=== PATIENT | male | born 1965 | race Caucasian/White ===

== ENCOUNTER 2022-04-02 20:22 | Emergency (ER) | payer OTHER ==
--- OUTSIDE RECORDS SUMMARY | 2022-04-02 20:26 | XMS REPORT | Continuity of Care Document ---
:1965 Author Organization [facility] t Address [address] [place] [address] Care Team Providers Name Role Phone SHERRELL PONCE Primary Care Physician Unavailable HAN EL Attending Clinician Unavailable KATE KOVACS Attending Clinician Unavailable FRANSICO DEAL Attending Clinician Unavailable STALIN KEMP Attending Clinician Unavailable SHERRELL PONCE Attending Clinician Unavailable BERKLEY PATRICIO Attending Clinician Unavailable Rosario CONSERVATION POLICY ANALYSTSherrell Kong Attending Clinician Lela Lara Attending Clinician Unavailable LAWRENCE MCKOY Attending Clinician Unavailable Kate Urias Attending Clinician Doctor Unassigned, [place] Attending Clinician Unavailable RADU HINES Attending Clinician Unavailable Berkley Patricio MD Attending Clinician Merari Tomas LMSW Attending Clinician Unavailable Lab, Ang - Db Attending Clinician Unavailable BERKLEY PATRICIO Admitting Clinician Unavailable Payers Payer Name Policy Type Policy Number Effective Date [place] [id number] 2021 2022 C 00:00:00 00:00:00 Problems Condition Condition Condition Status Onset Resolution Last Treating Co mments Source Name Details Category Date Date Treatment Clinician Date Chronic Chronic Disease Active 2021-05 [facility] renal renal 1-10 [place] , stage 4 , stage 4 00 Medi minal (severe) (severe) Branch Chronic Chronic Disease Active [facility] hepatitis hepatitis 9-22 [place] C [place] hepatic hepatic 00 [place] coma coma Branch Elevated Elevated Disease Active Unive rs liver liver -22 ity of enzymes enzymes 00:00: [place] 00 Medical Branch Elevated Elevated Disease Active Un[facility] serum serum -22 [place] of creatinine [place] 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, loss, 00:00: [place] bilateral bilateral 00 Medi minal Branch Edentulous Edentulous Disease Active U nivers 9-15 ity of 00:00: [place] 00 Medical Branch Chronic Chronic Disease Active [facility] bilateral bilateral 9-15 ity of low back low back 00:00: [place] pain pain 00 Medical without without Branch sciatica sciatica Dry skin Dry skin Disease Active Unive rs dermatitis dermatitis 9-15 it y of 00:00: [place] 00 Medical Branch Anxiety Anxiety Disease Active Univers 9-15 ity of 00:00: [place] 00 Medical Branch Abnormal Abnormal Disease Active Unive rs EKG EKG 9-15 ity of 00:00: [place] 00 Medical Branch Hypertensi Hypertensi Disease Active U nivers on, on, 9-15 ity of unspecifie unspecifie [place] d type d type 00 Medical Branch Mouth pain Mouth pain Disease Active Overview : Univers 3-19 Formattin ity of 00:00: g of this [place] 00 note Medical might be Branch different from the original. Added automatic ally from request for surgery [id number] Other Other Disease Active Overview: Univer s chronic chronic 3-19 Formattin ity o f osteomyeli osteomyeli 00:00: g of this [place] tis, other tis, other 00 note Me dical site site might be Branch different from the original. Added automatic ally from request for surgery [id number] Allergies, Adverse Reactions, Alerts Allergy Allergy Status Severity Reaction(s) Onset Inactive Treating Comm ents Source Name Type Date Date Clinician NO KNOWN Drug Active Univers ALLERGIE Class ity of S [facility] Social History Social Habit Start Date Stop Date Quantity Comments Source History [facility] o f Alcohol Frequency [facility] edical Branch History [facility] o f Alcohol Std Drinks [facility] History [facility] o f Alcohol Binge [facility] [place] [facility] Branch Exposure to 2022-03-19 2022-03-29 Not sure University SARS-CoV-2 (event) 00:00:00 11:49:00 [facility] Alcohol intake 2022-03-29 2022-03-29 .29 /d University of 00:00:00 00:00:00 [facility] Cigarettes smoked 2022-02-01 2022-02-01 Univers ity of current (pack per 00:00:00 00:00:00 [facility] ) - Reported Branch Alcohol Comment 2022-02-01 2022-02-01 Frequency varies Uni versity of 00:00:00 00:00:00 [facility] History of tobacco 2018-03-20 2018-02-27 Cigarette Smoker University of use 00:00:00 00:00:00 [facility] Sex [birth year] Universit y of 00:00:00 00:00:00 [facility] Smoking Status Start Date Stop Date Source Smokes tobacco daily 2022-02-01 00:00:00 Univers ity of [facility] Medications Ordered Filled Start Stop Current Ordering Indication Dosage Frequency Signature Comments Components Source Medication Medication Date Date Medication? Clinician (SIG) Name Name lily 2021-05 Yes [id number] Apply to [facility] 1-10 area(s) 2 ity of acetonide 00:00: (two) [place] 0.1 % cream 00 times Medical daily. Branch lily 2021-05 Yes [id number] Apply to [facility] 1-10 area(s) 2 ity of acetonide 00:00: (two) [place] 0.1 % cream 00 times Medical daily. Branch amLODIPine 2021-05 No [id number] 5mg Take 5 mg Univers 5 mg tablet 0-31 10-31 by mouth ity of 14:30: 00:00 in the [place] 05 :00 morning. Medical Branch amLODIPine 2021-05- No [id number] 5mg Take 5 mg Univers 5 mg tablet 0-31 10-31 by mouth ity of 14:30: 00:00 in the [place] 05 :00 morning. Medical Branch amLODIPine 2021-05 Yes [id number] 10mg Take 1 U nivers 10 mg 0-31 tablet by ity of tablet 00:00: mouth in [place] 00 the Medical morning. Branch amLODIPine 2021-05 Yes [id number] 10mg Take 1 U nivers 10 mg 0-31 tablet by ity of tablet 00:00: mouth in [place] 00 the Medical morning. Branch amLODIPine 2021-05 Yes [id number] 10mg Take 1 U nivers 10 mg 0-31 tablet by ity of tablet 00:00: mouth in [place] the Medical morning. Branch amLODIPine 2021-05 Yes [id number] 10mg Take 1 U nivers 10 mg 0-31 tablet by ity of tablet 00:00: mouth in [place] 00 the Medical morning. Branch amLODIPine 2021-05 Yes [id number] 10mg Take 1 U nivers 10 mg 0-31 tablet by ity of tablet 00:00: mouth in [place] the Medical morning. Branch amLODIPine 2021-05 Yes [id number] 10mg Take 1 U nivers 10 mg 0-31 tablet by ity of tablet 00:00: mouth in [place] the Medical morning. Branch amLODIPine 2021-05 Yes [id number] 10mg Take 1 U nivers 10 mg 0-31 tablet by ity of tablet 00:00: mouth in [place] the Medical morning. Branch amLODIPine 2021-05 Yes [id number] 10mg Take 1 U nivers 10 mg 0-31 tablet by ity of tablet 00:00: mouth in [place] the Medical morning. Branch amLODIPine 2021-05 Yes [id number] 10mg Take 1 U nivers 10 mg 0-31 tablet by ity of tablet 00:00: mouth in [place] 00 the Medical morning. Branch lisinopriL 2021-05- No [id number] 40mg Take 40 mg Univers 40 mg 0-14 10-14 by mouth ity of tablet 14:02: 00:00 in the [place] 49 :00 morning. Medical Branch lisinopriL 2021-05- No [id number] 40mg Take 40 mg Univers 40 mg 0-14 10-14 by mouth ity of tablet 14:02: 00:00 in the [place] 49 :00 morning. Medical Branch carvediloL 2021-05 Yes [id number] 6.25mg Take 1 Univers 6.25 mg 0-14 tablet by ity of tablet 00:00: mouth in [place] 00 the Medical morning Branch and 1 tablet in the evening. Take with meals. carvediloL 2021-05 Yes [id number] 6.25mg Take 1 Univers 6.25 mg 0-14 tablet by ity of tablet 00:00: mouth in [address] morning [place] and 1 tablet in the evening. Take with meals. carvediloL 2021-05 Yes [id number] 6.25mg Take 1 Univers 6.25 mg 0-14 tablet by ity of tablet 00:00: mouth in [address] and 1 tablet in the evening. Take with meals. carvediloL 2021-05 Yes [id number] 6.25mg Take 1 Univers 6.25 mg 0-14 tablet by ity of tablet 00:00: mouth in [address] morning [place] and 1 tablet in the evening. Take with meals. carvediloL 2021-05 Yes [id number] 6.25mg Take 1 Univers 6.25 mg 0-14 tablet by ity of tablet 00:00: mouth in [address] and 1 tablet in the evening. Take with meals. carvediloL 2021-05 Yes [id number] 6.25mg Take 1 Univers 6.25 mg 0-14 tablet by ity of tablet 00:00: mouth in [address] and 1 tablet in the evening. Take with meals. carvediloL 2021-05 Yes [id number] 6.25mg Take 1 Univers 6.25 mg 0-14 tablet by ity of tablet 00:00: mouth in [address] and 1 tablet in the evening. Take with meals. carvediloL 2021-05 Yes [id number] 6.25mg Take 1 Univers 6.25 mg 0-14 tablet by ity of tablet 00:00: mouth in [address] and 1 tablet in the evening. Take with meals. carvediloL 2021-05 Yes [id number] 6.25mg Take 1 Univers 6.25 mg 0-14 tablet by ity of tablet 00:00: mouth in [address] and 1 tablet in the evening. Take with meals. carvediloL 2021-05 Yes [id number] 6.25mg Take 1 Univers 6.25 mg 0-14 tablet by ity of tablet 00:00: mouth in [address] and 1 tablet in the evening. Take with meals. carvediloL 2021-05 Yes [id number] 6.25mg Take 1 Univers 6.25 mg 0-14 tablet by ity of tablet 00:00: mouth in [place] 00 the Medical morning Branch and 1 tablet in the evening. Take with meals. carvediloL 2021-05 Yes [id number] 6.25mg Take 1 Univers 6.25 mg 0-14 tablet by ity of tablet 00:00: mouth in [place] 00 the Medical morning Branch and 1 tablet in the evening. Take with meals. carvediloL 2021-05 Yes [id number] 6.25mg Take 1 Univers 6.25 mg 0-14 tablet by ity of tablet 00:00: mouth in [place] 00 the Medical morning Branch and 1 tablet in the evening. Take with meals. lisinopriL Yes [id number] 40mg Take 40 mg Univers 40 mg 9-22 by mouth ity of tablet 14:52: in the [place] [address] morning. Medical Branch traZODone Yes [id number] 150mg Take 150 Univers 150 mg 9-22 mg by ity of tablet 14:52: mouth at [place] [address] bedtime. Medical Branch cyclobenzap Yes Take by Uni vers rine HCl 9-22 mouth. ity of (CYCLOBENZA 14:52: [place] [employer]) Medical Branch lisinopriL Yes [id number] 40mg Take 40 mg Univers 40 mg 9-22 by mouth ity of tablet 14:52: in the [place] [address] morning. Medical Branch traZODone Yes [id number] 150mg Take 150 Univers 150 mg 9-22 mg by ity of tablet 14:52: mouth at [place] [address] bedtime. Medical Branch cyclobenzap Yes Take by Uni vers rine HCl 9-22 mouth. ity of (CYCLOBENZA 14:52: [place] [employer]) Medical Branch lisinopriL Yes [id number] 40mg Take 40 mg Univers 40 mg 9-22 by mouth ity of tablet 14:52: in the [place] [address] morning. Medical Branch traZODone 0 Yes [id number] 150mg Take 150 Univers 150 mg 9-22 mg by ity of tablet 14:52: mouth at [place] [address] bedtime. Medical Branch cyclobenzap 2022-0 Yes Take by Uni vers rine HCl 9-22 mouth. ity of (CYCLOBENZA 14:52: [place] [employer]) Medical Branch lisinopriL 2021-0 Yes [id number] 40mg Take 40 mg Univers 40 mg 9-22 by mouth ity of tablet 14:52: in the [place] morning. Medical Branch traZODone 2021-0 Yes [id number] 150mg Take 150 Univers 150 mg 9-22 mg by ity of tablet 14:52: mouth at [place] [address] bedtime. Medical Branch cyclobenzap 0 Yes Take by Uni vers rine HCl 9-22 mouth. ity of (CYCLOBENZA 14:52: [place] [employer]) Medical Branch lisinopriL 0 Yes [id number] 40mg Take 40 mg Univers 40 mg 9-22 by mouth ity of tablet 14:52: in the [place] morning. Medical Branch traZODone 2021-0 Yes [id number] 150mg Take 150 Univers 150 mg 9-22 mg by ity of tablet 14:52: mouth at [place] [address] bedtime. Medical Branch cyclobenzap 0 Yes Take by Uni vers rine HCl 9-22 mouth. ity of (CYCLOBENZA 14:52: [place] [employer]) Medical Branch lisinopriL 0 Yes [id number] 40mg Take 40 mg Univers 40 mg 9-22 by mouth ity of tablet 14:52: in the [place] morning. Medical Branch traZODone 2021-0 Yes [id number] 150mg Take 150 Univers 150 mg 9-22 mg by ity of tablet 14:52: mouth at [place] [address] bedtime. Medical Branch cyclobenzap 0 Yes Take by Uni vers rine HCl 9-22 mouth. ity of (CYCLOBENZA 14:52: [place] [employer]) Medical Branch lisinopriL 2021-0 Yes [id number] 40mg Take 40 mg Univers 40 mg 9-22 by mouth ity of tablet 14:52: in the [place] morning. Medical Branch traZODone 2021-0 Yes [id number] 150mg Take 150 Univers 150 mg 9-22 mg by ity of tablet 14:52: mouth at [place] [address] bedtime. Medical Branch cyclobenzap 2021-0 Yes Take by Uni vers rine HCl 9-22 mouth. ity of (CYCLOBENZA 14:52: [place] [employer]) Medical Branch traZODone Yes [id number] 150mg Take 150 Univers 150 mg 9-22 mg by ity of tablet 14:52: mouth at [place] [address] bedtime. Medical Branch cyclobenzap Yes Take by Uni vers rine HCl 9-22 mouth. ity of (CYCLOBENZA 14:52: [place] [employer]) Medical Branch traZODone Yes [id number] 150mg Take 150 Univers 150 mg 9-22 mg by ity of tablet 14:52: mouth at [place] [address] bedtime. Medical Branch cyclobenzap Yes Take by Uni vers rine HCl 9-22 mouth. ity of (CYCLOBENZA 14:52: [place] [employer]) Medical Branch traZODone Yes [id number] 150mg Take 150 Univers 150 mg 9-22 mg by ity of tablet 14:52: mouth at [place] [address] bedtime. Medical Branch cyclobenzap Yes Take by Uni vers rine HCl 9-22 mouth. ity of (CYCLOBENZA 14:52: [place] [employer]) Medical Branch traZODone Yes [id number] 150mg Take 150 Univers 150 mg 9-22 mg by ity of tablet 14:52: mouth at [place] [address] bedtime. Medical Branch cyclobenzap Yes Take by Uni vers rine HCl 9-22 mouth. ity of (CYCLOBENZA 14:52: [place] [employer]) Medical Branch traZODone Yes [id number] 150mg Take 150 Univers 150 mg 9-22 mg by ity of tablet 14:52: mouth at [place] [address] bedtime. Medical Branch cyclobenzap Yes Take by Uni vers rine HCl 9-22 mouth. ity of (CYCLOBENZA 14:52: [place] [employer]) Medical Branch traZODone Yes [id number] 150mg Take 150 Univers 150 mg 9-22 mg by ity of tablet 14:52: mouth at [place] [address] bedtime. Medical Branch cyclobenzap Yes Take by Uni vers rine HCl 9-22 mouth. ity of (CYCLOBENZA 14:52: [place] [employer]) Medical Branch traZODone Yes [id number] 150mg Take 150 Univers 150 mg 9-22 mg by ity of tablet 14:52: mouth at [place] bedtime. Medical Branch cyclobenzap Yes Take by Uni vers rine HCl 9-22 mouth. ity of (CYCLOBENZA 14:52: [place] [employer]) Medical Branch traZODone Yes [id number] 150mg Take 150 Univers 150 mg 9-22 mg by ity of tablet 14:52: mouth at [place] bedtime. Medical Branch cyclobenzap Yes Take by Uni vers rine HCl 9-22 mouth. ity of (CYCLOBENZA 14:52: [place] [employer]) Medical Branch traZODone Yes [id number] 150mg Take 150 Univers 150 mg 9-22 mg by ity of tablet 14:52: mouth at [place] bedtime. Medical Branch cyclobenzap Yes Take by Uni vers rine HCl 9-22 mouth. ity of (CYCLOBENZA 14:52: [place] [employer]) Medical Branch traZODone Yes [id number] 150mg Take 150 Univers 150 mg 9-22 mg by ity of tablet 14:52: mouth at [place] [address] bedtime. Medical Branch cyclobenzap Yes Take by Uni vers rine HCl 9-22 mouth. ity of (CYCLOBENZA 14:52: [place] [employer]) Medical Branch traZODone Yes [id number] 150mg Take 150 Univers 150 mg 9-22 mg by ity of tablet 14:52: mouth at [place] [address] bedtime. Medical Branch cyclobenzap Yes Take by Uni vers rine HCl 9-22 mouth. ity of (CYCLOBENZA 14:52: [place] [employer]) Medical Branch traZODone Yes [id number] 150mg Take 150 Univers 150 mg 9-22 mg by ity of tablet 14:52: mouth at [place] [address] bedtime. Medical Branch cyclobenzap Yes Take by Uni vers rine HCl 9-22 mouth. ity of (CYCLOBENZA 14:52: [place] Y[employer]AL) Medical Branch traZODone Yes [id number] 150mg Take 150 Univers 150 mg 9-22 mg by ity of tablet 14:52: mouth at [place] [address] bedtime. Medical Branch cyclobenzap 0 Yes Take by Uni vers rine HCl 9-22 mouth. ity of (CYCLOBENZA 14:52: [place] [employer]) Medical Branch traZODone 2021- Yes [id number] 150mg Take 150 Univers 150 mg 9-22 mg by ity of tablet 14:52: mouth at [place] bedtime. Medical Branch cyclobenzap Yes Take by Uni vers rine HCl 9-22 mouth. ity of (CYCLOBENZA 14:52: [place] YOL[employer]DE [employer]AL) Medical Branch clotrimazol 0 Yes Apply to Un soniya e 1 % 9-22 area(s) at ity of topical 14:51: bedtime. [place] cream 16 Medical Branch clotrimazol 2021-0 Yes Apply to Un soniya e 1 % 9-22 area(s) at ity of topical 14:51: bedtime. [place] cream 16 Medical Branch clotrimazol 2021-0 Yes Apply to Un soniya e 1 % 9-22 area(s) at ity of topical 14:51: bedtime. [place] cream 16 Medical Branch clotrimazol 2021-0 Yes Apply to Un soniya e 1 % 9-22 area(s) at ity of topical 14:51: bedtime. [place] cream 16 Medical Branch clotrimazol 2021-0 Yes Apply to Un soniya e 1 % 9-22 area(s) at ity of topical 14:51: bedtime. [place] cream 16 Medical Branch clotrimazol 2021-0 Yes Apply to Un soniya e 1 % 9-22 area(s) at ity of topical 14:51: bedtime. [place] cream 16 Medical Branch clotrimazol 2021-0 Yes Apply to Un soniya e 1 % 9-22 area(s) at ity of topical 14:51: bedtime. [place] cream 16 Medical Branch clotrimazol 2021-0 Yes Apply to Un soniya e 1 % 9-22 area(s) at ity of topical 14:51: bedtime. [place] cream 16 Medical Branch clotrimazol 2021-0 Yes Apply to Un soniya e 1 % 9-22 area(s) at ity of topical 14:51: bedtime. [place] cream 16 Medical Branch clotrimazol 2-0 Yes Apply to Un soniya e 1 % 9-22 area(s) at ity of topical 14:51: bedtime. [place] cream 16 Medical Branch clotrimazol 2-0 Yes Apply to Un soniya e 1 % 9-22 area(s) at ity of topical 14:51: bedtime. [place] cream 16 Medical Branch clotrimazol 2-0 Yes Apply to Un soniya e 1 % 9-22 area(s) at ity of topical 14:51: bedtime. [place] cream 16 Medical Branch clotrimazol 2-0 Yes Apply to Un soniya e 1 % 9-22 area(s) at ity of topical 14:51: bedtime. [place] cream 16 Medical Branch clotrimazol 2-0 Yes Apply to Un soniya e 1 % 9-22 area(s) at ity of topical 14:51: bedtime. [place] cream 16 Medical Branch clotrimazol 2-0 Yes Apply to Un soniya e 1 % 9-22 area(s) at ity of topical 14:51: bedtime. [place] cream 16 Medical Branch clotrimazol 2-0 Yes Apply to Un soniya e 1 % 9-22 area(s) at ity of topical 14:51: bedtime. [place] cream 16 Medical Branch clotrimazol 2-0 Yes Apply to Un soniya e 1 % 9-22 area(s) at ity of topical 14:51: bedtime. [place] cream 16 Medical Branch clotrimazol 2-0 Yes Apply to Un soniya e 1 % 9-22 area(s) at ity of topical 14:51: bedtime. [place] cream 16 Medical Branch clotrimazol 2-0 Yes Apply to Un soniya e 1 % 9-22 area(s) at ity of topical 14:51: bedtime. [place] cream 16 Medical Branch clotrimazol 2-0 Yes Apply to Un soniya e 1 % 9-22 area(s) at ity of topical 14:51: bedtime. [place] cream 16 Medical Branch clotrimazol 2-0 Yes Apply to Un soniya e 1 % 9-22 area(s) at ity of topical 14:51: bedtime. [place] cream 16 Medical Branch amLODIPine 2021-0 Yes [id number] 5mg Take 5 mg Univers 5 mg tablet 9-15 by mouth ity of 16:00: in the [place] morning. Medical Branch lisinopriL 2021-0 Yes [id number] 40mg Take 40 mg Univers 40 mg 9-15 by mouth ity of tablet 16:00: in the [place] morning. Medical Branch traZODone 2021-0 Yes [id number] 150mg Take 150 Univers 150 mg 9-15 mg by ity of tablet 16:00: mouth at [place] [address] bedtime. Medical Branch cyclobenzap Yes Take by Uni vers rine HCl 9-15 mouth. ity of (CYCLOBENZA 16:00: [place] [employer]) Medical Branch clotrimazol Yes Apply to Un soniya e 1 % 9-15 area(s) at ity of topical 16:00: bedtime. [place] [facility] 04 Medical Branch amLODIPine 2021-0 Yes [id number] 5mg Take 5 mg Univers 5 mg tablet 9-15 by mouth ity of 16:00: in the [place] morning. Medical Branch lisinopriL 2021-0 Yes [id number] 40mg Take 40 mg Univers 40 mg 9-15 by mouth ity of tablet 16:00: in the [place] morning. Medical Branch traZODone 2021-0 Yes [id number] 150mg Take 150 Univers 150 mg 9-15 mg by ity of tablet 16:00: mouth at [place] [address] bedtime. Medical Branch cyclobenzap Yes Take by Uni vers rine HCl 9-15 mouth. ity of (CYCLOBENZA 16:00: [place] [employer]) Medical Branch clotrimazol Yes Apply to Un soniya e 1 % 9-15 area(s) at ity of topical 16:00: bedtime. [place] cream 04 Medical Branch amLODIPine 2021-0 Yes [id number] 5mg Take 5 mg Univers 5 mg tablet 9-15 by mouth ity of 16:00: in the [place] morning. Medical Branch lisinopriL 2021-0 Yes [id number] 40mg Take 40 mg Univers 40 mg 9-15 by mouth ity of tablet 16:00: in the [place] morning. Medical Branch traZODone 0 Yes [id number] 150mg Take 150 Univers 150 mg 9-15 mg by ity of tablet 16:00: mouth at [place] [address] bedtime. Medical Branch cyclobenzap Yes Take by Uni vers rine HCl 9-15 mouth. ity of (CYCLOBENZA 16:00: [place] [employer]) 04 Medical Branch clotrimazol Yes Apply to Un soniya e 1 % 9-15 area(s) at ity of topical 16:00: bedtime. [place] cream 04 Medical Branch amLODIPine 0 Yes [id number] 5mg Take 5 mg Univers 5 mg tablet 9-15 by mouth ity of 16:00: in the [place] [address] morning. Medical Branch amLODIPine 0 Yes [id number] 5mg Take 5 mg Univers 5 mg tablet 9-15 by mouth ity of 16:00: in the [place] [address] morning. Medical Branch amLODIPine 0 Yes [id number] 5mg Take 5 mg Univers 5 mg tablet 9-15 by mouth ity of 16:00: in the [place] [address] morning. Medical Branch amLODIPine 0 Yes [id number] 5mg Take 5 mg Univers 5 mg tablet 9-15 by mouth ity of 16:00: in the [place] [address] morning. Medical Branch amLODIPine 2021-0 Yes [id number] 5mg Take 5 mg Univers 5 mg tablet 9-15 by mouth ity of 16:00: in the [place] [address] morning. Medical Branch amLODIPine 2021-0 Yes [id number] 5mg Take 5 mg Univers 5 mg tablet 9-15 by mouth ity of 16:00: in the [place] [address] morning. Medical Branch amLODIPine 2021-0 Yes [id number] 5mg Take 5 mg Univers 5 mg tablet 9-15 by mouth ity of 16:00: in the [place] [address] morning. Medical Branch amLODIPine 2021-0 Yes [id number] 5mg Take 5 mg Univers 5 mg tablet 9-15 by mouth ity of 16:00: in the [place] [address] morning. Medical Branch amLODIPine 2021-0 Yes [id number] 5mg Take 5 mg Univers 5 mg tablet 9-15 by mouth ity of 16:00: in the [place] [address] morning. Medical Branch amLODIPine 2021-0 Yes [id number] 5mg Take 5 mg Univers 5 mg tablet 9-15 by mouth ity of 16:00: in the [place] [address] morning. Medical Branch amLODIPine 0 Yes [id number] 5mg Take 5 mg Univers 5 mg tablet 9-15 by mouth ity of 16:00: in the [place] [address] morning. Medical Branch amLODIPine 2021-0 Yes [id number] 5mg Take 5 mg Univers 5 mg tablet 9-15 by mouth ity of 16:00: in the [place] [address] morning. Medical Branch amLODIPine 2021-0 Yes [id number] 5mg Take 5 mg Univers 5 mg tablet 9-15 by mouth ity of 16:00: in the [place] [address] morning. Medical Branch lisinopriL 0 Yes [id number] 40mg Take 40 mg Univers 40 mg 9-15 by mouth ity of tablet 16:00: in the [place] [address] morning. Medical Branch traZODone 0 Yes [id number] 150mg Take 150 Univers 150 mg 9-15 mg by ity of tablet 16:00: mouth at [place] [address] bedtime. Medical Branch cyclobenzap Yes Take by Uni vers rine HCl 9-15 mouth. ity of (CYCLOBENZA 16:00: [place] [employer]) Medical Branch clotrimazol Yes Apply to Un soniya e 1 % 9-15 area(s) at ity of topical 16:00: bedtime. [place] cream Medical Branch amLODIPine Yes [id number] 5mg Take 5 mg Univers 5 mg tablet 9-15 by mouth ity of 16:00: in the [place] [address] morning. Medical Branch lisinopriL 0 Yes [id number] 40mg Take 40 mg Univers 40 mg 9-15 by mouth ity of tablet 16:00: in the [place] [address] morning. Medical Branch traZODone 0 Yes [id number] 150mg Take 150 Univers 150 mg 9-15 mg by ity of tablet 16:00: mouth at [place] [address] bedtime. Medical Branch cyclobenzap 0 Yes Take by Uni vers rine HCl 9-15 mouth. ity of (CYCLOBENZA 16:00: [place] [employer]) Medical Branch clotrimazol Yes Apply to Un soniya e 1 % 9-15 area(s) at ity of topical 16:00: bedtime. [place] cream Medical Branch doxepin 50 2022-0 Yes [id number] 50mg Take 1 U nivers mg capsule 9-15 capsule by ity of 00:00: mouth at [place] [address] bedtime. Medical Branch doxepin 50 2021-0 Yes [id number] 50mg Take 1 U nivers mg capsule 9-15 capsule by ity of 00:00: mouth at [place] [address] bedtime. Medical Branch doxepin 50 2021-0 Yes [id number] 50mg Take 1 U nivers mg capsule 9-15 capsule by ity of 00:00: mouth at [place] [address] bedtime. Medical Branch doxepin 50 2021-0 Yes [id number] 50mg Take 1 U nivers mg capsule 9-15 capsule by ity of 00:00: mouth at [place] [address] bedtime. Medical Branch doxepin 50 2021-0 Yes [id number] 50mg Take 1 U nivers mg capsule 9-15 capsule by ity of 00:00: mouth at [place] [address] bedtime. Medical Branch doxepin 50 2021-0 Yes [id number] 50mg Take 1 U nivers mg capsule 9-15 capsule by ity of 00:00: mouth at [place] [address] bedtime. Medical Branch doxepin 50 0 Yes [id number] 50mg Take 1 U nivers mg capsule 9-15 capsule by ity of 00:00: mouth at [place] [address] bedtime. Medical Branch doxepin 50 0 Yes [id number] 50mg Take 1 U nivers mg capsule 9-15 capsule by ity of 00:00: mouth at [place] [address] bedtime. Medical Branch doxepin 50 2021-0 Yes [id number] 50mg Take 1 U nivers mg capsule 9-15 capsule by ity of 00:00: mouth at [place] [address] bedtime. Medical Branch doxepin 50 0 Yes [id number] 50mg Take 1 U nivers mg capsule 9-15 capsule by ity of 00:00: mouth at [place] [address] bedtime. Medical Branch doxepin 50 2021-0 Yes [id number] 50mg Take 1 U nivers mg capsule 9-15 capsule by ity of 00:00: mouth at [place] [address] bedtime. Medical Branch doxepin 50 2021-0 Yes [id number] 50mg Take 1 U nivers mg capsule 9-15 capsule by ity of 00:00: mouth at [place] [address] bedtime. Medical Branch doxepin 50 2022-0 Yes [id number] 50mg Take 1 U nivers mg capsule 9-15 capsule by ity of 00:00: mouth at [place] [address] bedtime. Medical Branch doxepin 50 2021-0 Yes [id number] 50mg Take 1 U nivers mg capsule 9-15 capsule by ity of 00:00: mouth at [place] [address] bedtime. Medical Branch doxepin 50 2021-0 Yes [id number] 50mg Take 1 U nivers mg capsule 9-15 capsule by ity of 00:00: mouth at [place] [address] bedtime. Medical Branch doxepin 50 2021-0 Yes [id number] 50mg Take 1 U nivers mg capsule 9-15 capsule by ity of 00:00: mouth at [place] [address] bedtime. Medical Branch doxepin 50 0 Yes [id number] 50mg Take 1 U nivers mg capsule 9-15 capsule by ity of 00:00: mouth at [place] [address] bedtime. Medical Branch doxepin 50 0 Yes [id number] 50mg Take 1 U nivers mg capsule 9-15 capsule by ity of 00:00: mouth at [place] [address] bedtime. Medical Branch doxepin 50 0 Yes [id number] 50mg Take 1 U nivers mg capsule 9-15 capsule by ity of 00:00: mouth at [place] [address] bedtime. Medical Branch doxepin 50 0 Yes [id number] 50mg Take 1 U nivers mg capsule 9-15 capsule by ity of 00:00: mouth at [place] [address] bedtime. Medical Branch doxepin 50 2021-0 Yes [id number] 50mg Take 1 U nivers mg capsule 9-15 capsule by ity of 00:00: mouth at [place] [address] bedtime. Medical Branch doxepin 50 0 Yes [id number] 50mg Take 1 U nivers mg capsule 9-15 capsule by ity of 00:00: mouth at [place] [address] bedtime. Medical Branch doxepin 50 2021-0 Yes [id number] 50mg Take 1 U nivers mg capsule 9-15 capsule by ity of 00:00: mouth at [place] [address] bedtime. Medical Branch doxepin 50 2021-0 Yes [id number] 50mg Take 1 U nivers mg capsule 9-15 capsule by ity of 00:00: mouth at [place] 00 bedtime. Medical Branch doxepin 50 2021-0 Yes [id number] 50mg Take 1 U nivers mg capsule 9-15 capsule by ity of 00:00: mouth at [place] 00 bedtime. Medical Branch doxepin 50 2021-0 Yes [id number] 50mg Take 1 U nivers mg capsule 9-15 capsule by ity of 00:00: mouth at [place] 00 bedtime. Medical Branch Vital Signs Vital Name Observation Time Observation Value Comments Source Systolic blood 2022-03-29 17:52:00 150 mm[Hg] Univer sity of pressure [facility] Diastolic blood 2022-03-29 17:52:00 81 mm[Hg] Unive rsity of [facility] Heart rate 2022-03-29 17:51:00 90 /min Universi ty of [facility] Body temperature 2022-03-29 17:51:[address] [facility] Respiratory rate 2022-03-29 17:51:00 24 /min Univ ersity of [facility] Body height 2022-03-29 17:51:00 182.9 cm Universi ty of [facility] Body weight 2022-03-29 17:51:00 75.524 kg Universi ty of [facility] BMI 2022-03-29 17:51:00 22.58 kg/m2 Universi ty of [facility] Oxygen saturation in 2022-03-29 17:51:00 97 /min University of Arterial blood by [facility] Pulse oximetry Branch Systolic blood 2022-03-19 19:23:00 146 mm[Hg] Univer sity of pressure [facility] Diastolic blood 2022-03-19 19:23:00 85 mm[Hg] Unive rsity of pressure [facility] Heart rate 2022-03-19 19:21:00 64 /min Universi ty of [facility] Body temperature 2022-03-19 19:21:00 36.94 Natasha Univ ersity of [facility] Body height 2022-03-19 19:21:00 182.9 cm Universi ty of [facility] Body weight 2022-03-19 19:21:00 73.8 kg Universi ty of [facility] BMI 2022-03-19 19:21:00 22.07 kg/m2 Universi ty of [place] [facility] Oxygen saturation in 2022-03-19 19:21:00 97 /min University of Arterial blood by [place] [facility] Pulse oximetry Branch Systolic blood 2022-03-02 18:47:00 134 mm[Hg] Univer sity of pressure [place] [facility] Diastolic blood 2022-03-02 18:47:00 81 mm[Hg] Unive rsity of pressure [place] [facility] Heart rate 2022-03-02 18:47:00 89 /min Universi ty of [place] [facility] Body temperature 2022-03-02 18:47:00 37.39 Natasha Univ ersity of [place] [facility] Respiratory rate 2022-03-02 18:47:00 18 /min Univ ersity of [place] [facility] Body weight 2022-03-02 18:47:00 73.528 kg Universi ty of [place] [facility] BMI 2022-03-02 18:47:00 21.98 kg/m2 Universi ty of [place] [facility] Oxygen saturation in 2022-03-02 18:47:00 95 /min University of Arterial blood by [place] [facility] minal Pulse oximetry Branch Systolic blood 2022-02-08 19:53:00 103 mm[Hg] Univer sity of pressure [place] [facility] Diastolic blood 2022-02-08 19:53:00 67 mm[Hg] Unive rsity of pressure [place] [facility] Heart rate 2022-02-08 19:53:00 96 /min Universi ty of [place] [facility] Body temperature 2022-02-08 19:53:00 36.78 Natasha Univ ersity of [place] [facility] Respiratory rate 2022-02-08 19:53:00 20 /min Univ ersity of [place] [facility] Body height 2022-02-08 19:53:00 182.9 cm Universi ty [facility] [place] [facility] Body weight 2022-02-08 19:53:00 69.945 kg Universi ty [facility] [place] [facility] BMI 2022-02-08 19:53:00 20.91 kg/m2 Universi ty of [place] [facility] Oxygen saturation in 2022-02-08 19:53:00 95 /min University of Arterial blood by [place] [facility] Pulse oximetry Branch Systolic blood 2022-02-01 21:01:00 124 mm[Hg] Univer sity of pressure [place] [facility] Diastolic blood 2022-02-01 21:01:00 67 mm[Hg] Unive rsity of pressure [facility] Heart rate 2022-02-01 21:01:00 87 /min [facility] Body temperature 2022-02-01 21:01:00 36.72 Natasha [facility] rate 2022-02-01 21:01:00 20 /min [facility] Body height 2022-02-01 21:01:00 182.9 cm [facility] Body weight 2022-02-01 21:01:00 71.26 kg [facility] BMI 2022-02-01 21:01:00 21.31 kg/m2 [facility] Oxygen saturation in 2022-02-01 21:01:00 96 /min [facility] Arterial blood by [facility] Pulse oximetry Branch Procedures Procedure Date / Time Performing Clinician Source Performed REFERRAL- 2022-03-15 05:01:00 Doctor Unassigned, No [facility] REQUEST/RESPONSE Name Medical Branch REFERRAL- 2022-02-13 05:01:00 Doctor Unassigned, No [facility] REQUEST/RESPONSE Name Medical Branch PROSTATIC SPECIFIC 2022-02-02 18:42:00 Sherrell Ponce [facility] ANTIGEN SCREEN Medical [place] THYROID STIMULATING 2022-02-02 18:42:00 Rosario [facility] [place] HORMONE Medical Branch LIPID PANEL 2022-02-02 18:42:00 Rosario [facility] [place] ([id number])(TOTAL Medical [place] CHOLESTEROL, TRIGLYCERIDES, HDL) URINE DRUG (IMMUNOASSAY) 2022-02-02 18:42:00 Sherrell Ponce [facility] - COMPREHENSIVE DRUG Medical [facility] SCREEN HCV ANTIBODY 2022-02-02 18:42:00 Rosario [facility] o f [facility] HEPATITIS C VIRUS (HCV) 2022-02-02 18:42:00 Sherrell Ponce [facility] BY QUANTITATIVE NAAT Medical [facility] ADC OR KONRAD ONLY - 2022-02-02 18:42:00 Sherrell Ponce [facility] RPR [facility] [place] Encounters Start End Encounter Admission Attending Care Care Encounter Source Date/Time Date/Time Type Type Clinicians Facility Department ID 2022-04-06 2022-04-06 Outpatient R ROSARIO, [facility] [id number] Univers 16:00:00 16:00:[address] [facility] 2022-04-04 2022-04-04 Outpatient R SINTIA, [facility] [id number] Univers 08:00:00 08:00:00 BERKLEY itraul o f [facility] 2022-03-30 2022-03-30 Outpatient R ROSARIO, [facility] [id number] Univers 16:00:00 16:00:[address] [facility] 2022-03-29 2022-03-29 Outpatient R ROSARIO, [facility] [id number] Univers 11:30:00 12:16:[address] [facility] 2022-03-29 2022-03-29 [facility] 1.2.840.114 [id number] Univers 11:30:00 12:16:07 Visit [facility] 350.1.13.10 it y of [place] 4.2.7.2.686 Antoine as PAXTON?BLEA [phone] [address] MEDICAL OFFICE BUILDING 2022-03-29 2022-03-29 Telephone RICK Lara 1.2.840.114 [id number] Univers 00:00:00 00:00:00 Lela A [place] 350.1.13.10 [place] [id number] [address] 2022-03-23 2022-03-23 Case RICK Lara 1.2.840.114 [id number] Univers 00:00:00 00:00:00 Management Lela A [place] 350.1.13.10 [place] [id number] [address] 2022-03-22 2022-03-22 Telephone RICK Lara 1.2.840.114 [id number] Univers 00:00:00 00:00:00 Lela A [place] 350.1.13.10 [place] [id number] [facility] 086 [place] 2022-03-22 2022-03-22 [facility]phone [facility] [id number] Univers 00:00:00 00:00:00 Sherrell HEALTH 350.1.13.10 it y of [place] 4.2.7.2.686 Antoine as [place]?BLEA [id number] Hi dicmichael GONZALEZEY 044 [facility] OFFICE [facility] 2022-03-21 2022-03-21 Outpatient R SINTIA [facility] [id number] Univers 15:59:06 23:59:00 ASHLEYMOJGAN tana o f [facility] 2022-03-21 2022-03-21 Telephone RICK Lara 1.2.840.114 [id number] Univers 00:00:00 00:00:00 Lela Diaz KEO 350.1.13.10 [place] [id number] [address] 2022-03-19 2022-03-19 [facility] [id number] Univers 14:20:00 14:45:[address] [facility] 2022-03-19 2022-03-19 Office [facility] 1.2.840.114 [id number] Univers 14:20:00 14:45:06 Visit Kate Roche [place] 350.1.13.10 i ty of [place] LISA [id number] Hi dicmichael LIPSCOMB 059 [facility] 2022-03-15 2022-03-15 Orders Doctor JAVID 1.2.840.114 [id number] Univers 00:00:00 00:00:00 Only Unassigned, NOEMI 350.1.13.10 ity of [place] [facility] 4.2.7.2.686 Antoine as [id number] [facility] 009 [place] 2022-03-08 2022-03-08 Outpatient R RADU HINES [facility] [id number] Univers 08:30:00 08:30:[address] [facility] 2022-03-08 2022-03-08 [facility] [id number] Univers 00:00:00 00:00:00 Sherrell HEALTH 350.1.13.10 it y of [place] 4.2.7.2.686 Antoine as [place]XTON?BLEA [id number] [address] OFFICE [facility] 2022-03-02 2022-03-02 Outpatient R SINTIA, [facility] [id number] Univers 15:00:00 15:00:00 BERKLEY perezy o [facility] 2022-03-02 2022-03-02 Outpatient R SINTIA, [facility] [id number] Univers 13:40:00 14:15:02 BERKLEY perezy o [facility] 2022-03-02 2022-03-02 Office [facility] 1.2.840.114 [id number] Univers 13:40:00 14:00:00 Visit Berkley [facility] 350.1.13.10 ity of [place] PROF[place] [id number] [facility] 059 [facility] 2022-02-28 2022-02-[address] [facility] [id number] Univers 00:00:00 00:00:00 Sherrell HEALTH 350.1.13.10 it y of [place] 4.2.7.2.686 Antoine as PAXTON?BLEA [id number] [address] OFFICE [facility] 2022-02-26 2022-02-26 RICK Hoyos 1.2.840.114 [id number] Univers 00:00:00 00:00:00 Management Merari R [place] 350.1.13.10 [place] [id number] [address] 2022-02-23 2022-02-23 RICK Hoyos 1.2.840.114 [id number] Univers 00:00:00 00:00:00 Management Merari R [place] 350.1.13.10 [place] [id number] [address] 2022-02-23 2022-02-23 RICK Hoyos 1.2.840.114 [id number] Univers 00:00:00 00:00:00 Management Merari Chelsea KEO 350.1.13.10 [place] [id number] [address] 2022-02-14 2022-02-14 Outpatient R [facility] [id number] Univers 10:30:00 10:30:00 ity of [facility] 2022-02-13 2022-02-13 Orders Doctor JAVID 1.2.840.114 [id number] Univers 00:00:00 00:00:00 Only Unassigned, NOEMI 350.1.13.10 ity of [place] [facility] 4.2.7.2.686 Antoine as [id number] [address] 2022-02-08 2022-02-08 Outpatient R ROSARIO [facility] [id number] Univers 15:45:00 16:09:38 SHERRELL ity of [facility] 2022-02-08 2022-02-08 Curriculum And Assessment Director Lab, Ang - Db [facility] 1.2.840.1 14 [id number] Univers 15:45:00 16:00:00 Visit Sherrell Ponce 350.1.13.10 ity of [place] 4.2.7.2.686 Antoine as PAXTON?BLEA [id number] [facility] [address] [place] MEDICAL OFFICE BUILDING 2022-02-08 2022-02-08 Office Rosario [facility] 1.2.840.114 [id number] Univers 14:30:00 15:00:00 Visit Sherrell HEALTH 350.1.13.10 it y of [place] 4.2.7.2.686 Antoine as [place]XTON?BLEA [id number] [address] MEDICAL OFFICE BUILDING 2022-02-05 2022-02-05 Telephone Rosario [facility] [id number] [id number] Univers 00:00:00 00:00:00 Sherrell HEALTH 350.1.13.10 it y of [place] 4.2.7.2.686 Antoine as PAXTON?BLEA [id number] Hi baron [facility] [address] [place] MEDICAL OFFICE [facility] 2022-02-02 2022-02-02 Outpatient R ROSARIO [facility] [id number] Univers 13:30:00 14:01:[address] [facility] 2022-02-02 2022-02-02 Curriculum And Assessment Director Lab, Ang - Db [facility] 1.2.840.1 14 [id number] Univers 13:30:00 14:01:41 Visit Sherrell Ponce ANGI 350.1.13.10 ity of [place] 4.2.7.2.686 Antoine as PAXTON?BLEA [id number] [facility] CARLOS 353 [facility] OFFICE [facility] 2022-02-02 2022-02-02 Telephone Rosario [facility] [id number] [id number] Univers 00:00:00 00:00:00 Sherrell HEALTH 350.1.13.10 it y of [place] 4.2.7.2.686 Antoine as PAXTON?BLEA [id number] [address] OFFICE [facility] 2022-02-01 2022-02-01 Office Rosario [facility] 1.2.840.114 [id number] Univers 15:30:00 16:52:01 Visit Sherrell WHITLEY 350.1.13.10 it y of [place] 4.2.7.2.686 Antoine as PAXTON?BLEA [id number] [address] MEDICAL OFFICE [facility] 2022-02-01 2022-02-01 Outpatient R ROSARIO [facility] [id number] Univers 15:30:00 16:52:[address] [facility] 2022-02-01 2022-02-01 Orders Doctor JAVID 1.2.840.114 [id number] Univers 00:00:00 00:00:00 Only Unassigned, NOEMI 350.1.13.10 ity of [place] [facility] 4.2.7.2.686 Antoine as [id number] [address] 2022-01-31 2022-01-31 [facility]phone [facility] [id number] Univers 00:00:00 00:00:00 Takipi 350.1.13.10 it y of [place] 4.2.7.2.686 Antoine as [place]XTON?MARILYN [id number] [address] MEDICAL OFFICE BUILDING Results Test Description Test Time Test Comments Results Result Comments Source HEPATITIS C VIRUS (HCV) BY QUANTITATIVE NAAT 2022-02-05 20:2 9:47 Test Item Value Reference Range Interpretation Comme nts HCV Quantitative NAAT - log Not Detected log IU/mL IU/mL (test code = 90796-7) HCV Quantitative NAAT - IU/mL Not Detected IU/mL (test code = 29022-5) HCV Quantitative Detected Not Detected A Interpretation (test code = 1365165253) GETACHEW (test code = GETACHEW) The Aptima HCV Quant Dx assay is an FDA-approved real-time national account representative-mediated amplification (TMA) test used for both detection and quantitation of hepatitis C virus (HCV) RNA in human serum and plasma from HCV-infected individuals. ?It is intended for use as an aid in the diagnosis of active HCV infection and the management of HCV-infected patients undergoing HCV antiviral drug therapy. ?It is not approved for use as a screening test for the presence of HCV RNA in blood or blood products. The quantitative range of this assay is 1.00 - 8.00 log IU/mL or 10 - 100,000,000 IU/mL. An interpretation of "Not Detected" does not rule out the presence of inhibitors in the patient specimen or HCV RNA concentration below the level of detection of the test. ?Care should be taken when interpreting any single viral load determination. Detected, not Quantifiable: HCV RNA detected, but at a level below 10 IU/mL (1.0 log IU/mL). ?HCV RNA concentration is below the lower limit of quantitation of the assay. Indeterminate: Error indicated in the generation of the result. ?Please submit a new specimen for repeat testing if clinically indicated. Lab Interpretation (test code Abnormal = 63561-6) [facility] [id number] 08:58:12 Test Item Value Reference Range Interpretation Comments HCV Ab (test code = Positive 43775-3) HCV Semi-Quantitative (test code = 05530-3) APRI (test code = 5656740896) GETACHEW (test code = Positive for HCV antibody. GETACHEW) This specimen has been reflexed to qualitative PCR test and submitted to [facility]. ?A report will be issued by that laboratory. ?If any questions, contact the Clinical Chemistry Director database administration project manager at [phone]. [facility] CenterAD OR KONRAD CANDACE - [id number] 05:58:38 Test Item Value Reference Range Interpretation Comments RPR (Qualitative) (test code = Nonreactive Nonreactive 61963-1) Lab Interpretation (test code = Normal 43167-6) [facility] CenterTHYROID STIMULATING [id number] 04:19:19 Test Item Value Reference Range Interpretation Comments TSH (test code = See_Comment [Automated message] [id number]) The system [employer] 19 generated this result transmitted ref erence range: 0.45 - 4 .70 mIU/L. The refe rence range was not u sed to interpret this result as normal/abnor mal. Lab Interpretation (test Normal code = 46482-4) [facility] CenterPROSTATIC SPECIFIC ANTIGEN [id number] 04:18:59 Test Item Value Reference Range Interpretation Comments PSA (test code = 4.32 ng/mL See_Comment H [Automated [id number]) message] The system which generated this result transmitted reference range : <=4.00. The reference range was not used to interpret this result as normal/abnormal . GETACHEW (test code = GETACHEW) Biotin has been reported to cause a negative bias, interpret results relative to patient's use of biotin. Lab Interpretation Abnormal (test code = 84889-0) [facility] CenterLIPID PANEL (77161)(TOTAL CHOLESTEROL, TRIGLYCERIDES, HDL)2022-02-03 03:50:57 Test Item Value Reference Range Interpretation Comments CHOL (test code = 155 mg/dL 120-200 8257320620) HDL (test code = 74 mg/dL See_Comment [Automated message] [id number]) The system [employer] generated this result transmit ashley reference range : >=40. The refer ence range was not u sed to interpret th is result as normal/abnormal . HDLC RATIO (test code = See_Comment [Au tomated message] [id number]) The system [employer] generated this result transmit ashley reference range : <=5.0. The refe rence range was not u sed to interpret th is result as normal/abnormal . TRIG (test code = 211 mg/dL 30-170 H [id number]) LDL CHOL (test code = 39 mg/dL See_Comment [Auto mated message] 26921-1) The system [employer] generated this result transmit ashley reference range : <=160. The refe rence range was not u sed to interpret th is result as normal/abnormal . VLDL (test code = 42 mg/dL 5-60 1214419545) Lab Interpretation (test Abnormal code = 13769-4) [facility] CenterLIPID [id number] 05:00:19 Test Item Value Reference Range Interpretation Comments CHOLESTEROL (test 192 MG/DL <200 code = 2210) TRIGLYCERIDES (test 99 MG/DL <150 code = 2232) HDL CHOLESTEROL (test 88 MG/DL >39 code = 2220) CALC LDL CHOL (test 85 MG/DL <100 NOTE: C ALCULATED LDL code = 2237) IS BASED ON JEAN MARIE-SHELTON METHOD WHICHINCLUDES ADJUSTABLE TRIGLYCERIDE:VL DL CHOLESTEROL RAT IO.THIS FACTOR VARIES B Y MEASURED TRIGLY CERIDE AND NON-HDLCHOL ESTEROL CONCENTRATIONS WITH INCREASED CALCU LATED LDL SEENIN HIGH ER TRIGLYCERIDE OR LOWER NON-HDL SPECIME NS. FOR MOREINFORMATION , SEE CLIENT ANNOUNCE MENT AT [email or web address] RATIO LDL/HDL 0.97 RATIO <3.55 (test code = 2238) COMPREHENSIVE METABOLIC [id number] 05:00:19 Test Item Value Reference Range Interpretation Comments GLUCOSE (test code = 73 MG/DL 70-99 2216) BUN (test code = 11 MG/DL 6-20 2207) CREATININE (test 1.17 MG/DL 0.80-1.40 code = 2214) eGFR (2020 CKD-EPI) 74 >60 (test code = 71195) ML/MIN/1.73 CALC BUN/CREAT (test 9 RATIO 6-28 code = 2235) SODIUM (test code = 131 MEQ/L 133-146 L 2230) POTASSIUM (test code 3.8 MEQ/L 3.5-5.4 = 8) CHLORIDE (test code 95 MEQ/L 95-107 = 2214) CARBON DIOXIDE (test 22 MEQ/L 19-31 code = 2206) CALCIUM (test code = 9.0 MG/DL 8.5-10.5 2208) PROTEIN, TOTAL (test 7.5 G/DL 6.1-8.3 code = 222) ALBUMIN (test code = 4.3 G/DL 3.5-5.2 2200) CALC GLOBULIN (test 3.2 G/DL 1.9-3.7 code = 2240) CALC A/G RATIO (test 1.3 RATIO 1.0-2.6 code = 2234) BILIRUBIN, TOTAL 0.5 MG/DL See_Comment [Automated message] (test code = 2206) The [employer] which generated this result transmitted ref erence range: <=1.2. T he reference range was not used to int erpret this result as normal/abnormal . ALKALINE PHOSPHATASE 65 U/L 40-121 (test code = 2203) AST (test code = 66 U/L 9-50 H 2217) ALT (test code = 49 U/L 5-50 UNLESS OTH ERWISE 2218) INDICATED, ALL TESTING PERFORM ED ATCLINICAL PATH [facility], [facility]. [address] [place] [id number] [place] [address] DIRECTOR: ALEENA HOGAN M.D. CLIA NUMBER [id number] CAP ACCREDITATION N O. [id number]
[2022-04-02 21:59] LABS: Absolute Lymphocytes (CBC) 1.9 K/uL (0.7-4.9); Hematocrit 36.6 % (39.6-49.0); Lymphocytes % 28.5 % (15.3-44.8); MCV 90.4 fL (80-100); MPV 9.1 fL (7.6-11.3); RBC Red Blood Cell Count 4.05 M/uL (4.33-5.43)
[2022-04-02 22:10] LABS: Potassium 3.6 mmol/L (3.5-5.1)
--- NOTE | 2022-04-02 22:53 | RAD REPORT ---
EXAM DESCRIPTION: RAD - Elbow Right 3 View - 04/02/2022 9:40 pm CLINICAL HISTORY: right elbow pain Fall, elbow pain COMPARISON: No comparisons FINDINGS: Significant soft tissue swelling is seen in the region of the olecranon. This could indica te olecranon bursitis. No acute fracture seen.
[2022-04-02] MEDS ORDERED: SMZ./TMP. 800/160 MG TABLET ONE (23:23)
--- NOTE | 2022-04-03 01:09 | EDPHYS ---
Physician Documentation [facility] Name: Crispin Degroot Age: 56 yrs Sex: Male : 1965 Arrival Date: 04/02/2022 Time: 20:27 Bed 10 Private MD: ED Physician Dontrell Sims HPI: 04/02 23:16 This 56 yrs old Male presents to ER via Ambulatory with complaints of Elbow Injury. kb 23:16 the patient presents with a swollen area of the right arm. Description: draining, kb erythematous, swollen, warm. Onset: The symptoms/episode began/occurred 1 week(s) ago. Possible cause(s): unknown. Associated signs and symptoms: Pertinent positives: drainage, erythema, swelling. Modifying factors: the symptoms are alleviated by nothing, the symptoms are aggravated by pressure. Severity of symptoms: At their worst the symptoms were mild, moderate, in the emergency department the symptoms are unchanged. The patient has not experienced similar symptoms in the past. The patient has not recently seen a physician. Pt reports he fell onto right elbow a week and a half ago. Reports swelling, redness, and pain to right arm. Abrasion to right elbow with drainage. Historical: - Allergies: 20:42 No Known Allergies; kd3 - Home Meds: 20:42 blood pressure meds [Active]; kd3 - Immunization history:: Adult Immunizations up to date. - Social history:: Smoking status: Patient reports the use of cigarette tobacco products, smokes one-half pack cigarettes per day. ROS: 23:15 Constitutional: Negative for fever, chills, and weight loss. kb 23:15 MS/extremity: Positive for erythema, pain, swelling, warmth, of the right arm. 23:15 All other systems are negative. Exam: 23:15 Constitutional: This is a well developed, well nourished patient who is awake, alert, kb and in no acute distress. Head/Face: Normocephalic, atraumatic. ENT: Moist Mucous membranes Cardiovascular: Regular rate and rhythm with a normal S1 and S2. No gallops, murmurs, or rubs. No pulse deficits. Respiratory: Respirations even and unlabored. No increased work of breathing. Talking in full sentences MS/ Extremity: Pulses equal, no cyanosis. Neurovascular intact. Full, normal range of motion. Neuro: Awake and alert, GCS 15, oriented to person, place, time, and situation. Moves all extremities. Normal gait. Psych: Awake, alert, with orientation to person, place and time. Behavior, mood, and affect are within normal limits. 23:15 Skin: cellulitis, that is mild, on the right elbow and palmar aspect of right forearm, injury, abrasion(s), small abrasion noted, of the right elbow. Vital Signs: 20:38 BP 166 / 98; Pulse 94; Resp 16; Temp 98.8(O); Pulse Ox 98% on R/A; Weight 77.11 kg; kd3 Height 6 ft. (182.88 cm); Pain 8/10; 22:31 BP 162 / 84; Pulse 92; Resp 19; Pulse Ox 98% on R/A; kd3 23:27 BP 153 / 81; Pulse 84; Resp 16; Pulse Ox 99% on R/A; kd3 20:38 Body Mass Index 23.06 (77.11 kg, 182.88 cm) kd3 MDM: 20:49 Patient medically screened. kb 23:15 Data reviewed: vital signs, nurses notes. Data interpreted: Pulse oximetry: on room air kb is 98 %. Interpretation: normal. Counseling: I had a detailed discussion with the patient and/or guardian regarding: the historical points, exam findings, and any diagnostic results supporting the discharge/admit diagnosis, lab results, radiology results, the need for outpatient follow up, a family practitioner, to return to the emergency department if symptoms worsen or persist or if there are any questions or concerns that arise at home. 04/02 21:10 Order name: IV Start; Complete Time: 21:37 kb Administered Medications: 23:27 Drug: Bactrim (trimethoprim-sulfamethoxazole) (160 mg-800 mg (DS) 1 tablet Route: PO; kd3 23:28 Follow up: Response: No adverse reaction kd3 Disposition: 04/03 01:29 Co-signature as Attending Physician, Dontrell Sims MD I agree with the assessment and rt plan of care. Disposition Summary: 04/02/22 23:14 Discharge Ordered Location: Home kb Condition: Stable kb Diagnosis - Cellulitis of right upper limb kb Followup: kb - With: Emergency Department - When: As needed - Reason: Worsening of condition Followup: kb - With: Private Physician - When: 2 - 3 days - Reason: Recheck today's complaints, Continuance of care, Re-evaluation by your physician Discharge Instructions: - Discharge Summary Sheet kb - Cellulitis, Adult, [id number] kb Forms: - Medication Reconciliation Form kb - Thank You Letter kb - Antibiotic Education kb - Prescription Opioid Use kb Prescriptions: - Bactrim DS 800-160 mg Oral Tablet - take 1 tablet by ORAL route every 12 hours for 10 days; 20 tablet; Refills: 0, kb Product Selection Permitted Signatures: Maya Mendoza FNP-C Lilibeth Manriquez RN RN kd3 Dontrell Sims MD MD rt Corrections: (The following items were deleted from the chart) 04/02 20:42 20:42 Home Meds: None; kd3 kd3
--- NOTE | 2022-04-03 01:09 | ER ---
Nurse's Notes [facility] Name: Crispin Degroot Age: 56 yrs Sex: Male : 1965 Arrival Date: 04/02/2022 Time: 20:27 Bed 10 Private MD: Diagnosis: Cellulitis of right upper limb Presentation: 04/02 20:38 Chief complaint: Patient states: I fell about a week and a half ago and i landed on my kd3 right elbow. Im not sure if i landed on it wrong but it still hurts. Coronavirus screen: Vaccine status: Patient reports being unvaccinated. Ebola Screen: No symptoms or risks identified at this time. Initial Sepsis Screen: Does the patient meet any 2 criteria? No. Patient's initial sepsis screen is negative. Does the patient have a suspected source of infection? No. Patient's initial sepsis screen is negative. Risk Assessment: Do you want to hurt yourself or someone else? Patient reports no desire to harm self or others. Onset of symptoms was April 02, 2022. 20:38 Method Of Arrival: Ambulatory kd3 20:38 Acuity: DANY 4 kd3 Triage Assessment: 20:42 General: Appears in no apparent distress. Behavior is calm, cooperative. General: kd3 Behavior is restless. Pain: Complains of pain in right elbow. Neuro: Level of Consciousness is awake, alert, obeys commands, Oriented to person, place, time, situation. Respiratory: Airway is patent Trachea midline Respiratory effort is even, unlabored, Respiratory pattern is regular, symmetrical. Musculoskeletal: Circulation, motion, and sensation intact. Injury Description: Bruise sustained to right elbow. Historical: - Allergies: 20:42 No Known Allergies; kd3 - Home Meds: 20:42 blood pressure meds [Active]; kd3 - Immunization history:: Adult Immunizations up to date. - Social history:: Smoking status: Patient reports the use of cigarette tobacco products, smokes one-half pack cigarettes per day. Screenin:43 Abuse screen: Denies threats or abuse. Denies injuries from another. Nutritional kd3 screening: No deficits noted. Tuberculosis screening: No symptoms or risk factors identified. Fall Risk None identified. Assessment: 21:37 General: Appears in no apparent distress. Behavior is calm, cooperative. General: blood kd3 collected and sent to lab . Pain: Complains of pain in right elbow. Neuro: Level of Consciousness is awake, alert, obeys commands, Oriented to person, place, time, situation. 22:30 Reassessment: No changes from previously documented assessment. Patient and/or family kd3 updated on plan of care and expected duration. Pain level reassessed. Patient is alert, oriented x 3, equal unlabored respirations, skin warm/dry/pink. Vital Signs: 20:38 BP 166 / 98; Pulse 94; Resp 16; Temp 98.8(O); Pulse Ox 98% on R/A; Weight 77.11 kg; kd3 Height 6 ft. (182.88 cm); Pain 8/10; 22:31 BP 162 / 84; Pulse 92; Resp 19; Pulse Ox 98% on R/A; kd3 23:27 BP 153 / 81; Pulse 84; Resp 16; Pulse Ox 99% on R/A; kd3 20:38 Body Mass Index 23.06 (77.11 kg, 182.88 cm) kd3 ED Course: 20:27 Patient arrived in ED. mr 20:42 Triage completed. kd3 20:42 Arm band placed on right wrist. kd3 20:43 Patient has correct armband on for positive identification. kd3 20:48 Maya [facility]endoza [facility]C [facility]. kb 20:48 Dontrell Sims MD is Attending Physician. kb 20:56 Lilibeth Martines, ALIVIA is Primary Nurse. kd3 21:38 Inserted saline lock: 20 gauge in left antecubital area, using aseptic technique. Blood kd3 collected. 23:27 No provider procedures requiring assistance completed. IV discontinued, intact, kd3 bleeding controlled, No redness/swelling at site. Pressure dressing applied. Administered Medications: 23:27 Drug: Bactrim (trimethoprim-sulfamethoxazole) (160 mg-800 mg (DS) 1 tablet Route: PO; kd3 23:28 Follow up: Response: No adverse reaction kd3 Medication: 20:43 VIS not applicable for this client. kd3 Outcome: 23:14 Discharge ordered by . kb 23:27 Discharged to home ambulatory. kd3 23:27 Condition: stable 23:27 Discharge instructions given to patient, Instructed on discharge instructions, follow up and referral plans. medication usage, Demonstrated understanding of instructions, follow-up care, medications, Prescriptions given X 1. 23:28 Patient left the ED. kd3 Signatures: Maya Mendoza FNP-C FNP-Sharon Ba mr Lilibeth Martines, RN RN kd3 Corrections: (The following items were deleted from the chart) 20:42 20:42 Home Meds: None; kd3 kd3
[2022-04-03 02:46] VITALS: TEMP 98.8
[2022-04-03 02:48] VITALS: BP 153/81; O2SAT 99
== END 2022-04-02 23:28 | disposition home or self-care (01) ==
LOC: ER 20:22
DX: L03.113 Cellulitis of right upper limb (principal); F17.210 Nicotine dependence, cigarettes, uncomplicated
CPT/HCPCS: 36415; 80048; 85025; 87040; 99284

== ENCOUNTER 2022-04-17 21:08 | Emergency (ER) | payer OTHER ==
--- OUTSIDE RECORDS SUMMARY | 2022-04-17 21:14 | XMS REPORT | Continuity of Care Document ---
:[address] [facility] t Address [address] [place] [address] Care Team Providers Name Role Phone SHERRELL PONCE Primary Care Physician Unavailable HAN EL Attending Clinician Unavailable KATE KOVACS Attending Clinician Unavailable FRANSICO DEAL Attending Clinician Unavailable STALIN KEMP Attending Clinician Unavailable SHERRELL PONCE Attending Clinician Unavailable BERKLEY PATRICIO Attending Clinician Unavailable Rosario COSMETIC ASSEMBLERSherrell Kong Attending Clinician Lela Lara Attending Clinician Unavailable LAWRENCE MCKOY Attending Clinician Unavailable Kate Urias Attending Clinician Doctor Unassigned, [place] Attending Clinician Unavailable RADU HINES Attending Clinician Unavailable Berkley Patricio MD Attending Clinician Merari Tomas LMSW Attending Clinician Unavailable Lab, Ang - Db Attending Clinician Unavailable BERKLEY PATRICIO Admitting Clinician Unavailable Payers Payer Name Policy Type Policy Number Effective Date Expiration Date 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, loss, 00:00: [place] bilateral bilateral 00 Medi minal Branch Edentulous Edentulous Disease Active U nivers 9-15 ity of 00:00: [place] 00 Medical Branch Chronic Chronic Disease Active Univers bilateral bilateral 9-15 ity of low back low back 00:00: [place] pain pain 00 Medical without without Branch sciatica sciatica Dry skin Dry skin Disease Active Unive rs dermatitis dermatitis 9-15 it y of 00:00: [place] 00 Medical Branch Anxiety Anxiety Disease Active Univers 9-15 ity of 00:00: [place] 00 Medical Branch Abnormal Abnormal Disease Active Unive rs EKG EKG 9-15 ity of 00:00: [place] 00 Medical Branch Hypertensi Hypertensi Disease Active U nivers on, on, 9-15 ity of unspecifie unspecifie [place] type d type 00 Medical Branch Mouth pain Mouth pain Disease Active Overview : Univers 3-19 Formattin ity of 00:00: g of this [place] 00 note Medical might be Branch different from the original. Added automatic ally from request for surgery [id number] Other Other Disease Active Overview: Univer s chronic chronic 3-19 Formattin ity o f osteomyeli osteomyeli 00:00: g of this [place] tis, other tis, other 00 note Me dical site site might be Branch different from the original. Added automatic ally from request for surgery [id number] Allergies, Adverse Reactions, Alerts Allergy Allergy Status Severity Reaction(s) Onset Inactive Treating Comm ents Source Name Type Date Date Clinician NO KNOWN Drug Active Univers ALLERGIE Class ity of S [facility] Social History Social Habit Start Date Stop Date Quantity Comments Source History [facility] University o f Alcohol Frequency [facility] edical Branch History SDOH University o f Alcohol Std Drinks [facility] [place] [facility] History [facility] o f Alcohol Binge [facility] al Branch Exposure to 2022-03-19 2022-03-29 Not sure University SARS-CoV-2 (event) 00:00:00 11:49:00 [facility] [place] [facility] Alcohol intake 2022-03-29 2022-03-29 .29 /d University of 00:00:00 00:00:00 [facility] [place] [facility] Cigarettes smoked 2022-02-01 2022-02-01 Univers ity of current (pack per 00:00:00 00:00:00 [facility] ) - Reported Branch Alcohol Comment 2022-02-01 2022-02-01 Frequency varies Uni versity of 00:00:00 00:00:00 [facility] [place] [facility] History of tobacco 2018-03-20 2018-02-27 Cigarette Smoker University of use 00:00:00 00:00:00 [facility] [place] [facility] Sex [birth year] Universit y of 00:00:00 00:00:00 [facility] [place] [facility] Smoking Status Start Date Stop Date Source Smokes tobacco daily 2022-02-01 00:00:00 Univers ity of [facility] [place] [facility] Medications Ordered Filled Start Stop Current Ordering Indication Dosage Frequency Signature Comments Components Source Medication Medication Date Date Medication? Clinician (SIG) Name Name lily 2021-05 Yes [id number] Apply to [facility] 1-10 area(s) 2 ity of acetonide 00:00: (two) [place] 0.1 % cream 00 times Medical daily. Branch lily 2021-05 Yes [id number] Apply to [facility] 1-10 area(s) 2 ity of acetonide 00:00: (two) [place] 0.1 % cream 00 times Medical daily. Branch amLODIPine 2021-05 No [id number] 5mg Take 5 mg Univers 5 mg tablet 0-31 10-31 by mouth ity of 14:30: 00:00 in the [place] 05 :00 morning. Medical Branch amLODIPine 2021-05- No [id number] 5mg Take 5 mg Univers 5 mg tablet 0-31 10-31 by mouth ity of 14:30: 00:00 in the [place] 05 :00 morning. Medical Branch amLODIPine 2021-05 Yes [id number] 10mg Take 1 U nivers 10 mg 0-31 tablet by ity of tablet 00:00: mouth in [place] the Medical morning. Branch amLODIPine 2021-05 Yes [id number] 10mg Take 1 U nivers 10 mg 0-31 tablet by ity of tablet 00:00: mouth in [place] the Medical morning. Branch amLODIPine 2021-05 Yes [id number] 10mg Take 1 U nivers 10 mg 0-31 tablet by ity of tablet 00:00: mouth in [place] the Medical morning. Branch amLODIPine 2021-05 Yes [id number] 10mg Take 1 U nivers 10 mg 0-31 tablet by ity of tablet 00:00: mouth in [place] the Medical morning. Branch amLODIPine 2021-05 Yes [id number] 10mg Take 1 U nivers 10 mg 0-31 tablet by ity of tablet 00:00: mouth in [place] the Medical morning. Branch amLODIPine 2021-05 Yes [id number] 10mg Take 1 U nivers 10 mg 0-31 tablet by ity of tablet 00:00: mouth in [place] the Medical morning. Branch amLODIPine 2021-05 Yes [id number] 10mg Take 1 U nivers 10 mg 0-31 tablet by ity of tablet 00:00: mouth in [place] the Medical morning. Branch amLODIPine 2021-05 Yes [id number] 10mg Take 1 U nivers 10 mg 0-31 tablet by ity of tablet 00:00: mouth in [place] the Medical morning. Branch amLODIPine 2021-05 Yes [id number] 10mg Take 1 U nivers 10 mg 0-31 tablet by ity of tablet 00:00: mouth in [place] 00 the Medical morning. Branch lisinopriL 2021-05- No [id number] 40mg Take 40 mg Univers 40 mg 0-14 10-14 by mouth ity of tablet 14:02: 00:00 in the [place] 49 :00 morning. Medical Branch lisinopriL 2021-05- No [id number] 40mg Take 40 mg Univers 40 mg 0-14 10-14 by mouth ity of tablet 14:02: 00:00 in the [place] 49 :00 morning. Medical Branch carvediloL 2021-05 Yes [id number] 6.25mg Take 1 Univers 6.25 mg 0-14 tablet by ity of tablet 00:00: mouth in [place] 00 the Medical morning Branch and 1 tablet in the evening. Take with meals. carvediloL 2021-05 Yes [id number] 6.25mg Take 1 Univers 6.25 mg 0-14 tablet by ity of tablet 00:00: mouth in [place] [address] the [facility] morning Levasy and 1 tablet in the evening. Take with meals. carvediloL 2021-05 Yes [id number] 6.25mg Take 1 Univers 6.25 mg 0-14 tablet by ity of tablet 00:00: mouth in [place] [address] the [facility] morning Levasy and 1 tablet in the evening. Take with meals. carvediloL 2021-05 Yes [id number] 6.25mg Take 1 Univers 6.25 mg 0-14 tablet by ity of tablet 00:00: mouth in [place] [address] the [facility] morning Levasy and 1 tablet in the evening. Take with meals. carvediloL 2021-05 Yes [id number] 6.25mg Take 1 Univers 6.25 mg 0-14 tablet by ity of tablet 00:00: mouth in [place] [address] the [facility] morning Levasy and 1 tablet in the evening. Take with meals. carvediloL 2021-05 Yes [id number] 6.25mg Take 1 Univers 6.25 mg 0-14 tablet by ity of tablet 00:00: mouth in [place] [address] the [facility] and 1 tablet in the evening. Take with meals. carvediloL 2021-05 Yes [id number] 6.25mg Take 1 Univers 6.25 mg 0-14 tablet by ity of tablet 00:00: mouth in [place] [address] the [facility] morning Levasy and 1 tablet in the evening. Take with meals. carvediloL 2021-05 Yes [id number] 6.25mg Take 1 Univers 6.25 mg 0-14 tablet by ity of tablet 00:00: mouth in [place] [address] the [facility] and 1 tablet in the evening. Take with meals. carvediloL 2021-05 Yes [id number] 6.25mg Take 1 Univers 6.25 mg 0-14 tablet by ity of tablet 00:00: mouth in [place] [address] the [facility] and 1 tablet in the evening. Take with meals. carvediloL 2021-05 Yes [id number] 6.25mg Take 1 Univers 6.25 mg 0-14 tablet by ity of tablet 00:00: mouth in [address] morning Levasy and 1 tablet in the evening. Take with meals. carvediloL 2021-05 Yes [id number] 6.25mg Take 1 Univers 6.25 mg 0-14 tablet by ity of tablet 00:00: mouth in [place] 00 the Medical morning Branch and 1 tablet in the evening. Take with meals. carvediloL 2021-05 Yes [id number] 6.25mg Take 1 Univers 6.25 mg 0-14 tablet by ity of tablet 00:00: mouth in [place] 00 the Medical morning Branch and 1 tablet in the evening. Take with meals. carvediloL 2021-05 Yes [id number] 6.25mg Take 1 Univers 6.25 mg 0-14 tablet by ity of tablet 00:00: mouth in [place] 00 the Medical morning Branch and 1 tablet in the evening. Take with meals. lisinopriL Yes [id number] 40mg Take 40 mg Univers 40 mg 9-22 by mouth ity of tablet 14:52: in the [place] [address] morning. Medical Branch traZODone 0 Yes [id number] 150mg Take 150 Univers 150 mg 9-22 mg by ity of tablet 14:52: mouth at [place] [address] bedtime. Medical Branch cyclobenzap Yes Take by Uni vers rine HCl 9-22 mouth. ity of (CYCLOBENZA 14:52: [place] [employer]) Medical Branch lisinopriL Yes [id number] 40mg Take 40 mg Univers 40 mg 9-22 by mouth ity of tablet 14:52: in the [place] [address] morning. Medical Branch traZODone Yes [id number] 150mg Take 150 Univers 150 mg 9-22 mg by ity of tablet 14:52: mouth at [place] [address] bedtime. Medical Branch cyclobenzap Yes Take by Uni vers rine HCl 9-22 mouth. ity of (CYCLOBENZA 14:52: [place] [employer]) Medical Branch lisinopriL Yes [id number] 40mg Take 40 mg Univers 40 mg 9-22 by mouth ity of tablet 14:52: in the [place] [address] morning. Medical Branch traZODone 0 Yes [id number] 150mg Take 150 Univers 150 mg 9-22 mg by ity of tablet 14:52: mouth at [place] [address] bedtime. Medical Branch cyclobenzap 2022-0 Yes Take by Uni vers rine HCl 9-22 mouth. ity of (CYCLOBENZA 14:52: [place] [employer]) Medical Branch lisinopriL 2021-0 Yes [id number] 40mg Take 40 mg Univers 40 mg 9-22 by mouth ity of tablet 14:52: in the [place] morning. Medical Branch traZODone 2021-0 Yes [id number] 150mg Take 150 Univers 150 mg 9-22 mg by ity of tablet 14:52: mouth at [place] [address] bedtime. Medical Branch cyclobenzap 0 Yes Take by Uni vers rine HCl 9-22 mouth. ity of (CYCLOBENZA 14:52: [place] [employer]) Medical Branch lisinopriL 0 Yes [id number] 40mg Take 40 mg Univers 40 mg 9-22 by mouth ity of tablet 14:52: in the [place] morning. Medical Branch traZODone 2021-0 Yes [id number] 150mg Take 150 Univers 150 mg 9-22 mg by ity of tablet 14:52: mouth at [place] [address] bedtime. Medical Branch cyclobenzap 0 Yes Take by Uni vers rine HCl 9-22 mouth. ity of (CYCLOBENZA 14:52: [place] [employer]) Medical Branch lisinopriL 0 Yes [id number] 40mg Take 40 mg Univers 40 mg 9-22 by mouth ity of tablet 14:52: in the [place] morning. Medical Branch traZODone 2021-0 Yes [id number] 150mg Take 150 Univers 150 mg 9-22 mg by ity of tablet 14:52: mouth at [place] [address] bedtime. Medical Branch cyclobenzap 0 Yes Take by Uni vers rine HCl 9-22 mouth. ity of (CYCLOBENZA 14:52: [place] [employer]) Medical Branch lisinopriL 2021-0 Yes [id number] 40mg Take 40 mg Univers 40 mg 9-22 by mouth ity of tablet 14:52: in the [place] morning. Medical Branch traZODone 2021-0 Yes [id number] 150mg Take 150 Univers 150 mg 9-22 mg by ity of tablet 14:52: mouth at [place] [address] bedtime. Medical Branch cyclobenzap 0 Yes Take by Uni vers rine HCl 9-22 mouth. ity of (CYCLOBENZA 14:52: [place] [employer]) Medical Branch traZODone Yes [id number] 150mg Take 150 Univers 150 mg 9-22 mg by ity of tablet 14:52: mouth at [place] [address] bedtime. Medical Branch cyclobenzap Yes Take by Uni vers rine HCl 9-22 mouth. ity of (CYCLOBENZA 14:52: [place] [employer]) Medical Branch traZODone Yes [id number] 150mg Take 150 Univers 150 mg 9-22 mg by ity of tablet 14:52: mouth at [place] [address] bedtime. Medical Branch cyclobenzap Yes Take by Uni vers rine HCl 9-22 mouth. ity of (CYCLOBENZA 14:52: [place] [employer]) Medical Branch traZODone Yes [id number] 150mg Take 150 Univers 150 mg 9-22 mg by ity of tablet 14:52: mouth at [place] [address] bedtime. Medical Branch cyclobenzap Yes Take by Uni vers rine HCl 9-22 mouth. ity of (CYCLOBENZA 14:52: [place] [employer]) Medical Branch traZODone Yes [id number] 150mg Take 150 Univers 150 mg 9-22 mg by ity of tablet 14:52: mouth at [place] [address] bedtime. Medical Branch cyclobenzap Yes Take by Uni vers rine HCl 9-22 mouth. ity of (CYCLOBENZA 14:52: [place] [employer]) Medical Branch traZODone Yes [id number] 150mg Take 150 Univers 150 mg 9-22 mg by ity of tablet 14:52: mouth at [place] [address] bedtime. Medical Branch cyclobenzap Yes Take by Uni vers rine HCl 9-22 mouth. ity of (CYCLOBENZA 14:52: [place] [employer]) Medical Branch traZODone Yes [id number] 150mg Take 150 Univers 150 mg 9-22 mg by ity of tablet 14:52: mouth at [place] [address] bedtime. Medical Branch cyclobenzap Yes Take by Uni vers rine HCl 9-22 mouth. ity of (CYCLOBENZA 14:52: [place] [employer]) Medical Branch traZODone Yes [id number] 150mg Take 150 Univers 150 mg 9-22 mg by ity of tablet 14:52: mouth at [place] bedtime. Medical Branch cyclobenzap Yes Take by Uni vers rine HCl 9-22 mouth. ity of (CYCLOBENZA 14:52: [place] [employer]) Medical Branch traZODone Yes [id number] 150mg Take 150 Univers 150 mg 9-22 mg by ity of tablet 14:52: mouth at [place] bedtime. Medical Branch cyclobenzap Yes Take by Uni vers rine HCl 9-22 mouth. ity of (CYCLOBENZA 14:52: [place] [employer]) Medical Branch traZODone Yes [id number] 150mg Take 150 Univers 150 mg 9-22 mg by ity of tablet 14:52: mouth at [place] bedtime. Medical Branch cyclobenzap Yes Take by Uni vers rine HCl 9-22 mouth. ity of (CYCLOBENZA 14:52: [place] [employer]) Medical Branch traZODone Yes [id number] 150mg Take 150 Univers 150 mg 9-22 mg by ity of tablet 14:52: mouth at [place] [address] bedtime. Medical Branch cyclobenzap Yes Take by Uni vers rine HCl 9-22 mouth. ity of (CYCLOBENZA 14:52: [place] [employer]) Medical Branch traZODone Yes [id number] 150mg Take 150 Univers 150 mg 9-22 mg by ity of tablet 14:52: mouth at [place] [address] bedtime. Medical Branch cyclobenzap Yes Take by Uni vers rine HCl 9-22 mouth. ity of (CYCLOBENZA 14:52: [place] [employer]) Medical Branch traZODone Yes [id number] 150mg Take 150 Univers 150 mg 9-22 mg by ity of tablet 14:52: mouth at [place] [address] bedtime. Medical Branch cyclobenzap Yes Take by Uni vers rine HCl 9-22 mouth. ity of (CYCLOBENZA 14:52: [place] [employer]) Medical Branch traZODone Yes [id number] 150mg Take 150 Univers 150 mg 9-22 mg by ity of tablet 14:52: mouth at [place] [address] bedtime. Medical Branch cyclobenzap 0 Yes Take by Uni vers rine HCl 9-22 mouth. ity of (CYCLOBENZA 14:52: [place] [employer]) Medical Branch traZODone 2021- Yes [id number] 150mg Take 150 Univers 150 mg 9-22 mg by ity of tablet 14:52: mouth at [place] bedtime. Medical Branch cyclobenzap 0 Yes Take [...] cream 16 Medical Branch amLODIPine 2021-0 Yes [id number] 5mg Take 5 mg Univers 5 mg tablet 9-15 by mouth ity of 16:00: in the [place] morning. Medical Branch lisinopriL 2021-0 Yes [id number] 40mg Take 40 mg Univers 40 mg 9-15 by mouth ity of tablet 16:00: in the [place] morning. Medical Branch traZODone 2021-0 Yes [id number] 150mg Take 150 Univers 150 mg 9-15 mg by ity of tablet 16:00: mouth at [place] [address] bedtime. Medical Branch cyclobenzap 0 Yes Take by Uni vers rine HCl 9-15 mouth. ity of (CYCLOBENZA 16:00: [place] [employer]) Medical Branch clotrimazol Yes Apply to Un soniya e 1 % 9-15 area(s) at ity of topical 16:00: bedtime. [place] [facility] 04 Medical Branch amLODIPine 2021-0 Yes [id number] 5mg Take 5 mg Univers 5 mg tablet 9-15 by mouth ity of 16:00: in the [place] morning. Medical Branch lisinopriL 2021-0 Yes [id number] 40mg Take 40 mg Univers 40 mg 9-15 by mouth ity of tablet 16:00: in the [place] morning. Medical Branch traZODone 2021-0 Yes [id number] 150mg Take 150 Univers 150 mg 9-15 mg by ity of tablet 16:00: mouth at [place] [address] bedtime. Medical Branch cyclobenzap Yes Take by Uni vers rine HCl 9-15 mouth. ity of (CYCLOBENZA 16:00: [place] [employer]) Medical Branch clotrimazol Yes Apply to Un soniya e 1 % 9-15 area(s) at ity of topical 16:00: bedtime. [place] cream 04 Medical Branch amLODIPine 2021-0 Yes [id number] 5mg Take 5 mg Univers 5 mg tablet 9-15 by mouth ity of 16:00: in the [place] morning. Medical Branch lisinopriL 2021-0 Yes [id number] 40mg Take 40 mg Univers 40 mg 9-15 by mouth ity of tablet 16:00: in the [place] morning. Medical Branch traZODone 0 Yes [id number] 150mg Take 150 Univers 150 mg 9-15 mg by ity of tablet 16:00: mouth at [place] [address] bedtime. Medical Branch cyclobenzap Yes Take by Uni vers rine HCl 9-15 mouth. ity of (CYCLOBENZA 16:00: [place] [employer]) 04 Medical Branch clotrimazol Yes Apply to Un soniya e 1 % 9-15 area(s) at ity of topical 16:00: bedtime. [place] cream 04 Medical Branch amLODIPine Yes [id number] 5mg Take 5 mg Univers 5 mg tablet 9-15 by mouth ity of 16:00: in the [place] [address] morning. Medical Branch amLODIPine 0 Yes [id number] 5mg Take 5 mg Univers 5 mg tablet 9-15 by mouth ity of 16:00: in the [place] [address] morning. Medical Branch amLODIPine Yes [id number] 5mg Take 5 mg Univers 5 mg tablet 9-15 by mouth ity of 16:00: in the [place] [address] morning. Medical Branch amLODIPine 0 Yes [id number] 5mg Take 5 mg Univers 5 mg tablet 9-15 by mouth ity of 16:00: in the [place] [address] morning. Medical Branch amLODIPine 2021-0 Yes [id number] 5mg Take 5 mg Univers 5 mg tablet 9-15 by mouth ity of 16:00: in the [place] [address] morning. Medical Branch amLODIPine 2021-0 Yes [id number] 5mg Take 5 mg Univers 5 mg tablet 9-15 by mouth ity of 16:00: in the [place] [address] morning. Medical Branch amLODIPine 2021-0 Yes [id number] 5mg Take 5 mg Univers 5 mg tablet 9-15 by mouth ity of 16:00: in the [place] [address] morning. Medical Branch amLODIPine 2021-0 Yes [id number] 5mg Take 5 mg Univers 5 mg tablet 9-15 by mouth ity of 16:00: in the [place] [address] morning. Medical Branch amLODIPine 2021-0 Yes [id number] 5mg Take 5 mg Univers 5 mg tablet 9-15 by mouth ity of 16:00: in the [place] [address] morning. Medical Branch amLODIPine 2021-0 Yes [id number] 5mg Take 5 mg Univers 5 mg tablet 9-15 by mouth ity of 16:00: in the [place] [address] morning. Medical Branch amLODIPine 2021-0 Yes [id number] 5mg Take 5 mg Univers 5 mg tablet 9-15 by mouth ity of 16:00: in the [place] [address] morning. Medical Branch amLODIPine 2021-0 Yes [id number] 5mg Take 5 mg Univers 5 mg tablet 9-15 by mouth ity of 16:00: in the [place] [address] morning. Medical Branch amLODIPine 2021-0 Yes [id number] 5mg Take 5 mg Univers 5 mg tablet 9-15 by mouth ity of 16:00: in the [place] [address] morning. Medical Branch lisinopriL 2021-0 Yes [id number] 40mg Take 40 mg Univers 40 mg 9-15 by mouth ity of tablet 16:00: in the [place] [address] morning. Medical Branch traZODone 0 Yes [id number] 150mg Take 150 Univers 150 mg 9-15 mg by ity of tablet 16:00: mouth at [place] [address] bedtime. Medical Branch cyclobenzap Yes Take by Uni vers rine HCl 9-15 mouth. ity of (CYCLOBENZA 16:00: [place] [employer]) Medical Branch clotrimazol Yes Apply to Un soniya e 1 % 9-15 area(s) at ity of topical 16:00: bedtime. [place] cream Medical Branch amLODIPine 0 Yes [id number] 5mg Take 5 mg Univers 5 mg tablet 9-15 by mouth ity of 16:00: in the [place] [address] morning. Medical Branch lisinopriL 2021-0 Yes [id number] 40mg Take 40 mg Univers 40 mg 9-15 by mouth ity of tablet 16:00: in the [place] [address] morning. Medical Branch traZODone 2021-0 Yes [id number] 150mg Take 150 Univers 150 mg 9-15 mg by ity of tablet 16:00: mouth at [place] [address] bedtime. Medical Branch cyclobenzap 0 Yes Take by Uni vers rine HCl 9-15 mouth. ity of (CYCLOBENZA 16:00: [place] [employer]) Medical Branch clotrimazol Yes Apply to Un soniya e 1 % 9-15 area(s) at ity of topical 16:00: bedtime. [place] cream Medical Branch doxepin 50 2021-0 Yes [id number] 50mg Take 1 U nivers mg capsule 9-15 capsule by ity of 00:00: mouth at [place] [address] bedtime. Medical Branch doxepin 50 2021-0 Yes [id number] 50mg Take 1 U nivers mg capsule 9-15 capsule by ity of 00:00: mouth at [place] [address] bedtime. Medical Branch doxepin 50 2021-0 Yes [id number] 50mg Take 1 U nivers mg capsule 9-15 capsule by ity of 00:00: mouth at [place] [address] bedtime. Medical Branch doxepin 50 2021-0 Yes [id number] 50mg Take 1 U nivers mg capsule 9-15 capsule by ity of 00:00: mouth at [place] [address] bedtime. Medical Branch doxepin 50 2021-0 Yes [id number] 50mg Take 1 U nivers mg capsule 9-15 capsule by ity of 00:00: mouth at [place] [address] bedtime. Medical Branch doxepin 50 2021-0 Yes [id number] 50mg Take 1 U nivers mg capsule 9-15 capsule by ity of 00:00: mouth at [place] [address] bedtime. Medical Branch doxepin 50 0 Yes [id number] 50mg Take 1 U nivers mg capsule 9-15 capsule by ity of 00:00: mouth at [place] [address] bedtime. Medical Branch doxepin 50 0 Yes [id number] 50mg Take 1 U nivers mg capsule 9-15 capsule by ity of 00:00: mouth at [place] [address] bedtime. Medical Branch doxepin 50 2021-0 Yes [id number] 50mg Take 1 U nivers mg capsule 9-15 capsule by ity of 00:00: mouth at [place] [address] bedtime. Medical Branch doxepin 50 2021-0 Yes [id number] 50mg Take 1 U nivers mg capsule 9-15 capsule by ity of 00:00: mouth at [place] [address] bedtime. Medical Branch doxepin 50 2021-0 Yes [id number] 50mg Take 1 U nivers mg capsule 9-15 capsule by ity of 00:00: mouth at [place] [address] bedtime. Medical Branch doxepin 50 2021-0 Yes [id number] 50mg Take 1 U nivers mg capsule 9-15 capsule by ity of 00:00: mouth at [place] [address] bedtime. Medical Branch doxepin 50 2022-0 Yes [id number] 50mg Take 1 U nivers mg capsule 9-15 capsule by ity of 00:00: mouth at [place] [address] bedtime. Medical Branch doxepin 50 2021-0 Yes [id number] 50mg Take 1 U nivers mg capsule 9-15 capsule by ity of 00:00: mouth at [place] [address] bedtime. Medical Branch doxepin 50 2021-0 Yes [id number] 50mg Take 1 U nivers mg capsule 9-15 capsule by ity of 00:00: mouth at [place] [address] bedtime. Medical Branch doxepin 50 0 Yes [id number] 50mg Take 1 U nivers mg capsule 9-15 capsule by ity of 00:00: mouth at [place] [address] bedtime. Medical Branch doxepin 50 0 Yes [id number] 50mg Take 1 U nivers mg capsule 9-15 capsule by ity of 00:00: mouth at [place] [address] bedtime. Medical Branch doxepin 50 0 Yes [id number] 50mg Take 1 U nivers mg capsule 9-15 capsule by ity of 00:00: mouth at [place] [address] bedtime. Medical Branch doxepin 50 0 Yes [id number] 50mg Take 1 U nivers mg capsule 9-15 capsule by ity of 00:00: mouth at [place] [address] bedtime. Medical Branch doxepin 50 0 Yes [id number] 50mg Take 1 U nivers mg capsule 9-15 capsule by ity of 00:00: mouth at [place] [address] bedtime. Medical Branch doxepin 50 0 Yes [id number] 50mg Take 1 U nivers mg capsule 9-15 capsule by ity of 00:00: mouth at [place] [address] bedtime. Medical Branch doxepin 50 0 Yes [id number] 50mg Take 1 U nivers mg capsule 9-15 capsule by ity of 00:00: mouth at [place] [address] bedtime. Medical Branch doxepin 50 0 Yes [id number] 50mg Take 1 U nivers mg capsule 9-15 capsule by ity of 00:00: mouth at [place] [address] bedtime. Medical Branch doxepin 50 2021-0 Yes [id number] 50mg Take 1 U nivers mg capsule 9-15 capsule by ity of 00:00: mouth at [place] 00 bedtime. Medical Branch doxepin 50 2021-0 Yes [id number] 50mg Take 1 U nivers mg capsule 9-15 capsule by ity of 00:00: mouth at [place] 00 bedtime. Medical Branch doxepin 50 2021-0 Yes [id number] 50mg Take 1 U nivers mg capsule 9-15 capsule by ity of 00:00: mouth at [place] 00 bedtime. Medical Branch Vital Signs Vital Name Observation Time Observation Value Comments Source Systolic blood 2022-03-29 17:52:00 150 mm[Hg] Univer sity of pressure [facility] Diastolic blood 2022-03-29 17:52:00 81 mm[Hg] Unive rsity of [facility] Heart rate 2022-03-29 17:51:00 90 /min Universi ty of [facility] Body temperature 2022-03-29 17:51:00 37.33 Natasha Univ ersity [facility] Respiratory rate 2022-03-29 17:51:00 24 /min Univ ersity [facility] Body height 2022-03-29 17:51:00 182.9 cm Universi ty of [facility] Body weight 2022-03-29 17:51:00 75.524 kg Universi ty of [facility] BMI 2022-03-29 17:51:00 22.58 kg/m2 Universi ty of [facility] Oxygen saturation in 2022-03-29 17:51:00 97 /min University Arterial blood by [facility] [place] [facility] Pulse oximetry Branch Systolic blood 2022-03-19 19:23:00 146 mm[Hg] Univer sity of [facility] Diastolic blood 2022-03-19 19:23:00 85 mm[Hg] Unive rsity of pressure [facility] Heart rate 2022-03-19 19:21:00 64 /min Universi ty of [facility] Body temperature 2022-03-19 19:21:00 36.94 Natasha Univ ersity of [facility] Body height 2022-03-19 19:21:00 182.9 cm Universi ty of [facility] [place] [facility] Body weight 2022-03-19 19:21:00 73.8 kg Universi ty of [facility] [place] [facility] BMI 2022-03-19 19:21:00 22.07 kg/m2 Universi ty [facility] [place] [facility] Oxygen saturation in 2022-03-19 19:21:00 97 /min University of Arterial blood by [place] [facility] Pulse oximetry Branch Systolic blood 2022-03-02 18:47:00 134 mm[Hg] Univer sity of pressure [place] [facility] Diastolic blood 2022-03-02 18:47:00 81 mm[Hg] Unive rsity of pressure [place] [facility] Heart rate 2022-03-02 18:47:00 89 /min Universi ty of [place] [facility] Body temperature 2022-03-02 18:47:00 37.39 Natasha Univ ersity of [place] [facility] Respiratory rate 2022-03-02 18:47:00 18 /min Univ ersity of [place] [facility] Body weight 2022-03-02 18:47:00 73.528 kg Universi ty of [place] [facility] BMI 2022-03-02 18:47:00 21.98 kg/m2 Universi ty of [place] [facility] Oxygen saturation in 2022-03-02 18:47:00 95 /min University of Arterial blood by [facility] minal Pulse oximetry Branch Systolic blood 2022-02-08 19:53:00 103 mm[Hg] Univer sity of pressure [place] [facility] Diastolic blood 2022-02-08 19:53:00 67 mm[Hg] Unive rsity of pressure [place] [facility] Heart rate 2022-02-08 19:53:00 96 /min Universi ty of [place] [facility] Body temperature 2022-02-08 19:53:00 36.78 Natasha Univ ersity of [place] [facility] Respiratory rate 2022-02-08 19:53:00 20 /min Univ ersity of [place] [facility] Body height 2022-02-08 19:53:00 182.9 cm Universi ty [facility] [place] [facility] Body weight 2022-02-08 19:53:00 69.945 kg [facility] [place] [facility] BMI 2022-02-08 19:53:00 20.91 kg/m2 Universi ty of [place] [facility] Oxygen saturation in 2022-02-08 19:53:00 95 /min University of Arterial blood by [place] [facility] Pulse oximetry Branch Systolic blood 2022-02-01 21:01:00 124 mm[Hg] Univer sity of pressure [place] [facility] Diastolic blood 2022-02-01 21:01:00 67 mm[Hg] Unive rsity of pressure [facility] Heart rate 2022-02-01 21:01:00 87 /min [facility] Body temperature 2022-02-01 21:01:00 36.72 Natasha [facility] 2022-02-01 21:01:00 20 /min [facility] Body height 2022-02-01 21:01:00 182.9 cm [facility] Body weight 2022-02-01 21:01:00 71.26 kg [facility] BMI 2022-02-01 21:01:00 21.31 kg/m2 [facility] Oxygen saturation in 2022-02-01 21:01:00 96 /min [facility] Arterial blood by [facility] [place] [facility] Pulse oximetry Branch Procedures Procedure Date / Time Performing Clinician Source Performed REFERRAL- 2022-03-15 05:01:00 Doctor Unassigned, No [facility] REQUEST/RESPONSE Name Medical Branch REFERRAL- 2022-02-13 05:01:00 Doctor Unassigned, No [facility] REQUEST/RESPONSE Name Medical Branch PROSTATIC SPECIFIC 2022-02-02 18:42:00 Sherrell Ponce [facility] ANTIGEN SCREEN Medical Branch THYROID STIMULATING 2022-02-02 18:42:00 Rosario [facility] HORMONE Medical Branch LIPID PANEL 2022-02-02 18:42:00 Rosario [facility] ([id number])(TOTAL Medical [place] CHOLESTEROL, TRIGLYCERIDES, HDL) URINE DRUG (IMMUNOASSAY) 2022-02-02 18:42:00 Sherrell Ponce [facility] - COMPREHENSIVE DRUG Medical [facility] SCREEN HCV ANTIBODY 2022-02-02 18:42:00 Rosario [facility] o f [facility] HEPATITIS C VIRUS (HCV) 2022-02-02 18:42:00 Sherrell Ponce [facility] BY QUANTITATIVE NAAT Medical [facility] ADC OR KONRAD ONLY - 2022-02-02 18:42:00 Sherrell Ponce [facility] RPR Medical [place] Encounters Start End Encounter Admission Attending Care Care Encounter Source Date/Time Date/Time Type Type Clinicians Facility Department ID 2022-04-09 2022-04-09 Outpatient R VIRIDIANA, [facility] [id number] Univers 08:00:00 08:00:00 STALIN fajardo [facility] 2022-04-06 2022-04-06 Outpatient R ROSARIO, [facility] [id number] Univers 16:00:00 16:00:00 SHERRELL fajardo [facility] 2022-04-04 2022-04-04 Outpatient R SINTIA, [facility] [id number] Univers 07:57:05 23:59:00 BERKLEY fajardo o f [facility] [place] [facility] 2022-03-30 2022-03-30 Outpatient R ROSARIO [facility] [id number] Univers 16:00:00 16:00:00 SHERRELL fajardo [facility] 2022-03-29 2022-03-29 Outpatient R ROSARIO [facility] [id number] Univers 11:30:00 12:16:07 SHERRELL fajardo [facility] 2022-03-29 2022-03-29 [facility] 1.2.840.114 [id number] Univers 11:30:00 12:16:07 Visit Sherrell [facility] 350.1.13.10 it y of [place] 4.2.7.2.686 Antoine as PAXTON?BLEA [id number] [address] MEDICAL OFFICE BUILDING 2022-03-29 2022-03-29 Telephone RICK Lara 1.2.840.114 [id number] Univers 00:00:00 00:00:00 Lela A [place] 350.1.13.10 [place] [id number] [address] 2022-03-23 2022-03-23 Case RICK Lara 1.2.840.114 [id number] Univers 00:00:00 00:00:00 Management Lela A [place] 350.1.13.10 [place] [id number] [address] 2022-03-22 2022-03-22 Telephone RICK Lara 1.2.840.114 [id number] Univers 00:00:00 00:00:00 Lela A [place] 350.1.13.10 [place] [id number] [facility] 086 [place] 2022-03-22 2022-03-22 Telephone Rosario [facility] 1.2.091.142 [id number] Univers 00:00:00 00:00:00 Sherrell HEALTH 350.1.13.10 [facility] 4.2.7.2.686 Antoine as PAXTON?BLEA [id number] La dical KNEY [address] [place] [address] MEDICAL OFFICE [facility] 2022-03-21 2022-03-21 Outpatient R SINTIA [facility] [id number] Univers 15:59:06 23:59:00 BERKLEY fajardo o f [facility] 2022-03-21 2022-03-21 Telephone RICK Lara 1..840.114 [id number] Univers 00:00:00 00:00:00 Lela A [place] 350.1.13.10 [place] [id number] [address] 2022-03-19 2022-03-19 Outpatient R STACY [facility] [id number] Univers 14:20:00 14:45:06 KATE fajardo of [facility] 2022-03-19 2022-03-19 [facility] 1.2.840.114 [id number] Univers 14:20:00 14:45:06 Visit Kate ROBB 350.1.13.10 i ty [place] LISA [id number] La dical NAL 059 Branch [facility] 2022-03-15 2022-03-15 Orders Doctor HUA 1.2.840.114 [id number] Univers 00:00:00 00:00:00 Only Unassigned, NOEMI 350.1.13.10 ity of [place] [facility] 4.2.7.2.686 Antoine as [id number] [facility] 009 [place] 2022-03-08 2022-03-08 Outpatient R RADU HINES [facility] [id number] Univers 08:30:00 08:30:00 ity of [facility] 2022-03-08 2022-03-08 [facility] [id number] [id number] Univers 00:00:00 00:00:00 Sherrell HEALTH 350.1.13.10 it y of [place] 4.2.7.2.686 Antoine as PAXTON?BLEA [id number] [address] MEDICAL OFFICE [facility] 2022-03-02 2022-03-02 Outpatient R SINTIA, [facility] [id number] Univers 15:00:00 15:00:00 BERKLEY brian [facility] 2022-03-02 2022-03-02 Outpatient R SINTIA, [facility] [id number] Univers 13:40:00 14:15:02 BERKLEY chrisraul o [facility] 2022-03-02 2022-03-02 Office [facility] 1.2.840.114 [id number] Univers 13:40:00 14:00:00 Visit Berkley ROBB 350.1.13.10 ity of [place] E[place] [id number] La baron [facility] 059 [facility] 2022-02-28 2022-02-28 [facility] 1.2.126.663 [id number] Univers 00:00:00 00:00:00 Sherrell HEALTH 350.1.13.10 it y of [place] 4.2.7.2.686 Antoine as PAXTON?BLEA [id number] [facility] 044 [place] MEDICAL OFFICE [facility] 2022-02-26 2022-02-26 RICK Hoyos 1.2.840.114 [id number] Univers 00:00:00 00:00:00 Management Merari [place] 350.1.13.10 [place] [id number] [facility] 086 [place] 2022-02-23 2022-02-23 RICK Hoyos 1.2.840.114 [id number] Univers 00:00:00 00:00:00 Management Merari Tran [place] 350.1.13.10 [place] [id number] [address] 2022-02-23 2022-02-23 RICK Hoyos 1.2.840.114 [id number] Univers 00:00:00 00:00:00 Management Merari R [place] 350.1.13.10 [place] [id number] [address] 2022-02-14 2022-02-14 Outpatient R [facility] [id number] Univers 10:30:00 10:30:00 ity of [facility] 2022-02-13 2022-02-13 Orders Doctor JAVID 1.2.840.114 [id number] Univers 00:00:00 00:00:00 Only Unassigned, NOEMI 350.1.13.10 ity of [place] [facility] 4.2.7.2.686 Antoine as [id number] [address] 2022-02-08 2022-02-08 Outpatient R ROSARIO ORLAKEISHA [facility] [id number] Univers 15:45:00 16:09:38 SHERRELL fajardo [facility] 2022-02-08 2022-02-08 [facility], Ang - Tavo [facility] 1.2.840.1 [id number] Univers 15:45:00 16:00:00 Visit Sherrell Ponce 350.1.13.10 ity of [place] 4.2.7.2.686 Antoine as PAXTON?BLEA [id number] [facility] [address] MEDICAL OFFICE BUILDING 2022-02-08 2022-02-08 Office Rosario [facility] 1.2.840.114 [id number] Univers 14:30:00 15:00:00 Visit Sherrell [employer] 350.1.13.10 [facility] 4.2.7.2.686 Antoine as PAXTON?BLEA [id number] [address] MEDICAL OFFICE BUILDING 2022-02-05 2022-02-05 Telephone Rosario ORLAKEISHA 1.2.088.893 [id number] Univers 00:00:00 00:00:00 Sherrell HEALTH 350.1.13.10 it y of [place] 4.2.7.2.686 Antoine as PAXTON?BLEA [id number] [address] MEDICAL OFFICE [facility] 2022-02-02 2022-02-02 Outpatient R ROSARIO [facility] [id number] Univers 13:30:00 14:01:41 SHERRELL fajardo [facility] 2022-02-02 2022-02-02 Crane Service Technician Lab, Ang - Db [facility] 1.2.840.1 14 [id number] Univers 13:30:00 14:01:41 Visit Sherrell Ponce 350.1.13.10 ity of [place] 4.2.7.2.686 Antoine as PAXTON?BLEA [id number] [facility] [address] MEDICAL OFFICE [facility] 2022-02-02 2022-02-02 Telephone [facility] [id number] Univers 00:00:00 00:00:00 Sherrell HEALTH 350.1.13.10 it y of [place] 4.2.7.2.686 Antoine as PAXTON?BLEA [id number] [address] OFFICE [facility] 2022-02-01 2022-02-01 Office [facility] 1.2.840.114 [id number] Univers 15:30:00 16:52:01 Visit Sherrell WHITLEY 350.1.13.10 it y of [place] 4.2.7.2.686 Antoine as PAXTON?BLEA [id number] [address] MEDICAL OFFICE [facility] 2022-02-01 2022-02-01 Outpatient R ROSARIO [facility] [id number] Univers 15:30:00 16:52:01 SHERRELL fajardo [facility] 2022-02-01 2022-02-01 Orders Doctor HUA 1.2.840.114 [id number] Univers 00:00:00 00:00:00 Only Unassigned, NOEMI 350.1.13.10 ity of [place] [facility] 4.2.7.2.686 Antoine as [id number] [address] 2022-01-31 2022-01-31 Telephone KAROL Ponce 1.2.071.916 [id number] Univers 00:00:00 00:00:00 Sherrell [place] 350.1.13.10 it y jenifer ROBB 4.2.7.2.686 Antoine as PAXTON?MARILYN [id number] [address] MEDICAL OFFICE BUILDING Results Test Description Test Time Test Comments Results Result Comments Source HEPATITIS C VIRUS (HCV) BY QUANTITATIVE NAAT 2022-02-05 20:2 9:47 Test Item Value Reference Range Interpretation Comme nts HCV Quantitative NAAT - log Not Detected log IU/mL IU/mL (test code = 52991-2) HCV Quantitative NAAT - IU/mL Not Detected IU/mL (test code = 55563-1) HCV Quantitative Detected Not Detected A Interpretation (test code = 8910310909) GETACHEW (test code = GETACHEW) The Aptima HCV Quant Dx assay is an FDA-approved real-time riding coach-mediated amplification (TMA) test used for both detection [...] indicated. Lab Interpretation (test code Abnormal = 31000-8) [facility] [id number] 08:58:12 Test Item Value Reference Range Interpretation Comments HCV Ab (test code = Positive 09203-2) HCV Semi-Quantitative (test code = 59463-5) APRI (test code = 7985805598) GETACHEW (test code = Positive for HCV antibody. GETACHEW) This specimen has been reflexed to qualitative PCR test and submitted to [facility]. ?A report will be issued by that laboratory. ?If any questions, contact the Clinical Chemistry Director boom conveyor operator at [phone]. [facility] OR KONRAD MARIA - [id number] 05:58:38 Test Item Value Reference Range Interpretation Comments RPR (Qualitative) (test code = Nonreactive Nonreactive 13677-6) Lab Interpretation (test code = Normal 45019-5) [facility] STIMULATING [id number] 04:19:19 Test Item Value Reference Range Interpretation Comments TSH (test code = See_Comment [Automated message] [id number]) The system [employer] generated this result transmitted ref erence range: 0.45 - 4 .70 mIU/L. The refe rence range was not u sed to interpret this result as normal/abnor mal. Lab Interpretation (test Normal code = 94301-5) [facility] SPECIFIC ANTIGEN [id number] 04:18:59 Test Item Value Reference Range Interpretation Comments PSA (test code = 4.32 ng/mL See_Comment H [Automated [id number]) message] The system which generated this result transmitted reference range : <=4.00. The reference range was not used to interpret this result as normal/abnormal . GETACHEW (test code = GETACHEW) Biotin has been reported to cause a negative bias, interpret results relative to patient's use of biotin. Lab Interpretation Abnormal (test code = 65925-5) [facility] Hospital[facility] PAN[facility] (07715)(TOTAL CHOLESTEROL, TRIGLYCERIDES, HDL)2022-02-03 03:50:57 Test Item Value Reference Range Interpretation Comments CHOL (test code = 155 mg/dL 120-200 [id number]) HDL (test code = 74 mg/dL See_Comment [Automated message] [id number]) The system [employer] generated this result transmit ashley reference range : >=40. The refer ence range was not u sed to interpret th is result as normal/abnormal . HDLC RATIO (test code = See_Comment [Au tomated message] [id number]) The system [employer] generated this result transmit ashley reference range : <=5.0. The refe rence range was not u sed to interpret th is result as normal/abnormal . TRIG (test code = 211 mg/dL 30-170 H [id number]) LDL CHOL (test code = 39 mg/dL See_Comment [Auto mated message] 12407-9) The system [employer] generated this result transmit ashley reference range : <=160. The refe rence range was not u sed to interpret th is result as normal/abnormal . VLDL (test code = 42 mg/dL 5-60 [id number]) Lab Interpretation (test Abnormal code = 58263-9) [facility] [id number] 05:00:19 Test Item Value Reference Range Interpretation [...] MOREINFORMATION , SEE CLIENT ANNOUNCE MENT AT [email or web address] LDL/HDL 0.97 RATIO <3.55 (test code = 8) COMPREHENSIVE METABOLIC [id number] 05:00:19 Test Item Value Reference Range Interpretation Comments GLUCOSE (test code = 73 MG/DL 70-99 2216) BUN (test code = 11 MG/DL 6-20 2207) CREATININE (test 1.17 MG/DL 0.80-1.40 code = 2214) eGFR (2020 CKD-EPI) 74 >60 (test code = 94810) ML/MIN/1.73 CALC BUN/CREAT (test 9 RATIO 6-28 code = 2235) SODIUM (test code = 131 MEQ/L 133-146 L 2230) POTASSIUM (test code 3.8 MEQ/L 3.5-5.4 = 2227) CHLORIDE (test code 95 MEQ/L 95-107 = 2215) CARBON DIOXIDE (test 22 MEQ/L 19-31 code = 220) CALCIUM (test code = 9.0 MG/DL 8.5-10.5 2208) PROTEIN, TOTAL (test 7.5 G/DL 6.1-8.3 code = 222) ALBUMIN (test code = 4.3 G/DL 3.5-5.2 2200) CALC GLOBULIN (test 3.2 G/DL 1.9-3.7 code = 2240) CALC A/G RATIO (test 1.3 RATIO 1.0-2.6 code = 2234) BILIRUBIN, TOTAL 0.5 MG/DL See_Comment [Automated message] (test code = 220) [employer] which generated this result transmitted ref erence range: <=1.2. T he reference range was not used to int erpret this result as normal/abnormal . ALKALINE PHOSPHATASE 65 U/L 40-121 (test code = 2203) AST (test code = 66 U/L 9-50 H 2217) ALT (test code = 49 U/L 5-50 UNLESS OTH ERWISE 2218) INDICATED, ALL TESTING PERFORM ED ATCLINICAL PATH OLOGY LABORATORIES, I [place] [place], [place] [address] [place] [address] DIRECTOR: Compa BEANIA NUMBER [id number] CAP ACCREDITATION N O. [id number]
--- NOTE | 2022-04-17 21:43 | ER ---
Nurse's Notes [facility] Name: Crispin Degroot Age: 56 yrs Sex: Male : 1965 Arrival Date: 04/17/2022 Time: 21:12 Bed Waiting Private MD: Diagnosis: ED Course: 04/17 21:12 Patient arrived in ED. ja2 21:14 Doron Monae PA is PHCP. cp 21:14 Doron Almeida MD is Attending Physician. cp Administered Medications: No medications were administered Outcome: 21:42 Patient left the ED. tw5 Signatures: Doron Monae PA PA cp Alexander, Jessica ja2 iMra Rust tw5
== END 2022-04-17 21:42 | disposition left against medical advice (07) ==
LOC: ER 21:08
DX: Z02.9 Encounter for administrative examinations, unspecified (principal)

== ENCOUNTER 2022-04-21 19:14 | Emergency (ER) | payer OTHER ==
--- OUTSIDE RECORDS SUMMARY | 2022-04-21 19:19 | XMS REPORT | Continuity of Care Document ---
:1965 Author Organization [facility] t Address [address] [place] [address] Care Team Providers Name Role Phone Sherrell Weber Primary Care Physician HAN EL Attending Clinician Unavailable KATE KOVACS Attending Clinician Unavailable FRANSICO DEAL Attending Clinician Unavailable Grecia Bahena Attending Clinician Unknown, Attending Attending Clinician Unavailable UNKNOWN, ATTENDING Attending Clinician Unavailable Berkley Patricio MD Attending Clinician Sherrell Weber Attending Clinician STALIN KEMP Attending Clinician Unavailable SHERRELL PONCE Attending Clinician Unavailable BERKLEY PATRICIO Attending Clinician Unavailable Lela Lara Attending Clinician Unavailable LAWRENCE MCKOY Attending Clinician Unavailable Kate Urias Attending Clinician Doctor Unassigned, [place] Attending Clinician Unavailable RADU HINES Attending Clinician Unavailable Merari Tomas LMSW Attending Clinician Unavailable Lab, Ang - Db Attending Clinician Unavailable BERKLEY PATRICIO Admitting Clinician Unavailable Payers Payer Name Policy Type Policy Number Effective Date Expiration Date S ource Problems Condition Condition Condition Status Onset Resolution Last Treating Co mments Source Name Details Category Date Date Treatment Clinician Date Chronic Chronic Disease Active 2021-05 [facility] renal renal 1-10 [place] stage 4 , stage 4 00 Medi minal (severe) (severe) Branch Chronic Chronic Disease Active [facility] hepatitis hepatitis -22 [place] C [place] without [place] hepatic hepatic 00 [place] coma coma Branch Elevated Elevated Disease Active Unive rs liver liver 22 ity of enzymes enzymes 00:00: [place] 00 Medical Branch Elevated Elevated Disease Active Unive [facility] serum serum -22 [place] creatinine [place] 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, loss, 00:00: [place] bilateral bilateral 00 [facility] Branch Edentulous Edentulous Disease Active U nivers 9-15 ity of 00:00: Medical Branch Chronic Chronic Disease Active Univers bilateral bilateral 9-15 ity of low back low back 00:00: [place] pain pain 00 Medical without without Branch sciatica sciatica Dry skin Dry skin Disease Active Unive rs dermatitis dermatitis -15 it y of 00:00: 00 Medical Branch Anxiety Anxiety Disease Active Univers 9-15 ity of 00:00: 00 Medical Branch Abnormal Abnormal Disease Active Unive rs EKG EKG -15 ity of 00:00: 00 Medical Branch Hypertensi Hypertensi Disease Active U nivers on, on, 9-15 ity of unspecifie unspecifie [place] d type d type 00 Medical Branch Mouth pain Mouth pain Disease Active Overview : Univers 3-19 Formattin ity of 00:00: g of this [place] 00 note Medical might be Branch different from the original. Added automatic ally from request for surgery [id number] Other Other Disease Active Overview: Univer s chronic chronic 3-19 Form[place] ity o f osteomyeli osteomyeli 00:00: g of this [place] tis, other tis, other 00 note Me dical site site might be Branch different from the original. Added automatic ally from request for surgery [id number] Allergies, Adverse Reactions, Alerts Allergy Allergy Status Severity Reaction(s) Onset Inactive Treating Comm ents Source Name Type Date Date Clinician NO KNOWN Drug Active Univers ALLERGIE Class ity of S [facility] Social History Social Habit Start Date Stop Date Quantity Comments Source History SDOH University o f Alcohol Frequency [facility] edical Branch History [facility] o f Alcohol Std Drinks [place] [facility] History [facility] o f Alcohol Binge [facility] al Branch Exposure to 2022-04-11 2022-04-21 Not sure University SARS-CoV-2 (event) 00:00:00 18:42:00 [facility] Cigarettes smoked 2022-04-21 2022-04-21 Univers ity of current (pack per 00:00:00 00:00:00 [facility] ) - Reported Branch Alcohol intake 2022-04-21 2022-04-21 .29 /d University of 00:00:00 00:00:00 [facility] Tobacco use and 2022-04-21 2022-04-21 User of Universit y of exposure 00:00:00 00:00:00 smokeless [facility] tobacco [place] Alcohol Comment 2022-02-01 2022-02-01 Frequency varies Uni versity of 00:00:00 00:00:00 [facility] History of tobacco 2018-03-20 2018-02-27 Snuff User Univer sity of use 00:00:00 00:00:00 [facility] Sex [birth year] Universit y of 00:00:00 00:00:00 [facility] Smoking Status Start Date Stop Date Source Smokes tobacco daily 2022-04-21 00:00:00 Univers ity of [facility] Medications Ordered Filled Start Stop Current Ordering Indication Dosage Frequency Signature Comments Components Source Medication Medication Date Date Medication? Clinician (SIG) Name Name doxepin 50 2021-05 Yes [id number] 50mg Take 1 U nivers mg capsule 2-03 capsule by ity of 00:00: mouth at [place] 00 bedtime. Medical Branch doxepin 50 2021-05 Yes [id number] 50mg Take 1 U nivers mg capsule 2-03 capsule by ity of 00:00: mouth at [place] 00 bedtime. Medical Branch triamcinolo 2021-05 Yes [id number] Apply to [facility] ne 1-10 area(s) 2 ity of acetonide 00:00: (two) [place] 0.1 % cream 00 times Medical daily. Branch triamcinolo 2021-05 Yes [id number] Apply to [facility] ne 1-10 area(s) 2 ity of acetonide 00:00: (two) [place] 0.1 % cream 00 times Medical daily. Branch triamcinolo 2021-05 Yes [id number] Apply to Univers ne 1-10 area(s) 2 ity of acetonide 00:00: (two) [place] 0.1 % cream 00 times Medical daily. Branch triamcinolo 2021-05 Yes [id number] Apply to Univers ne 1-10 area(s) 2 ity of acetonide 00:00: (two) [place] 0.1 % cream 00 times Medical daily. Branch triamcinolo 2021-05 Yes [id number] Apply to Univers ne 1-10 area(s) 2 ity of acetonide 00:00: (two) [place] 0.1 % cream 00 times Medical daily. Branch ghulamamcinolo 2021-05 Yes [id number] Apply to Univers ne 1-10 area(s) 2 ity of acetonide 00:00: (two) [place] 0.1 % cream 00 times Medical daily. Branch ghulamamcinolo 2021-05 Yes [id number] Apply to Univers ne 1-10 area(s) 2 ity of acetonide 00:00: (two) [place] 0.1 % cream 00 times Medical daily. Branch amLODIPine 2021-05- No [id number] 5mg Take 5 mg Univers 5 mg tablet 0-31 10-31 by mouth ity of 14:30: 00:00 in the [place] 05 :00 morning. Medical Branch amLODIPine 2021-05- No [id number] 5mg Take 5 mg Univers 5 mg tablet 0-31 10-31 by mouth ity of 14:30: 00:00 in the [place] 05 :00 morning. Medical Branch amLODIPine 2021-05 Yes [id number] 10mg Take 1 U nivers 10 mg 0-31 tablet by ity of tablet 00:00: mouth in [place] 00 the Medical morning. Branch amLODIPine 2021-05 Yes [id number] 10mg Take 1 U nivers 10 mg 0-31 tablet by ity of tablet 00:00: mouth in [place] 00 the Medical morning. Branch amLODIPine 2021-05 Yes [id number] 10mg Take 1 U nivers 10 mg 0-31 tablet by ity of tablet 00:00: mouth in [place] 00 the Medical morning. Branch amLODIPine 2021-05 Yes [id number] 10mg Take 1 U nivers 10 mg 0-31 tablet by ity of tablet 00:00: mouth in [place] the Medical morning. Branch amLODIPine 2021-05 Yes [id number] 10mg Take 1 U nivers 10 mg 0-31 tablet by ity of tablet 00:00: mouth in [place] the Medical morning. Branch amLODIPine 2021-05 Yes [id number] 10mg Take 1 U nivers 10 mg 0-31 tablet by ity of tablet 00:00: mouth in [place] the Medical morning. Branch amLODIPine 2021-05 Yes [id number] 10mg Take 1 U nivers 10 mg 0-31 tablet by ity of tablet 00:00: mouth in [place] the Medical morning. Branch amLODIPine 2021-05 Yes [id number] 10mg Take 1 U nivers 10 mg 0-31 tablet by ity of tablet 00:00: mouth in [place] the Medical morning. Branch amLODIPine 2021-05 Yes [id number] 10mg Take 1 U nivers 10 mg 0-31 tablet by ity of tablet 00:00: mouth in [place] the Medical morning. Branch amLODIPine 2021-05 Yes [id number] 10mg Take 1 U nivers 10 mg 0-31 tablet by ity of tablet 00:00: mouth in [place] the Medical morning. Branch amLODIPine 2021-05 Yes [id number] 10mg Take 1 U nivers 10 mg 0-31 tablet by ity of tablet 00:00: mouth in [place] the Medical morning. Branch amLODIPine 2021-05 Yes [id number] 10mg Take 1 U nivers 10 mg 0-31 tablet by ity of tablet 00:00: mouth in [place] the Medical morning. Branch amLODIPine 2021-05 Yes [id number] 10mg Take 1 U nivers 10 mg 0-31 tablet by ity of tablet 00:00: mouth in [place] the Medical morning. Branch amLODIPine 2021-05 Yes [id number] 10mg Take 1 U nivers 10 mg 0-31 tablet by ity of tablet 00:00: mouth in [place] the Medical morning. Branch lisinopriL 2021-05- No [id number] 40mg Take 40 mg Univers 40 mg 0-14 10-14 by mouth ity of tablet 14:02: 00:00 in the [place] 49 :00 morning. Medical Branch lisinopriL 2021-05- No [id number] 40mg Take 40 mg Univers 40 mg 0-14 10-14 by mouth ity of tablet 14:02: 00:00 in the [place] 49 :00 morning. [facility] Branch carvediloL 2021-05 Yes [id number] 6.25mg Take 1 Univers 6.25 mg 0-14 tablet by ity of tablet 00:00: mouth in [address] and 1 tablet in the evening. Take with meals. carvediloL 2021-05 Yes [id number] 6.25mg Take 1 Univers 6.25 mg 0-14 tablet by ity of tablet 00:00: mouth in [address] and 1 tablet in the evening. Take with meals. carvediloL 2021-05 Yes [id number] 6.25mg Take 1 Univers 6.25 mg 0-14 tablet by ity of tablet 00:00: mouth in [address] and 1 tablet in the evening. Take with meals. carvediloL 2021-05 Yes [id number] 6.25mg Take 1 Univers 6.25 mg 0-14 tablet by ity of tablet 00:00: mouth in [address] and 1 tablet in the evening. Take with meals. carvediloL 2021-05 Yes [id number] 6.25mg Take 1 Univers 6.25 mg 0-14 tablet by ity of tablet 00:00: mouth in [address] and 1 tablet in the evening. Take with meals. carvediloL 2021-05 Yes [id number] 6.25mg Take 1 Univers 6.25 mg 0-14 tablet by ity of tablet 00:00: mouth in [address] and 1 tablet in the evening. Take with meals. carvediloL 2021-05 Yes [id number] 6.25mg Take 1 Univers 6.25 mg 0-14 tablet by ity of tablet 00:00: mouth in [address] and 1 tablet in the evening. Take with meals. carvediloL 2021-05 Yes [id number] 6.25mg Take 1 Univers 6.25 mg 0-14 tablet by ity of tablet 00:00: mouth in [address] and 1 tablet in the evening. Take with meals. carvediloL 2021-05 Yes [id number] 6.25mg Take 1 Univers 6.25 mg 0-14 tablet by ity of tablet 00:00: mouth in [address] morning [place] and 1 tablet in the evening. Take with meals. carvediloL 2021-05 Yes [id number] 6.25mg Take 1 Univers 6.25 mg 0-14 tablet by ity of tablet 00:00: mouth in [address] morning [place] and 1 tablet in the evening. Take with meals. carvediloL 2021-05 Yes [id number] 6.25mg Take 1 Univers 6.25 mg 0-14 tablet by ity of tablet 00:00: mouth in [address] morning [place] and 1 tablet in the evening. Take with meals. carvediloL 2021-05 Yes [id number] 6.25mg Take 1 Univers 6.25 mg 0-14 tablet by ity of tablet 00:00: mouth in [address] morning [place] and 1 tablet in the evening. Take with meals. carvediloL 2021-05 Yes [id number] 6.25mg Take 1 Univers 6.25 mg 0-14 tablet by ity of tablet 00:00: mouth in [address] morning [place] and 1 tablet in the evening. Take with meals. carvediloL 2021-05 Yes [id number] 6.25mg Take 1 Univers 6.25 mg 0-14 tablet by ity of tablet 00:00: mouth in [address] and 1 tablet in the evening. Take with meals. carvediloL 2021-05 Yes [id number] 6.25mg Take 1 Univers 6.25 mg 0-14 tablet by ity of tablet 00:00: mouth in [address] and 1 tablet in the evening. Take with meals. carvediloL 2021-05 Yes [id number] 6.25mg Take 1 Univers 6.25 mg 0-14 tablet by ity of tablet 00:00: mouth in [address] morning [place] and 1 tablet in the evening. Take with meals. carvediloL 2021-05 Yes [id number] 6.25mg Take 1 Univers 6.25 mg 0-14 tablet by ity of tablet 00:00: mouth in [address] morning [place] and 1 tablet in the evening. Take with meals. carvediloL 2021-05 Yes [id number] 6.25mg Take 1 Univers 6.25 mg 0-14 tablet by ity of tablet 00:00: mouth in [place] 00 the Medical morning Branch and 1 tablet in the evening. Take with meals. lisinopriL 2021-0 Yes [id number] 40mg Take 40 mg Univers 40 mg 9-22 by mouth ity of tablet 14:52: in the [place] [address] morning. Medical Branch traZODone 2021-0 Yes [id number] 150mg Take 150 Univers 150 mg 9-22 mg by ity of tablet 14:52: mouth at [place] [address] bedtime. Medical Branch cyclobenzap 2021-0 Yes Take by Uni vers rine HCl 9-22 mouth. ity of (CYCLOBENZA 14:52: [place] YOLANDE ORAL) Medical Branch lisinopriL 2021-0 Yes [id number] 40mg Take 40 mg Univers 40 mg 9-22 by mouth ity of tablet 14:52: in the [place] morning. Medical Branch traZODone 2021-0 Yes [id number] 150mg Take 150 Univers 150 mg 9-22 mg by ity of tablet 14:52: mouth at [place] [address] bedtime. Medical Branch cyclobenzap 2021-0 Yes Take by Uni vers rine HCl 9-22 mouth. ity of (CYCLOBENZA 14:52: [place] YOLANDE ORAL) Medical Branch lisinopriL 2021-0 Yes [id number] 40mg Take 40 mg Univers 40 mg 9-22 by mouth ity of tablet 14:52: in the [place] morning. Medical Branch traZODone 2021-0 Yes [id number] 150mg Take 150 Univers 150 mg 9-22 mg by ity of tablet 14:52: mouth at [place] [address] bedtime. Medical Branch cyclobenzap 2021-0 Yes Take by Uni vers rine HCl 9-22 mouth. ity of (CYCLOBENZA 14:52: [place] YOLANDE ORAL) Medical Branch lisinopriL 2021-0 Yes [id number] 40mg Take 40 mg Univers 40 mg 9-22 by mouth ity of tablet 14:52: in the [place] morning. Medical Branch traZODone 2021-0 Yes [id number] 150mg Take 150 Univers 150 mg 9-22 mg by ity of tablet 14:52: mouth at [place] [address] bedtime. Medical Branch cyclobenzap 2021-0 Yes Take by Un soniya rine HCl 9-22 mouth. ity of (CYCLOBENZA 14:52: [place] YOLANDE ORAL) Medical Branch lisinopriL Yes [id number] 40mg Take 40 mg Univers 40 mg 9-22 by mouth ity of tablet 14:52: in the morning. Medical Branch traZODone Yes [id number] 150mg Take 150 Univers 150 mg 9-22 mg by ity of tablet 14:52: mouth at [place] bedtime. Medical Branch cyclobenzap Yes Take by Uni vers rine HCl 9-22 mouth. ity of (CYCLOBENZA 14:52: [place] YOLANDE ORAL) Medical Branch lisinopriL Yes [id number] 40mg Take 40 mg Univers 40 mg 9-22 by mouth ity of tablet 14:52: in the morning. Medical Branch traZODone Yes [id number] 150mg Take 150 Univers 150 mg 9-22 mg by ity of tablet 14:52: mouth at [place] bedtime. Medical Branch cyclobenzap Yes Take by Uni vers rine HCl 9-22 mouth. ity of (CYCLOBENZA 14:52: [place] YOLANDE ORAL) Medical Branch lisinopriL Yes [id number] 40mg Take 40 mg Univers 40 mg 9-22 by mouth ity of tablet 14:52: in the morning. Medical Branch traZODone Yes [id number] 150mg Take 150 Univers 150 mg 9-22 mg by ity of tablet 14:52: mouth at [place] bedtime. Medical Branch cyclobenzap Yes Take by Uni vers rine HCl 9-22 mouth. ity of (CYCLOBENZA 14:52: [place] YOLANDE ORAL) Medical Branch traZODone Yes [id number] 150mg Take 150 Univers 150 mg 9-22 mg by ity of tablet 14:52: mouth at [place] bedtime. Medical Branch cyclobenzap Yes Take by Uni vers rine HCl 9-22 mouth. ity of (CYCLOBENZA 14:52: [place] YOLANDE ORAL) Medical Branch traZODone Yes [id number] 150mg Take 150 Univers 150 mg 9-22 mg by ity of tablet 14:52: mouth at [place] bedtime. Medical Branch cyclobenzap Yes Take by Uni vers rine HCl 9-22 mouth. ity of (CYCLOBENZA 14:52: [place] YOLANDE ORAL) Medical Branch traZODone Yes [id number] 150mg Take 150 Univers 150 mg 9-22 mg by ity of tablet 14:52: mouth at [place] [address] bedtime. Medical Branch cyclobenzap Yes Take by Uni vers rine HCl 9-22 mouth. ity of (CYCLOBENZA 14:52: [place] YOLANDE ORAL) Medical Branch traZODone Yes [id number] 150mg Take 150 Univers 150 mg 9-22 mg by ity of tablet 14:52: mouth at [place] [address] bedtime. Medical Branch cyclobenzap Yes Take by Uni vers rine HCl 9-22 mouth. ity of (CYCLOBENZA 14:52: [place] YOLANDE ORAL) Medical Branch traZODone Yes [id number] 150mg Take 150 Univers 150 mg 9-22 mg by ity of tablet 14:52: mouth at [place] [address] bedtime. Medical Branch cyclobenzap Yes Take by Uni vers rine HCl 9-22 mouth. ity of (CYCLOBENZA 14:52: [place] YOLANDE ORAL) Medical Branch traZODone Yes [id number] 150mg Take 150 Univers 150 mg 9-22 mg by ity of tablet 14:52: mouth at [place] [address] bedtime. Medical Branch cyclobenzap Yes Take by Uni vers rine HCl 9-22 mouth. ity of (CYCLOBENZA 14:52: [place] YOLANDE ORAL) Medical Branch traZODone Yes [id number] 150mg Take 150 Univers 150 mg 9-22 mg by ity of tablet 14:52: mouth at [place] [address] bedtime. Medical Branch cyclobenzap Yes Take by Uni vers rine HCl 9-22 mouth. ity of (CYCLOBENZA 14:52: [place] YOLANDE ORAL) Medical Branch traZODone Yes [id number] 150mg Take 150 Univers 150 mg 9-22 mg by ity of tablet 14:52: mouth at [place] [address] bedtime. Medical Branch cyclobenzap Yes Take by Uni vers rine HCl 9-22 mouth. ity of (CYCLOBENZA 14:52: [place] YOLANDE ORAL) Medical Branch traZODone Yes [id number] 150mg Take 150 Univers 150 mg 9-22 mg by ity of tablet 14:52: mouth at [place] [address] bedtime. Medical Branch cyclobenzap Yes Take by Uni vers rine HCl 9-22 mouth. ity of (CYCLOBENZA 14:52: [place] YOLANDE ORAL) Medical Branch traZODone Yes [id number] 150mg Take 150 Univers 150 mg 9-22 mg by ity of tablet 14:52: mouth at [place] [address] bedtime. Medical Branch cyclobenzap Yes Take by Uni vers rine HCl 9-22 mouth. ity of (CYCLOBENZA 14:52: [place] YOLANDE ORAL) Medical Branch traZODone Yes [id number] 150mg Take 150 Univers 150 mg 9-22 mg by ity of tablet 14:52: mouth at [place] [address] bedtime. Medical Branch cyclobenzap Yes Take by Uni vers rine HCl 9-22 mouth. ity of (CYCLOBENZA 14:52: [place] YOLANDE ORAL) Medical Branch traZODone Yes [id number] 150mg Take 150 Univers 150 mg 9-22 mg by ity of tablet 14:52: mouth at [place] [address] bedtime. Medical Branch cyclobenzap Yes Take by Uni vers rine HCl 9-22 mouth. ity of (CYCLOBENZA 14:52: [place] YOLANDE ORAL) Medical Branch traZODone Yes [id number] 150mg Take 150 Univers 150 mg 9-22 mg by ity of tablet 14:52: mouth at [place] [address] bedtime. Medical Branch cyclobenzap Yes Take by Uni vers rine HCl 9-22 mouth. ity of (CYCLOBENZA 14:52: [place] YOLANDE ORAL) Medical Branch traZODone Yes [id number] 150mg Take 150 Univers 150 mg 9-22 mg by ity of tablet 14:52: mouth at [place] [address] bedtime. Medical Branch cyclobenzap Yes Take by Uni vers rine HCl 9-22 mouth. ity of (CYCLOBENZA 14:52: [place] YOLANDE ORAL) Medical Branch traZODone Yes [id number] 150mg Take 150 Univers 150 mg 9-22 mg by ity of tablet 14:52: mouth at [place] bedtime. Medical Branch cyclobenzap Yes Take by Uni vers rine HCl 9-22 mouth. ity of (CYCLOBENZA 14:52: [place] YOLANDE ORAL) Medical Branch traZODone Yes [id number] 150mg Take 150 Univers 150 mg 9-22 mg by ity of tablet 14:52: mouth at [place] bedtime. Medical Branch cyclobenzap Yes Take by Un soniya rine HCl 9-22 mouth. ity of (CYCLOBENZA 14:52: [place] YOLANDE ORAL) Medical Branch traZODone Yes [id number] 150mg Take 150 Univers 150 mg 9-22 mg by ity of tablet 14:52: mouth at [place] bedtime. Medical Branch cyclobenzap Yes Take by Uni vers rine HCl 9-22 mouth. ity of (CYCLOBENZA 14:52: [place] YOLANDE ORAL) Medical Branch traZODone Yes [id number] 150mg Take 150 Univers 150 mg 9-22 mg by ity of tablet 14:52: mouth at [place] [address] bedtime. Medical Branch cyclobenzap Yes Take by Uni vers rine HCl 9-22 mouth. ity of (CYCLOBENZA 14:52: [place] YOLANDE ORAL) Medical Branch traZODone Yes [id number] 150mg Take 150 Univers 150 mg 9-22 mg by ity of tablet 14:52: mouth at [place] [address] bedtime. Medical Branch cyclobenzap Yes Take by Uni vers rine HCl 9-22 mouth. ity of (CYCLOBENZA 14:52: [place] YOLANDE ORAL) Medical Branch clotrimazol Yes Apply to Un soniya e 1 % 9-22 area(s) at ity of topical 14:51: bedtime. [place] cream 16 Medical Branch clotrimazol Yes Apply to Un soniya e 1 % 9-22 area(s) at ity of topical 14:51: bedtime. [place] cream 16 Medical Branch clotrimazol Yes Apply to Un soniya e 1 % 9-22 area(s) at ity of topical 14:51: bedtime. [place] cream 16 Medical Branch clotrimazol 2022-0 Yes Apply to Un soniya e 1 % 9-22 area(s) at ity of topical 14:51: bedtime. [place] cream 16 Medical Branch clotrimazol 2022-0 Yes Apply to Un soniya e 1 % 9-22 area(s) at ity of topical 14:51: bedtime. [place] cream 16 Medical Branch clotrimazol 2022-0 Yes Apply to Un soniya e 1 % 9-22 area(s) at ity of topical 14:51: bedtime. [place] cream 16 Medical Branch clotrimazol 2022-0 Yes Apply to Un soniya e 1 % 9-22 area(s) at ity of topical 14:51: bedtime. [place] cream 16 Medical Branch clotrimazol 2-0 Yes Apply to Un soniya e 1 % 9-22 area(s) at ity of topical 14:51: bedtime. [place] cream 16 Medical Branch clotrimazol 2022-0 Yes Apply to Un soniya e 1 % 9-22 area(s) at ity of topical 14:51: bedtime. [place] cream 16 Medical Branch clotrimazol 2-0 Yes Apply to Un snoiya e 1 % 9-22 area(s) at ity of topical 14:51: bedtime. [place] cream 16 Medical Branch clotrimazol 2-0 Yes Apply to Un soniya e 1 % 9-22 area(s) at ity of topical 14:51: bedtime. [place] cream 16 Medical Branch clotrimazol 2022-0 Yes Apply to Un soniya e 1 % 9-22 area(s) at ity of topical 14:51: bedtime. [place] cream 16 Medical Branch clotrimazol 2022-0 Yes Apply to Un soniya e 1 % 9-22 area(s) at ity of topical 14:51: bedtime. [place] cream 16 Medical Branch clotrimazol 2022-0 Yes Apply to Un soniya e 1 % 9-22 area(s) at ity of topical 14:51: bedtime. [place] cream 16 Medical Branch clotrimazol 2022-0 Yes Apply to Un soniya e 1 [...] cream 16 Medical Branch amLODIPine 2021-0 Yes [id number] 5mg Take 5 mg Univers 5 mg tablet 9-15 by mouth ity of 16:00: in the [place] morning. Medical Branch lisinopriL Yes [id number] 40mg Take 40 mg Univers 40 mg 9-15 by mouth ity of tablet 16:00: in the [place] morning. Medical Branch traZODone Yes [id number] 150mg Take 150 Univers 150 mg 9-15 mg by ity of tablet 16:00: mouth at [place] [address] bedtime. Medical Branch cyclobenzap Yes Take by Uni vers rine HCl 9-15 mouth. ity of (CYCLOBENZA 16:00: [place] YOLANDE ORAL) Medical Branch clotrimazol Yes Apply to Un soniya e 1 % 9-15 area(s) at ity of topical 16:00: bedtime. [place] cream Medical Branch amLODIPine Yes [id number] 5mg Take 5 mg Univers 5 mg tablet 9-15 by mouth ity of 16:00: in the [place] morning. Medical Branch lisinopriL Yes [id number] 40mg Take 40 mg Univers 40 mg 9-15 by mouth ity of tablet 16:00: in the [place] morning. Medical Branch traZODone Yes [id number] 150mg Take 150 Univers 150 mg 9-15 mg by ity of tablet 16:00: mouth at [place] [address] bedtime. Medical Branch cyclobenzap Yes Take by Uni vers rine HCl 9-15 mouth. ity of (CYCLOBENZA 16:00: [place] YOLANDE ORAL) Medical Branch clotrimazol Yes Apply to Un soniya e 1 % 9-15 area(s) at ity of topical 16:00: bedtime. [place] cream Medical Branch amLODIPine Yes [id number] 5mg Take 5 mg Univers 5 mg tablet 9-15 by mouth ity of 16:00: in the [place] morning. Medical Branch lisinopriL Yes [id number] 40mg Take 40 mg Univers 40 mg 9-15 by mouth ity of tablet 16:00: in the [place] morning. Medical Branch traZODone Yes [id number] 150mg Take 150 Univers 150 mg 9-15 mg by ity of tablet 16:00: mouth at [place] [address] bedtime. Medical Branch cyclobenzap Yes Take by Uni vers rine HCl 9-15 mouth. ity of (CYCLOBENZA 16:00: [place] YOLANDE ORAL) 04 Medical Branch clotrimazol Yes Apply to Un soniya e 1 % 9-15 area(s) at ity of topical 16:00: bedtime. [place] cream 04 Medical Branch amLODIPine 0 Yes [id number] 5mg Take 5 mg Univers 5 mg tablet 9-15 by mouth ity of 16:00: in the [place] [address] morning. Medical Branch amLODIPine 2021-0 Yes [id number] 5mg Take 5 mg Univers 5 mg tablet 9-15 by mouth ity of 16:00: in the [place] [address] morning. Medical Branch amLODIPine 2021-0 Yes [id number] 5mg Take 5 mg Univers 5 mg tablet 9-15 by mouth ity of 16:00: in the [place] [address] morning. Medical Branch amLODIPine 2021-0 Yes [id number] 5mg Take 5 mg Univers 5 mg tablet 9-15 by mouth ity of 16:00: in the [place] [address] morning. Medical Branch amLODIPine 0 Yes [id number] 5mg Take 5 mg Univers 5 mg tablet 9-15 by mouth ity of 16:00: in the [place] [address] morning. Medical Branch amLODIPine 2021-0 Yes [id number] 5mg Take 5 mg Univers 5 mg tablet 9-15 by mouth ity of 16:00: in the [place] [address] morning. Medical Branch amLODIPine 2021-0 Yes [id number] 5mg Take 5 mg Univers 5 mg tablet 9-15 by mouth ity of 16:00: in the [place] [address] morning. Medical Branch amLODIPine 2021-0 Yes [id number] 5mg Take 5 mg Univers 5 mg tablet 9-15 by mouth ity of 16:00: in the [place] [address] morning. Medical Branch amLODIPine 2021-0 Yes [id number] 5mg Take 5 mg Univers 5 mg tablet 9-15 by mouth ity of 16:00: in the [place] [address] morning. Medical Branch amLODIPine 2021-0 Yes [id number] 5mg Take 5 mg Univers 5 mg tablet 9-15 by mouth ity of 16:00: in the [place] [address] morning. Medical Branch amLODIPine 2021-0 Yes [id number] 5mg Take 5 mg Univers 5 mg tablet 9-15 by mouth ity of 16:00: in the [place] morning. Medical Branch amLODIPine 0 Yes [id number] 5mg Take 5 mg Univers 5 mg tablet 9-15 by mouth ity of 16:00: in the [place] morning. Medical Branch amLODIPine 0 Yes [id number] 5mg Take 5 mg Univers 5 mg tablet 9-15 by mouth ity of 16:00: in the [place] morning. Medical Branch lisinopriL Yes [id number] 40mg Take 40 mg Univers 40 mg 9-15 by mouth ity of tablet 16:00: in the [place] morning. Medical Branch traZODone Yes [id number] 150mg Take 150 Univers 150 mg 9-15 mg by ity of tablet 16:00: mouth at [place] [address] bedtime. Medical Branch cyclobenzap Yes Take by Uni vers rine HCl 9-15 mouth. ity of (CYCLOBENZA 16:00: [place] YOLANDE ORAL) Medical Branch clotrimazol Yes Apply to Un soniya e 1 % 9-15 area(s) at ity of topical 16:00: bedtime. [place] cream [facility] amLODIPine Yes [id number] 5mg Take 5 mg Univers 5 mg tablet 9-15 by mouth ity of 16:00: in the [place] morning. Medical Branch lisinopriL Yes [id number] 40mg Take 40 mg Univers 40 mg 9-15 by mouth ity of tablet 16:00: in the [place] morning. Medical Branch traZODone Yes [id number] 150mg Take 150 Univers 150 mg 9-15 mg by ity of tablet 16:00: mouth at [place] [address] bedtime. Medical Branch cyclobenzap Yes Take by Uni vers rine HCl 9-15 mouth. ity of (CYCLOBENZA 16:00: [place] YOLANDE ORAL) Medical Branch clotrimazol Yes Apply to Un soniya e 1 % 9-15 area(s) at ity of topical 16:00: bedtime. [place] cream [facility] doxepin 50 Yes [id number] 50mg Take 1 U nivers mg capsule 9-15 capsule by ity of 00:00: mouth at [place] [address] bedtime. Medical Branch doxepin 50 2021-0 Yes [id number] 50mg Take 1 U nivers mg capsule 9-15 capsule by ity of 00:00: mouth at [place] [address] bedtime. Medical Branch doxepin 50 2021-0 Yes [id number] 50mg Take 1 U nivers mg capsule 9-15 capsule by ity of 00:00: mouth at [place] [address] bedtime. Medical Branch doxepin 50 2021-0 Yes [id number] 50mg Take 1 U nivers mg capsule 9-15 capsule by ity of 00:00: mouth at [place] [address] bedtime. Medical Branch doxepin 50 2021-0 Yes [id number] 50mg Take 1 U nivers mg capsule 9-15 capsule by ity of 00:00: mouth at [place] [address] bedtime. Medical Branch doxepin 50 2021-0 Yes [id number] 50mg Take 1 U nivers mg capsule 9-15 capsule by ity of 00:00: mouth at [place] [address] bedtime. Medical Branch doxepin 50 2021-0 Yes [id number] 50mg Take 1 U nivers mg capsule 9-15 capsule by ity of 00:00: mouth at [place] [address] bedtime. Medical Branch doxepin 50 2021-0 Yes [id number] 50mg Take 1 U nivers mg capsule 9-15 capsule by ity of 00:00: mouth at [place] [address] bedtime. Medical Branch doxepin 50 2021-0 Yes [id number] 50mg Take 1 U nivers mg capsule 9-15 capsule by ity of 00:00: mouth at [place] [address] bedtime. Medical Branch doxepin 50 2021-0 Yes [id number] 50mg Take 1 U nivers mg capsule 9-15 capsule by ity of 00:00: mouth at [place] [address] bedtime. Medical Branch doxepin 50 2021-0 Yes [id number] 50mg Take 1 U nivers mg capsule 9-15 capsule by ity of 00:00: mouth at [place] [address] bedtime. Medical Branch doxepin 50 2021-0 Yes [id number] 50mg Take 1 U nivers mg capsule 9-15 capsule by ity of 00:00: mouth at [place] [address] bedtime. Medical Branch doxepin 50 2021-0 Yes [id number] 50mg Take 1 U nivers mg capsule 9-15 capsule by ity of 00:00: mouth at [place] [address] bedtime. Medical Branch doxepin 50 2021-0 Yes [id number] 50mg Take 1 U nivers mg capsule 9-15 capsule by ity of 00:00: mouth at [place] [address] bedtime. Medical Branch doxepin 50 2021-0 Yes [id number] 50mg Take 1 U nivers mg capsule 9-15 capsule by ity of 00:00: mouth at [place] [address] bedtime. Medical Branch doxepin 50 2021-0 Yes [id number] 50mg Take 1 U nivers mg capsule 9-15 capsule by ity of 00:00: mouth at [place] [address] bedtime. Medical Branch doxepin 50 2021-0 Yes [id number] 50mg Take 1 U nivers mg capsule 9-15 capsule by ity of 00:00: mouth at [place] [address] bedtime. Medical Branch doxepin 50 2021-0 Yes [id number] 50mg Take 1 U nivers mg capsule 9-15 capsule by ity of 00:00: mouth at [place] [address] bedtime. Medical Branch doxepin 50 2021-0 Yes [id number] 50mg Take 1 U nivers mg capsule 9-15 capsule by ity of 00:00: mouth at [place] [address] bedtime. Medical Branch doxepin 50 0 Yes [id number] 50mg Take 1 U nivers mg capsule 9-15 capsule by ity of 00:00: mouth at [place] [address] bedtime. Medical Branch doxepin 50 0 Yes [id number] 50mg Take 1 U nivers mg capsule 9-15 capsule by ity of 00:00: mouth at [place] [address] bedtime. Medical Branch doxepin 50 2021-0 Yes [id number] 50mg Take 1 U nivers mg capsule 9-15 capsule by ity of 00:00: mouth at [place] [address] bedtime. Medical Branch doxepin 50 2021-0 Yes [id number] 50mg Take 1 U nivers mg capsule 9-15 capsule by ity of 00:00: mouth at [place] [address] bedtime. Medical Branch doxepin 50 2021-0 Yes [id number] 50mg Take 1 U nivers mg capsule 9-15 capsule by ity of 00:00: mouth at [place] [address] bedtime. Medical Branch doxepin 50 2021-0 Yes [id number] 50mg Take 1 U nivers mg capsule 9-15 capsule by ity of 00:00: mouth at [place] [address] bedtime. Medical Branch doxepin 50 2021-0 Yes [id number] 50mg Take 1 U nivers mg capsule 9-15 capsule by ity of 00:00: mouth at [place] 00 bedtime. Medical Branch doxepin 50 2021-0 Yes [id number] 50mg Take 1 U nivers mg capsule 9-15 capsule by ity of 00:00: mouth at [place] [address] bedtime. Medical Branch doxepin 50 2021-0 Yes [id number] 50mg Take 1 U nivers mg capsule 9-15 capsule by ity of 00:00: mouth at [place] [address] bedtime. Medical Branch doxepin 50 2021-0 Yes [id number] 50mg Take 1 U nivers mg capsule 9-15 capsule by ity of 00:00: mouth at [place] [address] bedtime. Medical Branch doxepin 50 2021-0 2021- No [id number] 50mg Take 1 Univers mg capsule 9-15 12-03 capsule by it y of 00:00: 00:00 mouth at [place] 00 :00 bedtime. Medical Branch Vital Signs Vital Name Observation Time Observation Value Comments Source Systolic blood 2022-04-22 00:50:00 206 mm[Hg] Univer sity of pressure [facility] Diastolic blood 2022-04-22 00:50:00 115 mm[Hg] Unive rsity of [facility] Heart rate 2022-04-22 00:49:00 101 /min [facility] Body temperature 2022-04-22 00:49:00 36.67 Natasha [facility] Respiratory rate 2022-04-22 00:49:00 17 /min [facility] Body height 2022-04-22 00:49:00 182.9 cm [facility] Body weight 2022-04-22 00:49:00 76.204 kg [facility] BMI 2022-04-22 00:49:00 22.78 kg/m2 [facility] Oxygen saturation in 2022-04-22 00:49:00 95 /min [facility] Arterial blood by [facility] Pulse oximetry Branch Systolic blood 2022-03-29 17:52:00 150 mm[Hg] Univer sity of pressure [place] [facility] Diastolic blood 2022-03-29 17:52:00 81 mm[Hg] Unive rsity of pressure [place] [facility] Heart rate 2022-03-29 17:51:00 90 /min [facility] [place] [facility] Body temperature 2022-03-29 17:51:00 37.33 Natasha Univ ersity of [place] [facility] Respiratory rate 2022-03-29 17:51:00 24 /min Univ ersity of [place] [facility] Body height 2022-03-29 17:51:00 182.9 cm [facility]i ty [facility] [place] [facility] Body weight 2022-03-29 17:51:00 75.524 kg [facility] [place] [facility] BMI 2022-03-29 17:51:00 22.58 kg/m2 [facility]i [facility] [place] [facility] Oxygen saturation in 2022-03-29 17:51:00 97 /min University of Arterial blood by [place] [facility] Pulse oximetry Branch Systolic blood 2022-03-19 19:23:00 146 mm[Hg] Univer sity of pressure [place] [facility] Diastolic blood 2022-03-19 19:23:00 85 mm[Hg] Unive rsity of pressure [place] [facility] Heart rate 2022-03-19 19:21:00 64 /min [facility] [place] [facility] Body temperature 2022-03-19 19:21:00 36.94 Naatsha Univ ersity of [place] [facility] Body height 2022-03-19 19:21:00 182.9 cm [facility]i [facility] [place] [facility] Body weight 2022-03-19 19:21:00 73.8 kg [facility] [place] [facility] BMI 2022-03-19 19:21:00 22.07 kg/m2 Universi ty [...] 2022-03-02 18:47:00 18 /min Univ ersity of [place] [facility] Body weight 2022-03-02 18:47:00 73.528 kg [facility]i ty [facility] [place] [facility] BMI 2022-03-02 18:47:00 21.98 kg/m2 [facility]i [facility] [place] [facility] Oxygen saturation in 2022-03-02 18:47:00 95 /min University of Arterial blood by [facility] minal Pulse oximetry Branch Systolic blood 2022-02-08 19:53:00 103 mm[Hg] Univer sity of pressure [place] [facility] Diastolic blood 2022-02-08 19:53:00 67 mm[Hg] Unive rsity of pressure [place] [facility] Heart rate 2022-02-08 19:53:00 96 /min Universi ty [facility] [place] [facility] Body temperature 2022-02-08 19:53:00 36.78 Natasha Univ ersity [facility] [place] [facility] Respiratory rate 2022-02-08 19:53:00 20 /min Univ ersity of [place] [facility] Body height 2022-02-08 19:53:00 182.9 cm [facility]i [facility] [place] [facility] Body weight 2022-02-08 19:53:00 69.945 kg [facility] [place] [facility] BMI 2022-02-08 19:53:00 20.91 kg/m2 [facility]i ty [facility] [place] [facility] Oxygen saturation in 2022-02-08 19:53:00 95 /min University of Arterial blood by [facility] Pulse oximetry Branch Systolic blood 2022-02-01 21:01:00 124 mm[Hg] Univer sity of pressure [place] [facility] Diastolic blood 2022-02-01 21:01:00 67 mm[Hg] Unive rsity of pressure [place] [facility] Heart rate 2022-02-01 21:01:00 87 /min [facility]i [facility] [place] [facility] Body temperature 2022-02-01 21:01:00 36.72 Natasha Univ ersity [facility] [place] [facility] Respiratory rate 2022-02-01 21:01:00 20 /min Univ ersity [facility] [place] [facility] Body height 2022-02-01 21:01:00 182.9 cm [facility]i ty [facility] [place] [facility] Body weight 2022-02-01 21:01:00 71.26 kg [facility] [place] [facility] BMI 2022-02-01 21:01:00 21.31 kg/m2 [facility] Oxygen saturation in 2022-02-01 21:01:00 96 /min [facility] Arterial blood by [facility] Pulse oximetry Branch Procedures Procedure Date / Time Performing Clinician Source Performed REFERRAL- 2022-03-15 05:01:00 Doctor Unassigned, No [facility]RESPONSE Name Medical Branch REFERRAL- 2022-02-13 05:01:00 Doctor Unassigned, No [facility] REQUEST/RESPONSE Name Medical Branch PROSTATIC SPECIFIC 2022-02-02 18:42:00 Rosario Sherrell [facility] ANTIGEN SCREEN [facility] THYROID STIMULATING 2022-02-02 18:42:00 Rosario [facility] HORMONE [facility] LIPID PANEL 2022-02-02 18:42:00 Rosario [facility] ([id number])(TOTAL Medical [place] CHOLESTEROL, TRIGLYCERIDES, HDL) URINE DRUG (IMMUNOASSAY) 2022-02-02 18:42:00 Sherrell Ponce [facility] - COMPREHENSIVE DRUG Medical [facility] SCREEN HCV ANTIBODY 2022-02-02 18:42[facility]HCV) 2022-02-02 18:42:00 Sherrell Ponce [facility] BY QUANTITATIVE NAAT Medical [facility] ADC OR KONRAD ONLY - 2022-02-02 18:42:00 Rosario [facility] RPR [facility] [place] Plan of Care Planned Activity Planned Date Details Comments Source Encounters Start End Encounter Admission Attending Care Care Encounter Source Date/Time Date/Time Type Type Clinicians Facility Department ID 2022-04-21 2022-04-21 Urgent Grecia Beatty [facility] [id number] [id number] Univers 18:40:00 19:00:00 Care Unknown, Attending HEALTH 350.1.13.10 [place] 4.2.7.2.686 Antoine as PAXTON?BLEA [phone] Co dical [address] MEDICAL OFFICE BUILDING 2022-04-21 2022-04-21 Outpatient R UNKNOWN, [facility] [id number] Univers 18:40:00 18:40:00 ATTENDING ity [facility] 2022-04-19 2022-04-19 Telephone SintiaRUST [id number] Univers 00:00:00 00:00:00 Ghazalbettie [facility] 350.1.13.10 ity [address]en[address] [facility] [place] [phone] Co dical NAL 059 [facility] 2022-04-19 2022-04-19 Refill RosarioRUST 1.2.840.114 [id number] Univers 00:00:00 00:00:00 Sherrell HEALTH 350.1.13.10 it y of [facility] 4.2.7.2.686 Antoine as PAXTON?BLEA [id number] Co baron GONZALEZEY 044 [facility] OFFICE BUILDING 2022-04-09 2022-04-09 [facility] [id number] Univers 08:00:00 08:00:00 STALIN [facility] 2022-04-06 2022-04-06 [facility]patient [facility] [id number] Univers 16:00:00 16:00:00 [facility] 2022-04-04 2022-04-04 Outpatient [facility] [id number] Univers 07:57:05 23:59:00 BERKLEY fajardo o f [facility] 2022-03-30 2022-03-30 [facility] [id number] Univers 16:00:00 16:00:00 SHERRELL ity [facility] 2022-03-29 2022-03-29 [facility] [id number] Univers 11:30:00 12:16:07 SHERRELL [facility] 2022-03-29 2022-03-29 Office RosarioRUST 1.2.840.114 [id number] Univers 11:30:00 12:16:07 Visit Sherrell HEALTH 350.1.13.10 it y of [facility] 4.2.7.2.686 Antoine as PAXTON?BLEA [id number] [address] MEDICAL OFFICE [facility] 2022-03-29 2022-03-29 Telephone RICK Lara 1.2.840.114 [id number] Univers 00:00:00 00:00:00 Lela A [place] 350.1.13.10 i [place] [id number] [address] 2022-03-23 2022-03-23 Case RICK Lara 1.2.840.114 [id number] Univers 00:00:00 00:00:00 Management Lela A [place] 350.1.13.10 [place] [id number] [address] 2022-03-22 2022-03-22 Telephone RICK Lara 1.2.840.114 [id number] Univers 00:00:00 00:00:00 Lela A [place] 350.1.13.10 [place] [id number] [address] 2022-03-22 2022-03-22 Telephone RosarioRUST [id number] Univers 00:00:00 00:00:00 Sherrell HEALTH 350.1.13.10 it y of [place] 4.2.7.2.686 Antoine as PAXTON?BLEA [id number] [address] OFFICE [facility] 2022-03-21 2022-03-21 Outpatient R SINTIA [facility] [id number] Univers 15:59:06 23:59:00 BERKLEY fajardo o f [facility] 2022-03-21 2022-03-21 Telephone RICK Lara 1.2.840.114 [id number] Univers 00:00:00 00:00:00 Lela A [place] 350.1.13.10 [place] [id number] [address] 2022-03-19 2022-03-19 Outpatient R STACY [facility] [id number] Univers 14:20:00 14:45:06 KATE ity of [facility] 2022-03-19 2022-03-19 Office StacyRUST 1.2.840.114 [id number] Univers 14:20:00 14:45:06 Visit Kate ROBB 350.1.13.10 i ty of [facility] 4.2.7.2.[place] [id number] [facility] 059 [facility] 2022-03-15 2022-03-15 Orders Doctor JAVID 1.2.840.114 [id number] Univers 00:00:00 00:00:00 Only Unassigned, NOEMI 350.1.13.10 ity of [place] [facility] 4.2.7.2.686 Antoine as [id number] [address] 2022-03-08 2022-03-08 Outpatient R RADU HINES [facility] [id number] Univers 08:30:00 08:30:00 ity of [facility] 2022-03-08 2022-03-08 Telephone RosarioRUST [id number] Univers 00:00:00 00:00:00 [facility] 350.1.13.10 it y of [place] 4.2.7.2.686 Antoine as PAXTON?BLEA [id number] Co baron EY 044 [facility] OFFICE [facility] 2022-03-02 2022-03-02 Outpatient [facility] [id number] Univers 15:00:00 15:00:00 ASHLEYMOJGAN ity o f [facility] 2022-03-02 2022-03-02 Outpatient R [facility] [id number] Univers 13:40:00 14:15:02 BERKLEY ity o f [facility] 2022-03-02 2022-03-02 Office SintiaRUST 1.2.840.114 [id number] Univers 13:40:00 14:00:00 Visit Berkley WILKINSONANA 350.1.13.10 ity of [facility] 4.2.7.2.[place] [id number] Co dicia NAL 059 [facility] 2022-02-28 2022-02-28 Telephone Rosario [facility] [id number] Univers 00:00:00 00:00:00 Sherrell HEALTH 350.1.13.10 it y of [place] 4.2.7.2.686 Antoine as PAXTON?BLEA [id number] [address] MEDICAL OFFICE BUILDING 2022-02-26 2022-02-26 RICK Hoyos 1.2.840.114 [id number] Univers 00:00:00 00:00:00 Management Merari RDZY 350.1.13.10 [place] [id number] [address] 2022-02-23 2022-02-23 RICK Hoyos 1.2.840.114 [id number] Univers 00:00:00 00:00:00 Management Merari R [place] 350.1.13.10 [place] [id number] [address] 2022-02-23 2022-02-23 RICK Hoyos 1.2.840.114 [id number] Univers 00:00:00 00:00:00 Management Merari R [place] 350.1.13.10 [place] [id number] [address] 2022-02-14 2022-02-14 Outpatient R [facility] [id number] Univers 10:30:00 10:30:00 ity of [facility] 2022-02-13 2022-02-13 Orders Doctor JAVID 1.2.840.114 [id number] Univers 00:00:00 00:00:00 Only Unassigned, NOEMI 350.1.13.10 ity of [place] [facility] 4.2.7.2.686 Antoine as [id number] [address] 2022-02-08 2022-02-08 Outpatient R ROSARIO [facility] [id number] Univers 15:45:00 16:09:38 SHERRELL ity of [facility] 2022-02-08 2022-02-08 [facility], Ang - Db [facility] 1.2.840.1 [id number] Univers 15:45:00 16:00:00 Visit Sherrell Ponce HEALTH 350.1.13.10 ity of [place] 4.2.7.2.686 Antoine as PAXTON?BLEA [phone] Co baron GONZALEZ [address] [facility] OFFICE [facility] 2022-02-08 2022-02-08 Office Rosario [facility] 1.2.840.114 [id number] Univers 14:30:00 15:00:00 Visit Sherrell WHITLEY 350.1.13.10 it y of [place] 4.2.7.2.686 Antoine as PAXTON?BLEA [id number] [facility] [address] OFFICE [facility] 2022-02-05 2022-02-05 Telephone Rosario [facility] [id number] Univers 00:00:00 00:00:00 Sherrell WHITLEY 350.1.13.10 it y of [place] 4.2.7.2.686 Antoine as PAXTON?BLEA [id number] [facility] [address] OFFICE [facility] 2022-02-02 2022-02-02 Outpatient R ROSARIO [facility] [id number] Univers 13:30:00 14:01:41 SHERRELL ity of [facility] 2022-02-02 2022-02-02 [facility], Ang - Db [facility] 1.2.840.1 [id number] Univers 13:30:00 14:01:41 Visit Sherrell Ponce 350.1.13.10 ity of [place] 4.2.7.2.686 Antoine as PAXTON?BLEA [id number] [facility] [address] OFFICE [facility] 2022-02-02 2022-02-02 Telephone RosarioRUST [id number] Univers 00:00:00 00:00:00 Sherrell HEALTH 350.1.13.10 it y of [place] 4.2.7.2.686 Antoine as PAXTON?BLEA [id number] [address] OFFICE [facility] 2022-02-01 2022-02-01 Office RosarioRUST 1.2.840.114 [id number] Univers 15:30:00 16:52:01 Visit Sherrell WHITLEY 350.1.13.10 it y of [place] 4.2.7.2.686 Antoine as PAXTON?BLEA [id number] [address] 2022-02-01 2022-02-01 Outpatient R ROSARIO [facility] [id number] Univers 15:30:00 16:52:01 SHERRELL ity [facility] 2022-02-01 2022-02-01 Orders Doctor JAVID 1.2.840.114 [id number] Univers 00:00:00 00:00:00 Only Unassigned, NOEMI 350.1.13.10 ity of [place] [facility] 4.2.7.2.686 Antoine as [id number] [address] 2022-01-31 2022-01-31 Telephone RosarioRUST 1.2.624.085 [id number] Univers 00:00:00 00:00:00 Sherrell [employer] 350.1.13.10 it y of [facility] 4.2.7.2.686 Antoine as PAXTON?BLEA [id number] [address] Results Test Description Test Time Test Comments Results Result Comments Source HEPATITIS C VIRUS (HCV) BY QUANTITATIVE NAAT 2022-02-05 20:2 9:47 Test Item Value Reference Range Interpretation Comme nts HCV Quantitative NAAT - log Not Detected log IU/mL IU/mL (test code = 21056-9) HCV Quantitative NAAT - IU/mL Not Detected IU/mL (test code = 19937-9) HCV Quantitative Detected Not Detected A Interpretation (test code = 2602687136) GETACHEW (test code = GETACHEW) The Aptima HCV Quant Dx assay is an FDA-approved real-time track inspector-mediated amplification (TMA) test used for both detection [...] indicated. Lab Interpretation (test code Abnormal = 52057-0) [facility] [id number] 08:58:12 Test Item Value Reference Range Interpretation Comments HCV Ab (test code = Positive 94221-3) HCV Semi-Quantitative (test code = 71232-9) APRI (test code = 8023141109) GETACHEW (test code = Positive for HCV antibody. GETACHEW) This specimen has been reflexed to qualitative PCR test and submitted to [facility]. ?A report will be issued by that laboratory. ?If any questions, contact the Clinical Chemistry Director acquisition cost estimator at [phone]. [facility] KONRAD MARIA - [id number] 05:58:38 Test Item Value Reference Range Interpretation Comments RPR (Qualitative) (test code = Nonreactive Nonreactive 56925-6) Lab Interpretation (test code = Normal 65898-5) [facility] STIMULATING [id number] 04:19:19 Test Item Value Reference Range Interpretation Comments TSH (test code = See_Comment [Automated message] [id number]) The system [employer] generated this result transmitted ref erence range: 0.45 - 4 .70 mIU/L. The refe rence range was not u sed to interpret this result as normal/abnor mal. Lab Interpretation (test Normal code = 65518-1) [facility] Worth[facility]STATIC SPECIFIC ANTIGEN [id number] 04:18:59 Test Item Value Reference Range Interpretation Comments PSA (test code = 4.32 ng/mL See_Comment H [Automated [id number]) message] The system which generated this result transmitted reference range : <=4.00. The reference range was not used to interpret this result as normal/abnormal . GETACHEW (test code = GETACHEW) Biotin has been reported to cause a negative bias, interpret results relative to patient's use of biotin. Lab Interpretation Abnormal (test code = 83232-6) [facility] Worth[facility]IP[facility] PAN[facility] (62615)(TOTAL CHOLESTEROL, TRIGLYCERIDES, HDL)2022-02-03 03:50:57 Test Item Value Reference Range Interpretation Comments CHOL (test code = 155 mg/dL 120-200 [id number]) HDL (test code = 74 mg/dL See_Comment [Automated message] [id number]) The system [employer] generated this result transmit ashley reference range : >=40. The refer ence range was not u sed to interpret th is result as normal/abnormal . HDLC RATIO (test code = See_Comment [Au tomated message] [id number]) The system [employer] generated this result transmit ashley reference range : <=5.0. The refe rence range was not u sed to interpret th is result as normal/abnormal . TRIG (test code = 211 mg/dL 30-170 H [id number]) LDL CHOL (test code = 39 mg/dL See_Comment [Auto mated message] 56036-6) The system [employer] generated this result transmit ashley reference range : <=160. The refe rence range was not u sed to interpret th is result as normal/abnormal . VLDL (test code = 42 mg/dL 5-60 [id number]) Lab Interpretation (test Abnormal code = 44745-9) [facility] [id number] 05:00:19 Test Item Value Reference Range Interpretation [...] MOREINFORMATION , SEE CLIENT ANNOUNCE MENT AT [email or web address] RATIO LDL/HDL 0.97 RATIO <3.55 (test code = 223) COMPREHENSIVE METABOLIC [id number] 05:00:19 Test Item Value Reference Range Interpretation Comments GLUCOSE (test code = 73 MG/DL 70-99 2216) BUN (test code = 11 MG/DL 6-20 2207) CREATININE (test 1.17 MG/DL 0.80-1.40 code = 221) eGFR (2020 CKD-EPI) 74 >60 (test code = 80420) ML/MIN/1.73 CALC BUN/CREAT (test 9 RATIO 6-28 [...] MG/DL See_Comment [Automated message] (test code = 2207) The syste m which generated this result transmitted ref erence range: <=1.2. T he reference range was not used to int erpret this result as normal/abnormal . ALKALINE PHOSPHATASE 65 U/L 40-121 (test code = 220) AST (test code = 66 U/L 9-50 H 2217) ALT (test code = 49 U/L 5-50 UNLESS OTH ERWISE 2218) INDICATED, ALL TESTING PERFORM [facility], [place] [address] [facility] [address] [facility] DIRECTOR: ALEENA HOGAN M.D. CLIA NUMBER [id number] [facility] ACCREDITATION N O. [id number]
--- NOTE | 2022-04-21 19:39 | ER ---
Nurse's Notes [facility] Name: Crispin Degroot Age: 56 yrs Sex: Male : 1965 Arrival Date: 04/21/2022 Time: 19:18 Bed IW3 Private MD: Diagnosis: Olecranon bursitis, right elbow Presentation: 04/21 19:28 Chief complaint: Patient states: Pt reports right elbow pain and swelling x3 1/2 weeks kb3 after a fall. Pt was treated for cellulitis in this ER 04/02 with no improvement. Coronavirus screen: Vaccine status: Patient reports being unvaccinated. Client denies travel out of the [place] in the last 14 days. Ebola Screen: Patient negative for fever greater than or equal to 101.5 degrees Fahrenheit, and additional compatible Ebola Virus Disease symptoms Patient denies exposure to infectious person. Patient denies travel to an Ebola-affected area in the 21 days before illness onset. Initial Sepsis Screen: Does the patient meet any 2 criteria? No. Patient's initial sepsis screen is negative. Does the patient have a suspected source of infection? No. Patient's initial sepsis screen is negative. Risk Assessment: Do you want to hurt yourself or someone else? Patient reports no desire to harm self or others. Onset of symptoms is unknown. 19:28 Method Of Arrival: Ambulatory 3 19:28 Acuity: DANY 4 kb3 Triage Assessment: 19:32 General: Appears in no apparent distress. Behavior is calm, cooperative. Pain: kb3 Complains of pain in right elbow Pain does not radiate. Pain currently is 9 out of 10 on a pain scale. Quality of pain is described as throbbing. Historical: - Allergies: 19:32 No Known Allergies; kb3 - PMHx: 19:32 Hypertensive disorder; Chronic Renal insufficiency; kb3 - PSHx: 19:32 None; kb3 - Immunization history:: Adult Immunizations up to date, Client reports having NOT received the Covid vaccine. Last tetanus immunization: up to date. - Social history:: Smoking status: Patient reports the use of cigarette tobacco products, smokes one pack cigarettes per day. Screenin:23 Abuse screen: Denies threats or abuse. Denies injuries from another. Nutritional tw5 screening: No deficits noted. Tuberculosis screening: No symptoms or risk factors identified. Fall Risk None identified. Vital Signs: 19:28 BP 183 / 102; Pulse 88; Resp 20; Temp 98; Pulse Ox 99% ; Weight 77.11 kg; Height 6 ft. kb3 0 in. (182.88 cm); Pain 8/10; 19:28 Body Mass Index 23.06 (77.11 kg, 182.88 cm) kb3 ED Course: 19:18 Patient arrived in ED. dt4 19:24 Rashi Washington DO is Attending Physician. ms3 19:32 Triage completed. kb3 19:32 Arm band placed on right wrist. kb3 19:37 Bharat Avila MD is Referral Physician. ms3 20:23 Patient has correct armband on for positive identification. tw5 20:23 No provider procedures requiring assistance completed. Patient did not have IV access tw5 during this emergency room visit. Administered Medications: 20:22 Drug: HYDROcodone-acetaminophen 5 mg-325 mg 1 tabs Route: PO; tw5 20:22 Follow up: Response: No adverse reaction; Medication administered at discharge.; RASS: tw5 Alert and Calm (0) Outcome: 19:38 Discharge ordered by . ms3 20:23 Discharged to home ambulatory. tw5 20:23 Condition: good 20:23 Discharge instructions given to patient, Instructed on discharge instructions, follow up and referral plans. Demonstrated understanding of instructions, follow-up care, medications, Prescriptions given X 2. 20:23 Patient left the ED. tw5 Signatures: Rashi Washington DO DO ms3 Mira Rust tw5 Bette Mahlotra, RN RN kb3 Tita Kent dt4
--- NOTE | 2022-04-21 19:39 | EDPHYS ---
Physician Documentation [facility] Name: Crispin Degroot Age: 56 yrs Sex: Male : 1965 Arrival Date: 04/21/2022 Time: 19:18 Bed IW3 Private MD: ED Physician Rashi Washington HPI: 04/21 20:12 This 56 yrs old Male presents to ER via Ambulatory with complaints of Elbow Injury. ms3 20:12 The patient or guardian complains of pain, swelling, tenderness. The complaints affect ms3 the right elbow. Context: Began after a fall. Recently placed on Bactrim for 7 days and finished.. Onset: The symptoms/episode began/occurred 19 day(s) ago. Treatment prior to arrival includes: prescription medications, Bactrim. Modifying factors: The symptoms are alleviated by nothing. the symptoms are aggravated by movement. Associated signs and symptoms: Pertinent positives: pain, swelling, Pertinent negatives: fever, numbness, weakness. Severity of symptoms: At their worst the symptoms were moderate, in the emergency department the symptoms are unchanged. Historical: - Allergies: 19:32 No Known Allergies; kb3 - PMHx: 19:32 Hypertensive disorder; Chronic Renal insufficiency; kb3 - PSHx: 19:32 None; kb3 - Immunization history:: Adult Immunizations up to date, Client reports having NOT received the Covid vaccine. Last tetanus immunization: up to date. - Social history:: Smoking status: Patient reports the use of cigarette tobacco products, smokes one pack cigarettes per day. ROS: 20:12 Constitutional: Negative for fever, and chills. Neck: Negative for injury, pain, and ms3 swelling, Cardiovascular: Negative for chest pain, and palpitations. Respiratory: Negative for shortness of breath, cough, wheezing, and pleuritic chest pain, Abdomen/GI: Negative for abdominal pain, nausea, vomiting, diarrhea, and constipation. 20:12 Neuro: Negative for headache, weakness, numbness, tingling. 20:12 MS/extremity: Positive for Right elbow swelling/ pain. 20:12 All other systems are negative. Exam: 20:12 Constitutional: This is a well developed, well nourished patient who is awake, alert, ms3 and in no acute distress. Head/Face: Normocephalic, atraumatic. Neck: Trachea midline, no cervical lymphadenopathy. Supple, full range of motion without nuchal rigidity, or vertebral point tenderness. No Meningismus. Chest/axilla: Normal chest wall appearance and motion. Nontender with no deformity. Cardiovascular: Regular rate and rhythm with a normal S1 and S2. No gallops, murmurs, or rubs. Normal PMI, no JVD. No pulse deficits. Respiratory: Lungs have equal breath sounds bilaterally, clear to auscultation and percussion. No rales, rhonchi or wheezes noted. No increased work of breathing, no retractions or nasal flaring. Abdomen/GI: Soft, non-tender, with normal bowel sounds. No distension or tympany. No guarding or rebound. No evidence of tenderness throughout. 20:12 Musculoskeletal/extremity: Extremities: noted in the right elbow: pain, rash, swelling, tenderness. Vital Signs: 19:28 BP 183 / 102; Pulse 88; Resp 20; Temp 98; Pulse Ox 99% ; Weight 77.11 kg; Height 6 ft. kb3 0 in. (182.88 cm); Pain 8/10; 19:28 Body Mass Index 23.06 (77.11 kg, 182.88 cm) kb3 MDM: 19:37 Patient medically screened. ms3 20:12 Data reviewed: vital signs, nurses notes, and as a result, I will discharge patient. ms3 Counseling: I had a detailed discussion with the patient and/or guardian regarding: the historical points, exam findings, and any diagnostic results supporting the discharge/admit diagnosis, the need for outpatient follow up, to return to the emergency department if symptoms worsen or persist or if there are any questions or concerns that arise at home. ED course: Discussed physical exam findings with patient. Patient given prescription for clindamycin 300 mg p.o. every 8 hours x14 days. Patient stands agrees with plan. Patient to follow-up with Dr. Velasco in 2 to 3 days. Return precautions discussed include worsening symptoms, fevers, chills, numbness or weakness of his right upper extremity, or other concerns.. Administered Medications: 20:22 Drug: HYDROcodone-acetaminophen 5 mg-325 mg 1 tabs Route: PO; tw5 20:22 Follow up: Response: No adverse reaction; Medication administered at discharge.; RASS: tw5 Alert and Calm (0) Disposition Summary: 04/21/22 19:38 Discharge Ordered Location: Home ms3 Condition: Stable ms3 Diagnosis - Olecranon bursitis, right elbow ms3 Followup: ms3 - With: Bharat Velasco MD - When: 2 - 3 days - Reason: Recheck today's complaints Discharge Instructions: - Discharge Summary Sheet ms3 - Bursitis, [place] ms3 Forms: - Medication Reconciliation Form ms3 - Thank You Letter ms3 - Antibiotic Education ms3 - Prescription Opioid Use ms3 Prescriptions: - Clindamycin HCl 300 mg Oral Capsule - take 1 capsule by ORAL route every 8 hours for 14 days; 42 capsule; Refills: 0, ms3 Product Selection Permitted - Tylenol-Codeine #3 300 mg-30 mg Oral - take 1 tablet by ORAL route every 6 hours; 12 tablet; Refills: 0, Product ms3 Selection Permitted Signatures: Rashi Washington DO DO ms3 Mira Rust tw5 Bette Malhotra, RN RN kb3
[2022-04-21] MEDS ORDERED: HYDROCODONE/APAP 5/325 MG TAB ONE (20:16)
[2022-04-21 20:54] VITALS: BP 183/102; TEMP 98; O2SAT 99
== END 2022-04-21 20:23 | disposition home or self-care (01) ==
LOC: ER 19:14
DX: M70.21 Olecranon bursitis, right elbow (principal)
CPT/HCPCS: 99283

== ENCOUNTER 2022-07-07 18:54 | Emergency (ER) | payer OTHER ==
--- OUTSIDE RECORDS SUMMARY | 2022-07-07 19:01 | XMS REPORT | Continuity of Care Document ---
:1965 Author Organization [facility] t Address [address] [place] [address] Care Team Providers Name Role Phone Og Weber Primary Care Physician BEE KOVACS Attending Clinician Unavailable HAN EL Attending Clinician Unavailable JESSENIA SHAIKH Attending Clinician Unavailable JESSEINA SHAIKH Attending Clinician Unavailable GIUSEPPE CRANDALL Attending Clinician Unavailable Karley WHITE, Giuseppe Attending Clinician Unknown, Attending Attending Clinician Unavailable Og Weber Attending Clinician Lela Lara Attending Clinician Unavailable Bee Urias Attending Clinician Doctor Unassigned, Blum Attending Clinician Unavailable YODIT SNIDER Attending Clinician Unavailable Yodit Snider MD Attending Clinician Joan Amin Attending Clinician Unavailable FRANSICO DEAL Attending Clinician Unavailable OG PONCE Attending Clinician Unavailable GRECIA BEATTY Attending Clinician Unavailable Grecia Bahena Attending Clinician Berkley Patricio MD Attending Clinician STALIN KEMP Attending Clinician Unavailable BERKLEY PATRICIO Attending Clinician Unavailable LAWRENCE MCKOY Attending Clinician Unavailable RADU HINES Attending Clinician Unavailable Merari Tomas LMSW Attending Clinician Unavailable Lab, Ang - Db Attending Clinician Unavailable BERKLEY PATRICIO Admitting Clinician Unavailable Payers Payer Name Policy Type Policy Number Effective Date Expiration Date [place] [place] [id number] 2021 00:00:00 Problems Condition Condition Condition Status Onset Resolution Last Treating Co mments Source Name Details Category Date Date Treatment Clinician Date Chronic Chronic Disease Active 2021-05 [facility] renal renal 1-10 [place] , stage 4 , stage 4 00 [facility] (severe) (severe) Branch Chronic Chronic Disease Active Univers hepatitis hepatitis 9-22 [place] C without [place] without [place] hepatic hepatic 00 [place] coma coma Branch Elevated Elevated Disease Active Unive rs liver liver 9-22 ity of enzymes enzymes 00:00: [place] 00 Medical Branch Elevated Elevated Disease Active Unive rs serum serum 9-22 [place] of creatinine [place] 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, loss, 00:00: [place] bilateral bilateral 00 [facility] Branch Edentulous Edentulous Disease Active U nivers 9-15 ity of 00:00: 00 Medical Branch Chronic Chronic Disease Active Univers bilateral bilateral 9-15 ity of low back low back 00:00: [place] pain pain 00 Medical without without Branch sciatica sciatica Dry skin Dry skin Disease Active Unive rs dermatitis dermatitis 9-15 it y of 00:00: Medical Branch Anxiety Anxiety Disease Active Univers 9-15 ity of 00:00: Medical Branch Abnormal Abnormal Disease Active Unive rs EKG EKG 9-15 ity of 00:00: 00 Medical Branch Hypertensi Hypertensi Disease Active U nivers on, on, 9-15 ity of unspecifie unspecifie [place] d type d type 00 Medical Branch Mouth pain Mouth pain Disease Active Overview : Univers 3-19 Formattin ity of 00:00: g of this [place] 00 note Medical might be Branch different from the original. Added automatic ally from request for surgery [id number] Other Other Disease Active 2019-0 Overview: Univer s chronic chronic 3-19 Formattin ity o f osteomyeli osteomyeli 00:00: g of this [place] tis, other tis, other 00 note Me dical site site might be Branch different from the original. Added automatic ally from request for surgery [id number] Allergies, Adverse Reactions, Alerts Allergy Allergy Status Severity Reaction(s) Onset Inactive Treating Comm ents Source Name Type Date Date Clinician NO KNOWN Drug Active Univers ALLERGIE Class ity of S [facility] Social History Social Habit Start Date Stop Date Quantity Comments Source History SDOH University o f Alcohol Frequency [facility] edical Branch History SDOH University o f Alcohol Std Drinks [facility] History [facility] University o f Alcohol Binge [facility] al Branch Exposure to 2022-06-25 2022-07-05 Not sure University of SARS-CoV-2 (event) 00:00:00 10:20:00 [facility] Alcohol intake 2022-07-05 2022-07-05 .29 /d University of 00:00:00 00:00:00 [facility] Cigarettes smoked 2022-04-21 2022-04-21 Univers ity of current (pack per 00:00:00 00:00:00 [facility] ) - Reported Branch Tobacco use and 2022-04-21 2022-04-21 User of Universit y of exposure 00:00:00 00:00:00 smokeless [facility] tobacco [place] Alcohol Comment 2022-02-01 2022-02-01 Frequency varies Uni versity of 00:00:00 00:00:00 [facility] History of tobacco 2018-03-20 2018-02-27 Snuff User Univ sity of use 00:00:00 00:00:00 [facility] Sex [birth year] Universit y of 00:00:00 00:00:00 [facility] Smoking Status Start Date Stop Date Source Smokes tobacco daily 2022-04-21 00:00:00 Univers ity of [facility] Medications Ordered Filled Start Stop Current Ordering Indication Dosage Frequency Signature Comments Components Source Medication Medication Date Date Medication? Clinician (SIG) Name Name clindamycin 202- Yes [id number] 300mg Take 1 Univers 300 mg -16 24 capsule by ity of capsule 00:00: 05:59 mouth 4 [place] 00 :00 (four) Medical times [place] daily for 7 days. clindamycin 3-0 2023- Yes [id number] 300mg Take 1 Univers 300 mg 2-16 02-24 capsule by ity of capsule 00:00: 05:59 mouth 4 [place] 00 :00 (four) Medical times [place] daily for 7 days. triamcinolo 2022-0 Yes [id number] Apply to Univers ne 1-11 area(s) 2 ity of acetonide 00:00: (two) [place] 0.1 % cream 00 times Medical daily. Branch triamcinolo 2022-0 Yes [id number] Apply to Univers ne 1-11 area(s) 2 ity of acetonide 00:00: (two) [place] 0.1 % cream 00 times Medical daily. Branch triamcinolo 2022-0 Yes [id number] Apply to Univers ne 1-11 area(s) 2 ity of acetonide 00:00: (two) [place] 0.1 % cream 00 times Medical daily. Branch triamcinolo 2022-0 Yes [id number] Apply to Univers ne 1-11 area(s) 2 ity of acetonide 00:00: (two) [place] 0.1 % cream 00 times Medical daily. Branch triamcinolo 2022-0 Yes [id number] Apply to Univers ne 1-11 area(s) 2 ity of acetonide 00:00: (two) [place] 0.1 % cream 00 times Medical daily. Branch triamcinolo 2022-0 Yes [id number] Apply to Univers ne 1-11 area(s) 2 ity of acetonide 00:00: (two) [place] 0.1 % cream 00 times Medical daily. Branch triamcinolo 2022-0 Yes [id number] Apply to Univers ne 1-11 area(s) 2 ity of acetonide 00:00: (two) [place] 0.1 % cream 00 times Medical daily. Branch triamcinolo 2022-0 Yes [id number] Apply to Univers ne 1-11 area(s) 2 ity of acetonide 00:00: (two) [place] 0.1 % cream 00 times Medical daily. Branch clindamycin 2021-1 Yes [id number] 300mg Take 2 Univers 150 mg 2-15 capsules [place] of capsule 00:00[place] (four[place] Medical times [place] daily. clindamycin 2021-05 Yes [id number] 300mg Take 2 Univers 150 mg 2-15 capsules ity of capsule 00:00: [place] (four) Medical times Branch daily. clindamycin 2021-05 Yes [id number] 300mg Take 2 Univers 150 mg 2-15 capsules ity of capsule 00:00: [place] (four) Medical times Branch daily. clindamycin 2021-05 Yes [id number] 300mg Take 2 Univers 150 mg 2-15 capsules ity of capsule 00:00: [place] (four) Medical times Branch daily. clindamycin 2021-05 Yes [id number] 300mg Take 2 [facility] 150 mg 2-15 capsules ity of capsule 00:00: [place] (four) Medical times Branch daily. clindamycin 2021-05 Yes [id number] 300mg Take 2 [facility] 150 mg 2-15 capsules [place] of capsule 00:00: [place] (four) Medical times Branch daily. clindamycin 2021-05 Yes [id number] 300mg Take 2 [facility] 150 mg 2-15 capsules ity of capsule 00:00: [place] (four) Medical times Branch daily. clindamycin 2021-05 Yes [id number] 300mg Take 2 [facility] 150 mg 2-15 capsules ity of capsule 00:00: [place] (four) Medical times Branch daily. clindamycin 2021-05 Yes [id number] 300mg Take 2 [facility] 150 mg 2-15 capsules ity of capsule 00:00: [place] (four) Medical times Branch daily. clindamycin 2021-05 Yes [id number] 300mg Take 2 [facility] 150 mg 2-15 capsules ity of capsule 00:00: [place] (four) Medical times Branch daily. clindamycin 2021-05 Yes [id number] 300mg Take 2 [facility] 150 mg 2-15 capsules ity of capsule 00:00: [place] (four) Medical times Branch daily. acetaminoph 2021-05 Yes TAKE ONE Un soniya en-codeine 2-04 (1) ity of 300-30 mg 00:00: TABLET(S) [place] as tablet 00 BY MOUTH Medical EVERY SIX Branch HOURS NEEDED FOR PAIN CONTROL. clindamycin 2021-05 Yes TAKE ONE Un son[place] 300 mg 2-04 (1) ity of capsule 00:00: [place] 00 BY MOUTH Medical EVERY Branch EIGHT HOURS. acetaminoph 2021-05 Yes TAKE ONE Un son[place] en-codeine 2-04 (1) ity of 300-30 mg 00:00: TABLET(S) [place] tablet 00 BY MOUTH Medical EVERY SIX Branch HOURS NEEDED FOR PAIN CONTROL. clindamycin 2021-05 Yes TAKE ONE Un son[place] 300 mg 2-04 (1) ity of capsule 00:00: [place] 00 BY MOUTH Medical EVERY Branch EIGHT HOURS. doxepin 50 2021-05 Yes [id number] 50mg Take 1 U nivers mg capsule 2-03 capsule by ity of 00:00: mouth at [place] [address] bedtime. Medical Branch doxepin 50 2021-05 Yes [id number] 50mg Take 1 U nivers mg capsule 2-03 capsule by ity of 00:00: mouth at [place] [address] bedtime. Medical Branch doxepin 50 2021-05 Yes [id number] 50mg Take 1 U nivers mg capsule 2-03 capsule by ity of 00:00: mouth at [place] [address] bedtime. Medical Branch doxepin 50 2021-05 Yes [id number] 50mg Take 1 U nivers mg capsule 2-03 capsule by ity of 00:00: mouth at [place] [address] bedtime. Medical Branch doxepin 50 2021-05 Yes [id number] 50mg Take 1 U nivers mg capsule 2-03 capsule by ity of 00:00: mouth at [place] [address] bedtime. Medical Branch doxepin 50 2021-05 Yes [id number] 50mg Take 1 U nivers mg capsule 2-03 capsule by ity of 00:00: mouth at [place] [address] bedtime. Medical Branch doxepin 50 2021-05 Yes [id number] 50mg Take 1 U nivers mg capsule 2-03 capsule by ity of 00:00: mouth at [place] [address] bedtime. Medical Branch doxepin 50 2021-05 Yes [id number] 50mg Take 1 U nivers mg capsule 2-03 capsule by ity of 00:00: mouth at [place] [address] bedtime. Medical Branch doxepin 50 2021-05 Yes [id number] 50mg Take 1 U nivers mg capsule 2-03 capsule by ity of 00:00: mouth at [place] 00 bedtime. Medical Branch doxepin 50 2021-05 Yes [id number] 50mg Take 1 U nivers mg capsule 2-03 capsule by ity of 00:00: mouth at [place] 00 bedtime. Medical Branch doxepin 50 2021-05 Yes [id number] 50mg Take 1 U nivers mg capsule 2-03 capsule by ity of 00:00: mouth at [place] 00 bedtime. Medical Branch doxepin 50 2021-05 Yes [id number] 50mg Take 1 U nivers mg capsule 2-03 capsule by ity of 00:00: mouth at [place] 00 bedtime. Medical Branch doxepin 50 2021-05 Yes [id number] 50mg Take 1 U nivers mg capsule 2-03 capsule by ity of 00:00: mouth at [place] [address] bedtime. Medical Branch doxepin 50 2021-05 Yes [id number] 50mg Take 1 U nivers mg capsule 2-03 capsule by ity of 00:00: mouth at [place] [address] bedtime. Medical Branch doxepin 50 2021-05 Yes [id number] 50mg Take 1 U nivers mg capsule 2-03 capsule by ity of 00:00: mouth at [place] [address] bedtime. Medical Branch doxepin 50 2021-05 Yes [id number] 50mg Take 1 U nivers mg capsule 2-03 capsule by ity of 00:00: mouth at [place] [address] bedtime. Medical Branch doxepin 50 2021-05 Yes [id number] 50mg Take 1 U nivers mg capsule 2-03 capsule by ity of 00:00: mouth at [place] [address] bedtime. Medical Branch triamcinolo 2021-05 Yes [id number] Apply to Univers ne 1-10 area(s) 2 ity of acetonide 00:00: (two) [place] 0.1 % cream 00 times Medical daily. Branch triamcinolo 2021-05 Yes [id number] Apply to Univers ne 1-10 area(s) 2 ity of acetonide 00:00: (two) [place] 0.1 % cream 00 times Medical daily. Branch triamcinolo 2021-05 Yes [id number] Apply to Univers ne 1-10 area(s) 2 ity of acetonide 00:00: (two) [place] 0.1 % cream 00 times Medical daily. Emy triamcinjaswant 2021-05 Yes [id number] Apply to Univers ne 1-10 area(s) 2 ity of acetonide 00:00: (two) [place] 0.1 % cream 00 times Medical daily. Emy triamcinjaswant 2021-05 Yes [id number] Apply to Univers ne 1-10 area(s) 2 ity of acetonide 00:00: (two) [place] 0.1 % cream 00 times Medical daily. Emy parmaramcinjaswant 2021-05 Yes [id number] Apply to Univers ne 1-10 area(s) 2 ity of acetonide 00:00: (two) [place] 0.1 % cream 00 times Medical daily. Emy parmaramcinjaswant 2021-05 Yes [id number] Apply to Univers ne 1-10 area(s) 2 ity of acetonide 00:00: (two) [place] 0.1 % cream 00 times Medical daily. Emy parmaramcinjaswant 2021-05 Yes [id number] Apply to Univers ne 1-10 area(s) 2 ity of acetonide 00:00: (two) [place] 0.1 % cream 00 times Medical daily. Emy bautista 2021-05 Yes [id number] Apply to Univers ne 1-10 area(s) 2 ity of acetonide 00:00: (two) [place] 0.1 % cream 00 times Medical daily. Emy parmaramcinjaswant 2021-05 Yes [id number] Apply to Univers ne 1-10 area(s) 2 ity of acetonide 00:00: (two) [place] 0.1 % cream 00 times Medical daily. Emy parmaramcinjaswant 2021-05 Yes [id number] Apply to Univers ne 1-10 area(s) 2 ity of acetonide 00:00: (two) [place] 0.1 % cream 00 times Medical daily. Emy triamcinjaswant 2021-05 Yes [id number] Apply to Univers ne 1-10 area(s) 2 ity of acetonide 00:00: (two) [place] 0.1 % cream 00 times Medical daily. Emy triamcinjaswant 2021-05 Yes [id number] Apply to Univers ne 1-10 area(s) 2 ity of acetonide 00:00: (two) [place] 0.1 % cream 00 times Medical daily. Emy parmaramdarling 2021-05 Yes [id number] Apply to Univers ne 1-10 area(s) 2 ity of acetonide 00:00: (two) [place] 0.1 % cream 00 times Medical daily. Branch triamcinolo 2021-05- No [id number] Apply to [facility] 1-11 area(s) 2 ity of acetonide 00:00: 00:00 (two) [place] 0.1 % cream 00 :00 times Medical daily. Branch amLODIPine 2021-05- No [id number] 5mg Take 5 mg Univers 5 mg tablet 0-31 10-31 by mouth ity of 14:30: 00:00 in the [place] 05 :00 morning. Medical Branch amLODIPine 2021-05- No [id number] 5mg Take 5 mg Univers 5 mg tablet 0-31 10-31 by mouth ity of 14:30: 00:00 in the [place] 05 :00 morning. Medical Branch amLODIPine 2021-05 Yes [id number] 10mg Take 1 U nivers 10 mg 0-31 tablet by ity of tablet 00:00: mouth in [place] the Medical morning. Branch amLODIPine 2021-05 Yes [id number] 10mg Take 1 U nivers 10 mg 0-31 tablet by ity of tablet 00:00: mouth in [place] the Medical morning. Branch amLODIPine 2021-05 Yes [id number] 10mg Take 1 U nivers 10 mg 0-31 tablet by ity of tablet 00:00: mouth in [place] the Medical morning. Branch amLODIPine 2021-05 Yes [id number] 10mg Take 1 U nivers 10 mg 0-31 tablet by ity of tablet 00:00: mouth in [place] the Medical morning. Branch amLODIPine 2021-05 Yes [id number] 10mg Take 1 U nivers 10 mg 0-31 tablet by ity of tablet 00:00: mouth in [place] the Medical morning. Branch amLODIPine 2021-05 Yes [id number] 10mg Take 1 U nivers 10 mg 0-31 tablet by ity of tablet 00:00: mouth in [place] 00 the Medical morning. Branch amLODIPine 2021-05 Yes [id number] 10mg Take 1 U nivers 10 mg 0-31 tablet by ity of tablet 00:00: mouth in [place] 00 the Medical morning. Branch amLODIPine 2021-05 Yes [id number] 10mg Take 1 U nivers 10 mg 0-31 tablet by ity of tablet 00:00: mouth in [place] the Medical morning. Branch amLODIPine 2021-05 Yes [id number] 10mg Take 1 U nivers 10 mg 0-31 tablet by ity of tablet 00:00: mouth in [place] the Medical morning. Branch amLODIPine 2021- Yes [id number] 10mg Take 1 U nivers 10 mg 0-31 tablet by ity of tablet 00:00: mouth in [place] the Medical morning. Branch amLODIPine 2021-05 Yes [id number] 10mg Take 1 U nivers 10 mg 0-31 tablet by ity of tablet 00:00: mouth in [place] the Medical morning. Branch amLODIPine 2021- Yes [id number] 10mg Take 1 U nivers 10 mg 0-31 tablet by ity of tablet 00:00: mouth in [place] the Medical morning. Branch amLODIPine 2021- Yes [id number] 10mg Take 1 U nivers 10 mg 0-31 tablet by ity of tablet 00:00: mouth in [place] the Medical morning. Branch amLODIPine 2021- Yes [id number] 10mg Take 1 U nivers 10 mg 0-31 tablet by ity of tablet 00:00: mouth in [place] the Medical morning. Branch amLODIPine 2021- Yes [id number] 10mg Take 1 U nivers 10 mg 0-31 tablet by ity of tablet 00:00: mouth in [place] the Medical morning. Branch amLODIPine 2021- Yes [id number] 10mg Take 1 U nivers 10 mg 0-31 tablet by ity of tablet 00:00: mouth in [place] the Medical morning. Branch amLODIPine 2021- Yes [id number] 10mg Take 1 U nivers 10 mg 0-31 tablet by ity of tablet 00:00: mouth in [place] the Medical morning. Branch amLODIPine 2021- Yes [id number] 10mg Take 1 U nivers 10 mg 0-31 tablet by ity of tablet 00:00: mouth in [place] the Medical morning. Branch amLODIPine 2021- Yes [id number] 10mg Take 1 U nivers 10 mg 0-31 tablet by ity of tablet 00:00: mouth in [place] the Medical morning. Branch amLODIPine 2021- Yes [id number] 10mg Take 1 U nivers 10 mg 0-31 tablet by ity of tablet 00:00: mouth in [place] 00 the Medical morning. Branch amLODIPine 2021-05 Yes [id number] 10mg Take 1 U nivers 10 mg 0-31 tablet by ity of tablet 00:00: mouth in [place] the Medical morning. Branch amLODIPine 2021-05 Yes [id number] 10mg Take 1 U nivers 10 mg 0-31 tablet by ity of tablet 00:00: mouth in [place] the Medical morning. Branch amLODIPine 2021-05 Yes [id number] 10mg Take 1 U nivers 10 mg 0-31 tablet by ity of tablet 00:00: mouth in [place] the Medical morning. Branch amLODIPine 2021-05 Yes [id number] 10mg Take 1 U nivers 10 mg 0-31 tablet by ity of tablet 00:00: mouth in [place] the Medical morning. Branch amLODIPine 2021-05 Yes [id number] 10mg Take 1 U nivers 10 mg 0-31 tablet by ity of tablet 00:00: mouth in [place] the Medical morning. Branch amLODIPine 2021-05 Yes [id number] 10mg Take 1 U nivers 10 mg 0-31 tablet by ity of tablet 00:00: mouth in [place] the Medical morning. Branch amLODIPine 2021-05 Yes [id number] 10mg Take 1 U nivers 10 mg 0-31 tablet by ity of tablet 00:00: mouth in [place] the Medical morning. Branch amLODIPine 2021-05 Yes [id number] 10mg Take 1 U nivers 10 mg 0-31 tablet by ity of tablet 00:00: mouth in [place] the Medical morning. Branch amLODIPine 2021-05 Yes [id number] 10mg Take 1 U nivers 10 mg 0-31 tablet by ity of tablet 00:00: mouth in [place] the Medical morning. Branch amLODIPine 2021-05 Yes [id number] 10mg Take 1 U nivers 10 mg 0-31 tablet by ity of tablet 00:00: mouth in [place] 00 the Medical morning. Branch lisinopriL 2021-05- No [id number] 40mg Take 40 mg Univers 40 mg 0-14 10-14 by mouth ity of tablet 14:02: 00:00 in the [place] 49 :00 morning. Medical Branch lisinopriL 2021-05- No [id number] 40mg Take 40 mg Univers 40 mg 0-14 10-14 by mouth ity of tablet 14:02: 00:00 in the [place] 49 :00 morning. Medical Branch carvediloL 2021-05 Yes [id number] 6.25mg Take 1 Univers 6.25 mg 0-14 tablet by ity of tablet 00:00: mouth in [address] and 1 tablet in the evening. Take with meals. carvediloL 2021-05 Yes [id number] 6.25mg Take 1 Univers 6.25 mg 0-14 tablet by ity of tablet 00:00: mouth in [address] and 1 tablet in the evening. Take with meals. carvediloL 2021-05 Yes [id number] 6.25mg Take 1 Univers 6.25 mg 0-14 tablet by ity of tablet 00:00: mouth in [address] and 1 tablet in the evening. Take with meals. carvediloL 2021-05 Yes [id number] 6.25mg Take 1 Univers 6.25 mg 0-14 tablet by ity of tablet 00:00: mouth in [address] and 1 tablet in the evening. Take with meals. carvediloL 2021-05 Yes [id number] 6.25mg Take 1 Univers 6.25 mg 0-14 tablet by ity of tablet 00:00: mouth in [address] and 1 tablet in the evening. Take with meals. carvediloL 2021-05 Yes [id number] 6.25mg Take 1 Univers 6.25 mg 0-14 tablet by ity of tablet 00:00: mouth in [address] and 1 tablet in the evening. Take with meals. carvediloL 2021-05 Yes [id number] 6.25mg Take 1 Univers 6.25 mg 0-14 tablet by ity of tablet 00:00: mouth in [address] and 1 tablet in the evening. Take with meals. carvediloL 2021-05 Yes [id number] 6.25mg Take 1 Univers 6.25 mg 0-14 tablet by ity of tablet 00:00: mouth in [address] and 1 tablet in the evening. Take with meals. carvediloL 2021-05 Yes [id number] 6.25mg Take 1 Univers 6.25 mg 0-14 tablet by ity of tablet 00:00: mouth in [address] morning [place] and 1 tablet in the evening. Take with meals. carvediloL 2021-05 Yes [id number] 6.25mg Take 1 Univers 6.25 mg 0-14 tablet by ity of tablet 00:00: mouth in [address] and 1 tablet in the evening. Take with meals. carvediloL 2021-05 Yes [id number] 6.25mg Take 1 Univers 6.25 mg 0-14 tablet by ity of tablet 00:00: mouth in [address] and 1 tablet in the evening. Take with meals. carvediloL 2021-05 Yes [id number] 6.25mg Take 1 Univers 6.25 mg 0-14 tablet by ity of tablet 00:00: mouth in [address] and 1 tablet in the evening. Take with meals. carvediloL 2021-05 Yes [id number] 6.25mg Take 1 Univers 6.25 mg 0-14 tablet by ity of tablet 00:00: mouth in [address] and 1 tablet in the evening. Take with meals. carvediloL 2021-05 Yes [id number] 6.25mg Take 1 Univers 6.25 mg 0-14 tablet by ity of tablet 00:00: mouth in [address] and 1 tablet in the evening. Take with meals. carvediloL 2021-05 Yes [id number] 6.25mg Take 1 Univers 6.25 mg 0-14 tablet by ity of tablet 00:00: mouth in [address] and 1 tablet in the evening. Take with meals. carvediloL 2021-05 Yes [id number] 6.25mg Take 1 Univers 6.25 mg 0-14 tablet by ity of tablet 00:00: mouth in [address] and 1 tablet in the evening. Take with meals. carvediloL 2021-05 Yes [id number] 6.25mg Take 1 Univers 6.25 mg 0-14 tablet by ity of tablet 00:00: mouth in [address] and 1 tablet in the evening. Take with meals. carvediloL 2021-05 Yes [id number] 6.25mg Take 1 Univers 6.25 mg 0-14 tablet by ity of tablet 00:00: mouth in [address] morning [place] and 1 tablet in the evening. Take with meals. carvediloL 2021-05 Yes [id number] 6.25mg Take 1 Univers 6.25 mg 0-14 tablet by ity of tablet 00:00: mouth in [address] morning [place] and 1 tablet in the evening. Take with meals. carvediloL 2021-05 Yes [id number] 6.25mg Take 1 Univers 6.25 mg 0-14 tablet by ity of tablet 00:00: mouth in [address] and 1 tablet in the evening. Take with meals. carvediloL 2021-05 Yes [id number] 6.25mg Take 1 Univers 6.25 mg 0-14 tablet by ity of tablet 00:00: mouth in [address] and 1 tablet in the evening. Take with meals. carvediloL 2021-05 Yes [id number] 6.25mg Take 1 Univers 6.25 mg 0-14 tablet by ity of tablet 00:00: mouth in [address] and 1 tablet in the evening. Take with meals. carvediloL 2021-05 Yes [id number] 6.25mg Take 1 Univers 6.25 mg 0-14 tablet by ity of tablet 00:00: mouth in [address] and 1 tablet in the evening. Take with meals. carvediloL 2021-05 Yes [id number] 6.25mg Take 1 Univers 6.25 mg 0-14 tablet by ity of tablet 00:00: mouth in [address] and 1 tablet in the evening. Take with meals. carvediloL 2021-05 Yes [id number] 6.25mg Take 1 Univers 6.25 mg 0-14 tablet by ity of tablet 00:00: mouth in [address] morning [place] and 1 tablet in the evening. Take with meals. carvediloL 2021-05 Yes [id number] 6.25mg Take 1 Univers 6.25 mg 0-14 tablet by ity of tablet 00:00: mouth in [address] and 1 tablet in the evening. Take with meals. carvediloL 2021-05 Yes [id number] 6.25mg Take 1 Univers 6.25 mg 0-14 tablet by ity of tablet 00:00: mouth in [address] and 1 tablet in the evening. Take with meals. carvediloL 2021-05 Yes [id number] 6.25mg Take 1 Univers 6.25 mg 0-14 tablet by ity of tablet 00:00: mouth in [place] [address] [facility] and 1 tablet in the evening. Take with meals. carvediloL 2021-05 Yes [id number] 6.25mg Take 1 Univers 6.25 mg 0-14 tablet by ity of tablet 00:00: mouth in [address] and 1 tablet in the evening. Take with meals. carvediloL 2021-05 Yes [id number] 6.25mg Take 1 Univers 6.25 mg 0-14 tablet by ity of tablet 00:00: mouth in [address] and 1 tablet in the evening. Take with meals. carvediloL 2021-05 Yes [id number] 6.25mg Take 1 Univers 6.25 mg 0-14 tablet by ity of tablet 00:00: mouth in [address] and 1 tablet in the evening. Take with meals. carvediloL 2021-05 Yes [id number] 6.25mg Take 1 [facility] 6.25 mg 0-14 tablet by ity of tablet 00:00: mouth in [address] and 1 tablet in the evening. Take with meals. carvediloL 2021-05 Yes [id number] 6.25mg Take 1 [facility] 6.25 mg 0-14 tablet by ity of tablet 00:00: mouth in [address] and 1 tablet in the evening. Take with meals. carvediloL 2021-05 Yes [id number] 6.25mg Take 1 [facility] 6.25 mg 0-14 tablet by ity of tablet 00:00: mouth in [address] and 1 tablet in the evening. Take with meals. lisinopriL Yes [id number] 40mg Take 40 mg [facility] 40 mg 9-22 by mouth ity of tablet 14:52: in the morning. [facility] traZODone Yes [id number] 150mg Take 150 [facility] 150 mg 9-22 mg by ity of tablet 14:52: mouth at [place] [address] bedtime. [facility] cyclobenzap Yes Take by Uni vers rine HCl 9-22 mouth. ity of (CYCLOBENZA 14:52: [place] [facility] [employer]) [facility] Branch lisinopriL 0 Yes [id number] 40mg Take 40 mg [facility] 40 mg 9-22 by mouth ity of tablet 14:52: in the [place] morning. [facility] Branch traZODone 0 Yes [id number] 150mg Take 150 [facility] 150 mg 9-22 mg by ity of tablet 14:52: mouth at [place] bedtime. [facility] Branch cyclobenzap Yes Take by Uni vers rine HCl 9-22 mouth. ity of (CYCLOBENZA 14:52: [place] [facility] [employer]) [facility] lisinopriL 0 Yes [id number] 40mg Take 40 mg [facility] 40 mg 9-22 by mouth ity of tablet 14:52: in the [place] morning. [facility] traZODone 0 Yes [id number] 150mg Take 150 [facility] 150 mg 9-22 mg by ity of tablet 14:52: mouth at [place] [address] bedtime. [facility] cyclobenzap Yes Take by Uni vers rine HCl 9-22 mouth. ity of (CYCLOBENZA 14:52: [place] [facility] [employer]) [facility] lisinopriL Yes [id number] 40mg Take 40 mg [facility] 40 mg 9-22 by mouth ity of tablet 14:52: in the [place] morning. [facility] traZODone 0 Yes [id number] 150mg Take 150 [facility] 150 mg 9-22 mg by ity of tablet 14:52: mouth at [place] [address] bedtime. [facility] cyclobenzap Yes Take by Uni vers rine HCl 9-22 mouth. ity of (CYCLOBENZA 14:52: [place] [employer] [employer]) [facility] lisinopriL 0 Yes [id number] 40mg Take 40 mg [facility] 40 mg 9-22 by mouth ity of tablet 14:52: in the [place] morning. [facility] traZODone 2021-0 Yes [id number] 150mg Take 150 [facility] 150 mg 9-22 mg by ity of tablet 14:52: mouth at [place] [address] bedtime. [facility] Branch cyclobenzap Yes Take by Uni vers rine HCl 9-22 mouth. ity of (CYCLOBENZA 14:52: [place] [employer] [employer]) [facility] lisinopriL Yes [id number] 40mg Take 40 mg [facility] 40 mg 9-22 by mouth ity of tablet 14:52: in the morning. [facility] Branch traZODone Yes [id number] 150mg Take 150 [facility] 150 mg 9-22 mg by ity of tablet 14:52: mouth at [place] [address] bedtime. [facility] cyclobenzap Yes Take by Uni vers rine HCl 9-22 mouth. ity of (CYCLOBENZA 14:52: [place] [employer]) [facility] lisinopriL Yes [id number] 40mg Take 40 mg [facility] 40 mg 9-22 by mouth ity of tablet 14:52: in the [place] morning. [facility] traZODone Yes [id number] 150mg Take 150 [facility] 150 mg 9-22 mg by ity of tablet 14:52: mouth at [place] [address] bedtime. [facility] cyclobenzap Yes Take by Uni vers rine HCl 9-22 mouth. ity of (CYCLOBENZA 14:52: [place] [employer]) [facility] traZODone Yes [id number] 150mg Take 150 [facility] 150 mg 9-22 mg by ity of tablet 14:52: mouth at [place] [address] bedtime. [facility] cyclobenzap Yes Take by [facility] vers rine HCl 9-22 mouth. ity of (CYCLOBENZA 14:52: [place] [employer]) [facility] traZODone Yes [id number] 150mg Take 150 [facility] 150 mg 9-22 mg by ity of tablet 14:52: mouth at [place] [address] bedtime. [facility] cyclobenzap Yes Take by [facility] vers rine HCl 9-22 mouth. ity of (CYCLOBENZA 14:52: [place] [employer]) [facility] traZODone Yes [id number] 150mg Take 150 [facility] 150 mg 9-22 mg by ity of tablet 14:52: mouth at [place] [address] bedtime. [facility] cyclobenzap Yes Take by [facility] vers rine HCl 9-22 mouth. ity of (CYCLOBENZA 14:52: [place] [employer]) [facility] traZODone Yes [id number] 150mg Take 150 [facility] 150 mg 9-22 mg by ity of tablet 14:52: mouth at [place] bedtime. [facility] cyclobenzap Yes Take by [facility] vers rine HCl 9-22 mouth. ity of (CYCLOBENZA 14:52: [place] [employer]) [facility] traZODone Yes [id number] 150mg Take 150 [facility] 150 mg 9-22 mg by ity of tablet 14:52: mouth at [place] bedtime. [facility] cyclobenzap Yes Take by [facility] vers rine HCl 9-22 mouth. ity of (CYCLOBENZA 14:52: [place] [employer]) [facility] traZODone Yes [id number] 150mg Take 150 [facility] 150 mg 9-22 mg by ity of tablet 14:52: mouth at [place] bedtime. [facility] cyclobenzap Yes Take by Uni vers rine HCl 9-22 mouth. ity of (CYCLOBENZA 14:52: [place] [employer]) [facility] traZODone Yes [id number] 150mg Take 150 [facility] 150 mg 9-22 mg by ity of tablet 14:52: mouth at [place] bedtime. [facility] Branch cyclobenzap Yes Take by [facility] vers rine HCl 9-22 mouth. ity of (CYCLOBENZA 14:52: [place] [employer]) [facility] traZODone Yes [id number] 150mg Take 150 [facility] 150 mg 9-22 mg by ity of tablet 14:52: mouth at [place] bedtime. [facility] cyclobenzap Yes Take by [facility] vers rine HCl 9-22 mouth. ity of (CYCLOBENZA 14:52: [place] [employer]) [facility] traZODone Yes [id number] 150mg Take 150 [facility] 150 mg 9-22 mg by ity of tablet 14:52: mouth at [place] [address] bedtime. [facility] cyclobenzap Yes Take by [facility] vers rine HCl 9-22 mouth. ity of (CYCLOBENZA 14:52: [place] [employer]) [facility] traZODone Yes [id number] 150mg Take 150 [facility] 150 mg 9-22 mg by ity of tablet 14:52: mouth at [place] [address] bedtime. [facility] cyclobenzap Yes Take by [facility] vers rine HCl 9-22 mouth. ity of (CYCLOBENZA 14:52: [place] [employer]) [facility] traZODone Yes [id number] 150mg Take 150 [facility] 150 mg 9-22 mg by ity of tablet 14:52: mouth at [place] [address] bedtime. [facility] Branch cyclobenzap Yes Take by [facility] vers rine HCl 9-22 mouth. ity of (CYCLOBENZA 14:52: [place] [employer]) [facility] traZODone Yes [id number] 150mg Take 150 [facility] 150 mg 9-22 mg by ity of tablet 14:52: mouth at [place] [address] bedtime. [facility] cyclobenzap Yes Take by [facility] vers rine HCl 9-22 mouth. ity of (CYCLOBENZA 14:52: [place] [employer]) [facility] traZODone Yes [id number] 150mg Take 150 [facility] 150 mg 9-22 mg by ity of tablet 14:52: mouth at [place] [address] bedtime. [facility] Branch cyclobenzap Yes Take by [facility] vers rine HCl 9-22 mouth. ity of (CYCLOBENZA 14:52: [place] [employer]) [facility] traZODone Yes [id number] 150mg Take 150 [facility] 150 mg 9-22 mg by ity of tablet 14:52: mouth at [place] [address] bedtime. [facility] cyclobenzap Yes Take by [facility] vers rine HCl 9-22 mouth. ity of (CYCLOBENZA 14:52: [place] [employer]) [facility] traZODone Yes [id number] 150mg Take 150 [facility] 150 mg 9-22 mg by ity of tablet 14:52: mouth at [place] [address] bedtime. [facility] cyclobenzap Yes Take by [facility] vers rine HCl 9-22 mouth. ity of (CYCLOBENZA 14:52: [place] [employer]) [facility] traZODone Yes [id number] 150mg Take 150 [facility] 150 mg 9-22 mg by ity of tablet 14:52: mouth at [place] [address] bedtime. [facility] cyclobenzap Yes Take by [facility] vers rine HCl 9-22 mouth. ity of (CYCLOBENZA 14:52: [place] [employer]) [facility] traZODone Yes [id number] 150mg Take 150 [facility] 150 mg 9-22 mg by ity of tablet 14:52: mouth at [place] [address] bedtime. [facility] cyclobenzap Yes Take by [facility] vers rine HCl 9-22 mouth. ity of (CYCLOBENZA 14:52: [place] [employer]) [facility] traZODone Yes [id number] 150mg Take 150 [facility] 150 mg 9-22 mg by ity of tablet 14:52: mouth at [place] [address] bedtime. [facility] cyclobenzap Yes Take by [facility] vers rine HCl 9-22 mouth. ity of (CYCLOBENZA 14:52: [place] [employer]) [facility] traZODone Yes [id number] 150mg Take 150 [facility] 150 mg 9-22 mg by ity of tablet 14:52: mouth at [place] [address] bedtime. [facility] Branch cyclobenzap Yes Take by [facility] vers rine HCl 9-22 mouth. ity of (CYCLOBENZA 14:52: [place] [employer]) [facility] traZODone Yes [id number] 150mg Take 150 [facility] 150 mg 9-22 mg by ity of tablet 14:52: mouth at [place] [address] bedtime. [facility] Branch cyclobenzap Yes Take by [facility] vers rine HCl 9-22 mouth. ity of (CYCLOBENZA 14:52: [place] [employer]) [facility] traZODone Yes [id number] 150mg Take 150 [facility] 150 mg 9-22 mg by ity of tablet 14:52: mouth at [place] [address] bedtime. [facility] Branch cyclobenzap Yes Take by [facility] vers rine HCl 9-22 mouth. ity of (CYCLOBENZA 14:52: [place] [employer]) [facility] traZODone Yes [id number] 150mg Take 150 [facility] 150 mg 9-22 mg by ity of tablet 14:52: mouth at [place] [address] bedtime. [facility] Branch cyclobenzap Yes Take by [facility] vers rine HCl 9-22 mouth. ity of (CYCLOBENZA 14:52: [place] [employer]) [facility] traZODone Yes [id number] 150mg Take 150 [facility] 150 mg 9-22 mg by ity of tablet 14:52: mouth at [place] bedtime. [facility] cyclobenzap Yes Take by [facility] vers rine HCl 9-22 mouth. ity of (CYCLOBENZA 14:52: [place] [employer]) [facility] traZODone Yes [id number] 150mg Take 150 [facility] 150 mg 9-22 mg by ity of tablet 14:52: mouth at [place] [address] bedtime. [facility] cyclobenzap Yes Take by Uni vers rine HCl 9-22 mouth. ity of (CYCLOBENZA 14:52: [place] [employer]) [facility] traZODone Yes [id number] 150mg Take 150 [facility] 150 mg 9-22 mg by ity of tablet 14:52: mouth at [place] [address] bedtime. [facility] cyclobenzap Yes Take by [facility] vers rine HCl 9-22 mouth. ity of (CYCLOBENZA 14:52: [place] [employer]) [facility] traZODone Yes [id number] 150mg Take 150 [facility] 150 mg 9-22 mg by ity of tablet 14:52: mouth at [place] [address] bedtime. [facility] cyclobenzap Yes Take by [facility] vers rine HCl 9-22 mouth. ity of (CYCLOBENZA 14:52: [place] [employer]) [facility] traZODone Yes [id number] 150mg Take 150 [facility] 150 mg 9-22 mg by ity of tablet 14:52: mouth at [place] [address] bedtime. [facility] cyclobenzap Yes Take by [facility] vers rine HCl 9-22 mouth. ity of (CYCLOBENZA 14:52: [place] [employer]) [facility] traZODone Yes [id number] 150mg Take 150 [facility] 150 mg 9-22 mg by ity of tablet 14:52: mouth at [place] [address] bedtime. [facility] cyclobenzap Yes Take by [facility] vers rine HCl 9-22 mouth. ity of (CYCLOBENZA 14:52: [place] [employer]) [facility] traZODone Yes [id number] 150mg Take 150 [facility] 150 mg 9-22 mg by ity of tablet 14:52: mouth at [place] bedtime. [facility] cyclobenzap Yes Take by Uni vers rine HCl 9-22 mouth. ity of (CYCLOBENZA 14:52: [place] [employer]) [facility] traZODone Yes [id number] 150mg Take 150 [facility] 150 mg 9-22 mg by ity of tablet 14:52: mouth at [place] bedtime. [facility] cyclobenzap Yes Take by [facility] vers rine HCl 9-22 mouth. ity of (CYCLOBENZA 14:52: [place] [employer]) [facility] traZODone Yes [id number] 150mg Take 150 [facility] 150 mg 9-22 mg by ity of tablet 14:52: mouth at [place] bedtime. [facility] cyclobenzap Yes Take by [facility] vers rine HCl 9-22 mouth. ity of (CYCLOBENZA 14:52: [place] [employer]) [facility] traZODone Yes [id number] 150mg Take 150 [facility] 150 mg 9-22 mg by ity of tablet 14:52: mouth at [place] bedtime. [facility] Branch cyclobenzap Yes Take by [facility] vers rine HCl 9-22 mouth. ity of (CYCLOBENZA 14:52: [place] [employer]) [facility] traZODone Yes [id number] 150mg Take 150 [facility] 150 mg 9-22 mg by ity of tablet 14:52: mouth at [place] bedtime. [facility] cyclobenzap Yes Take by [facility] vers rine HCl 9-22 mouth. ity of (CYCLOBENZA 14:52: [place] [employer]) [facility] traZODone Yes [id number] 150mg Take 150 [facility] 150 mg 9-22 mg by ity of tablet 14:52: mouth at [place] [address] bedtime. [facility] Branch cyclobenzap Yes Take by Uni vers rine HCl 9-22 mouth. ity of (CYCLOBENZA 14:52: [place] [employer]) [facility] traZODone Yes [id number] 150mg Take 150 [facility] 150 mg 9-22 mg by ity of tablet 14:52: mouth at [place] [address] bedtime. Medical Branch cyclobenzap 2021-0 Yes Take by Uni vers rine HCl 9-22 mouth. ity of (CYCLOBENZA 14:52: [place] [employer] [employer]) 01 [facility] Branch clotrimazol 2021-0 Yes Apply to [...] bedtime. [place] cream 16 [facility] amLODIPine 0 Yes [id number] 5mg Take 5 mg [facility] 5 mg tablet 9-15 by mouth ity of 16:00: in the [place] [address] morning. [facility] Branch lisinopriL 2021-0 Yes [id number] 40mg Take 40 mg [facility] 40 mg 9-15 by mouth ity of tablet 16:00: in the [place] 04 morning. [facility] traZODone 2021-0 Yes [id number] 150mg Take 150 [facility] 150 mg 9-15 mg by ity of tablet 16:00: mouth at [place] 04 bedtime. [facility] cyclobenzap 2021-0 Yes Take by [facility] vers rine HCl 9-15 mouth. ity of (CYCLOBENZA 16:00: [place] [employer]) 04 [facility] Branch clotrimazol 2021-0 Yes Apply to Un soniya e 1 % 9-15 area(s) at ity of topical 16:00: bedtime. [place] [facility] 04 [facility] Branch amLODIPine Yes [id number] 5mg Take 5 mg [facility] 5 mg tablet 9-15 by mouth ity of 16:00: in the [place] morning. [facility] lisinopriL 0 Yes [id number] 40mg Take 40 mg [facility] 40 mg 9-15 by mouth ity of tablet 16:00: in the [place] morning. [facility] traZODone 0 Yes [id number] 150mg Take 150 [facility] 150 mg 9-15 mg by ity of tablet 16:00: mouth at [place] [address] bedtime. [facility] cyclobenzap Yes Take by [facility] vers rine HCl 9-15 mouth. ity of (CYCLOBENZA 16:00: [place] [employer]) [facility] clotrimazol Yes Apply to Un soniya e 1 % 9-15 area(s) at ity of topical 16:00: bedtime. [place] [facility] amLODIPine Yes [id number] 5mg Take 5 mg [facility] 5 mg tablet 9-15 by mouth ity of 16:00: in the [place] morning. [facility] lisinopriL Yes [id number] 40mg Take 40 mg [facility] 40 mg 9-15 by mouth ity of tablet 16:00: in the [place] morning. [facility] traZODone 0 Yes [id number] 150mg Take 150 [facility] 150 mg 9-15 mg by ity of tablet 16:00: mouth at [place] [address] bedtime. [facility] cyclobenzap Yes Take by [facility] vers rine HCl 9-15 mouth. ity of (CYCLOBENZA 16:00: [place] [employer]) [facility] clotrimazol Yes Apply to Un soniya e 1 % 9-15 area(s) at ity of topical 16:00: bedtime. [place] cream [facility] amLODIPine 0 Yes [id number] 5mg Take 5 mg [facility] 5 mg tablet 9-15 by mouth ity of 16:00: in the [place] [address] morning. [facility] amLODIPine 2021-0 Yes [id number] 5mg Take 5 mg [facility] 5 mg tablet 9-15 by mouth ity of 16:00: in the [place] [address] morning. [facility] amLODIPine 2021-0 Yes [id number] 5mg Take 5 mg [facility] 5 mg tablet 9-15 by mouth ity of 16:00: in the [place] [address] morning. [facility] amLODIPine 2021-0 Yes [id number] 5mg Take 5 mg [facility] 5 mg tablet 9-15 by mouth ity of 16:00: in the [place] [address] morning. [facility] amLODIPine 2021-0 Yes [id number] 5mg Take 5 mg [facility] 5 mg tablet 9-15 by mouth ity of 16:00: in the [place] morning. [facility] amLODIPine 2021-0 Yes [id number] 5mg Take 5 mg [facility] 5 mg tablet 9-15 by mouth ity of 16:00: in the [place] morning. [facility] amLODIPine 2021-0 Yes [id number] 5mg Take 5 mg [facility] 5 mg tablet 9-15 by mouth ity of 16:00: in the [place] morning. [facility] amLODIPine 2021-0 Yes [id number] 5mg Take 5 mg [facility] 5 mg tablet 9-15 by mouth ity of 16:00: in the [place] morning. [facility] amLODIPine 2021-0 Yes [id number] 5mg Take 5 mg [facility] 5 mg tablet 9-15 by mouth ity of 16:00: in the [place] [address] morning. [facility] amLODIPine 2021-0 Yes [id number] 5mg Take 5 mg [facility] 5 mg tablet 9-15 by mouth ity of 16:00: in the [place] [address] morning. [facility] amLODIPine 2021-0 Yes [id number] 5mg Take 5 mg [facility] 5 mg tablet 9-15 by mouth ity of 16:00: in the [place] morning. [facility] amLODIPine 2021-0 Yes [id number] 5mg Take 5 mg [facility] 5 mg tablet 9-15 by mouth ity of 16:00: in the [place] [address] morning. [facility] amLODIPine 2021-0 Yes [id number] 5mg Take 5 mg [facility] 5 mg tablet 9-15 by mouth ity of 16:00: in the [place] [address] morning. [facility] lisinopriL 2021-0 Yes [id number] 40mg Take 40 mg [facility] 40 mg 9-15 by mouth ity of tablet 16:00: in the [place] [address] morning. [facility] traZODone 2021-0 Yes [id number] 150mg Take 150 [facility] 150 mg 9-15 mg by ity of tablet 16:00: mouth at [place] [address] bedtime. [facility] cyclobenzap Yes Take by Uni vers rine HCl 9-15 mouth. ity of (CYCLOBENZA 16:00: [place] [employer]) [facility] clotrimazol Yes Apply to Un soniya e 1 % 9-15 area(s) at ity of topical 16:00: bedtime. [place] cream [facility] amLODIPine Yes [id number] 5mg Take 5 mg [facility] 5 mg tablet 9-15 by mouth ity of 16:00: in the [place] morning. [facility] lisinopriL Yes [id number] 40mg Take 40 mg [facility] 40 mg 9-15 by mouth ity of tablet 16:00: in the [place] morning. [facility] traZODone Yes [id number] 150mg Take 150 [facility] 150 mg 9-15 mg by ity of tablet 16:00: mouth at [place] [address] bedtime. [facility] cyclobenzap Yes Take by Uni vers rine HCl 9-15 mouth. ity of (CYCLOBENZA 16:00: [place] [employer]) [facility] clotrimazol Yes Apply to Un soniya e 1 % 9-15 area(s) at ity of topical 16:00: bedtime. [place] cream [facility] doxepin 50 Yes [id number] 50mg Take 1 U nivers mg capsule 9-15 capsule by ity of 00:00: mouth at [place] [address] bedtime. [facility] doxepin 50 Yes [id number] 50mg Take 1 U nivers mg capsule 9-15 capsule by ity of 00:00: mouth at [place] [address] bedtime. [facility] Branch doxepin 50 Yes [id number] 50mg Take 1 U nivers mg capsule 9-15 capsule by ity of 00:00: mouth at [place] [address] bedtime. [facility] doxepin 50 Yes [id number] 50mg Take 1 U nivers mg capsule 9-15 capsule by ity of 00:00: mouth at [place] [address] bedtime. [facility] doxepin 50 Yes [id number] 50mg Take 1 U nivers mg capsule 9-15 capsule by ity of 00:00: mouth at [place] [address] bedtime. [facility] Branch doxepin 50 2022-0 Yes [id number] 50mg Take 1 U nivers mg capsule 9-15 capsule by ity of 00:00: mouth at [place] [address] bedtime. [facility] doxepin 50 2021-0 Yes [id number] 50mg Take 1 U nivers mg capsule 9-15 capsule by ity of 00:00: mouth at [place] [address] bedtime. [facility] doxepin 50 2021-0 Yes [id number] 50mg Take 1 U nivers mg capsule 9-15 capsule by ity of 00:00: mouth at [place] [address] bedtime. [facility] Branch doxepin 50 2021-0 Yes [id number] 50mg Take 1 U nivers mg capsule 9-15 capsule by ity of 00:00: mouth at [place] [address] bedtime. [facility] doxepin 50 0 Yes [id number] 50mg Take 1 U nivers mg capsule 9-15 capsule by ity of 00:00: mouth at [place] [address] bedtime. [facility] doxepin 50 0 Yes [id number] 50mg Take 1 U nivers mg capsule 9-15 capsule by ity of 00:00: mouth at [place] [address] bedtime. [facility] doxepin 50 0 Yes [id number] 50mg Take 1 U nivers mg capsule 9-15 capsule by ity of 00:00: mouth at [place] [address] bedtime. [facility] Branch doxepin 50 0 Yes [id number] 50mg Take 1 U nivers mg capsule 9-15 capsule by ity of 00:00: mouth at [place] [address] bedtime. [facility] doxepin 50 2021-0 Yes [id number] 50mg Take 1 U nivers mg capsule 9-15 capsule by ity of 00:00: mouth at [place] [address] bedtime. [facility] doxepin 50 0 Yes [id number] 50mg Take 1 U nivers mg capsule 9-15 capsule by ity of 00:00: mouth at [place] [address] bedtime. [facility] doxepin 50 2021-0 Yes [id number] 50mg Take 1 U nivers mg capsule 9-15 capsule by ity of 00:00: mouth at [place] [address] bedtime. [facility] doxepin 50 2021-0 Yes [id number] 50mg Take 1 U nivers mg capsule 9-15 capsule by ity of 00:00: mouth at [place] 00 bedtime. [facility] doxepin 50 2021-0 Yes [id number] 50mg Take 1 U nivers mg capsule 9-15 capsule by ity of 00:00: mouth at [place] [address] bedtime. [facility] Branch doxepin 50 2021-0 Yes [id number] 50mg Take 1 U nivers mg capsule 9-15 capsule by ity of 00:00: mouth at [place] [address] bedtime. [facility] Branch doxepin 50 2021-0 Yes [id number] 50mg Take 1 U nivers mg capsule 9-15 capsule by ity of 00:00: mouth at [place] [address] bedtime. [facility] doxepin 50 2021-0 Yes [id number] 50mg Take 1 U nivers mg capsule 9-15 capsule by ity of 00:00: mouth at [place] [address] bedtime. [facility] Branch doxepin 50 2021-0 Yes [id number] 50mg Take 1 U nivers mg capsule 9-15 capsule by ity of 00:00: mouth at [place] [address] bedtime. [facility] Branch doxepin 50 2021-0 Yes [id number] 50mg Take 1 U nivers mg capsule 9-15 capsule by ity of 00:00: mouth at [place] [address] bedtime. [facility] Branch doxepin 50 2021-0 Yes [id number] 50mg Take 1 U nivers mg capsule 9-15 capsule by ity of 00:00: mouth at [place] [address] bedtime. [facility] Branch doxepin 50 2021-0 Yes [id number] 50mg Take 1 U nivers mg capsule 9-15 capsule by ity of 00:00: mouth at [place] [address] bedtime. [facility] Branch doxepin 50 2021-0 Yes [id number] 50mg Take 1 U nivers mg capsule 9-15 capsule by ity of 00:00: mouth at [place] [address] bedtime. [facility] Branch doxepin 50 2021-0 Yes [id number] 50mg Take 1 U nivers mg capsule 9-15 capsule by ity of 00:00: mouth at [place] [address] bedtime. [facility] Branch doxepin 50 2021-0 Yes [id number] 50mg Take 1 U nivers mg capsule 9-15 capsule by ity of 00:00: mouth at [place] [address] bedtime. [facility] Branch doxepin 50 2021-0 Yes [id number] 50mg Take 1 U nivers mg capsule 9-15 capsule by ity of 00:00: mouth at [place] [address] bedtime. [facility] Branch doxepin 50 2021- No [id number] 50mg Take 1 [facility] mg capsule 02-01 capsule by it y of 00:00: 00:00 mouth at [place] 00 :00 bedtime. [facility] doxepin 50 2021- No [id number] 50mg Take 1 [facility] mg capsule 02-01 capsule by it y of 00:00: 00:00 mouth at [place] 00 :00 bedtime. [facility] Vital Signs Vital Name Observation Time Observation Value Comments Source Systolic blood 2022-07-05 16:37:00 144 mm[Hg] Univer sity of pressure [facility] Diastolic blood 2022-07-05 16:37:00 85 mm[Hg] Unive rsity of [facility] Heart rate 2022-07-05 16:30:00 80 /min [facility]i ty of [facility] Body temperature 2022-07-05 16:30:00 36.67 [facility] 2022-07-05 16:30:00 16 /min Univ ersity of [facility] Body height 2022-07-05 16:30:00 182.9 cm Universi ty of [facility] Body weight 2022-07-05 16:30:00 81.239 kg Universi ty of [facility] BMI 2022-07-05 16:30:00 24.29 kg/m2 Universi ty [facility] Oxygen saturation in 2022-07-05 16:30:00 98 /min [facility] Arterial blood by [facility] Pulse oximetry Branch Systolic blood 2022-06-19 21:55:00 157 mm[Hg] Univer sity of [facility] Diastolic blood 2022-06-19 21:55:00 80 mm[Hg] Unive rsity of pressure [facility] Heart rate 2022-06-19 21:55:00 82 /min Universi ty of [facility] Respiratory rate 2022-06-19 21:50:00 18 /min Univ ersity [facility] Body height 2022-06-19 21:50:00 182.9 cm Universi ty of [facility] Body weight 2022-06-19 21:50:00 81.194 kg Universi ty of [facility] BMI 2022-06-19 21:50:00 24.28 kg/m2 Universi ty of [place] [facility] Oxygen saturation in 2022-06-19 21:50:00 95 /min [facility] of [facility]ial blood by [place] [facility] Pulse oximetry Branch Systolic blood 2022-05-03 15:29:00 161 mm[Hg] Univer sity of pressure [place] [facility] Diastolic blood 2022-05-03 15:29:00 85 mm[Hg] Unive rsity of pressure [place] [facility] Heart rate 2022-05-03 15:29:00 88 /min [facility]i [facility] [place] [facility] Body height 2022-05-03 15:29:00 182.9 cm [facility]i [facility] [place] [facility] Body weight 2022-05-03 15:29:00 77.111 kg [facility] [place] [facility] BMI 2022-05-03 15:29:00 23.06 kg/m2 Universi ty of [place] [facility] Oxygen saturation in 2022-05-03 15:29:00 98 /min University of Arterial blood by [facility] Pulse oximetry Branch Systolic blood 2022-04-26 14:44:00 152 mm[Hg] Univer sity of pressure [place] [facility] Diastolic blood 2022-04-26 14:44:00 78 mm[Hg] Unive rsity of pressure [place] [facility] Heart rate 2022-04-26 14:43:00 97 /min Universi ty of [place] Medical Branch Body temperature 2022-04-26 14:43:00 36.89 Natasha [facility] [place] [facility] Respiratory rate 2022-04-26 14:43:00 20 /min [facility] [place] [facility] Body height 2022-04-26 14:43:00 182.9 cm [facility] [place] [facility] Body weight 2022-04-26 14:43:00 77.157 kg [facility] [place] [facility] BMI 2022-04-26 14:43:00 23.07 kg/m2 [facility] [place] [facility] Oxygen saturation in 2022-04-26 14:43:00 98 /min [facility] by [place] [facility] Pulse oximetry Branch Systolic blood 2022-04-22 00:50:00 206 mm[Hg] [facility] [place] [facility] Diastolic blood 2022-04-22 00:50:00 115 mm[Hg] [facility] [place] [facility] Heart rate 2022-04-22 00:49:00 101 /min [facility] [place] [facility] Body temperature 2022-04-22 00:49:00 36.67 Natasha [facility] [place] [facility] Respiratory rate 2022-04-22 00:49:00 17 /min [facility] [place] [facility] Body height 2022-04-22 00:49:00 182.9 cm [facility] [place] [facility] Body weight 2022-04-22 00:49:00 76.204 kg [facility] [place] [facility] BMI 2022-04-22 00:49:00 22.78 kg/m2 [facility] [place] [facility] Oxygen saturation in 2022-04-22 00:49:00 95 /min [facility] Arterial blood by [facility] Pulse oximetry Branch Systolic blood 2022-03-29 17:52:00 150 mm[Hg] [facility] [place] [facility] Diastolic blood 2022-03-29 17:52:00 81 mm[Hg] [facility] [place] [facility] Heart rate 2022-03-29 17:51:00 90 /min [facility] [place] [facility] Body temperature 2022-03-29 17:51:00 37.33 Natasha [facility] [place] [facility] Respiratory rate 2022-03-29 17:51:00 24 /min [facility] [place] [facility] Body height 2022-03-29 17:51:00 182.9 cm [facility] [place] [facility] Body weight 2022-03-29 17:51:00 75.524 kg [facility] [place] [facility] BMI 2022-03-29 17:51:00 22.58 kg/m2 [facility] [place] [facility] Oxygen saturation in 2022-03-29 17:51:00 97 /min [facility] by [place] [facility] Pulse oximetry Branch Systolic blood 2022-03-19 19:23:00 146 mm[Hg] [facility] [place] [facility] Diastolic blood 2022-03-19 19:23:00 85 mm[Hg] [facility] [place] [facility] Heart rate 2022-03-19 19:21:00 64 /min [facility] [place] [facility] Body temperature 2022-03-19 19:21:00 36.94 Natasha [facility] [place] [facility] Body height 2022-03-19 19:21:00 182.9 cm [facility] [place] [facility] Body weight 2022-03-19 19:21:00 73.8 kg [facility] [place] [facility] BMI 2022-03-19 19:21:00 22.07 kg/m2 [facility] [place] [facility] Oxygen saturation in 2022-03-19 19:21:00 97 /min [facility] Arterial blood by [facility] Pulse oximetry Branch Systolic blood 2022-03-02 18:47:00 134 mm[Hg] [facility] [place] [facility] Diastolic blood 2022-03-02 18:47:00 81 mm[Hg] [facility] [place] [facility] Heart rate 2022-03-02 18:47:00 89 /min [facility] [place] [facility] Body temperature 2022-03-02 18:47:00 37.39 Natasha [facility] [place] [facility] Respiratory rate 2022-03-02 18:47:00 18 /min [facility] [place] [facility] Body weight 2022-03-02 18:47:00 73.528 kg [facility] [place] [facility] BMI 2022-03-02 18:47:00 21.98 kg/m2 [facility] [place] [facility] Oxygen saturation in 2022-03-02 18:47:00 95 /min [facility] Arterial blood by [facility] Pulse oximetry Branch Systolic blood 2022-02-08 19:53:00 103 mm[Hg] [facility] [place] [facility] Diastolic blood 2022-02-08 19:53:00 67 mm[Hg] [facility] [place] [facility] Heart rate 2022-02-08 19:53:00 96 /min [facility] [place] [facility] Body temperature 2022-02-08 19:53:00 36.78 Natasha [facility] [place] [facility] Respiratory rate 2022-02-08 19:53:00 20 /min [facility] [place] [facility] Body height 2022-02-08 19:53:00 182.9 cm [facility] [place] [facility] Body weight 2022-02-08 19:53:00 69.945 kg [facility] [place] [facility] BMI 2022-02-08 19:53:00 20.91 kg/m2 [facility] [place] [facility] [place] Oxygen saturation in 2022-02-08 19:53:00 95 /min [facility] Arterial blood by [facility] Pulse oximetry Branch Systolic blood 2022-02-01 21:01:00 124 mm[Hg] Univer [facility]ity [facility] pressure [facility] Diastolic blood 2022-02-01 21:01:00 67 mm[Hg] Unive rsity of pressure [facility] Heart rate 2022-02-01 21:01:00 87 /min Universi [facility] [place] Body temperature 2022-02-01 21:01:00 36.72 Natasha [facility] 2022-02-01 21:01:00 20 /min [facility] Body height 2022-02-01 21:01:00 182.9 cm [facility] Medical [place] Body weight 2022-02-01 21:01:00 71.26 kg [facility] BMI 2022-02-01 21:01:00 21.31 kg/m2 [facility] Oxygen saturation in 2022-02-01 21:01:00 96 /min [facility] Arterial blood by [facility] Pulse oximetry Branch Procedures Procedure Date / Time Performing Clinician Source Performed EXTERNAL PROVIDER 2022-05-31 06:01:00 Doctor Unassigned, No [facility] RECORDS Name Medical Branch REFERRAL- 2022-03-15 05:01:00 Doctor Unassigned, No [facility] [place] REQUEST/RESPONSE Name Medical Branch REFERRAL- 2022-02-13 05:01:00 Doctor Unassigned, No [facility]iver [facility] REQUEST/RESPONSE Name Medical Branch PROSTATIC SPECIFIC 2022-02-02 18:42:00 Og Ponce [facility] ANTIGEN SCREEN Medical Branch THYROID STIMULATING 2022-02-02 18:42:00 Og Ponce [facility] HORMONE Medical Branch LIPID PANEL 2022-02-02 18:42:00 Og Ponce [facility] ([id number])(TOTAL Medical Branch CHOLESTEROL, TRIGLYCERIDES, HDL) URINE DRUG (IMMUNOASSAY) 2022-02-02 18:42:00 Og Ponce [facility] - COMPREHENSIVE DRUG Medical [facility] nch SCREEN HCV ANTIBODY 2022-02-02 18:42:00 [facility] HEPATITIS C VIRUS (HCV) 2022-02-02 18:42:00 Og Ponce [facility] BY QUANTITATIVE NAAT Medical [facility] ADC OR KONRAD ONLY - 2022-02-02 18:42:[address] [facility] Encounters Start End Encounter Admission Attending Care Care Encounter Source Date/Time Date/Time Type Type Clinicians Facility Department ID 2022-12-17 2022-12-17 Outpatient R BETHANIE [facility] [id number] Univers 15:40:00 15:40:00 BEE ity of [facility] 2022-07-18 2022-07-18 Outpatient R JESSENIA SHAIKH [facility] [id number] Univers 16:00:00 16:00:00 JESSENIA SHAIKH i ty [facility] 2022-07-06 2022-07-06 [facility] 1..[id number] [id number] Univers 00:00:00 00:00:00 Jessenia MULTISPEC 350.1.13.10 ity of [place] 4.2.7.2.686 [place] [facility] [id number] [facility] [place] [address] Branch [facility] 2022-07-05 2022-07-05 Outpatient R KARLEY [facility] [id number] Univers 10:20:00 11:06:05 OMAYEMI ity of [facility] 2022-07-05 2022-07-05 Urgent Giuseppe Crandall [facility] 1.2.840. 114 [id number] Univers 10:20:00 11:06:05 Care Unknown, Attending HEALTH 350.1.13.10 ity of [place] 4.2.7.2.686 Antoine as PAXTON?BLEA [id number] [address] MEDICAL OFFICE BUILDING 2022-07-02 2022-07-02 Telephone Rosario [facility] 1.2.082.604 [id number] Univers 00:00:00 00:00:00 Og HEALTH 350.1.13.10 it y of [place] 4.2.7.2.686 Antoine as PAXTON?BLEA [id number] Pr dicmichael BROWN 044 [place] MEDICAL OFFICE [facility] 2022-06-29 2022-06-29 Telephone RICK Lara 1.2.840.114 [id number] Univers 00:00:00 00:00:00 Lela A CR[place] 350.1.13.10 i ty [place] [id number] [place] 343296 [place] 2022-06-19 2022-06-19 [facility] [id number] Univers 15:40:00 16:18:15 BEE ity of [facility] 2022-06-19 2022-06-19 Office [facility] 1.2.840.114 [id number] Univers 15:40:00 16:18:15 Visit Bee ROBB 350.1.13.10 i ty of [place].2.[place] [id number] [facility] 059 [facility] 2022-05-31 2022-05-31 Orders Doctor JAVID 1.2.840.114 [id number] Univers 00:00:00 00:00:00 Only Unassigned, NOEMI 350.1.13.10 ity of [place] [facility] 4.2.7.2.686 Antoine as [id number] [facility] 009 [place] 2022-05-28 2022-05-28 Vijay [facility] 1.2.840.114 [id number] Univers 00:00:00 00:00:00 [facility] 350.1.13.10 it y of [place] 4.2.7.2.686 Antoine as PAXTON?BLEA [id number] [address] MEDICAL OFFICE [facility] 2022-05-17 2022-05-17 Telephone RICK Lara 1.2.840.114 [id number] Univers 00:00:00 00:00:00 Lela A CROW[place] 350.1.13.10 [place] [id number] [address] 2022-05-03 2022-05-03 [facility] [id number] Univers 09:00:00 09:51:06 YODIT fajardo [facility] 2022-05-03 2022-05-03 Office [facility] [id number] Univers 09:00:00 09:51:06 Visit Yodit WHITLEY 350.1.13.10 it y of [place] 4.2.7.2.686 Antoine as PAXTON?BLEA [id number] Pr ceemichael BROWN 198 [facility] OFFICE [facility] 2022-05-02 2022-05-02 Out[facility] [id number] Univers 14:45:00 14:45:00 YODIT fajardo [facility] 2022-05-02 2022-05-02 Telephone Cisnerosyamileth CABRERA 1.2.031.840 [id number] [facility] 00:00:00 00:00:00 KEO Martinez 350.1.13.10 ity of [place]2.[place] [id number] [facility] [address] [place] [address] 2022-04-30 2022-04-30 Out[facility] [id number] Univers 10:30:00 10:30:00 FRANSICO tana [facility] 2022-04-26 2022-04-26 Outpatient [facility] [id number] Univers 08:30:00 09:12:20 OG fajardo [facility] 2022-04-26 2022-04-26 Office [facility] 1.2.840.114 [id number] Univers 08:30:00 09:12:20 Visit Og [facility] 350.1.13.10 it y of [place] 4.2.7.2.686 Antoine as PAXTON?BLEA [id number] Pr ceemichael BROWN 044 [facility] OFFICE [facility] 2022-04-21 2022-04-21 Outpatient R MARIAN [facility] [id number] Univers 18:40:00 19:11:50 JANNETLUIS raul [facility] 2022-04-21 2022-04-21 Urgent Grecia Beatty [facility] 1.2.840.114 [id number] Univers 18:40:00 19:00:00 Care Unknown, Attending HEALTH 350.1.13.10 [facility] 4.2.7.2.686 Antoine as PAXTON?BLEA [id number] Pr baron BROWN 370 [facility] OFFICE [facility] 2022-04-19 2022-04-19 Telephone Dylan[facility] 1.2.411.485 [id number] Univers 00:00:00 00:00:00 Qiangjun [facility] 350.1.13.10 [facility] 4.2.7.2.686 [place] [id number] Pr baron LIPSCOMB 059 [facility] 2022-04-19 2022-04-19 Vijay [facility] 1.2.840.114 [id number] Univers 00:00:00 00:00:00 Og HEALTH 350.1.13.10 it y [facility] 4.2.7.2.686 Antoine as PAXTON?BLEA [id number] Pr baron BROWN 044 [facility] 2022-04-09 2022-04-09 Outpatient R VIRIDIANA [facility] [id number] Univers 08:00:00 08:00:00 STALIN fajardo [facility] 2022-04-06 2022-04-06 Outpatient [facility] [id number] Univers 16:00:00 16:00:00 OG fajardo [facility] 2022-04-05 2022-04-05 Telephone RICK Lara 1.2.840.114 [id number] Univers 00:00:00 00:00:00 Lela RDZY 350.1.13.10 i ty [place] [id number] [facility] 086 [place] 2022-04-04 2022-04-04 Out[facility] [id number] Univers 07:57:05 23:59:00 BERKLEY fajardo o f [facility] 2022-03-30 2022-03-30 Outpatient R [facility] [id number] Univers 16:00:00 16:00:00 OG fajardo [facility] 2022-03-29 2022-03-29 Outpatient R ROSARIO [facility] [id number] Univers 11:30:00 12:16:07 OG ity of [facility] 2022-03-29 2022-03-29 Office [facility] 1.2.840.114 [id number] Univers 11:30:00 12:16:07 Visit Og HEALTH 350.1.13.10 it y of [place] 4.2.7.2.686 Antoine as PAXTON?BLEA [id number] [address] OFFICE [facility] 2022-03-29 2022-03-29 Telephone RICK Lara 1.2.840.114 [id number] Univers 00:00:00 00:00:00 Lela A CROW[place] 350.1.13.10 [place] [id number] [address] 2022-03-23 2022-03-23 Case RICK Lara 1.2.840.114 [id number] Univers 00:00:00 00:00:00 Management Lela A [place] 350.1.13.10 [place] [id number] [address] 2022-03-22 2022-03-22 Telephone RICK Lara 1.2.840.114 [id number] Univers 00:00:00 00:00:00 Lela A [place] 350.1.13.10 [place] [id number] [address] 2022-03-22 2022-03-22 Telephone [facility] 1.2.599.295 [id number] Univers 00:00:00 00:00:00 Og HEALTH 350.1.13.10 it y of [place] 4.2.7.2.686 Antoine as PAXTON?BLEA [id number] [address] OFFICE [facility] 2022-03-21 2022-03-21 Outpatient R DYLAN [facility] [id number] Univers 15:59:06 23:59:00 QIAYENYMOJGAN tana o f [facility] 2022-03-21 2022-03-21 Telephone LaraRICK taveras 1.2.840.114 [id number] Univers 00:00:00 00:00:00 Lela [place] 350.1.13.10 i ty of [place]2.7.2.686 [place] [id number] [facility] 086 [place] 2022-03-19 2022-03-19 Outpatient R BETHANIE [facility] [id number] Univers 14:20:00 14:45:06 BEE itraul [facility] 2022-03-19 2022-03-19 Office [facility] 1.2.840.114 [id number] Univers 14:20:00 14:45:06 Visit Bee ROBB 350.1.13.10 i ty of [place].2.7.2.[place] [id number] Pr dicmichael LIPSCOMB 059 [facility] 2022-03-15 2022-03-15 Orders Doctor JAVID 1.2.840.114 [id number] Univers 00:00:00 00:00:00 Only Unassigned, NOEMI 350.1.13.10 ity of [place] [facility] 4.2.7.2.686 Antoine as [id number] [facility] 009 [place] 2022-03-08 2022-03-08 Outpatient R RADU HINES [facility] [id number] Univers 08:30:00 08:30:00 ity [facility] 2022-03-08 2022-03-08 Telephone [facility] 1.2.671.951 [id number] Univers 00:00:00 00:00:00 Og [facility] 350.1.13.10 it [facility] 4.2.7.2.686 Antoine as PAXTON?BLEA [id number] Pr dical CARLOSEY 044 [place] MEDICAL OFFICE BUILDING 2022-03-02 2022-03-02 Outpatient R DYLAN [facility] [id number] Univers 15:00:00 15:00:00 BERKLEY fajardo o f [facility] 2022-03-02 2022-03-02 Outpatient R DYLAN [facility] [id number] Univers 13:40:00 14:15:02 BERKLEY ity o f [facility] 2022-03-02 2022-03-02 Office [facility] 1.2.840.114 [id number] Univers 13:40:00 14:00:00 Visit Berkley ROBB 350.1.13.10 ity [place].2.[place] [id number] Pr dical NAL 059 [facility] 2022-02-28 2022-02-28 Telephone [facility] 1.2.816.999 [id number] Univers 00:00:00 00:00:00 Og HEALTH 350.1.13.10 it y of [place] 4.2.7.2.686 Antoine as PAXTON?BLEA [id number] Pr dical KNEY 044 [facility] OFFICE [facility] 2022-02-26 2022-02-26 Case RICK Tomas 1.2.840.114 [id number] Univers 00:00:00 00:00:00 Management Merari R [place] 350.1.13.10 [place] [id number] [address] 2022-02-23 2022-02-23 RICK Hoyos 1.2.840.114 [id number] Univers 00:00:00 00:00:00 Management Merari R [place] 350.1.13.10 [place].2.[place] [id number] [address] 2022-02-23 2022-02-23 Delmar Stoneryomaira RICK 1.2.840.114 [id number] Univers 00:00:00 00:00:00 Management Merari R [place] 350.1.13.10 [place].2.[place] [id number] [address] 2022-02-14 2022-02-14 Outpatient R [facility] [id number] Univers 10:30:00 10:30:00 ity of [facility] 2022-02-13 2022-02-13 Orders Doctor JAVID 1.2.840.114 [id number] Univers 00:00:00 00:00:00 Only Unassigned, NOEMI 350.1.13.10 ity of [place] [facility] 4.2.7.2.686 Antoine as [id number] [address] 2022-02-08 2022-02-08 Outpatient R ROSARIO [facility] [id number] Univers 15:45:00 16:09:38 OG chrisraul [facility] 2022-02-08 2022-02-08 [employer] Supervisor Lab, Ang - Db [facility] 1.2.840.1 [id number] Univers 15:45:00 16:00:00 Visit Maria Luisa Poncepauline WHITLEY 350.1.13.10 ity [facility] 4.2.7.2.686 Antoine as PAXTON?BLEA [id number] [facility] 353 [facility] OFFICE [facility] 2022-02-08 2022-02-08 Office [facility] 1.2.840.114 [id number] Univers 14:30:00 15:00:00 Visit Og [facility] 350.1.13.10 it y of [place] 4.2.7.2.686 Antoine as PAXTON?BLEA [id number] [address] OFFICE [facility] 2022-02-05 2022-02-05 Telephone [facility] 1.2.802.885 [id number] Univers 00:00:00 00:00:00 Og HEALTH 350.1.13.10 it y of [place] 4.2.7.2.686 Antoine as PAXTON?BLEA [id number] [address] OFFICE [facility] 2022-02-02 2022-02-02 Outpatient R ROSARIO [facility] [id number] Univers 13:30:00 14:01:41 OG ity [facility] 2022-02-02 2022-02-02 [employer] Supervisor Lab, Ang - Db [facility] 1.2.840.1 [id number] Univers 13:30:00 14:01:41 Visit Rosario Og [place] 350.1.13.10 ity of [place] 4.2.7.2.686 Antoine as PAXTON?BLEA [id number] [facility] 353 [place] MEDICAL OFFICE [facility] 2022-02-02 2022-02-02 Telephone [facility] 1.2.072.908 [id number] Univers 00:00:00 00:00:00 Og HEALTH 350.1.13.10 it y [facility] 4.2.7.2.686 Antoine as PAXTON?BLEA [id number] [address] OFFICE [facility] 2022-02-01 2022-02-01 Office [facility] 1.2.840.114 [id number] Univers 15:30:00 16:52:01 Visit Og HEALTH 350.1.13.10 it y of [facility] 4.2.7.2.686 Antoine as PAXTON?BLEA [id number] [address] OFFICE [facility] 2022-02-01 2022-02-01 Outpatient R ROSARIO [facility] [id number] Univers 15:30:00 16:52:01 OG ity of [facility] 2022-02-01 2022-02-01 Orders Doctor JAVID 1.2.840.114 [id number] Univers 00:00:00 00:00:00 Only Unassigned, NOEMI 350.1.13.10 ity of [place] [facility] 4.2.7.2.686 Antoine as [id number] [address] 2022-01-31 2022-01-31 Telephone [facility] 1.2.218.215 [id number] Univers 00:00:00 00:00:00 Og HEALTH 350.1.13.10 it y [facility] 4.2.7.2.686 Antoine as PAXTON?BLEA [id number] [address] OFFICE [facility] Results Test Description Test Time Test Comments Results Result Comments Source HEPATITIS C VIRUS (HCV) BY QUANTITATIVE NAAT 2022-02-05 20:2 9:47 Test Item Value Reference Range Interpretation Comme nts HCV Quantitative NAAT - log Not Detected log IU/mL IU/mL (test code = 89885-7) HCV Quantitative NAAT - IU/mL Not Detected IU/mL (test code = 71103-1) HCV Quantitative Detected Not Detected A Interpretation (test code = 6544005221) GETACHEW (test code = GETACHEW) The Aptima HCV Quant Dx assay is an FDA-approved real-time rn triage-mediated amplification (TMA) test used for both detection [...] indicated. Lab Interpretation (test code Abnormal = 98594-6) [facility] [id number] 08:58:12 Test Item Value Reference Range Interpretation Comments HCV Ab (test code = Positive 62467-5) HCV Semi-Quantitative (test code = 79677-1) APRI (test code = 6718683486) GETACHEW (test code = Positive for HCV antibody. GETACHEW) This specimen has been reflexed to qualitative PCR test and submitted to Molecular Diagnostic Laboratory. ?A report will be issued by that laboratory. ?If any questions, contact the Clinical Chemistry Director sleeping car conductor at [phone]. [facility] Temple[facility]HELLY OR KONRAD Moura [id number] 05:58:38 Test Item Value Reference Range Interpretation Comments RPR (Qualitative) (test code = Nonreactive Nonreactive 69860-9) Lab Interpretation (test code = Normal 07880-8) [facility] TempleTHYROID STIMULATING [id number] 04:19:19 Test Item Value Reference Range Interpretation Comments TSH (test code = See_Comment [Automated message] [id number]) The system Poppin generated this result transmitted ref erence range: 0.45 - 4 .70 mIU/L. The refe rence range was not u sed to interpret this result as normal/abnor mal. Lab Interpretation (test Normal code = 63977-0) [facility] TemplePROSTATIC SPECIFIC ANTIGEN [id number] 04:18:59 Test Item Value Reference Range Interpretation Comments PSA (test code = 4.32 ng/mL See_Comment H [Automated [id number]) message] The system which generated this result transmitted reference range : <=4.00. The reference range was not used to interpret this result as normal/abnormal . GETACHEW (test code = GETACHEW) Biotin has been reported to cause a negative bias, interpret results relative to patient's use of biotin. Lab Interpretation Abnormal (test code = 63096-7) [facility] Temple[facility]IPID PANEL (93174)(TOTAL CHOLESTEROL, TRIGLYCERIDES, HDL)2022-02-03 03:50:57 Test Item Value Reference Range Interpretation Comments CHOL (test code = 155 mg/dL 120-200 [id number]) HDL (test code = 74 mg/dL See_Comment [Automated message] [id number]) The system Poppin generated this result transmit ashley reference range : >=40. The refer ence range was not u sed to interpret th is result as normal/abnormal . HDLC RATIO (test code = See_Comment [Au tomated message] [id number]) The system [employer] generated this result transmit ashley reference range : <=5.0. The refe rence range was not u sed to interpret th is result as normal/abnormal . TRIG (test code = 211 mg/dL 30-170 H [id number]) LDL CHOL (test code = 39 mg/dL See_Comment [Auto mated message] 46968-8) The system [employer] generated this result transmit ashley reference range : <=160. The refe rence range was not u sed to interpret th is result as normal/abnormal . VLDL (test code = 42 mg/dL 5-60 [id number]) Lab Interpretation (test Abnormal code = 63064-1) [facility] [id number] 05:00:19 Test Item Value Reference Range Interpretation [...] MOREINFORMATION , SEE CLIENT ANNOUNCE MENT AT [email or web address] RATIO LDL/HDL 0.97 RATIO <3.55 (test code = 2238) COMPREHENSIVE METABOLIC [id number] 05:00:19 Test Item Value Reference Range Interpretation Comments GLUCOSE (test code = 73 MG/DL 70-99 2216) BUN (test code = 11 MG/DL 6-20 2207) CREATININE (test 1.17 MG/DL 0.80-1.40 code = 2214) eGFR (2020 CKD-EPI) 74 >60 (test code = 81776) ML/MIN/1.73 CALC BUN/CREAT (test 9 RATIO 6-28 code = 2235) SODIUM (test code = 131 MEQ/L 133-146 L 2230) POTASSIUM (test code 3.8 MEQ/L 3.5-5.4 = 2228) CHLORIDE (test code 95 MEQ/L 95-107 = 221) CARBON DIOXIDE (test 22 MEQ/L 19-31 code = 2206) CALCIUM (test code = 9.0 MG/DL 8.5-10.5 2208) PROTEIN, TOTAL (test 7.5 G/DL 6.1-8.3 code = 2229) ALBUMIN (test code = 4.3 G/DL 3.5-5.2 2200) CALC GLOBULIN (test 3.2 G/DL 1.9-3.7 code = 2240) CALC A/G RATIO (test 1.3 RATIO 1.0-2.6 code = 2234) BILIRUBIN, TOTAL 0.5 MG/DL See_Comment [Automated message] (test code = 2207) The [employer] which generated this result transmitted ref erence range: <=1.2. T he reference range was not used to int erpret this result as normal/abnormal . ALKALINE PHOSPHATASE 65 U/L 40-121 (test code = 2203) AST (test code = 66 U/L 9-50 H 2217) ALT (test code = 49 U/L 5-50 UNLESS OTH ERWISE 2218) INDICATED, ALL TESTING PERFORM [facility], [facility]. [address] [place] [id number] [place] [address] DIRECTOR: ALEENA HOGAN M.D. CLIA NUMBER [id number] CAP ACCREDITATION N O. [id number]
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
[2022-07-07 20:32] LABS: Absolute Lymphocytes (CBC) 2.4 K/uL (0.7-4.9); Hematocrit 38.4 % (39.6-49.0); Lymphocytes % 30.1 % (15.3-44.8); MCV 83.4 fL (80-100); MPV 8.9 fL (7.6-11.3); RBC Red Blood Cell Count 4.61 M/uL (4.33-5.43)
[2022-07-07 20:48] LABS: C-Reactive Protein 17.1 mg/L (<3.00); Potassium 3.6 mmol/L (3.5-5.1)
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
--- NOTE | 2022-07-07 20:56 | RAD REPORT ---
EXAM DESCRIPTION: RAD - Elbow Right 2 View - 07/07/2022 8:35 pm CLINICAL HISTORY: SWELLING COMPARISON: Elbow Right 3 View dated 04/02/2022 FINDINGS/IMPRESSION: Linear fragment in the dorsal soft tissues of the elbow can be seen in the sett ing of a triceps avulsion fracture. Soft tissue swelling is present at the olecranon.
== END 2022-07-07 21:17 | disposition home or self-care (01) ==
LOC: ER 18:54
DX: M54.2 Cervicalgia (principal); M70.21 Olecranon bursitis, right elbow; V89.2XXA Person injured in unspecified motor-vehicle accident, traffic, initial encounter
CPT/HCPCS: 85025; 80048; 36415; 84145; 86140; 70450; 72125; 73070; 99283; G0480

== ENCOUNTER 2023-09-27 16:52 | Emergency (ER) | payer OTHER ==
--- OUTSIDE RECORDS SUMMARY | 2023-09-27 17:01 | XMS REPORT | Continuity of Care Document ---
Author Name Unknown Address [address] [facility]. [address] [place] [address] [facility] Address [address] [facility] [address] [place] [address] Care Team Providers Care Premix Concrete Batcher Name Role Phone JHONNY CROWMICHELLE Diaz Primary Care Physician Unavailab JAD Lee Attending Clinician UnavailBANG Shipley Attending Clinician Unavailable Jad Orr MD Attending Clinician OG LIVE Attending Clinician UnavailSharon Philip RN Attending Clinician [phone] Sophia Mora Attending Clinician [phone] SOPHIA VASQUEZ Attending Clinician Unavailab HALLE Segura Attending Clinician Unavailab Bang Kruger MD Attending Clinician [phone] Maykel Navarro MD Attending Clinician [phone] Clinic, Neurosurgery Resident Attending Poppyia Donna Magallon LVN Attending Clinician [phone] DANIEL DE SOUZA Attending Clinician Unavailable Cash Huber MD Attending Clinician [phone] Leroy HOLLY, Delano Attending Clinician [phone] Reggie HOLLY, Mary Lou Attending Clinician [phone] DARLINE ANN Attending Clinician Unavailable Doctor Unassigned, [place] Attending Clinician U navailable ADRYAN APARICIO Attending Clinician Unavailab JESSENIA Guerrero Attending Clinician Unavailable JESSENIA ROCHA Attending Clinician Unavailable STALIN KEMP Attending Clinician Unavailable ABRAM DEAL Attending Clinician Unavailable Kirk HOLLY, Abram Attending Clinician [phone] BERKLEY RICHARDSON Attending Clinician Unavailable BEE KOVACS Attending Clinician Unavailable Lela Lara Attending Clinician Unavaila ULI Gant Attending Clinician Unav katarina Barrera MD, Uli Carrasco Attending Clinician + Debbie Giles PA-C Attending Clinician [phone] Marilynn Flowers MD Attending Clinician [phone] Unknown, Attending Attending Clinician Unavailab MARILYNN Escobedo Attending Clinician Unavailable MALDONADO FLORIAN Attending Clinician Unavailable Maldonado Florian MD Attending Clinician [phone] DEBBIE GILES Attending Clinician Unavailable SANDOVAL SANDY Attending Clinician Unavailable HAN EL Attending Clinician Unavailable Nurse, Obed Suero Attending Clinician Unavaila Joan Gordon Attending Clinician U navailable Og Weber Attending Clinician [phone] Berkley Richardson MD Attending Clinician [phone] Lab, Ang - Db Attending Clinician Unavailable OG PONCE Attending Clinician Unavailable GIUSEPPE CRANDALL Attending Clinician UnavailGiuseppe Avendano Attending Clinician [phone] Bee Urias Attending Clinician [phone] YODIT SNIDER Attending Clinician UnavailYodit Go MD Attending Clinician [phone] GRECIA BEATTY Attending Clinician Unavailable Grecia Bahena Attending Clinician [phone] LAWRENCE MCKOY Attending Clinician Unavailab RADU Florentino Attending Clinician Unavailable Genoveva HIDALGOSW, Merari Tran Attending Clinician HALLE Martins Admitting Clinician Unavailab DANIEL Doherty Admitting Clinician Unavailable ADRYAN APARICIO Admitting Clinician Unavailab ULI Couch Admitting Clinician Unagrey aildamir RICHARDSON, BERKLEY Admitting Clinician Unavailable Payers Payer Name Policy Type Policy Number Effective Date Expirati on Date Source [employer]ET[employer] MP [facility] [place] 5 O [place] CLAM 94 [place] 9 [id number] 2023 00:00:00 DEXMA COMM [id number] 2023 00:00:00 [place] [id number] 00:00:00 2022 00:00:00 Problems Condition Name Condition Details Condition Category Status Onset Date Resolution Date Last Treatment Date Treating Clinician Comments Source Primary hypertensi on Primary hypertensi on Disease Active 08-13 00:00: 00 [facility] Cisneros - Externmilly l History of hepatitis C History of hepatitis C Disease Active - 00:00: 00 [facility] Essential hypertensi on Essential hypertensi on Disease Active 05-20 00:00: 00 [facility] Trauma Trauma Disease Active 05-20 00:00: 00 [facility] Chronic pain Chronic pain Disease Active 2022-05 00:00: 00 [facility] Other bursitis of elbow, right elbow Other bursitis of elbow, right elbow Disease Active 2022-05 00:00: 00 [facility] Chronic renal impairment , stage 4 (severe) Chronic renal impairment , stage 4 (severe) Disease Active 2021-05 00:00: 00 [facility] Chronic hepatitis C without hepatic coma Chronic hepatitis C without hepatic coma Disease Active 02-08 00:00: 00 [facility] Elevated liver enzymes Elevated liver enzymes Disease Active 02-08 00:00: 00 [facility] Elevated serum creatinine Elevated serum creatinine Disease Active 02-08 00:00: 00 [facility] Conductive hearing loss, bilateral Conductive hearing loss, bilateral Disease Active 02-01 00:00: 00 [facility] Edentulous Edentulous Disease Active 02-01 00:00: 00 [facility] Chronic bilateral low back pain without sciatica Chronic bilateral low back pain without sciatica Disease Active 02-01 00:00: 00 [facility] Dry skin dermatitis Dry skin dermatitis Disease Active 02-01 00:00: 00 [facility] Anxiety Anxiety Disease Active 02-01 00:00: 00 [facility] Abnormal EKG Abnormal EKG Disease Active 02-01 00:00: 00 [facility] Hypertensi on, unspecifie d type Hypertensi on, unspecifie d type Disease Active 02-01 00:00: 00 [facility] Mouth pain Mouth pain Disease Active 08-05 00:00: 00 Overview: Formattin g of this note might be different from the original. Added automatic ally from request for surgery [id number] [facility] Other chronic osteomyeli tis, other site Other chronic osteomyeli tis, other site Disease Active 08-05 00:00: 00 Overview: Formattin g of this note might be different from the original. Added automatic ally from request for surgery [id number] [facility] Allergies, Adverse Reactions, Alerts Allergy Name Allergy Type Status Severity Reaction(s) Onset Date Inactive Date Treating Clinician Comments Source NO KNOWN ALLERGIE S Drug Class Active [facility] Family History Family Member Diagnosis Comments Start Date Stop Date Sourc e Natural mother Coronary Heart Disease [facility] Natural mother Diabetes Unive [facility] Natural mother Heart [facility] Social History Social Habit Start Date Stop Date Quantity Comments Source Gender identity [facility] History SDOH Alcohol Frequency [facility] History SDOH Alcohol [facility]d Drinks [facility] SDOH Alcohol Binge [facility] Sexual orientation K lyn Cisneros - External History of tobacco use Cigarette Smoker Betty salazar - External Alcohol intake 2023-08-14 00:00:00 2023-08-14 00:00:00 Current drinker of alcohol (finding) Betty Cisneros - External Cigarettes smoked current (pack per day) - Reported 2023-08-13 00:00:00 2023-08-13 00:00:00 Betty Cisneros - External History of Social function 2023-08-13 00:00:00 2023-08-13 00:00:00 Betty Cisneros - External Tobacco use and exposure 2023-05-20 00:00:00 2023-05-20 00:00:00 User of smokeless tobacco [facility] Exposure to SARS-CoV-2 (event) 2022-08-03 00:00:00 2022-08-13 10:06:00 Not sure [facility] Alcohol Comment 2022-02-01 00:00:00 2022-02-01 00:00:00 Frequency varies [facility] Sex Assigned At 1965 00:00:00 1965 00:00:00 Betty Cisneros - External Smoking Status Start Date Stop Date Source Smokes tobacco daily 2023-05-20 00:00:00 [facility] Medications Ordered Medication Name Filled Medication Name Start Date Stop Date Current Medication? Ordering Clinician Indication Dosage Frequency Signature (SIG) Comments Components Source Methocarbam ol 500 MG oral Tablet 08-13 00:00: 00 Yes [id number] 500mg Take 1 tablet (500 mg total) by mouth 4 times daily. Betty roberts Meloxicam 7.5 MG oral Tablet 07-30 00:00: 00 Yes 7.5mg Take 1 tablet (7.5 mg total) by mouth daily. Betty roberts Acetaminoph en-Codeine 300-30 MG oral Tablet 07-17 00:00: 00 Yes 1{tbl} Q4H Take 1 tablet by mouth every 4 hours as needed. Betty roberts ketorolac 10 mg tablet 07-17 00:00: 00 Yes [id number] 10mg Take 1 tablet by mouth every 6 (six) hours as needed for Pain (scale 7-10). [facility] NaCl 0.9% (NS) bolus infusion 1,000 mL 07-13 20:15: 00 07-13 20:20 :00 No 1000mL at 999 mL/hr, 1,000 mL, IV Infusion, ONCE, 1 dose, On 07/13/23 at 1415, LUIS [facility] iopamidol (ISOVUE 370-500 mL) injection 100 mL 07-13 19:45: 00 07-13 19:45 :00 No [id number] 100mL 100 mL, Intravenou s, ONCE, 1 dose, On 07/13/23 at 1345, Routine [facility] piperacilli n-tazobacta m (ZOSYN) 3.375 g in NaCl 0.9% (NS) 100 mL MINI-BAG 07-13 17:30: 00 07-13 18:50 :00 No 3.375g 3.375 g, IV Piggyback, ONCE, 1 dose, On 07/13/23 at 1130, Administer over 30 Minutes, 100 mL
Reas on for Anti-Infec tive: Empiric Therapy for Suspected Infection< br>Empiric Therapy Site: Skin / Soft tissue
Duration of therapy: Once (ED) [facility] Trazodone HCl 150 MG oral Tablet 07-09 00:00: 00 Yes 150mg Take 1 tablet (150 mg total) by mouth nightly. Betty roberts cephALEXin 500 mg capsule 07-03 00:00: 00 Yes [id number] 500mg Take 1 capsule by mouth in the morning and 1 capsule at noon and 1 capsule in the evening. [facility] ketorolac 10 mg tablet 07-03 00:00: 00 07-17 00:00 :00 No [id number] 10mg Take 1 tablet by mouth every 6 (six) hours as needed for Pain (scale 7-10). [facility] acetaminoph en-codeine 300-30 mg tablet 2024-0 2-14 00:00: 00 07-17 00:00 :00 No [id number] 1{tbl} Take 1 tablet by mouth every 4 (four) hours as needed for Pain (scale 7-10) for up to 28 doses. Indication s: acute pain [facility] Methocarbam ol 500 MG oral Tablet 06-21 00:00: 00 08-13 00:00 :00 No 500mg Take 1 tablet (500 mg total) by mouth 4 times daily. Betty roberts Docusate Sodium (DSS) 100 MG oral Capsule 06-14 00:00: 00 Yes 100mg Take 100 mg by mouth daily. Betty roberts methocarbam oL 500 mg tablet 06-14 00:00: 00 Yes [id number] 500mg Take 1 tablet by mouth 4 (four) times daily. [facility] HYDROcodone -acetaminop hen (NORCO) 10-325 mg tablet 06-14 00:00: 00 06-22 05:59 :00 No [id number] 1{tbl} Take 1 tablet by mouth every 6 (six) hours as needed for Pain (scale 7-10) for up to 7 days. Indication s: acute pain [facility] Ibuprofen (MOTRIN) 600 MG oral Tablet 06-12 00:00: 00 Yes 600mg Q.25D Take 1 tablet (600 mg total) by mouth every 6 hours as needed. Betty roberts clotrimazol e 1 % topical cream 06-03 18:34: 16 Yes Apply to area(s) at bedtime. [facility] cyclobenzap rine HCl (CYCLOBENZA YOLANDE ORAL) 06-03 16:15: 16 06-03 00:00 :00 No Take by mouth. [facility] cyclobenzap rine 5 mg tablet 06-03 00:00: 00 Yes [id number] 5mg Take 1 tablet by mouth in the morning and 1 tablet at noon and 1 tablet in the evening. [facility] acetaminoph en 325 mg tablet 06-03 00:00: 00 06-11 05:59 :00 No [id number] 650mg Take 2 tablets by mouth every 6 (six) hours as needed for Pain for up to 7 days. [facility] HYDROcodone -acetaminop hen 5-325 mg tablet 06-03 00:00: 00 06-11 05:59 :00 No [id number] 1{tbl} Take 1 tablet by mouth every 6 (six) hours as needed for Pain (scale 4-6) for up to 7 days. Indication s: acute pain [facility] tamsulosin (FLOMAX) capsule 0.4 mg 05-28 15:00: 00 Yes .4mg 0.4 mg, Oral, DAILY, First dose on Sat05/28/23 at 0900, Until Discontinu ed, Routine [facility] carvediloL (COREG) tablet 6.25 mg 05-27 23:00: 00 Yes 6.25mg 6.25 mg, Oral, BID MEALS, First dose on Sat05/27/23 at 1700, Until Discontinu ed, Routine [facility] cyclobenzap rine HCl (CYCLOBENZA YOLANDE ORAL) 05-27 10:17: 35 Yes Take by mouth. [facility] clotrimazol e 1 % topical cream 05-27 10:17: 35 Yes Apply to area(s) at bedtime. [facility] mineral oil (MINERAL OIL EXTRA HEAVY) oral liquid 30 mL 05-26 14:15: 00 Yes 30mL 30 mL, Oral, BID, First dose on Sat05/26/23 at 0815, Until Discontinu ed, Routine [facility] acetaminoph en (TYLENOL) tablet 1,000 mg 05-26 04:33: 49 Yes 1000mg 1,000 mg, Oral, Q6HPRN, Starting on 05/25/23 at 2233, Until Discontinu ed, Routine, Pain (scale 1-3), Temp > 38 C [facility] enoxaparin (LOVENOX) injection 30 mg 05-26 02:00: 00 Yes 30mg 30 mg, Subcutaneo us, Q12H, First dose (after last modificati on) on 05/25/23 at 2000, Until Discontinu ed, Routine [facility] vancomycin 1,250 mg in NaCl 0.9% (NS) 250 mL VIAL-MATE IV piggyback 05-25 23:11: 00 05-27 14:35 :14 No 15mg/kg 1,250 mg (rounded from 1,224 mg = 15 mg/kg ?81.6 kg), IV Piggyback, Q12H ABX, 9 doses, First dose (after last modificati on) on 05/25/23 at 1715, Last dose on Sat05/29/23 at 1715, Administer over 90 Minutes, 250 mL
Reas on for Anti-Infec tive: Surgical Prophylaxi s
Surgi minal Prophylaxi s: Neurosurge ry
Dura tion of therapy: within 24 hours of surgery [facility] lactulose (CEPHULAC) solution 15 mL 05-25 16:30: 00 Yes 15mL 15 mL, Oral, DAILY, First dose on 05/25/23 at 1030, Until Discontinu ed, Routine [facility] polyethylen e glycol 3350 powder 17 g 05-25 16:30: 00 Yes 17g 17 g, Oral, DAILY, First dose on 05/25/23 at 1030, Until Discontinu ed, Routine [facility] diphenhydrA MINE (BENADRYL) tablet 25 mg 05-25 01:30: 00 05-25 01:52 :00 No 25mg 25 mg, Oral, QHS, 1 dose, First dose on Sat05/24/23 at 1930, Routine [facility] vancomycin 1250 mg in NS 250 mL RTU IV Piggyback 1,250 mg 05-24 23:00: 00 05-29 22:59 :00 No 15mg/kg 1,250 mg (rounded from 1,224 mg = 15 mg/kg ?81.6 kg), IV Piggyback, Q12H ABX, 10 doses, First dose on Sat05/24/23 at 1700, Last dose on Sat05/29/23 at 0500, Administer over 90 Minutes, 250 mL
Reas on for Anti-Infec tive: Surgical Prophylaxi s
Surgi minal Prophylaxi s: Neurosurge ry
Dura tion of therapy: within 24 hours of surgery [facility] ketorolac (TORADOL) injection 15 mg 05-24 21:30: 37 05-27 21:29 :37 No 15mg 15 mg, Slow IV Push, Q6HPRN, Starting on Sat05/24/23 at 1530, Until Sat05/27/23 at 1529, Routine, Pain (scale 4-6) [facility] BUPivacaine liposome (PF) (EXPAREL (PF)) 1.3 % (13.3 mg/mL) injection 05-24 20:33: 00 Yes PRN, Starting on Sat05/24/23 at 1433, Until Discontinu ed, Routine, Intra-op [facility] bupivacaine (preserv free) (SENSORCAIN E MPF) 0.25 % (2.5 mg/mL) injection 05-24 20:33: 00 Yes PRN, Starting on Sat05/24/23 at 1433, Until Discontinu ed, Routine, Intra-op [facility] vancomycin (VANCOCIN) injection 05-24 18:31: 00 Yes PRN, Starting on Sat05/24/23 at 1231, Until Discontinu ed, LUIS, Intra-op [facility] thrombin topical solution 05-24 18:31: 00 Yes PRN, Starting on Sat05/24/23 at 1231, Until Discontinu ed, Routine, Intra-op [facility] lidocaine-e pinephrine (XYLOCAINE WITH EPINEPHRINE ) 0.5 %-1:200,000 injection 05-24 18:31: 00 Yes PRN, Starting on Sat05/24/23 at 1231, Until Discontinu ed, Routine, Intra-op [facility] ceFAZolin (ANCEF) 2,000 mg in NaCl 0.9% (NS) 100 mL MINI-BAG 05-23 20:00: 00 05-24 04:52 :00 No 2000mg 2,000 mg, Intravenou s, Q8H ABX, 2 doses, First dose on Collette 05/23/23 at 1400, Last dose on Sat05/23/23 at 2200, Administer over 30 Minutes, 100 mL
Reas on for Anti-Infec tive: Surgical Prophylaxi s
Neves rgical Prophylaxi s: Orthopaedi c
Durat ion of therapy: within 24 hours of surgery [facility] propofoL IV infusion 05-23 16:46: 11 05-24 21:29 :47 No 5ug/kg/ min 5-50 mcg/kg/min ?81.6 kg (2.448-24. 48 mL/hr, rounded to 2.45-24.48 mL/hr), IV Infusion, TITRATE, Sedation-R ASS score (-1 to -2), To obtain MRI while intubated, Starting on Collette 05/23/23 at 1046
In itiate infusion at 5 mcg/kg/min and titrate by 5 mcg/kg/min every 30 seconds to 10 minutes to goal sedation score. Maximum dose = 50 mcg/kg/min . If goal not maintained at maximum allowed dose, contact prescriber . &nbs p;Tubing and unused portions of vials should be discarded after 12 hours.
[facility] NaCl 0.9% (NS) IV infusion 1,000 mL 05-23 12:30: 00 Yes 1000mL at 100 mL/hr, IV Infusion, CONTINUOUS , Starting on Collette 05/23/23 at 0630, Until Discontinu ed, Routine [facility] magnesium sulfate in water 2 gram/50 mL (4 %) infusion 2 g 05-22 12:15: 00 05-22 12:34 :00 No 2g 2 g, IV Piggyback, Administer over 60 Minutes, ONCE, 1 dose, On Sat05/22/23 at 0615, Routine [facility] dexMEDEtomi dine 200 mcg in 0.9 % NaCl 50 mL (PRECEDEX) RTU IV infusion 05-22 04:53: 34 05-22 16:47 :04 No .2ug/kg /h 0.2-1.5 mcg/kg/hr ?81.6 kg (4.08-30.6 mL/hr), IV Infusion, TITRATE, Agitation for MRI, Starting on Sat05/21/23 at 2253
In itiate infusion at 0.2 mcg/kg/hr and titrate by 0.1 mcg/kg/hr every 30 minutes to goal sedation score. Maximum dose = 1.5 mcg/kg/hr. If goal not maintained at maximum allowed dose, contact prescriber .
[facility] LORazepam (ATIVAN) injection 2 mg 05-22 03:33: 00 05-22 03:45 :00 No 2mg 2 mg, Slow IV Push, ONCE, 1 dose, On Sat05/21/23 at 2145, STAT [facility] midazolam (VERSED) injection 1 mg 05-21 15:35: 34 05-22 02:50 :00 No 1mg 1 mg, IV Push, ONCE PRN, 1 dose, Starting on Sat05/21/23 at 0935, Until Sat05/21/23 at 2050, Routine, PRN for MRI [facility] Lidocaine (LIDOCARE) 4 % patch 1 Patch 05-21 15:00: 00 Yes 1{patch } 1 Patch, Topical, Administer over 12 Hours, DAILY, First dose on Sat05/21/23 at 0900, Until Discontinu ed, Routine [facility] ketorolac (TORADOL) injection 15 mg 05-21 14:02: 57 05-24 14:01 :57 No 15mg 15 mg, Slow IV Push, Q6HPRN, Starting on Sat05/21/23 at 0802, Until Sat05/24/23 at 0801, Routine, Pain (scale 4-6) [facility] acetaminoph en (TYLENOL) tablet 1,000 mg 05-21 14:02: 27 Yes 1000mg 1,000 mg, Oral, Q6HPRN, Starting on Sat05/21/23 at 0802, Until Discontinu ed, Routine, Pain (scale 1-3) [facility] cyclobenzap rine (FLEXERIL) tablet 5 mg 05-21 14:00: 00 Yes 5mg 5 mg, Oral, TID, First dose on Sat05/21/23 at 0800, Until Discontinu ed, Routine [facility] enoxaparin (LOVENOX) injection 30 mg 05-21 14:00: 00 05-24 21:29 :47 No 30mg 30 mg, Subcutaneo us, Q12H, First dose on Sat05/21/23 at 0800, Until Discontinu ed, Routine [facility] FENTanyl PF (SUBLIMAZE (PF)) injection 100 mcg 05-21 06:45: 00 05-21 08:22 :00 No 100ug 100 mcg, Slow IV Push, ONCE, 1 dose, On Sat05/21/23 at 0045, Routine [facility] lidocaine 1% (PF) (XYLOCAINE) injection 20 mL 05-21 06:45: 00 05-21 06:45 :00 No 20mL 20 mL, Infiltrati on, ONCE, 1 dose, On Sat05/21/23 at 0045, Routine [facility] morpHINE (2 mg/mL) injection 2 mg 05-21 06:09: 05 Yes 2mg 2 mg, Slow IV Push, Q3HPRN, Starting on Sat05/21/23 at 0009, Until Discontinu ed, Routine, Pain (scale 7-10) [facility] pantoprazol e (PROTONIX) injection 40 mg 05-21 04:45: 00 05-26 04:44 :00 No 40mg 40 mg, Slow IV Push, Q24H, 5 doses, First dose on Sat05/20/23 at 2245, Last dose on Sat05/24/23 at 2245 [facility] FENTanyl PF (SUBLIMAZE (PF)) injection 50 mcg 05-21 04:15: 00 05-21 03:18 :00 No 50ug 50 mcg, Slow IV Push, ONCE, 1 dose, On Sat05/20/23 at 2215, Routine [facility] HYDROcodone -acetaminop hen (NORCO 5) 5-325 mg tablet 1 tablet 05-21 03:34: 49 Yes 1{tbl} 1 tablet, Oral, Q6HPRN, Starting on Sat05/20/23 at 2134, Until Discontinu ed, Routine, Pain (scale 4-6) [facility] oxyCODONE immediate release tablet 10 mg 05-21 03:33: 50 Yes 10mg 10 mg, Oral, Q6HPRN, Starting on Sat05/20/23 at 2133, Until Discontinu ed, Routine, Pain (scale 7-10)
F aculty member approving Restricted medication : STRTRAUMA [facility] lactated ringers IV infusion 1,000 mL 05-21 03:30: 00 05-23 11:26 :28 No 1000mL at 100 mL/hr, 1,000 mL, IV Infusion, CONTINUOUS , Starting on Sat05/20/23 at 2145, Until Collette 05/23/23 at 0526, Routine [facility] NaCl 0.9% (NS) bolus infusion 1,000 mL 05-20 23:45: 00 05-21 00:24 :00 No 1000mL at 999 mL/hr, 1,000 mL, IV Piggyback, ONCE, 1 dose, On Sat05/20/23 at 1745, STAT [facility] ondansetron (ZOFRAN (PF)) injection 4 mg 05-20 22:45: 00 05-20 22:48 :00 No 4mg 4 mg, Slow IV Push, ONCE, 1 dose, On Sat05/20/23 at 1645, LUIS [facility] FENTanyl PF (SUBLIMAZE (PF)) injection 50 mcg 05-20 22:39: 00 05-20 22:48 :00 No 50ug 50 mcg, Slow IV Push, ONCE, 1 dose, On Sat05/20/23 at 1645, STAT [facility] cyclobenzap rine HCl (CYCLOBENZA YOLANDE ORAL) 05-20 22:12: 59 Yes Take by mouth. [facility] clotrimazol e 1 % topical cream 05-20 22:12: 59 Yes Apply to area(s) at bedtime. [facility] iopamidol (ISOVUE 370-500 mL) injection 80 mL 05-20 22:00: 00 05-20 22:00 :00 No [id number] 80mL 80 mL, Intravenou s, ONCE, 1 dose, On Sat05/20/23 at 1600, Routine [facility] ondansetron (ZOFRAN (PF)) injection 4 mg 05-20 21:30: 00 05-20 21:32 :00 No 4mg 4 mg, Slow IV Push, ONCE, 1 dose, On Sat05/20/23 at 1530, LUIS [facility] FENTanyl PF (SUBLIMAZE (PF)) injection 50 mcg 05-20 21:30: 00 05-20 21:32 :00 No 50ug 50 mcg, Slow IV Push, ONCE, 1 dose, On Sat05/20/23 at 1530, STAT [facility] ketorolac (TORADOL) injection 15 mg 2022-05 19:15: 00 05-03 18:27 :00 No 15mg 15 mg, Slow IV Push, ONCE, 1 dose, On Sat05/03/23 at 1315, Routine [facility] cefTRIAXone (ROCEPHIN) 1,000 mg in NaCl 0.9% (NS) 100 mL MINI-BAG 2022-05 16:45: 00 05-03 17:37 :00 No 1000mg 1,000 mg, IV Piggyback, ONCE, 1 dose, On Sat05/03/23 at 1045, Administer over 30 Minutes, 100 mL
Reas on for Anti-Infec tive: Documented Infection< br>Documen ashley Infection Site: Skin / Soft Tissue
Duration of Therapy: Other (see Comments) [facility] ibuprofen 600 mg tablet 2022-05 00:00: 00 06-12 00:00 :00 No [id number] 600mg Take 1 tablet by mouth every 6 (six) hours as needed for Pain (scale 4-6). [facility] cephALEXin 500 mg capsule 2022-05 00:00: 00 05-11 05:59 :00 No [id number] 500mg Take 1 capsule by mouth 4 (four) times daily for 7 days. [facility] HYDROcodone -Acetaminop hen 10-325 MG oral Tablet 2022-05 00:00: 00 Yes 1{tbl} Q.25D Take 1 tablet by mouth every 6 hours as needed. [facility] rober[facility] Amlodipine Besylate 10 MG oral Tablet 2022-05 00:00: 00 Yes 10mg Take 1 tablet (10 mg total) by mouth every morning. [facility] Tamsulosin HCl 0.4 MG oral Capsule 2022-05 00:00: 00 Yes .4mg Take 1 capsule (0.4 mg total) by mouth daily. [facility] roberts hydroCHLORO thiazide 12.5 mg capsule 2022-05 00:00: 00 Yes 12.5mg Take 1 capsule by mouth in the morning. [facility] Cyclobenzap rine HCl 10 MG oral Tablet 2022-05 00:00: 00 08-13 00:00 :00 No 10mg [id number] 3D Take 1 tablet (10 mg total) by mouth 3 times daily as needed. [facility] roberts Tadalafil 20 MG oral Tablet 11-16 00:00: 00 Yes TAKE ONE (1) TABLET(S) BY MOUTH NEEDED FOR ERECTILE DYSFUNCTIO N (2 HOURS PRIOR TO SEXUAL ACTIVITY TWO TO THREE TIMES DAILY). [facility] roberts traZODone 50 mg tablet 11-15 00:00: 00 Yes [id number] 50mg Take 1 tablet by mouth at bedtime. [facility] tadalafiL (CIALIS) 20 mg tablet 11-06 00:00: 00 Yes [id number] 20mg Take 1 tablet by mouth as needed for Erectile dysfunctio n (2 hrs prior to sexual activity, 2-3 times/day) for up to 10 doses. [facility] tamsulosin 0.4 mg 24 hr capsule 11-06 00:00: 00 02-05 04:59 :00 No [id number] .4mg Take 1 capsule by mouth in the morning for 90 days. [facility] ketorolac (TORADOL) injection 30 mg 10-31 15:45: 00 10-31 14:53 :00 No [id number] 9108 30mg [facility] methylPREDN ISolone (MEDROL, LANA,) 4 mg tablets 10-31 00:00: 00 06-03 00:00 :00 No [id number] Take by mouth SEE-INSTRU CTIONS. follow package directions [facility] ibuprofen 600 mg tablet 10-31 00:00: 00 05-03 00:00 :00 No [id number] 600mg Take 1 tablet by mouth every 6 (six) hours as needed for Pain (scale 1-3) or Pain (scale 4-6). [facility] hydroCHLORO thiazide 12.5 mg tablet 10-22 00:00: 00 11-22 04:59 :00 No [id number] 12.5mg Take 1 tablet by mouth in the morning for 30 days. [facility] traZODone 50 mg tablet 30 00:00: 00 11-15 00:00 :00 No [id number] 50mg Take 1 tablet by mouth at bedtime for 30 days. [facility] TRAZODONE 50 mg tablet 4-24 00:00: 00 10-16 00:00 :00 No [id number] TAKE ONE (1) TABLET(S) BY MOUTH ONCE A DAY AT BEDTIME. [facility] traZODone 150 mg tablet 320 09:45: 41 08-06 00:00 :00 No [id number] 150mg Take 150 mg by mouth at bedtime. [facility] traZODone 50 mg tablet 320 00:00: 00 09-06 04:59 :00 No [id number] 50mg Take 1 tablet by mouth at bedtime for 30 days. [facility] doxepin 50 mg capsule 3- 00:00: 00 08-06 00:00 :00 No [id number] 50mg Take 1 capsule by mouth at bedtime. [facility] carvediloL 6.25 mg tablet 3- 00:00: 00 Yes [id number] 6.25mg Take 1 tablet by mouth in the morning and 1 tablet in the evening. Take with meals. [facility] clindamycin 300 mg capsule 2-16 00:00: 00 07-13 05:59 :00 No [id number] 300mg Take 1 capsule by mouth 4 (four) times daily for 7 days. [facility] triamcinolo ne acetonide 0.1 % cream 1-11 00:00: 00 Yes [id number] Apply to area(s) 2 (two) times daily. [facility] clindamycin 150 mg capsule 2021-05 2-15 00:00: 00 08-06 00:00 :00 No [id number] 300mg Take 2 capsules by mouth 4 (four) times daily. [facility] acetaminoph en-codeine 300-30 mg tablet 2021-05 2-04 00:00: 00 08-06 00:00 :00 No TAKE ONE (1) TABLET(S) BY MOUTH EVERY SIX HOURS NEEDED FOR PAIN CONTROL. [facility] clindamycin 300 mg capsule 2021-05 2-04 00:00: 00 08-06 00:00 :00 No TAKE ONE (1) CAPSULE(S) BY MOUTH EVERY EIGHT HOURS. [facility] doxepin 50 mg capsule 2021-05 2- 00:00: 00 07-19 00:00 :00 No [id number] 50mg Take 1 capsule by mouth at bedtime. [facility] triamcinolo ne acetonide 0.1 % cream 2021-05- 00:00: 00 05-30 00:00 :00 No [id number] Apply to area(s) 2 (two) times daily. [facility] amLODIPine 5 mg tablet 2021-05 14:30: 05 03-19 00:00 :00 No [id number] 5mg Take 5 mg by mouth in the morning. [facility] amLODIPine 10 mg tablet 2021-05 00:00: 00 Yes [id number] 10mg Take 1 tablet by mouth in the morning. [facility] lisinopriL 40 mg tablet 2021-05 14:02: 49 03-02 00:00 :00 No [id number] 40mg Take 40 mg by mouth in the morning. [facility] carvediloL 6.25 mg tablet 2021-05 00:00: 00 07-18 00:00 :00 No [id number] 6.25mg Take 1 tablet by mouth in the morning and 1 tablet in the evening. Take with meals. [facility] cyclobenzap rine HCl (CYCLOBENZA YOLANDE ORAL) 02-08 14:52: 01 Yes Take by mouth. [facility] lisinopriL 40 mg tablet 02-08 14:52: 01 Yes [id number] 40mg Take 40 mg by mouth in the morning. [facility] traZODone 150 mg tablet 02-08 14:52: 01 Yes [id number] 150mg Take 150 mg by mouth at bedtime. [facility] clotrimazol e 1 % topical cream 02-08 14:51: 16 Yes Apply to area(s) at bedtime. [facility] amLODIPine 5 mg tablet 02-01 16:00: 04 Yes [id number] 5mg Take 5 mg by mouth in the morning. [facility] lisinopriL 40 mg tablet 02-01 16:00: 04 Yes [id number] 40mg Take 40 mg by mouth in the morning. [facility] traZODone 150 mg tablet 02-01 16:00: 04 Yes [id number] 150mg Take 150 mg by mouth at bedtime. [facility] cyclobenzap rine HCl (CYCLOBENZA YOLANDE ORAL) 02-01 16:00: 04 Yes Take by mouth. [facility] clotrimazol e 1 % topical cream 02-01 16:00: 04 Yes Apply to area(s) at bedtime. [facility] doxepin 50 mg capsule 02-01 00:00: 00 04-21 00:00 :00 No [id number] 50mg Take 1 capsule by mouth at bedtime. [facility] Immunizations Ordered Immunization Name Filled Immunization Name Date Status Comments Source TD Pres-Free Unknown Completed [facility] TD Pres-Free Unknown Completed [facility] TD Pres-Free Unknown Completed [facility] TD Pres-Free Unknown Completed [facility] TD Pres-Free Unknown Completed [facility] TD Pres-Free Unknown Completed [facility] TD Pres-Free Unknown Completed [facility] TD Pres-Free Unknown Completed [facility] TD Pres-Free Unknown Completed [facility] TD Pres-Free Unknown Completed [facility] TD Pres-Free Unknown Completed [facility] TD Pres-Free Unknown Completed [facility] TD Pres-Free Unknown Completed [facility] TD Pres-Free Unknown Completed [facility] TD Pres-Free Unknown Completed [facility] TD Pres-Free Unknown Completed [facility] TD Pres-Free Unknown Completed [facility] TD Pres-Free Unknown Completed [facility] TD Pres-Free Unknown Completed [facility] TD Pres[facility]Free Unknown Completed [facility] TD Pres-Free Unknown Completed [facility] TD Pres-Free Unknown Completed [facility] TD Pres-Free Unknown Completed [facility] TD Pres-Free Unknown Completed [facility] TD Pres-Free Unknown Completed [facility] TD Pres-Free Unknown Completed [facility] TD Pres-Free Unknown Completed [facility] TD Pres-Free Unknown Completed [facility] TD Pres-Free Unknown Completed [facility] TD Pres-Free Unknown Completed [facility] TD Pres[facility]Free Unknown Completed [facility] TD Pres-Free Unknown Completed [facility] TD Pres-Free Unknown Completed [facility] TD Pres[facility]Free Unknown Completed [facility] TD Pres-Free Unknown Completed [facility] TD Pres-Free Unknown Completed [facility] TD Pres-Free Unknown Completed [facility] TD Pres-Free Unknown Completed [facility] Td- Tetanus & Diphtheria Vaccine (age 7+ years) Unknown Completed Betty raygoza - External Vital Signs Vital Name Observation Time Observation Value Comments S ource Body temperature 2023-09-18 13:48:00 36.56 Natasha [facility] Body height 2023-09-18 13:48:00 182.9 cm [facility] Body weight 2023-09-18 13:48:00 73.256 kg [facility] BMI 2023-09-18 13:48:00 21.90 kg/m2 [facility] Systolic blood pressure 2023-08-14 19:17:00 140 mm[Hg] Betty yu - External Diastolic blood pressure 2023-08-14 19:17:00 98 mm[Hg] Betty yu - External Heart rate 2023-08-14 19:12:00 90 /min Lina Cisneros - External Body temperature 2023-08-14 19:12:00 36.67 Natasha Betty Cisneros - External Respiratory rate 2023-08-14 19:12:00 18 /min Betty Seybold - External Body height 2023-08-14 19:12:00 182.9 cm Tammy ey Seybold - External Body weight 2023-08-14 19:12:00 74.844 kg Tammy ey Seybold - External BMI 2023-08-14 19:12:00 22.38 kg/m2 Tammy ey Seybold - External Oxygen saturation in Arterial blood by Pulse oximetry 2023-08-14 19:12:00 99 /min Betty santos ld - External Body temperature 2023-08-07 16:01:00 36.61 Natasha [facility] Body height 2023-08-07 16:01:00 182.9 cm [facility] Body weight 2023-08-07 16:01:00 72.893 kg [facility] BMI 2023-08-07 16:01:00 21.79 kg/m2 [facility] Systolic blood pressure 2023-07-17 14:59:00 165 mm[Hg] [facility] Diastolic blood pressure 2023-07-17 14:59:00 78 mm[Hg] [facility] acute hospital Heart rate 2023-07-17 14:59:00 67 /min [facility] Body temperature 2023-07-17 14:59:00 37.11 Natasha [facility] Respiratory rate 2023-07-17 14:59:00 12 /min [facility] Body height 2023-07-17 14:59:00 182.9 cm [facility] Body weight 2023-07-17 14:59:00 77.429 kg [facility] BMI 2023-07-17 14:59:00 23.15 kg/m2 [facility] Oxygen saturation in Arterial blood by Pulse oximetry 2023-07-17 14:59:00 97 /min [facility] Systolic blood pressure 2023-07-13 20:00:00 123 mm[Hg] [facility] hospital Diastolic blood pressure 2023-07-13 20:00:00 80 mm[Hg] [facility] acute hospital Heart rate 2023-07-13 20:00:00 96 /min [facility] Body temperature 2023-07-13 20:00:00 36.61 Natasha [facility] Respiratory rate 2023-07-13 20:00:00 18 /min [facility] Oxygen saturation in Arterial blood by Pulse oximetry 2023-07-13 20:00:00 96 /min [facility] Body height 2023-07-13 16:28:00 182.9 cm [facility] weight 2023-07-13 16:28:00 74.844 kg Univ [facility] BMI 2023-07-13 16:28:00 22.38 kg/m2 [facility] Body height 2023-07-03 18:21:00 182.9 cm [facility] Body weight 2023-07-03 18:21:00 74.844 kg Univ [facility] BMI 2023-07-03 18:21:00 22.38 kg/m2 [facility] Systolic blood pressure 2023-07-03 18:21:00 121 mm[Hg] [facility] hospital Diastolic blood pressure 2023-07-03 18:21:00 83 mm[Hg] [facility] acute hospital Heart rate 2023-07-03 18:21:00 93 /min [facility] Body temperature 2023-06-26 19:35:00 36.39 Natasha [facility] Body height 2023-06-26 19:35:00 182.9 cm Univ [facility] Body weight 2023-06-26 19:35:00 74.844 kg Univ [facility] BMI 2023-06-26 19:35:00 22.38 kg/m2 [facility] Systolic blood pressure 2023-06-14 23:05:00 112 mm[Hg] [facility] acute hospital Diastolic blood pressure 2023-06-14 23:05:00 70 mm[Hg] [facility] acute hospital Heart rate 2023-06-14 23:05:00 76 /min [facility] Body temperature 2023-06-14 23:05:00 36.39 Natasha [facility] Respiratory rate 2023-06-14 23:05:00 18 /min [facility] Body height 2023-06-14 23:05:00 182.9 cm [facility] Body weight 2023-06-14 23:05:00 74.844 kg [facility] BMI 2023-06-14 23:05:00 22.38 kg/m2 [facility] Oxygen saturation in Arterial blood by Pulse oximetry 2023-06-14 23:05:00 99 /min [facility] Systolic blood pressure 2023-06-03 18:12:00 124 mm[Hg] [facility] acute hospital Diastolic blood pressure 2023-06-03 18:12:00 70 mm[Hg] General acute hospital Heart rate 2023-06-03 18:12:00 85 /min [facility] Body temperature 2023-06-03 18:12:00 36.28 Natasha [facility] Respiratory rate 2023-06-03 18:12:00 16 /min [facility] Oxygen saturation in Arterial blood by Pulse oximetry 2023-06-03 18:12:00 96 /min [facility] Body height 2023-05-21 01:28:00 182.9 cm [facility] Body weight 2023-05-21 01:28:00 81.6 kg [facility] BMI 2023-05-21 01:28:00 24.40 kg/m2 [facility] Body temperature 2023-05-24 22:00:00 36.72 Natasha [facility] Systolic blood pressure 2023-05-24 13:00:00 131 mm[Hg] [facility] acute hospital Diastolic blood pressure 2023-05-24 13:00:00 72 mm[Hg] General acute hospital Heart rate 2023-05-24 13:00:00 89 /min [facility] Respiratory rate 2023-05-24 13:00:00 13 /min [facility] Oxygen saturation in Arterial blood by Pulse oximetry 2023-05-24 13:00:00 100 /min [facility] Body height 2023-05-21 01:28:00 182.9 cm [facility] Body weight 2023-05-21 01:28:00 81.6 kg [facility] BMI 2023-05-21 01:28:00 24.40 kg/m2 [facility] Systolic blood pressure 2023-05-23 14:00:00 150 mm[Hg] [facility] acute hospital Diastolic blood pressure 2023-05-23 14:00:00 78 mm[Hg] General acute hospital Heart rate 2023-05-23 14:00:00 85 /min [facility] Body temperature 2023-05-23 14:00:00 37.11 Natasha [facility] Respiratory rate 2023-05-23 14:00:00 13 /min [facility] Oxygen saturation in Arterial blood by Pulse oximetry 2023-05-23 14:00:00 100 /min [facility] Body height 2023-05-21 01:28:00 182.9 cm [facility] Body weight 2023-05-21 01:28:00 81.6 kg [facility] BMI 2023-05-21 01:28:00 24.40 kg/m2 [facility] Systolic blood pressure 2023-05-20 23:53:25 150 mm[Hg] [facility] acute hospital Diastolic blood pressure 2023-05-20 23:53:25 97 mm[Hg] General acute hospital Heart rate 2023-05-20 23:53:25 81 /min [facility] Body temperature 2023-05-20 23:53:25 36.17 Natasha [facility] Respiratory rate 2023-05-20 23:53:25 16 /min [facility] Oxygen saturation in Arterial blood by Pulse oximetry 2023-05-20 23:53:25 97 /min [facility] Body height 2023-05-20 20:07:00 182.9 cm [facility] Body weight 2023-05-20 20:07:00 81.647 kg [facility] BMI 2023-05-20 20:07:00 24.41 kg/m2 [facility] Systolic blood pressure 2023-05-03 18:00:00 141 mm[Hg] [facility] acute hospital Diastolic blood pressure 2023-05-03 18:00:00 82 mm[Hg] General acute hospital Heart rate 2023-05-03 18:00:00 83 /min [facility] Respiratory rate 2023-05-03 18:00:00 16 /min [facility] Oxygen saturation in Arterial blood by Pulse oximetry 2023-05-03 18:00:00 98 /min [facility] Body temperature 2023-05-03 15:34:00 36.78 Natasha [facility] Body height 2023-05-03 15:34:00 182.9 cm [facility] Body weight 2023-05-03 15:34:00 72.576 kg [facility] BMI 2023-05-03 15:34:00 21.70 kg/m2 [facility] Systolic blood pressure 2022-11-19 18:59:00 136 mm[Hg] [facility] acute hospital Diastolic blood pressure 2022-11-19 18:59:00 75 mm[Hg] General acute hospital Heart rate 2022-11-19 18:59:00 89 /min [facility] Body temperature 2022-11-19 18:59:00 36.17 Natasha [facility] Body height 2022-11-19 18:59:00 182.9 cm [facility] Body weight 2022-11-19 18:59:00 82.237 kg [facility] BMI 2022-11-19 18:59:00 24.59 kg/m2 [facility] Systolic blood pressure 2022-10-31 14:35:00 135 mm[Hg] [facility] acute hospital Diastolic blood pressure 2022-10-31 14:35:00 76 mm[Hg] General acute hospital Heart rate 2022-10-31 14:35:00 76 /min [facility] Body temperature 2022-10-31 14:35:00 36.94 Natasha [facility] Respiratory rate 2022-10-31 14:35:00 18 /min [facility] Body height 2022-10-31 14:35:00 182.9 cm [facility] Body weight 2022-10-31 14:35:00 82.101 kg [facility] BMI 2022-10-31 14:35:00 24.55 kg/m2 [facility] Oxygen saturation in Arterial blood by Pulse oximetry 2022-10-31 14:35:00 97 /min [facility] Systolic blood pressure 2022-10-29 18:51:00 175 mm[Hg] [facility] acute hospital Diastolic blood pressure 2022-10-29 18:51:00 100 mm[Hg] General acute hospital Heart rate 2022-10-29 18:51:00 84 /min [facility] Body temperature 2022-10-29 18:51:00 36.78 Natasha [facility] Body height 2022-10-29 18:51:00 182.9 cm [facility] Body weight 2022-10-29 18:51:00 82.419 kg [facility] BMI 2022-10-29 18:51:00 24.64 kg/m2 [facility] Systolic blood pressure 2022-10-22 15:29:00 165 mm[Hg] [facility] acute hospital Diastolic blood pressure 2022-10-22 15:29:00 101 mm[Hg] General acute hospital Heart rate 2022-10-22 15:29:00 87 /min [facility] Body temperature 2022-10-22 15:20:00 36.78 Natasha [facility] Respiratory rate 2022-10-22 15:20:00 18 /min [facility] Body height 2022-10-22 15:20:00 182.9 cm [facility] Body weight 2022-10-22 15:20:00 82.056 kg [facility] BMI 2022-10-22 15:20:00 24.53 kg/m2 [facility] Oxygen saturation in Arterial blood by Pulse oximetry 2022-10-22 15:20:00 97 /min [facility] Systolic blood pressure 2022-08-13 15:18:00 136 mm[Hg] [facility] acute hospital Diastolic blood pressure 2022-08-13 15:18:00 69 mm[Hg] General acute hospital Heart rate 2022-08-13 15:18:00 99 /min [facility] Body temperature 2022-08-13 15:18:00 36.11 Natasha [facility] Body height 2022-08-13 15:18:00 182.9 cm [facility] Body weight 2022-08-13 15:18:00 82.555 kg [facility] BMI 2022-08-13 15:18:00 24.68 kg/m2 [facility] Systolic blood pressure 2022-08-06 14:27:00 145 mm[Hg] [facility] acute hospital Diastolic blood pressure 2022-08-06 14:27:00 86 mm[Hg] General acute hospital Heart rate 2022-08-06 14:27:00 76 /min [facility] Body temperature 2022-08-06 14:21:00 36.44 Natasha [facility] Respiratory rate 2022-08-06 14:21:00 18 /min [facility] Body height 2022-08-06 14:21:00 182.9 cm [facility] Body weight 2022-08-06 14:21:00 82.214 kg [facility] BMI 2022-08-06 14:21:00 24.58 kg/m2 [facility] Systolic blood pressure 2022-07-18 22:06:00 138 mm[Hg] [facility] acute hospital Diastolic blood pressure 2022-07-18 22:06:00 80 mm[Hg] General acute hospital Heart rate 2022-07-18 22:06:00 86 /min [facility] Body temperature 2022-07-18 22:04:00 37.33 Natasha [facility] Respiratory rate 2022-07-18 22:04:00 16 /min [facility] Body height 2022-07-18 22:04:00 182.9 cm [facility] Body weight 2022-07-18 22:04:00 79.107 kg [facility] BMI 2022-07-18 22:04:00 23.65 kg/m2 [facility] Oxygen saturation in Arterial blood by Pulse oximetry 2022-07-18 22:04:00 96 /min [facility] Systolic blood pressure 2022-07-05 16:37:00 144 mm[Hg] General acute hospital Diastolic blood pressure 2022-07-05 16:37:00 85 mm[Hg] General acute hospital Heart rate 2022-07-05 16:30:00 80 /min [facility] Body temperature 2022-07-05 16:30:00 36.67 Natasha [facility] Respiratory rate 2022-07-05 16:30:00 16 /min [facility] Body height 2022-07-05 16:30:00 182.9 cm [facility] Body weight 2022-07-05 16:30:00 81.239 kg [facility] BMI 2022-07-05 16:30:00 24.29 kg/m2 [facility] Oxygen saturation in Arterial blood by Pulse oximetry 2022-07-05 16:30:00 98 /min [facility] Systolic blood pressure 2022-06-19 21:55:00 157 mm[Hg] General acute hospital Diastolic blood pressure 2022-06-19 21:55:00 80 mm[Hg] General acute hospital Heart rate 2022-06-19 21:55:00 82 /min [facility] Respiratory rate 2022-06-19 21:50:00 18 /min [facility] Body height 2022-06-19 21:50:00 182.9 cm [facility] Body weight 2022-06-19 21:50:00 81.194 kg [facility] BMI 2022-06-19 21:50:00 24.28 kg/m2 [facility] Oxygen saturation in Arterial blood by Pulse oximetry 2022-06-19 21:50:00 95 /min [facility] acute [facility] Systolic blood pressure 2022-05-03 15:29:00 161 mm[Hg] General acute hospital Diastolic blood pressure 2022-05-03 15:29:00 85 mm[Hg] General acute hospital Heart rate 2022-05-03 15:29:00 88 /min [facility] Body height 2022-05-03 15:29:00 182.9 cm [facility] Body weight 2022-05-03 15:29:00 77.111 kg [facility] BMI 2022-05-03 15:29:00 23.06 kg/m2 [facility] Oxygen saturation in Arterial blood by Pulse oximetry 2022-05-03 15:29:00 98 /min [facility] acute hospital Systolic blood pressure 2022-04-26 14:44:00 152 mm[Hg] General acute hospital Diastolic blood pressure 2022-04-26 14:44:00 78 mm[Hg] General acute hospital Heart rate 2022-04-26 14:43:00 97 /min [facility] Body temperature 2022-04-26 14:43:00 36.89 Natasha [facility] Respiratory rate 2022-04-26 14:43:00 20 /min [facility] Body height 2022-04-26 14:43:00 182.9 cm [facility] Body weight 2022-04-26 14:43:00 77.157 kg [facility] BMI 2022-04-26 14:43:00 23.07 kg/m2 [facility] Oxygen saturation in Arterial blood by Pulse oximetry 2022-04-26 14:43:00 98 /min [facility] acute hospital Systolic blood pressure 2022-04-22 00:50:00 206 mm[Hg] General acute hospital Diastolic blood pressure 2022-04-22 00:50:00 115 mm[Hg] General acute hospital Heart rate 2022-04-22 00:49:00 101 /min [facility] Body temperature 2022-04-22 00:49:00 36.67 Natasha [facility] Respiratory rate 2022-04-22 00:49:00 17 /min [facility] Body height 2022-04-22 00:49:00 182.9 cm [facility] Body weight 2022-04-22 00:49:00 76.204 kg [facility] BMI 2022-04-22 00:49:00 22.78 kg/m2 [facility] Oxygen saturation in Arterial blood by Pulse oximetry 2022-04-22 00:49:00 95 /min [facility] Systolic blood pressure 2022-03-29 17:52:00 150 mm[Hg] General acute hospital Diastolic blood pressure 2022-03-29 17:52:00 81 mm[Hg] General acute hospital Heart rate 2022-03-29 17:51:00 90 /min [facility] Body temperature 2022-03-29 17:51:00 37.33 Natasha [facility] Respiratory rate 2022-03-29 17:51:00 24 /min [facility] Body height 2022-03-29 17:51:00 182.9 cm [facility] Body weight 2022-03-29 17:51:00 75.524 kg [facility] BMI 2022-03-29 17:51:00 22.58 kg/m2 [facility] Oxygen saturation in Arterial blood by Pulse oximetry 2022-03-29 17:51:00 97 /min [facility] acute hospital Systolic blood pressure 2022-03-19 19:23:00 146 mm[Hg] General acute hospital Diastolic blood pressure 2022-03-19 19:23:00 85 mm[Hg] General acute hospital Heart rate 2022-03-19 19:21:00 64 /min [facility] Body temperature 2022-03-19 19:21:00 36.94 Natasha [facility] Body height 2022-03-19 19:21:00 182.9 cm [facility] Body weight 2022-03-19 19:21:00 73.8 kg [facility] BMI 2022-03-19 19:21:00 22.07 kg[facility]m2 [facility] Oxygen saturation in Arterial blood by Pulse oximetry 2022-03-19 19:21:00 97 /min [facility] acute hospital Systolic blood pressure 2022-03-02 18:47:00 134 mm[Hg] General acute hospital Diastolic blood pressure 2022-03-02 18:47:00 81 mm[Hg] General acute hospital Heart rate 2022-03-02 18:47:00 89 /min [facility] Body temperature 2022-03-02 18:47:00 37.39 Natasha [facility] Respiratory rate 2022-03-02 18:47:00 18 /min [facility] Body weight 2022-03-02 18:47:00 73.528 kg Univ [facility] BMI 2022-03-02 18:47:00 21.98 kg/m2 Univ [facility] Oxygen saturation in Arterial blood by Pulse oximetry 2022-03-02 18:47:00 95 /min General acute hospital Systolic blood pressure 2022-02-08 19:53:00 103 mm[Hg] General acute hospital Diastolic blood pressure 2022-02-08 19:53:00 67 mm[Hg] General acute hospital Heart rate 2022-02-08 19:53:00 96 /min Unive [facility] Body temperature 2022-02-08 19:53:00 36.78 Natasha [facility] Respiratory rate 2022-02-08 19:53:00 20 /min [facility] Body height 2022-02-08 19:53:00 182.9 cm [facility] 2022-02-08 19:53:00 69.945 kg Univ [facility] BMI 2022-02-08 19:53:00 20.91 kg/m2 Univ [facility] Oxygen saturation in Arterial blood by Pulse oximetry 2022-02-08 19:53:00 95 /min General acute hospital Systolic blood pressure 2022-02-01 21:01:00 124 mm[Hg] General acute hospital Diastolic blood pressure 2022-02-01 21:01:00 67 mm[Hg] General acute hospital Heart rate 2022-02-01 21:01:00 87 /min Unive [facility] Body temperature 2022-02-01 21:01:00 36.72 Natasha [facility] Respiratory rate 2022-02-01 21:01:00 20 /min [facility] Body height 2022-02-01 21:01:00 182.9 cm [facility] Body weight 2022-02-01 21:01:00 71.26 kg [facility] BMI 2022-02-01 21:01:00 21.31 kg/m2 [facility] Oxygen saturation in Arterial blood by Pulse oximetry 2022-02-01 21:01:00 96 /min General acute hospital Respiratory rate 2023-05-23 18:25:00 17 /min [facility] Systolic blood pressure 2023-05-23 14:00:00 150 mm[Hg] General acute hospital Diastolic blood pressure 2023-05-23 14:00:00 78 mm[Hg] General acute hospital Heart rate 2023-05-23 14:00:00 85 /min [facility] Body temperature 2023-05-23 14:00:00 37.11 Natasha [facility] Oxygen saturation in Arterial blood by Pulse oximetry 2023-05-23 14:00:00 100 /min General acute hospital Body height 2023-05-21 01:28:00 182.9 cm [facility] Body weight 2023-05-21 01:28:00 81.6 kg [facility] BMI 2023-05-21 01:28:00 24.40 kg/m2 [facility] Procedures Procedure Date / Time Performed Performing Clinician Source XR HEEL 2+ VW RIGHT 2023-09-18 14:06:13 Koby Orr [facility] XR FEMUR 2 VW LEFT 2023-09-18 14:06:01 Steven Orr [facility] XR FEMUR 2 VW LEFT 2023-08-07 16:13:28 Steven Orr [facility] XR SPINE THORACIC 2 VW 2023-07-17 14:46:32 Sara Vasquez [facility] CT LUMBAR SPINE W CONTRAST 2023-07-13 18:47:19 Halle Ambriz [facility] SEDIMENTATION RATE 2023-07-13 17:27:00 Manas Ambriz [facility] C-REACTIVE PROTEIN 2023-07-13 17:18:00 Manas Ambriz [facility] COMP. METABOLIC PANEL (74418) 2023-07-13 17:18:00 Halle Ambriz [facility] CBC WITH DIFF 2023-07-13 17:18:00 Halle Ambriz [facility] LACTIC ACID WHOLE BLOOD 2023-07-13 17:18:00 Chino Ambriz [facility] CONSENT/REFUSAL FOR DIAGNOSIS AND TREATMENT 2023-07-13 16:20:00 Doctor Unassigned, [place] [facility] XR LUMBAR SPINE 2 VW 2023-07-03 18:01:26 Chin Vasquez [facility] XR FEMUR 2 VW LEFT 2023-06-26 19:52:27 Steven Orr [facility] MAGNESIUM 2023-05-30 19:55:00 Jeff Kerr [facility] BASIC METABOLIC PANEL (NA, K, CL, CO2, GLUCOSE, BUN, CREATININE, CA) 2023-05-30 19:55:00 Jeff Kerr [facility] CBC WITH DIFF 2023-05-30 19:54:00 Jeff Kerr [facility] CT FOOT RIGHT WO CONTRAST 2023-05-29 15:20:10 Chandu Bhatt [facility] XR HEEL 2+ VW RIGHT 2023-05-29 12:33:00 Jostin Miner [facility] MAGNESIUM 2023-05-29 10:42:00 Jeff Kerr [facility] BASIC METABOLIC PANEL (NA, K, CL, CO2, GLUCOSE, BUN, CREATININE, CA) 2023-05-29 10:42:00 Jeff Kerr [facility] CBC WITH DIFF 2023-05-29 10:42:00 Jeff Kerr [facility] XR ANKLE 3+ VW RIGHT 2023-05-29 01:30:00 Jostin Miner [facility] XR FOOT 3+ VW RIGHT 2023-05-29 01:30:00 Jostin Miner [facility] MAGNESIUM 2023-05-28 10:56:00 Jeff Kerr [facility] BASIC METABOLIC PANEL (NA, K, CL, CO2, GLUCOSE, BUN, CREATININE, CA) 2023-05-28 10:56:00 Jeff Kerr [facility] CBC WITH DIFF 2023-05-28 10:56:00 Jeff Kerr [facility] MAGNESIUM 2023-05-27 11:06:00 Jeff Kerr [facility] BASIC METABOLIC PANEL (NA, K, CL, CO2, GLUCOSE, BUN, CREATININE, CA) 2023-05-27 11:06:00 Jeff Kerr [facility] VANCOMYCIN TROUGH 2023-05-27 11:06:00 Sharon Hernandez [facility] CBC WITH DIFF 2023-05-27 11:06:00 Jeff Kerr [facility] MAGNESIUM 2023-05-27 11:06:00 Jeff Kerr [facility] BASIC METABOLIC PANEL (NA, K, CL, CO2, GLUCOSE, BUN, CREATININE, CA) 2023-05-27 11:06:00 Jeff Kerr [facility] VANCOMYCIN TROUGH 2023-05-27 11:06:00 Sharon Hernandez [facility] CBC WITH DIFF 2023-05-27 11:06:00 Jeff Kerr [facility] PHOSPHORUS 2023-05-26 10:23:00 Reymundo Santiago [facility] MAGNESIUM 2023-05-26 10:23:00 Jack Reymundo [facility] IONIZED CALCIUM 2023-05-26 10:23:00 Reymundo Santiago [facility] BASIC METABOLIC PANEL (NA, K, CL, CO2, GLUCOSE, BUN, CREATININE, CA) 2023-05-26 10:23:00 Jack Reymundo [facility] CBC WITH DIFF 2023-05-26 10:23:00 Karolina Smith [facility] PHOSPHORUS 2023-05-26 10:23:00 Jack [facility] MAGNESIUM 2023-05-26 10:23:00 Jack [facility] IONIZED CALCIUM 2023-05-26 10:23:[address] [facility] BASIC METABOLIC PANEL (NA, K, CL, CO2, GLUCOSE, BUN, CREATININE, CA) 2023-05-26 10:23:00 Jack [facility] CBC WITH DIFF 2023-05-26 10:23:00 Karolina Smith [facility] BLOOD CULTURE SCREEN 2023-05-26 04:57:00 Vahibjonel [facility] BLOOD CULTURE SCREEN 2023-05-26 04:57:00 Jack [facility] XR CHEST 1 VW 2023-05-26 04:40:00 Jack [facility] URINALYSIS 2023-05-26 04:35:00 Vahibjonel [facility] URINALYSIS 2023-05-26 04:35:00 Jack [facility] CBC WITHOUT DIFF 2023-05-25 23:32:00 Ronni Hoang [facility] CBC WITHOUT DIFF 2023-05-25 23:32:00 Alyssa Smith [facility] TRANSFUSE PACKED RBC 2023-05-25 18:45:00 Alyssa Dave [facility] TRANSFUSE PACKED RBC 2023-05-25 18:45:00 Alyssa Dave [facility] PREPARE PACKED RBC 2023-05-25 18:38:06 Alyssa Smith [facility] PREPARE PACKED RBC 2023-05-25 18:38:06 Alyssa Smith [facility] TRANSFUSE PACKED RBC 2023-05-25 15:45[facility] 2023-05-25 15:45:00 Braulio Daveika Nikoraul [facility] MAGNESIUM 2023-05-25 11:49:00 Jeff Kerr [facility] BASIC METABOLIC PANEL (NA, K, CL, CO2, GLUCOSE, BUN, CREATININE, CA) 2023-05-25 11:49:00 Usha [facility] CBC WITH DIFF 2023-05-25 11:49:00 Usha [facility] 2023-05-25 11:49:00 Usha [facility] BASIC METABOLIC PANEL (NA, K, CL, CO2, GLUCOSE, BUN, CREATININE, CA) 2023-05-25 11:49:00 Usha [facility] CBC WITH DIFF 2023-05-25 11:49:00 Usha [facility] FL TIME OR (NON-REPORTABLE) 2023-05-24 20:19:48 Bang Barrera [facility] FL TIME OR (NON-REPORTABLE) 2023-05-24 20:19:48 Bang Barrera [facility] FL TIME OR (NON-REPORTABLE) 2023-05-24 20:19:48 Bang Barrera [facility] XR LUMBAR SPINE 1 2023-05-24 18:05:00 Kirsten Barrera [facility] XR LUMBAR SPINE 1 2023-05-24 18:05:00 Kirsten Barrera [facility] XR LUMBAR SPINE 1 2023-05-24 18:05:00 Kirsten Barrera [facility] PREPARE PACKED RBC 2023-05-24 17:54:46 Johanna Leos [facility] FUSION SPINE POSTERIOR THORACIC WITH NAVIGATION 2023-05-24 16:49:00 [facility] POSTERIOR THORACIC WITH NAVIGATION 2023-05-24 16:49:00 Bruce [facility] FUSION SPINE POSTERIOR THORACIC WITH NAVIGATION 2023-05-24 16:49:00 [facility] POSTERIOR THORACIC WITH NAVIGATION 2023-05-24 16:49:00 Bruce [facility] CBC WITHOUT DIFF 2023-05-24 09:45:00 Teodorahibjonel [facility] CBC WITHOUT DIFF 2023-05-24 09:45:00 Vahibe, [facility] CBC WITHOUT DIFF 2023-05-24 09:45:00 Teodorahibjonel [facility] PHOSPHORUS 2023-05-24 09:13:00 Vahibjonel [facility] MAGNESIUM 2023-05-24 09:13:00 Vahibe, [facility] IONIZED CALCIUM 2023-05-24 09:13:00 Vahibe, [facility] BASIC METABOLIC PANEL (NA, K, CL, CO2, GLUCOSE, BUN, CREATININE, CA) 2023-05-24 09:13:00 Vahibjonel [facility] PHOSPHORUS 2023-05-24 09:13:00 Vahibjonel [facility] MAGNESIUM 2023-05-24 09:13:00 Vahibe [facility] IONIZED CALCIUM 2023-05-24 09:13:00 Vahibe, [facility] BASIC METABOLIC PANEL (NA, K, CL, CO2, GLUCOSE, BUN, CREATININE, CA) 2023-05-24 09:13:00 Vahibjonel [facility] PHOSPHORUS 2023-05-24 09:13:00 Vahibjonel [facility] MAGNESIUM 2023-05-24 09:13:00 Vahibjonel [facility] IONIZED CALCIUM 2023-05-24 09:13:00 Vahibe, [facility] BASIC METABOLIC PANEL (NA, K, CL, CO2, GLUCOSE, BUN, CREATININE, CA) 2023-05-24 09:13:00 Vakerry [facility] CBC WITH DIFF 2023-05-24 00:29:00 Jeff Kerr [facility] CBC WITH DIFF 2023-05-24 00:29:00 Usha, [place] Un [facility] CBC WITH DIFF 2023-05-24 00:29:00 UshaDecember Un [facility] XR FEMUR 2 VW LEFT 2023-05-23 20:00:00 Mitchell, [facility] XR FEMUR 2 VW LEFT 2023-05-23 20:00:00 Mitchell, [facility] XR FEMUR 2 VW LEFT 2023-05-23 20:00:00 Stephen [facility] MR THORACIC SPINE WO CONTRAST 2023-05-23 19:35:00 Melanie [facility] MR THORACIC SPINE WO CONTRAST 2023-05-23 19:35:00 Melanie [facility] MR THORACIC SPINE WO CONTRAST 2023-05-23 19:35:00 Melanie [facility] PREPARE PACKED RBC 2023-05-23 19:28:09 Cat Gabriel [facility] PREPARE PACKED RBC 2023-05-23 19:28:09 Cat Gabriel [facility] PREPARE PACKED RBC 2023-05-23 19:28:09 Cat Gabriel [facility] FL TIME OR (NON-REPORTABLE) 2023-05-23 18:15:57 Jostin Miner [facility] FL TIME OR (NON-REPORTABLE) 2023-05-23 18:15:57 Jostin Miner [facility] FL TIME OR (NON-REPORTABLE) 2023-05-23 18:15:57 Jostin Miner [facility] FL TIME OR (NON-REPORTABLE) 2023-05-23 18:15:57 Jostin Miner [facility] TRANSFUSE PACKED RBC 2023-05-23 17:00:00 Burke Gabriel [facility] TRANSFUSE PACKED RBC 2023-05-23 17:00:00 Burke Gabriel [facility] TRANSFUSE PACKED RBC 2023-05-23 17:00:00 Burke Gabriel [facility] PREPARE PACKED RBC 2023-05-23 16:41:14 Cat Gabriel [facility] HB ABO GROUPING 2023-05-23 15:49:00 Leroy [facility] HB ABO GROUPING 2023-05-23 15:49:00 Leroy [facility] HB ABO GROUPING 2023-05-23 15:49:00 Leroy [facility] HB ABO GROUPING 2023-05-23 15:49:00 Claymichelet [facility] INTUBATION 2023-05-23 15:25:00 Lela Gabriel [facility] FEMUR INTRAMEDULLARY NAILING 2023-05-23 14:59:00 Jad Orr [facility] FEMUR ORIF 2023-05-23 14:59:00 Jad Orr [facility] FEMUR INTRAMEDULLARY NAILING 2023-05-23 14:59:00 Jad Orr [facility] FEMUR ORIF 2023-05-23 14:59:00 Jad Orr [facility] CBC WITHOUT DIFF 2023-05-23 09:59:00 Jack [facility] IONIZED CALCIUM 2023-05-23 09:59:[address] [facility] PHOSPHORUS 2023-05-23 09:59:00 Jack [facility] MAGNESIUM 2023-05-23 09:59:00 Jack Reymundo [facility] BASIC METABOLIC PANEL (NA, K, CL, CO2, GLUCOSE, BUN, CREATININE, CA) 2023-05-23 09:59:00 Vahibjonel [facility] PHOSPHORUS 2023-05-23 09:59:00 Jack Reymundo [facility] MAGNESIUM 2023-05-23 09:59:00 Jack [facility] IONIZED CALCIUM 2023-05-23 09:59:[address] [facility] BASIC METABOLIC PANEL (NA, K, CL, CO2, GLUCOSE, BUN, CREATININE, CA) 2023-05-23 09:59:00 Vahibe, [facility] CBC WITHOUT DIFF 2023-05-23 09:59:00 Vahibe, [facility] PHOSPHORUS 2023-05-23 09:59:00 Vahibe, [facility] MAGNESIUM 2023-05-23 09:59:00 Vahibe, [facility] IONIZED CALCIUM 2023-05-23 09:59:00 Vahibe, [facility] BASIC METABOLIC PANEL (NA, K, CL, CO2, GLUCOSE, BUN, CREATININE, CA) 2023-05-23 09:59:00 Vahibe, [facility] CBC WITHOUT DIFF 2023-05-23 09:59:00 Vahibe, [facility] PHOSPHORUS 2023-05-23 09:59:00 Vahibe, [facility] MAGNESIUM 2023-05-23 09:59:00 Vahibe, [facility] IONIZED CALCIUM 2023-05-23 09:59:00 Vahibe, [facility] BASIC METABOLIC PANEL (NA, K, CL, CO2, GLUCOSE, BUN, CREATININE, CA) 2023-05-23 09:59:00 Vahibe, [facility] CBC WITHOUT DIFF 2023-05-23 09:59:00 Vahibe, [facility] IONIZED CALCIUM 2023-05-22 09:11:00 Vahibe, [facility] PHOSPHORUS 2023-05-22 09:11:00 Vahibe, [facility] MAGNESIUM 2023-05-22 09:11:00 Vahibe, [facility] BASIC METABOLIC PANEL (NA, K, CL, CO2, GLUCOSE, BUN, CREATININE, CA) 2023-05-22 09:11:00 Vahibe, [facility] CBC WITHOUT DIFF 2023-05-22 09:11:00 Vahibe, [facility] PHOSPHORUS 2023-05-22 09:11:00 Vahibe, [facility] MAGNESIUM 2023-05-22 09:11:00 Vahibe, [facility] IONIZED CALCIUM 2023-05-22 09:11:00 Vahibe, [facility] BASIC METABOLIC PANEL (NA, K, CL, CO2, GLUCOSE, BUN, CREATININE, CA) 2023-05-22 09:11:00 Vahibe, [facility] CBC WITHOUT DIFF 2023-05-22 09:11:00 Vahibe, [facility] PHOSPHORUS 2023-05-22 09:11:00 Vahibe, [facility] MAGNESIUM 2023-05-22 09:11:00 Vahibe, [facility] IONIZED CALCIUM 2023-05-22 09:11:00 Vahibe, [facility] BASIC METABOLIC PANEL (NA, K, CL, CO2, GLUCOSE, BUN, CREATININE, CA) 2023-05-22 09:11:00 Vahibe, [facility] CBC WITHOUT DIFF 2023-05-22 09:11:00 Vahibe, [facility] PHOSPHORUS 2023-05-22 09:11:00 Vahibe, [facility] MAGNESIUM 2023-05-22 09:11:00 Vahibe, [facility] IONIZED CALCIUM 2023-05-22 09:11:00 Vahibe, [facility] BASIC METABOLIC PANEL (NA, K, CL, CO2, GLUCOSE, BUN, CREATININE, CA) 2023-05-22 09:11:00 Vahibe, [facility] CBC WITHOUT DIFF 2023-05-22 09:11:00 Vahibe, [facility] CBC WITH DIFF 2023-05-21 09:22:00 Dibbs, [facility] BASIC METABOLIC PANEL (NA, K, CL, CO2, GLUCOSE, BUN, CREATININE, CA) 2023-05-21 09:22:00 Dibbs, [facility] MAGNESIUM 2023-05-21 09:22:00 Dibbs, Rami Cuba [facility] PHOSPHORUS 2023-05-21 09:22:00 Dibbs, Akosua Brink [facility] PHOSPHORUS 2023-05-21 09:22:00 Dibbs, Akosua Brink [facility] MAGNESIUM 2023-05-21 09:22:00 Dibbs, Akosua Brink [facility] BASIC METABOLIC PANEL (NA, K, CL, CO2, GLUCOSE, BUN, CREATININE, CA) 2023-05-21 09:22:00 Dibbs, Akosua Brink [facility] CBC WITH DIFF 2023-05-21 09:22:00 Dibbs, Akosua Brink [facility] PHOSPHORUS 2023-05-21 09:22:00 Dibbs, Akosua Brink [facility] MAGNESIUM 2023-05-21 09:22:00 Dibbs, Akosua Brink [facility] BASIC METABOLIC PANEL (NA, K, CL, CO2, GLUCOSE, BUN, CREATININE, CA) 2023-05-21 09:22:00 Dibbs, Akosua rBink [facility] CBC WITH DIFF 2023-05-21 09:22:00 Dibbs, Akosua Brink [facility] PHOSPHORUS 2023-05-21 09:22:00 Dibbs, Akosua Brink [facility] MAGNESIUM 2023-05-21 09:22:00 [facility] BASIC METABOLIC PANEL (NA, K, CL, CO2, GLUCOSE, BUN, CREATININE, CA) 2023-05-21 09:22:00 Dibbs, [facility] CBC WITH DIFF 2023-05-21 09:22:00 Dibbs, Akosua Brink [facility] XR KNEE <3 VW LEFT 2023-05-21 09:00:00 Jostin Miner [facility] XR KNEE <3 VW LEFT 2023-05-21 09:00:00 Jostin Miner [facility] XR KNEE <3 VW LEFT 2023-05-21 09:00:00 Jostin Miner [facility] XR KNEE <3 VW LEFT 2023-05-21 09:00:00 Jostin Miner [facility] XR HIPS 2 VW LEFT 2023-05-21 03:29:00 Jostin Miner [facility] XR HIPS 2 VW LEFT 2023-05-21 03:29:00 Jostin Miner [facility] XR HIPS 2 VW LEFT 2023-05-21 03:29:00 Jostin Miner [facility] XR HIPS 2 VW LEFT 2023-05-21 03:29:00 Jostin Miner [facility] XR CHEST 1 VW 2023-05-21 01:32:00 Able, Doron Demarcus [facility] XR CHEST 1 VW 2023-05-21 01:32:00 Able, [facility]ST 1 VW 2023-05-21 01:32:00 Able, Doron Demarcus [facility] XR CHEST 1 2023-05-21 01:32:00 Able, Doron Demarcus [facility] ABORH CONFIRMATION (LAB ONLY) 2023-05-20 23:48:00 Darline Ann [facility] LIPASE 2023-05-20 21:59:00 Darline Ann [facility] TROPONIN I 2023-05-20 21:59:00 Darline Ann [facility] COMP. METABOLIC PANEL ([id number]) 2023-05-20 21:59:00 Darline Ann [facility] CBC WITHOUT DIFF 2023-05-20 21:59:00 Darline Ann [facility] CBC WITH DIFF 2023-05-20 21:59:00 Darline Ann [facility] PROTHROMBIN TIME / INR 2023-05-20 21:59:00 Xochitl Ann [facility] ACTIVATED PARTIAL THRMPLAS ESTEFANIA 2023-05-20 21:59:00 Darline Ann [facility] HB ABO GROUPING 2023-05-20 21:59:00 Darline Ann [facility] CBC WITH DIFF 2023-05-20 21:59:00 Darline Ann [facility] CBC WITHOUT DIFF 2023-05-20 21:59:00 [facility] COMP. METABOLIC PANEL ([id number]) 2023-05-20 21:59:00 Darline Ann [facility] LIPASE 2023-05-20 21:59:00 Darline Ann [facility] PROTHROMBIN TIME / INR 2023-05-20 21:59:00 Xochitl Ann [facility] ACTIVATED PARTIAL THRMPLAS ESTEFANIA 2023-05-20 21:59:00 Aliya Annherine [facility] HB ABO GROUPING 2023-05-20 21:59:00 [facility]line [facility] TROPONIN I 2023-05-20 21:59:00 Darline Ann [facility] CT TRAUMA HEAD WO CONTRAST 2023-05-20 21:13:23 Kirill [facility] CT TRAUMA HEAD WO CONTRAST 2023-05-20 21:13:23 Kir[address] [facility] CT TRAUMA ABDOMEN PELVIS W CONTRAST 2023-05-20 21:02:10 Kirill, [facility] CT TRAUMA ABDOMEN PELVIS W CONTRAST 2023-05-20 21:02:10 Kirill, [facility] CT TRAUMA CERVICAL SPINE WO CONTRAST 2023-05-20 21:01:43 Kirill, [facility] CT TRAUMA THORACIC SPINE WO CONTRAST 2023-05-20 21:01:43 Kirill, [facility] CT TRAUMA LUMBAR SPINE WO CONTRAST 2023-05-20 21:01:43 Kirill, [facility] CT TRAUMA CERVICAL SPINE WO CONTRAST 2023-05-20 21:01:43 Kirill, [facility] CT TRAUMA LUMBAR SPINE WO CONTRAST 2023-05-20 21:01:43 Kirill, [facility] CT TRAUMA THORACIC SPINE WO CONTRAST 2023-05-20 21:01:43 Kirill [facility] XR FEMUR 2 VW LEFT 2023-05-20 20:58:04 Kirill, [facility] XR HIPS 3 VW LEFT 2023-05-20 20:58:04 Darline Ann [facility] EMERGENCY DEPARTMENT DOCUMENTS 2023-05-20 06:01:00 Doctor Unassigned, [place] [facility] EMERGENCY DEPARTMENT DOCUMENTS 2023-05-20 06:01:00 Doctor Unassigned, [place] [facility] EMERGENCY DEPARTMENT DOCUMENTS 2023-05-20 06:01:00 Doctor Unassigned, [place] [facility] EMERGENCY DEPARTMENT DOCUMENTS 2023-05-20 06:01:00 Doctor Unassigned, [place] [facility] AGREEMENTS AUTHORIZATIONS AND IRREVOCABLE ASSIGNMENTS (FORM 2001) 2023-05-20 06:01:00 Doctor Unassigned, [place] [facility] XR ELBOW >3 VW RIGHT 2023-05-03 17:09:00 Cole Aparicio [facility] DUPLEX VENOUS ARM RIGHT - BY VASCULAR LAB 2023-05-03 16:24:21 Adryan Aparicio [facility] DUPLEX VENOUS ARM RIGHT - BY VASCULAR LAB 2023-05-03 16:24:21 Adryan Aparicio [facility] COMP. METABOLIC PANEL ([id number]) 2023-05-03 15:51:00 Adryan Aparicio [facility] CBC WITH DIFF 2023-05-03 15:51:00 Adryan Aparicio [facility] CBC WITH DIFF 2023-05-03 15:51:00 Adryan Aparicio [facility] COMP. METABOLIC PANEL ([id number]) 2023-05-03 15:51:00 Adryan Aparicio [facility] CONSENT/REFUSAL FOR DIAGNOSIS AND TREATMENT 2023-05-03 15:25:03 Doctor Unassigned, [place] [facility] CONSENT/REFUSAL FOR DIAGNOSIS AND TREATMENT 2023-05-03 15:25:03 Doctor Unassigned, [place] [facility] EMERGENCY SERVICES AGREEMENTS AND AUTHORIZATIONS 2023-05-03 06:01:00 Doctor Unassigned, [place] [facility] REFERRAL- REQUEST/RESPONSE 2022-11-28 05:01:00 Doctor Unassigned, [place] [facility] REFERRAL- REQUEST/RESPONSE 2022-11-12 05:01:00 Doctor Unassigned, [place] [facility] MR ELBOW RIGHT WO CONTRAST 2022-11-04 13:35:00 Preston Webster [facility] REFERRAL- REQUEST/RESPONSE 2022-09-04 05:01:00 Doctor Unassigned, [place] [facility] REFERRAL- REQUEST/RESPONSE 2022-08-24 05:01:00 Doctor Unassigned, [place] [facility] REFERRAL- REQUEST/RESPONSE 2022-08-06 05:01:00 Doctor Unassigned, [place] [facility] EXTERNAL PROVIDER RECORDS 2022-05-31 06:01:00 Do ctor Unassigned, [place] [facility] REFERRAL- REQUEST/RESPONSE 2022-03-15 05:01:00 Doctor Unassigned, [facility] REFERRAL- REQUEST/RESPONSE 2022-02-13 05:01:00 Doctor Unassigned, [facility] PROSTATIC SPECIFIC ANTIGEN SCREEN 2022-02-02 18:42:00 Og Ponce [facility] THYROID STIMULATING HORMONE 2022-02-02 18:42:00 Og Ponce [facility] LIPID PANEL (74948)(TOTAL CHOLESTEROL, TRIGLYCERIDES, HDL) 2022-02-02 18:42:00 Rosario Og [facility] URINE DRUG (IMMUNOASSAY) - COMPREHENSIVE DRUG SCREEN 2022-02-02 18:42:00 Og Ponce [facility] HCV ANTIBODY 2022-02-02 18:42:00 Og Ponce [facility] HEPATITIS C VIRUS (HCV) BY QUANTITATIVE NAAT 2022-02-02 18:42:00 Og Ponce [facility] ADC OR KONRAD ONLY - RPR 2022-02-02 18:42:00 Casey Ponce [facility] Encounters Start Date/Time End Date/Time Encounter Type Admission Type Attending [facility] Care Facility Care Department Encounter ID Source 2023-09-25 11:45:00 2023-09-25 11:45:00 Outpatient BANG METZ [facility] [id number] [facility] 2023-09-18 08:55:15 2023-09-18 23:59:00 Hospital Encounter Jad Orr [facility] [facility] 1.2.840.114 350.1.13.10 4.2.7.2.686 [id number] [facility] 2023-09-18 08:40:00 2023-09-18 09:37:33 Office Visit Jad Orr [facility] 1.2.840.114 350.1.13.10 4.2.7.2.686 [id number] [facility] 2023-09-18 08:55:21 2023-09-18 08:55:00 Outpatient JAD VALDERRAMA [facility] [id number] [facility] 2023-09-18 08:55:00 2023-09-18 08:55:00 Hospital Encounter Jad Orr [facility] 1.2.840.114 350.1.13.10 4.2.7.2.686 [id number] [facility] 2023-09-04 14:00:00 2023-09-04 14:00:00 Outpatient OG LIVE [id number] Betty shan 2023-08-19 00:00:00 2023-08-19 00:00:00 Patient Outreach Sharon Doe 1..840.114 350.1.13.10 4.2.7.2.686 [id number] [facility] 2023-08-14 14:00:00 2023-08-14 14:00:00 Outpatient OG LIVE [id number] Betty Cisneros 2023-08-07 11:06:25 2023-08-07 23:59:00 Outpatient JAD VALDERRAMA [facility] [id number] [facility] 2023-08-07 11:05:00 2023-08-07 23:59:00 Hospital Encounter Jad Orr [facility] 1.2.840.114 350.1.13.10 4.2.7.2.686 [id number] [facility] 2023-08-07 11:10:00 2023-08-07 11:27:33 Office Visit Jad Orr [facility] 1.2.840.114 350.1.13.10 4.2.7.2.686 [id number] [facility] 2023-07-17 08:29:42 2023-07-17 23:59:00 Hospital Encounter Sophia Vasquez [facility] 1.2840.114 350.1.13.10 4.2.7.2.686 [id number] [facility] 2023-07-17 09:00:00 2023-07-17 15:12:16 Outpatient R FILI SOPHIA [facility] [id number] [facility] 2023-07-17 09:00:00 2023-07-17 15:12:16 Office Visit Sophia Vasquez [facility] 1.840.114 350.1.13.10 4.2.7.2.686 [id number] [facility] 2023-07-13 10:29:00 2023-07-13 14:29:00 Emergency X KATINA HALLE [facility] ERT [id number] [facility] 2023-07-13 10:29:00 2023-07-13 14:29:00 Emergency Katina Halle [facility] 1.2840.114 350.1.13.10 4.2.7.2.686 [id number] [id number] [facility] 2023-07-03 11:20:00 2023-07-03 23:59:00 Outpatient R SOPHIA VASQUEZ [facility] [id number] [facility] 2023-07-03 11:20:00 2023-07-03 23:59:00 Hospital Encounter Sophia Vasquez [facility] 1.2.840.114 350.1.13.10 4.2.7.2.686 [id number] [id number] [facility] 2023-07-03 11:30:00 2023-07-03 11:45:00 Office Visit Sophia Vasquez Aaron [facility] 1.2.840.114 350.1.13.10 4.2.7.2.686 [id number] [facility] 2023-07-03 00:00:00 2023-07-03 00:00:00 Case Management Sophia Vasquez [facility] 1.2.840.114 350.1.13.10 4.2.7.2.686 [id number] [facility] 2023-06-26 13:53:38 2023-06-26 23:59:00 Hospital Encounter Jad Orr [facility] 1.2.840.114 350.1.13.10 4.2.7.2.686 [id number] [facility] 2023-06-26 13:40:00 2023-06-26 14:35:01 Outpatient R JAD ORR [facility] [id number] [facility] 2023-06-26 13:40:00 2023-06-26 14:35:01 Office Visit Jad Orr [facility] 1.2.840.114 350.1.13.10 4.2.7.2.686 [id number] [facility] 2023-06-26 13:39:43 2023-06-26 13:52:00 Hospital Encounter Jad Orr [facility] 1.2.840.114 350.1.13.10 4.2.7.2.686 [id number] [facility] 2023-06-22 00:00:00 2023-06-22 00:00:00 Refmary [facility] 1.2.840.114 350.1.13.10 4.2.7.2.686 [id number] 196 [id number] [facility] 2023-06-21 00:00:00 2023-06-21 00:00:00 Telephone Jad Orr [facility] 1.2840.114 350.1.13.10 4.2.7.2.686 [id number] [facility] 2023-06-21 00:00:00 2023-06-21 00:00[facility] 1.2840.114 350.1.13.10 4.2.7.2.686 [id number] 196 [id number] [facility] 2023-06-14 16:40:00 2023-06-14 17:48:24 Office Visit Clinic, Neurosurger y Resident Bang Barrera [facility] 1.2840.114 350.1.13.10 4.2.7.2.686 [id number] [facility] 2023-06-14 16:40:00 2023-06-14 17:48:24 Outpatient R BANG BARRERA [facility] [id number] [facility] 2023-06-11 00:00:00 2023-06-11 00:00:00 Transition of Care Donna Yo 1.2840.114 350.1.13.10 4.2.7.2.686 [id number] [facility] 2023-06-11 00:00:00 2023-06-11 00:00:00 Transition of Care Donna Yo 1.2.840.114 350.1.13.10 4.2.7.2.686 [id number] [facility] 2023-06-10 00:00:00 2023-06-10 00:00:00 Telephone Bang Barrera [facility] 1.2.840.114 350.1.13.10 4.2.7.2.686 [id number] [facility] 2023-06-10 00:00:00 2023-06-10 00:00:00 Jad Montiel [facility] 1.2.840.114 350.1.13.10 4.2.7.2.686 [id number] 198 [id number] [facility] 2023-06-05 00:00:00 2023-06-05 00:00:00 Transition of Care Donna Yo 1.2.840.114 350.1.13.10 4.2.7.2.686 [id number] 403 [id number] [facility] 2023-05-20 19:24:00 2023-06-03 18:33:00 Inpatient X DANIEL DE SOUZA [facility] STR [id number] [facility] 2023-05-20 19:24:00 2023-06-03 18:33:00 Hospital Encounter Cash Huber [facility] 1.2.840.114 350.1.13.10 4.2.7.2.686 [id number] 092 [id number] [facility] 2023-05-24 10:06:00 2023-05-24 16:37:00 [facility] 1.2.840.114 350.1.13.10 4.2.7.2.686 [id number] [facility] 2023-05-23 09:10:00 2023-05-23 11:51:00 Surgery Jad Orr [facility] 1.2.840.114 350.1.13.10 4.2.7.2.686 [id number] [facility] 2023-05-23 09:18:00 2023-05-23 09:18:00 Anesthesia Event Delano Harper Urmil 1.2.840.1 87135.1.1 3.104.2.7 .3.180625 .8 [id number] [facility] 2023-05-20 14:02:00 2023-05-20 18:25:00 Emergency X [facility] [id number] [facility] 2023-05-20 14:02:00 2023-05-20 18:25:00 Emergency Darline Ann 1.2.840.1 11217.1.1 3.104.2.7 .3.474961 .8 [id number] [facility] 2023-05-20 00:00:00 2023-05-20 00:00:00 Travel 1.2.840.1 66161.1.1 3.104.2.7 .3.556186 .8 1.2.840.114 350.1.13.10 4.2.7.3.698 084.8 [id number] [facility] 2023-05-08 00:00:00 2023-05-08 00:00:00 Patient Secure Msg Doctor Unassigned, [place] [facility] 1.2.840.114 350.1.13.10 4.2.7.2.686 [id number] [id number] [facility] 2023-05-03 09:37:00 2023-05-03 12:33:00 Emergency X ADRYAN APARICIO [facility] E[facility] [id number] [facility] 2023-05-03 09:37:00 2023-05-03 12:33:00 Emergency Adryan Aparicio 1.2.840.1 20598.1.1 3.104.2.7 .3.125280 .8 [id number] [facility] 2023-05-03 00:00:00 2023-05-03 00:00:00 Travel 1.2.840.1 15840.1.1 3.104.2.7 .3.998963 .8 1.2.840.114 350.1.13.10 4.2.7.3.698 084.8 [id number] [facility] 2023-02-13 14:00:00 2023-02-13 14:00:00 Outpatient R JESSENIA ROCHA DIVYA [facility] [id number] [facility] 2023-01-29 09:30:00 2023-01-29 09:30:00 Outpatient R STALIN KEMP [facility] [id number] [facility] 2023-01-23 09:00:00 2023-01-23 09:00:00 Outpatient R JESSENIA ROCHA DIVYA [facility] [id number] [facility] 2023-01-08 10:30:00 2023-01-08 10:30:00 Outpatient R ABRAM DEAL [facility] [id number] [facility] 2023-01-07 00:00:00 2023-01-07 00:00:[address] [facility] 1.2.840.114 350.1.13.10 4.2.7.2.686 [id number] [facility] 2023-01-04 00:00:00 2023-01-04 00:00:00 Telephone Abram Deal [facility] 1.840.114 350.1.13.10 4.2.7.2.686 [id number] [facility] 2022-12-24 14:40:00 2022-12-24 14:40:00 Outpatient R BERKLEY RICHARDSON [facility] [id number] [facility] 2022-12-17 15:40:00 2022-12-17 15:40:00 Outpatient R BEE KOVACS [facility] [id number] [facility] 2022-11-28 00:00:00 2022-11-28 00:00:00 Orders Only Doctor Unassigned, [place] [facility] 1.840.114 350.1.13.10 4.2.7.2.686 [id number] [facility] 2022-11-22 00:00:00 2022-11-22 00:00:00 Telephone Lela Lara 1.840.114 350.1.13.10 4.2.7.2.686 [id number] [id number] [facility] 2022-11-19 13:45:00 2022-11-19 14:54:35 Outpatient R ULI BARRERA [facility] [id number] [facility] 2022-11-19 13:45:00 2022-11-19 14:54:35 Office Visit Uli Barrera [facility] 1.840.114 350.1.13.10 4.2.7.2.686 [id number] [facility] 2022-11-15 00:00:00 2022-11-15 00:00:00 Debbie Aguilar [facility] 1.840.114 350.1.13.10 4.2.7.2.686 [id number] [facility] 2022-11-12 00:00:00 2022-11-12 00:00:00 Orders Only Doctor Unassigned, [place] [facility] 1..840.114 350.1.13.10 4.2.7.2.686 [id number] [facility] 2022-11-06 11:00:00 2022-11-06 11:50:17 Outpatient R ABRAM DEAL [facility] [id number] [facility] 2022-11-04 07:35:12 2022-11-04 23:59:00 Outpatient R ULI BARRERA [facility] [id number] [facility] 2022-11-04 07:35:12 2022-11-04 23:59:00 Hospital Encounter Uli Barrera [facility] 1..840.114 350.1.13.10 4.2.7.2.686 [id number] [facility] 2022-10-31 09:20:00 2022-10-31 09:40:00 Urgent Care Marilynn Flowers Unknown, Attending [facility] 1..840.114 350.1.13.10 4.2.7.2.686 [id number] [facility] 2022-10-31 09:20:00 2022-10-31 09:20:00 Outpatient R MARILYNN FLOWERS [facility] [id number] [facility] 2022-10-30 10:00:00 2022-10-30 10:00:00 Outpatient STALIN MARR [facility] [id number] [facility] 2022-10-29 13:40:00 2022-10-29 15:14:51 Outpatient MALDONADO SERRANO [facility] [id number] [facility] 2022-10-29 13:40:00 2022-10-29 15:14:51 Office Visit Maldonado Florian [facility] 1.114 350.1.13.10 4.2.7.2.686 [id number] [facility] 2022-10-22 10:00:00 2022-10-22 10:56:27 Outpatient R DEBBIE GILES [facility] [id number] [facility] 2022-10-22 10:00:00 2022-10-22 10:56:27 Office Visit Debbie Giles [facility] 1..114 350.1.13.10 4.2.7.2.686 [id number] [facility] 2022-10-16 00:00:00 2022-10-16 00:00:00 Refill Debbie Giles [facility] 1.114 350.1.13.10 4.2.7.2.686 [id number] 314 [id number] [facility] 2022-09-25 00:00:00 2022-09-25 00:00:00 Telephone Lela Lara 1..114 350.1.13.10 4.2.7.2.686 [id number] 086 [id number] [facility] 2022-09-24 15:50:00 2022-09-24 15:50:00 Outpatient MALDONADO SERRANO [facility] [id number] [facility] 2022-09-12 00:00:00 2022-09-12 00:00:00 Telephone Lela Lara 1..114 350.1.13.10 4.2.7.2.686 [id number] 086 [id number] [facility] 2022-09-09 00:00:00 2022-09-09 00:00:00 Refill Debbie Giles [facility] 1.2.840.114 350.1.13.10 4.2.7.2.686 [id number] [facility] 2022-09-04 00:00:00 2022-09-04 00:00:00 Orders Only Doctor Unassigned, [place] [facility] 1.2.840.114 350.1.13.10 4.2.7.2.686 [id number] [facility] 2022-09-03 10:40:00 2022-09-03 10:40:00 Outpatient R MALDONADO FLORIAN [facility] [id number] [facility] 2022-08-24 00:00:00 2022-08-24 00:00:00 Orders Only Doctor Unassigned, [place] [facility] 1.2840.114 350.1.13.10 4.2.7.2.686 [id number] [facility] 2022-08-23 00:00:00 2022-08-23 00:00:00 Debbie Aguilar [facility] 1.2840.114 350.1.13.10 4.2.7.2.686 [id number] [facility] 2022-08-21 00:00:00 2022-08-21 00:00:00 Patient Secure Msg Doctor Unassigned, [place] [facility] 1.2840.114 350.1.13.10 4.2.7.2.686 [id number] [facility] 2022-08-13 10:25:36 2022-08-13 23:59:00 Outpatient R ULI BARRERA [facility] [id number] [facility] 2022-08-13 10:25:00 2022-08-13 23:59:00 Hospital Encounter Uli Barrera [facility] 1.2840.114 350.1.13.10 4.2.7.2.686 [id number] [facility] 2022-08-13 10:15:00 2022-08-13 11:15:40 Office Visit Uli Barrera [facility] 1.2840.114 350.1.13.10 4.2.7.2.686 [id number] [facility] 2022-08-06 10:20:00 2022-08-06 11:21:40 Outpatient R DEBBIE GILES [facility] [id number] [facility] 2022-08-06 10:20:00 2022-08-06 10:40:00 Nurse Visit NurseObed Amber Ali ALVIN [facility] 1.840.114 350.1.13.10 4.2.7.2.686 [id number] [facility] 2022-08-06 09:00:00 2022-08-06 10:00:00 Office Visit Debbie Giles [facility] 1.2840.114 350.1.13.10 4.2.7.2.686 [id number] [facility] 2022-08-06 00:00:00 2022-08-06 00:00:00 Orders Only Doctor Unassigned, [place] [facility] 1.2840.114 350.1.13.10 4.2.7.2.686 [id number] [id number] [facility] 2022-07-31 00:00:00 2022-07-31 00:00:00 Telephone Joan Amin 1.2840.114 350.1.13.10 4.2.7.2.686 [id number] 086 [id number] [facility] 2022-07-19 00:00:00 2022-07-19 00:00:00 [facility] 1.2840.114 350.1.13.10 4.2.7.2.686 [id number] 044 [id number] [facility] 2022-07-18 16:00:00 2022-07-18 17:00:00 Office Visit Jessenia Rocha [facility] 1.20.114 350.1.13.10 4.2.7.2.686 [id number] [facility] 2022-07-18 16:00:00 2022-07-18 16:00:00 Out[facility] [id number] [facility] 2022-07-18 00:00:00 2022-07-18 00:00:00 Telephone [facility] 1.84114 350.1.13.10 4.2.7.2.686 [id number] [id number] [facility] 2022-07-13 13:15:00 2022-07-13 13:30:00 Network Systems Operator Visit Lab, Stevenson Vo Rosario [facility]?MARILYN [facility] 1.2840.114 350.1.13.10 4.2.7.2.686 [id number] [facility] 2022-07-13 13:15:00 2022-07-13 13:15:00 Outpatient [facility] [id number] [facility] 2022-07-06 00:00:00 2022-07-06 00:00:00 [facility]phone [facility] 1.114 350.1.13.10 4.2.7.2.686 [id number] [facility] 2022-07-05 10:20:00 2022-07-05 11:06:05 Outpatient R GIUSEPPE CRANDALL [facility] [id number] [facility] 2022-07-05 10:20:00 2022-07-05 11:06:05 Urgent Care Giuseppe Crandall Unknown, Attending [facility] 1.0.114 350.1.13.10 4.2.7.2.686 [id number] [facility] 2022-07-02 00:00:00 2022-07-02 00:00:00 Telephone Og Ponce [facility] 1..114 350.1.13.10 4.2.7.2.686 [id number] 044 [id number] [facility] 2022-06-29 00:00:00 2022-06-29 00:00:00 Telephone Lela Lara KEO REINOSO 1..114 350.1.13.10 4.2.7.2.686 [id number] 086 [id number] [facility] 2022-06-19 15:40:00 2022-06-19 16:18:15 Outpatient R BEE KOVACS [facility] [id number] [facility] 2022-06-19 15:40:00 2022-06-19 16:18:15 Office [facility] 1.0.114 350.1.13.10 4.2.7.2.686 [id number] [id number] [facility] 2022-05-31 00:00:00 2022-05-31 00:00:00 Orders Only Doctor Unassigned, [place] [facility] 1.0.114 350.1.13.10 4.2.7.2.686 [id number] [id number] [facility] 2022-05-28 00:00:00 2022-05-28 00:00:00 Og Collins [facility] 1.2.840.114 350.1.13.10 4.2.7.2.686 [id number] 044 [id number] [facility] 2022-05-17 00:00:00 2022-05-17 00:00:00 Telephone Marco Lelalaura [facility] [place] 1.2.840.114 350.1.13.10 4.2.7.2.686 [id number] [id number] [facility] 2022-05-03 09:00:00 2022-05-03 09:51:06 Outpatient R YODIT SNIDER [facility] [id number] [facility] 2022-05-03 09:00:00 2022-05-03 09:51:06 Office Visit Yodit Snider [facility] 1.2.840.114 350.1.13.10 4.2.7.2.686 [id number] [facility] 2022-05-02 14:45:00 2022-05-02 14:45:00 Outpatient YODIT WELLER [facility] [id number] [facility] 2022-05-02 00:00:00 2022-05-02 00:00:00 Telephone Joan Amin [place] 1.2.840.114 350.1.13.10 4.2.7.2.686 [id number] [id number] [facility] 2022-04-30 10:30:00 2022-04-30 10:30:00 Outpatient ABRAM GARCIA [facility] [id number] [facility] 2022-04-26 08:30:00 2022-04-26 09:12:20 Outpatient R MARIA LUISA PONCETHIA [facility] [id number] [facility] 2022-04-26 08:30:00 2022-04-26 09:12:20 [facility] 1.2.840.114 350.1.13.10 4.2.7.2.686 [id number] [facility] 2022-04-21 18:40:00 2022-04-21 19:11:50 Outpatient R LIVGRECIA Turk [facility] [id number] [facility] 2022-04-21 18:40:00 2022-04-21 19:00:00 Urgent Care Grecia Beatty Unknown, Attending [facility] 1.2.840.114 350.1.13.10 4.2.7.2.686 [id number] [facility] 2022-04-19 00:00:00 2022-04-19 00:00:00 Telephone [facility] 1.2.840.114 350.1.13.10 4.2.7.2.686 [id number] [id number] [facility] 2022-04-19 00:00:00 2022-04-19 00:00:00 [facility] MED[facility] OFF[facility] BUILDING 1.2.840.114 350.1.13.10 4.2.7.2.686 [id number] [facility] 2022-04-09 08:00:00 2022-04-09 08:00:00 Outpatient R STALIN KEMP [facility] [id number] [facility] 2022-04-06 16:00:00 2022-04-06 16:00:00 Outpatient R OG PONCE [facility] [id number] [facility] 2022-04-05 00:00:00 2022-04-05 00:00:00 Patient Secure Ghazal Williamsonbettie [facility] 1..840.114 350.1.13.10 4.2.7.2.686 [id number] [facility] 2022-04-05 00:00:00 2022-04-05 00:00:00 Telephone Lela Lara 1.840.114 350.1.13.10 4.2.7.2.686 [id number] [facility] 2022-04-04 07:57:05 2022-04-04 23:59:00 Outpatient Chelsea DYLAN BERKLEY [facility] [id number] [facility] 2022-03-30 16:00:00 2022-03-30 16:00:00 Outpatient OG MARTINEZ [facility] [id number] [facility] 2022-03-29 11:30:00 2022-03-29 12:16:07 [facility] [id number] [facility] 2022-03-29 11:30:00 2022-03-29 12:16:07 [facility] 1..840.114 350.1.13.10 4.2.7.2.686 [id number] [facility] 2022-03-29 00:00:00 2022-03-29 00:00:00 Telephone Lela Lraa 1.2840.114 350.1.13.10 4.2.7.2.686 [id number] [id number] [facility] 2022-03-23 00:00:00 2022-03-23 00:00:00 Case Management Leal Lara 1.2.840.114 350.1.13.10 4.2.7.2.686 [id number] [id number] [facility] 2022-03-22 00:00:00 2022-03-22 00:00:00 [facility] 1.840.114 350.1.13.10 4.2.7.2.686 [id number] 059 [id number] [facility] 2022-03-22 00:00:00 2022-03-22 00:00:00 Telephone LaraLela hercules RICK REINOSO 1.840.114 350.1.13.10 4.2.7.2.686 [id number] [facility] 2022-03-22 00:00:00 2022-03-22 00:00:00 Telephone Og Ponce [facility] 1.840.114 350.1.13.10 4.2.7.2.686 [id number] [facility] 2022-03-21 15:59:06 2022-03-21 23:59:00 Outpatient Chelsea GHAZAL RICHARDSONMOJGAN [facility] [id number] [facility] 2022-03-21 00:00:00 2022-03-21 00:00:00 Telephone LaraLela herculesWilliam CROWLEY PLAKAY 1.840.114 350.1.13.10 4.2.7.2.686 [id number] [facility] 2022-03-19 14:20:00 2022-03-19 14:45:06 Outpatient R BEE KOVACS [facility] [id number] [facility] 2022-03-19 14:20:00 2022-03-19 14:45:06 Office Visit Bee Kovacs [facility] BUILDING 1.2.840.114 350.1.13.10 4.2.7.2.686 [id number] [id number] [facility] 2022-03-15 00:00:00 2022-03-15 00:00:00 Orders Only Doctor Unassigned, [place] [facility] 1.840.114 350.1.13.10 4.2.7.2.686 [id number] [facility] 2022-03-08 08:30:00 2022-03-08 08:30:00 Outpatient R FLORA RADU [facility] [id number] [facility] 2022-03-08 00:00:00 2022-03-08 00:00:00 Telephone Gayebeatriz [facility] MEDICAL OFFICE BUILDING 1.84.114 350.1.13.10 4.2.7.2.686 [id number] [facility] 2022-03-02 15:00:00 2022-03-02 15:00:00 [facility] [id number] [facility] 2022-03-02 13:40:00 2022-03-02 14:15:02 [facility] [id number] [facility] 2022-03-02 13:40:00 2022-03-02 14:00:00 [facility] 1.84.114 350.1.13.10 4.2.7.2.686 [id number] [facility] 2022-02-28 00:00:00 2022-02-28 00:00:00 Telephone Rosario [facility] 1.840.114 350.1.13.10 4.2.7.2.686 [id number] [facility] 2022-02-26 00:00:00 2022-02-26 00:00:00 Case Management Merari Tomas 1.840.114 350.1.13.10 4.2.7.2.686 [id number] [facility] 2022-02-23 00:00:00 2022-02-23 00:00:00 Case Management Merari Tomas 1.0.114 350.1.13.10 4.2.7.2.686 [id number] [facility] 2022-02-23 00:00:00 2022-02-23 00:00:00 Case Management eMrari Tomas 1.0.114 350.1.13.10 4.2.7.2.686 [id number] [facility] 2022-02-14 10:30:00 2022-02-14 10:30:00 Outpatient R [facility] [id number] [facility] 2022-02-13 00:00:00 2022-02-13 00:00:00 Orders Only Doctor Unassigned, [place] [facility] 1.0.114 350.1.13.10 4.2.7.2.686 [id number] [facility] 2022-02-08 15:45:00 2022-02-08 16:09:38 Outpatient R OG PONCE [facility] [id number] [facility] 2022-02-08 15:45:00 2022-02-08 16:00:00 Network Systems Operator Visit Lab, [facility] 1.0.114 350.1.13.10 4.2.7.2.686 [id number] [facility] 2022-02-08 14:30:00 2022-02-08 15:00:00 [facility] 1.2.840.114 350.1.13.10 4.2.7.2.686 [id number] [facility] 2022-02-05 00:00:00 2022-02-05 00:00:00 [facility] 1.2840.114 350.1.13.10 4.2.7.2.686 [id number] [facility] 2022-02-02 13:30:00 2022-02-02 14:01:41 Outpatient R OG PONCE [facility] [id number] [facility] 2022-02-02 13:30:00 2022-02-02 14:01:41 Network Systems Operator Visit Lab, [place] [facility] [place] 1..840.114 350.1.13.10 4.2.7.2.686 [id number] [facility] 2022-02-02 00:00:00 2022-02-02 00:00:00 Telephone Og Ponce [facility] [place]?[facility] 1..840.114 350.1.13.10 4.2.7.2.686 [id number] [facility] 2022-02-01 15:30:00 2022-02-01 16:52:01 [facility] 1.2.840.114 350.1.13.10 4.2.7.2.686 [id number] [facility] 2022-02-01 15:30:00 2022-02-01 16:52:01 Outpatient R OG PONCE [facility] [id number] [facility] 2022-02-01 00:00:00 2022-02-01 00:00:00 Orders Only Doctor Unassigned, [place] [facility] 1.2.840.114 350.1.13.10 4.2.7.2.686 [id number] [facility] 2022-01-31 00:00:00 2022-01-31 00:00:00 Telephone Og Ponce [facility] 1.2.840.114 350.1.13.10 4.2.7.2.686 [id number] [facility] Results Test Description Test Time Test Comments Results Result Comments Source XR FEMUR 2 VW LEFT 14:36:07 XR FEMUR 2 VW LEFT INDICATION: post op COMPARISON: 08/07/2023 FINDINGS: Hardware fixation of a left proximal femoral fracture in unchangedalignment. No abnormal hardware motion. [facility] XR HEEL 2+ VW RIGHT 14:24:34 XR HEEL 2+ VW RIGHT INDICATION: fx COMPARISON: 05/29/2023 FINDINGS: Chronic fracture deformity of the calcaneus. No acute fracture ordislocation. Joint spacing and alignment are well-maintained. Normal softtissues. [facility] XR FEMUR 2 VW LEFT 18:18:42 EXAM: XR FEMUR 2 VW LEFT HISTORY: pain COMPARISON: 06/26/2023 FINDINGS: Intramedullary nailing and cerclage wiring of the proximal femur fractureis again seen without hardware complication. Alignment is unchanged withdisplacement of the lesser trochanteric fragment. Progressive callusformation is present about the fracture. Disuse osteopenia is noted. Skinstaples have been removed. There is mild soft tissue swelling. [facility] XR THORACIC SPINE 2 VW 16:25:13 HISTORY:s/p fusion TECHNIQUE: Frontal and lateral views of the thoracic spine were obtained. COMPARISON: None. [facility] CT LUMBAR SPINE W CONTRAST 19:08:48 EXAM: CT LUMBAR SPINE W CONTRAST HISTORY: Spine surgery/procedure, postop, infection suspected. TECHNIQUE: Axial CT of the lumbar spine was performed. Coronal and sagittalreformatted images were generated. COMPARISON: Lumbar radiographs 07/03/2023; CT lumbar spine 05/20/2023. FINDINGS: Redemonstration of posterior fusion of T11-L2 vertebral bodies. No evidenceof hardware complication. Unchanged T12 vertebral body fracture with mild height loss.Redemonstration of mildly displaced fractures of left L1 and L2 transverseprocesses. No acute fracture or subluxation. The vertebral bodies are otherwise normalin height and alignment. Multilevel degenerative changes in the form of disc space loss, endplatesclerosis, osteophyte formation and facet arthrosis, most notable at L4-L5and L5-S1. Healing fractures of the left posterior 10th and 11th ribs. [facility] (60018)2023-07-13 18:09:41* Test Item Value Reference Range Interpretation Comme nts NA (test code = 8237069447) 140 mmol/L 135-145 K (test code = 6411157140) 3.4 mmol/L 3.5-5.0 L CL (test code = 3689708619) 104 mmol/L 98-108 CO2 TOTAL (test code = 6405859114) 27 mmol/L 23-31 AGAP (test code = 3957842825) 9 2-16 BUN (test code = 0649921212) 6 mg/dL 7-23 L GLUCOSE (test code = 7314040677) 123 mg/dL 70-110 H CREATININE (test code = 2160-0) 0.73 mg/dL 0.60-1.25 TOTAL BILI (test code = 9538669619) 0.4 mg/dL 0.1-1.1 CALCIUM (test code = 2466985949) 9.2 mg/dL 8.6-10.6 T PROTEIN (test code = 0936233400) 7.5 g/dL 6.3-8.2 ALBUMIN (test code = 3465247109) 3.8 g/dL 3.5-5.0 ALK PHOS (test code = 8554376131) 110 U/L 34-122 ALTv (test code = 1742-6) 31 U/L 5-50 AST(SGOT) (test code = 9660331958) 45 U/L 13-40 H eGFR (test code = 18230-5) 106.8 mL/min/1.73m2 CKD-EPI eGFR (2020). Assuming creatinine has been stable day-to-day for at least three months, the eGFR indicates Category G1 (>= 90 mL/min/1.73 m2) Lab Interpretation (test code = 42064-0) Abnormal [facility] [id number] 18:09:41* Test Item Value Reference Range Interpretation Comme nts CRP (test code = 4363067312) 1.3 mg/dL <=1.0 H Lab Interpretation (test cod e = 87158-9) [facility] [id number] 17:43:38* Test Item Value Reference Range Interpretation Comme nts WBC (test code = 6690-2) 5.00 4.20-10.70 RBC (test code = 789-8) 4.40 4.26-5.52 HGB (test code = 718-7) 11.5 g/dL 12.2-16.4 L HCT (test code = 4544-3) 36.9 % 38.4-49.3 L MCV (test code = 787-2) 83.9 fL 81.7-95.6 MCH (test code = 785-6) 26.1 pg 26.1-32.7 MCHC (test code = 786-4) 31.2 g/dL 31.2-35.0 RDW-SD (test code = 86686-6) 47.2 fL 38.5-51.6 RDW-CV (test code = 788-0) 15.5 % 12.1-15.4 H PLT (test code = 777-3) 261 150-328 MPV (test code = 63814-8) 10.6 fL 9.8-13.0 NRBC/100 WBC (test code = 4862401667) 0.0 0.0-10.0 NRBC x10^3 (test code = 9111002450) See_Comment [Automated messa ge] The system which generated this result transmitted reference range: 10*3/?L. The reference range was not used to interpret this result as normal/abnormal. GRAN MAT (NEUT) % (test code = 770-8) 44.2 % IMM GRAN % (test code = 4834495552) 0.20 % LYMPH % (test code = 736-9) 38.6 % MONO % (test code = 5905-5) 12.2 % EOS % (test code = 713-8) 4.4 % BASO % (test code = 706-2) 0.4 % GRAN MAT x10^3(ANC) (test code = 1930259337) 2.21 10*3/uL 1.99-6.95 IMM GRAN x10^3 (test code = 6046400277) 0.00-0.06 LYMPH x10^3 (test code = 731-0) 1.93 10*3/uL 1.09-3.23 MONO x10^3 (test code = 742-7) 0.61 10*3/uL 0.36-1.02 EOS x10^3 (test code = 711-2) 0.22 10*3/uL 0.06-0.53 BASO x10^3 (test code = 704-7) 0.01-0.09 Lab Interpretation (test code = 32856-7) [facility]normal [facility] [id number] 17:39:46* Test Item Value Reference Range Interpretation Comme nts LACTIC ACID (test code = 8568124996) 2.64 mmol/L 0.50-2.20 H Lab Interpretation (test cod e = 95532-1) [facility] [id number] 21:44:37EXAM: XR LUMBAR SPINE 2 VW HISTORY: s/p fusion T10-L2 COMPARISON: MRI thoracic spine 05/23/2023; CT thoracic spine 05/20/2023. TECHNIQUE: Frontal and lateral views of the lumbar spine were obtained.[facility] 2 VW [id number] 05:54:07Ordering physician: JAD ORR INDICATION: Left femoral pain COMPARISON: Left femur dated 05/23/2023 FINDINGS: AP and lateral views of the left femur. There are stablepostoperative changes of ORIF of a proximal femoral fracture, with stabledisplacement of the lesser trochanter fragment. Thereis evidence forprogressive healing. No hardware complication is appreciated. No acuteperiprostheticfracture is appreciated.[facility] CHEST 1 [id number] 22:54:45EXAM: XR CHEST 1 VW COMPARISON: 05/20/2023 HISTORY: 57 years year-old Male. ?fever TECHNIQUE: One view AP chest radiograph.[facility] WO [id number] 18:48:00EXAM: CT FOOT RIGHT WO CONTRAST TECHNIQUE: Contiguous axial slices for evaluation of the right footwereobtained. Available reformats were also reviewed. HISTORY: 57 years-old Male; pain with weight bearing; assess for calc COMPARISON: Same day foot and ankle radiographs FINDINGS: Bones/Joints:The ankle mortise is congruent. Remote avulsion of the medial malleolus. There is an acute comminuted calcaneal fracture which involves thecalcaneal body with multiple fracture lines extending posteriorlytowardsthe calcaneal tuberosity; there is also anterosuperior extension to themedial subtalar articulation. Minimal displacement of the fracturefragments. An old fracture fragment is noted adjacent to the anteriorprocess of the calcaneus. Chronic deltoid ligamentous sprain. ?No acutefractures of the remaining tarsals. Alignment is maintained. ? The visualized tendon sheaths are intact. There is asmall fluid collectionaround the flexor hallucis longus which is nonspecific and could representcommunicating synovial fluid. Mild thickening of the Achilles tendon. Xwzk-rc-qrvsksnk osteoarthrosis as evidenced by joint space narrowing withosteophytes formation at the PIP and DIP joints. Soft Tissue: Significant surrounding soft tissue swelling of the plantarfascia. Additional fat stranding of the pre-achilles fat pad.[facility]+ VW [id number] 18:47:25 EXAM: XR FOOT 3+ VW RIGHT, XR HEEL 2+ VW RIGHT, XR ANKLE 3+ VW RIGHT HISTORY: 57 years-old Male; pain . COMPARISON: Same day CT right lower extremity FINDINGS: Radiographs of the right ankle were obtained. Ankle mortise is congruent.Chronic remodeling of the medial malleolus is present. Radiographsof the right heel and foot were obtained. There is acutecomminuted mildly displaced calcaneus fracture that involves the calcanealtuberosity and calcaneal body with superior extension to the calcanealsulcus. There is associated surrounding soft tissue swelling. Otherwise,alignment is maintained. Noother fractures.[facility]LE [facility]+ VW [id number] 18:47:25EXAM: XR FOOT 3+ VW RIGHT, XR HEEL 2+ VW RIGHT, XR ANKLE 3+ VW RIGHT HISTORY: 57 years-old Male; pain . COMPARISON: Same day CT right lower extremity FINDINGS: Radiographs of the right ankle were obtained. Ankle mortise is congruent.Chronic remodeling of the medial malleolus is present. Radiographsof the right heel and foot were obtained. There is acutecomminuted mildly displaced calcaneus fracture that involves the calcanealtuberosity and calcaneal body with superior extension to the calcaneal sulcus. There is associated surrounding soft tissue swelling. Otherwise,alignment is maintained. Noother fractures.[facility]+ VW [id number] 18:47:25EXAM: XR FOOT 3+ VW RIGHT, XR HEEL 2+ VW RIGHT, XR ANKLE 3+ VW RIGHT HISTORY: 57 years-old Male; pain . COMPARISON: Same day CT right lower extremity FINDINGS: Radiographs of the right ankle were obtained. Ankle mortise is congruent.Chronic remodeling of the medial malleolus is present. Radiographsof the right heel and foot were obtained. There is acutecomminuted mildly displaced calcaneus fracture that involves the calcanealtuberosity and calcaneal body with superior extension to the calcaneal sulcus. There is associated surrounding soft tissue swelling. Otherwise,alignment is maintained. Noother fractures.[facility] (NA, K, CL, CO2, GLUCOSE, BUN, CREATININE, CA) 2023-05-26 11:40:29* Test Item Value Reference Range Interpretation Comme nts NA (test code = 6011620985) 130 mmol/L 135-145 L K (test code = 4348726742) 3.8 mmol/L 3.5-5.0 CL (test code = 0128962550) 99 mmol/L 98-108 CO2 TOTAL (test code = 9283938557) 28 mmol/L 23-31 AGAP (test code = 0598900401) 3 2-16 BUN (test code = 1733712303) 13 mg/dL 7-23 GLUCOSE (test code = 8569179517) 111 mg/dL 70-110 H CREATININE (test code = 2795224665) 0.68 mg/dL 0.60-1.25 CALCIUM (test code = 7158171312) 7.5 mg/dL 8.6-10.6 L eGFR (test code = 36166-2) 109.1 mL/min/1.73m2 CKD-EPI eGFR (2020). Assuming creatinine has been stable day-to-day for at least three months, the eGFR indicates Category G1 (>= 90 mL/min/1.73 m2) Lab Interpretation (test code = 38917-9) Abnormal [facility] Center[facility]osphorus2024-01-07 11:40:29* Test Item Value Reference Range Interpretation Comme nts PHOSPHORUS (test code = 7219324625) 3.7 mg/dL 2.5-5.0 Lab Interpretation (test cod e = 73373-7) Normal [facility] Center[facility]esium2024-01-07 11:40:29* Test Item Value Reference Range Interpretation Comme nts MAGNESIUM (test code = 4211289942) 1.9 mg/dL 1.7-2.4 Lab Interpretation (test cod e = 01689-7) Normal [facility] (NA, K, CL, CO2, GLUCOSE, BUN, CREATININE, CA)2023-05-26 11:40:29* Test Item Value Reference Range Interpretation Comme nts NA (test code = 7776228189) 130 mmol/L 135-145 L K (test code = 4261255672) 3.8 mmol/L 3.5-5.0 CL (test code = 2359577123) 99 mmol/L 98-108 CO2 TOTAL (test code = 2009579452) 28 mmol/L 23-31 AGAP (test code = 4355571459) 3 2-16 BUN (test code = 4238154785) 13 mg/dL 7-23 GLUCOSE (test code = 9326977704) 111 mg/dL 70-110 H CREATININE (test code = 2833358436) 0.68 mg/dL 0.60-1.25 CALCIUM (test code = 7555708299) 7.5 mg/dL 8.6-10.6 L eGFR (test code = 78115-1) 109.1 mL/min/1.73m2 CKD-EPI eGFR (2020). Assuming creatinine has been stable day-to-day for at least three months, the eGFR indicates Category G1 (>= 90 mL/min/1.73 m2) Lab Interpretation (test code = 88720-8) Abnormal [facility] Center[facility]2024-01-07 11:40:29* Test Item Value Reference Range Interpretation Comme nts PHOSPHORUS (test code = 0068439432) 3.7 mg/dL 2.5-5.0 Lab Interpretation (test cod e = 38772-4) Normal [facility] Center[facility]2024-01-07 11:40:29* Test Item Value Reference Range Interpretation Comme nts MAGNESIUM (test code = 4505405057) 1.9 mg/dL 1.7-2.4 Lab Interpretation (test cod e = 17555-0) [facility] [id number] 11:31:30* Test Item Value Reference Range Interpretation Comme nts IONIZED CA (test code = 4847247417) 4.30 mg/dL 4.50-5.30 L PH SERUM (test code = 7746944384) 7.50 7.35-7.45 H Lab Interpretation (test cod e = 67804-1) Abnormal [facility] Egydgyd3301-09-47 11:31:30* Test Item Value Reference Range Interpretation Comme nts IONIZED CA (test code = 4836761103) 4.30 mg/dL 4.50-5.30 L PH SERUM (test code = 5181958753) 7.50 7.35-7.45 H Lab Interpretation (test cod e = 47158-1) Abnormal [facility] with Wyyl0336-20-15 11:21:27* Test Item Value Reference Range Interpretation Comme nts WBC (test code = 6690-2) 9.00 See_Comment [Automated messa ge] The system which generated this result transmitted reference range: 4.20 - 10.70 10*3/?L. The reference range was not used to interpret this result as normal/abnormal. RBC (test code = 789-8) 2.71 See_Comment L [Automated messa ge] The system which generated this result transmitted reference range: 4.26 - 5.52 10*6/?L. The reference range was not used to interpret this result as normal/abnormal. HGB (test code = 718-7) 7.6 g/dL 12.2-16.4 L HCT (test code = 4544-3) 22.3 % 38.4-49.3 L MCV (test code = 787-2) 82.3 fL 81.7-95.6 MCH (test code = 785-6) 28.0 pg 26.1-32.7 MCHC (test code = 786-4) 34.1 g/dL 31.2-35.0 RDW-SD (test code = 35282-3) 48.1 fL 38.5-51.6 RDW-CV (test code = 788-0) 16.4 % 12.1-15.4 H PLT (test code = 777-3) 210 See_Comment [Automated [employer]sa ge] The system which generated this result transmitted reference range: 150 - 328 10*3/?L. The reference range was not used to interpret this result as normal/abnormal. MPV (test code = 78010-5) 10.5 fL 9.8-13.0 NRBC/100 WBC (test code = 4375688643) 0.0 See_Comment [Automated [employer] ssage] The system which generated this result transmitted reference range: 0.0 - 10.0 /100 WBCs. The reference range was not used to interpret this result as normal/abnormal. NRBC x10^3 (test code = 0584826457) See_Comment [Automated [employer]sa ge] The system which generated this result transmitted reference range: 10*3/?L. The reference range was not used to interpret this result as normal/abnormal. GRAN MAT (NEUT) % (test code = 770-8) 61.4 % IMM GRAN % (test code = 5600629340) 1.00 % LYMPH % (test code = 736-9) 20.4 % MONO % (test code = 5905-5) 12.7 % EOS % (test code = 713-8) 4.3 % BASO % (test code = 706-2) 0.2 % GRAN MAT x10^3(ANC) (test code = 1421901673) 5.52 10*3/uL 1.99-6.95 IMM GRAN x10^3 (test code = 7384507748) 0.09 10*3/uL 0.00-0.06 H LYMPH x10^3 (test code = 731-0) 1.84 10*3/uL 1.09-3.23 MONO x10^3 (test code = 742-7) 1.14 10*3/uL 0.36-1.02 H EOS x10^3 (test code = 711-2) 0.39 10*3/uL 0.06-0.53 BASO x10^3 (test code = 704-7) 0.01-0.09 Lab Interpretation (test code = 61944-4) Abnormal [facility] with [id number] 11:21:27* Test Item Value Reference Range Interpretation Comme nts WBC (test code = 6690-2) 9.00 See_Comment [Automated messa ge] The system which generated this result transmitted reference range: 4.20 - 10.70 10*3/?L. The reference range was not used to interpret this result as normal/abnormal. RBC (test code = 789-8) 2.71 See_Comment L [Automated messa ge] The system which generated this result transmitted reference range: 4.26 - 5.52 10*6/?L. The reference range was not used to interpret this result as normal/abnormal. HGB (test code = 718-7) 7.6 g/dL 12.2-16.4 L HCT (test code = 4544-3) 22.3 % 38.4-49.3 L MCV (test code = 787-2) 82.3 fL 81.7-95.6 MCH (test code = 785-6) 28.0 pg 26.1-32.7 MCHC (test code = 786-4) 34.1 g/dL 31.2-35.0 RDW-SD (test code = 17155-8) 48.1 fL 38.5-51.6 RDW-CV (test code = 788-0) 16.4 % 12.1-15.4 H PLT (test code = 777-3) 210 See_Comment [Automated messa ge] The system which generated this result transmitted reference range: 150 - 328 10*3/?L. The reference range was not used to interpret this result as normal/abnormal. MPV (test code = 77693-7) 10.5 fL 9.8-13.0 NRBC/100 WBC (test code = 3009556256) 0.0 See_Comment [Automated me ssage] The system which generated this result transmitted reference range: 0.0 - 10.0 /100 WBCs. The reference range was not used to interpret this result as normal/abnormal. NRBC x10^3 (test code = 5783325081) See_Comment [Automated messa ge] The system which generated this result transmitted reference range: 10*3/?L. The reference range was not used to interpret this result as normal/abnormal. GRAN MAT (NEUT) % (test code = 770-8) 61.4 % IMM GRAN % (test code = 0383489904) 1.00 % LYMPH % (test code = 736-9) 20.4 % MONO % (test code = 5905-5) 12.7 % EOS % (test code = 713-8) 4.3 % BASO % (test code = 706-2) 0.2 % GRAN MAT x10^3(ANC) (test code = 2753756445) 5.52 10*3/uL 1.99-6.95 IMM GRAN x10^3 (test code = 1465473362) 0.09 10*3/uL 0.00-0.06 H LYMPH x10^3 (test code = 731-0) 1.84 10*3/uL 1.09-3.23 MONO x10^3 (test code = 742-7) 1.14 10*3/uL 0.36-1.02 H EOS x10^3 (test code = 711-2) 0.39 10*3/uL 0.06-0.53 BASO x10^3 (test code = 704-7) 0.01-0.09 Lab Interpretation (test code = 03850-6) Abnormal [facility] without [id number] 00:02:57* Test Item Value Reference Range Interpretation Comme nts WBC (test code = 6690-2) 8.90 See_Comment [Automated message] The system which generated this result transmitted reference range: 4.20 - 10.70 10*3/?L. The reference range was not used to interpret this result as normal/abnormal. RBC (test code = 789-8) 2.72 See_Comment L [Automated message] The system which generated this result transmitted reference range: 4.26 - 5.52 10*6/?L. The reference range was not used to interpret this result as normal/abnormal. HGB (test code = 718-7) 7.4 g/dL 12.2-16.4 L HCT (test code = 4544-3) 22.4 % 38.4-49.3 L MCH (test code = 785-6) 27.2 pg 26.1-32.7 MCV (test code = 787-2) 82.4 fL 81.7-95.6 MCHC (test code = 786-4) 33.0 g/dL 31.2-35.0 PLT (test code = 777-3) 169 See_Comment [Automated message] The system which generated this result transmitted reference range: 150 - 328 10*3/?L. The reference range was not used to interpret this result as normal/abnormal. MPV (test code = 52433-2) 10.7 fL 9.8-13.0 RDW-CV (test code = 788-0) 16.2 % 12.1-15.4 H RDW-SD (test code = 51813-3) 47.5 fL 38.5-51.6 NRBC x10^3 (test code = 0526202499) See_Comment [Automated messa ge] The system which generated this result transmitted reference range: 10*3/?L. The reference range was not used to interpret this result as normal/abnormal. NRBC/100 WBC (test code = 9443138046) 0.0 See_Comment [Automated messa ge] The system which generated this result transmitted reference range: 0.0 - 10.0 /100 WBCs. The reference range was not used to interpret this result as normal/abnormal. IPF % (test code = 2504569564) Lab Interpretation (test code = 68031-2) Abnormal [facility] without [id number] 00:02:57* Test Item Value Reference Range Interpretation Comme nts WBC (test code = 6690-2) 8.90 See_Comment [Automated message] The system which generated this result transmitted reference range: 4.20 - 10.70 10*3/?L. The reference range was not used to interpret this result as normal/abnormal. RBC (test code = 789-8) 2.72 See_Comment L [Automated message] The system which generated this result transmitted reference range: 4.26 - 5.52 10*6/?L. The reference range was not used to interpret this result as normal/abnormal. HGB (test code = 718-7) 7.4 g/dL 12.2-16.4 L HCT (test code = 4544-3) 22.4 % 38.4-49.3 L MCH (test code = 785-6) 27.2 pg 26.1-32.7 MCV (test code = 787-2) 82.4 fL 81.7-95.6 MCHC (test code = 786-4) 33.0 g/dL 31.2-35.0 PLT (test code = 777-3) 169 See_Comment [Automated message] The system which generated this result transmitted reference range: 150 - 328 10*3/?L. The reference range was not used to interpret this result as normal/abnormal. MPV (test code = 08499-8) 10.7 fL 9.8-13.0 RDW-CV (test code = 788-0) 16.2 % 12.1-15.4 H RDW-SD (test code = 99938-6) 47.5 fL 38.5-51.6 NRBC x10^3 (test code = [id number]) See_Comment [Automated messa ge] The system which generated this result transmitted reference range: 10*3/?L. The reference range was not used to interpret this result as normal/abnormal. NRBC/100 WBC (test code = [id number]) 0.0 See_Comment [Automated messa ge] The system which generated this result transmitted reference range: 0.0 - 10.0 /100 WBCs. The reference range was not used to interpret this result as normal/abnormal. IPF % (test code = [id number]) Lab Interpretation (test code = 28551-0) [facility] (in units), 2 Units 2023-05-25 18:38:06* Test Item Value Reference Range Interpretation Comme nts Cross Match Result (test code = 4409) Compatible ISBT Blood Type Code (test code = 944469) 6200 Unit Blood Type (test code = 4410) A Pos Unit Number (test code = 4411) [id number] Blood Expiration Date & Time (test code = 849918) [id number] Status Information (test code = 4412) Issued Product Identification (test code = 4413) Red Blood Cells Product Code (test code = 4414) [id number] Performed at [address] Free: [phone] No. [id number] [facility] (in units), 2 Units 2023-05-25 18:38:06* Test Item Value Reference Range Interpretation Comme nts Cross Match Result (test code = 4409) Compatible ISBT Blood Type Code (test code = 161608) 6200 Unit Blood Type (test code = 4410) A Pos Unit Number (test code = 4411) [id number] Blood Expiration Date & Time (test code = 163635) [id number] Status Information (test code = 4412) Issued Product Identification (test code = 4413) Red Blood Cells Product Code (test code = 4414) [id number] Performed at [facility] Blood [address] Free: [phone] No. [id number] [facility]2024-01-06 12:36:26* Test Item Value Reference Range Interpretation Comme nts MAGNESIUM (test code = 0222068920) 1.9 mg/dL 1.7-2.4 Lab Interpretation (test cod e = 91529-5) Normal [facility]2024-01-06 12:36:26* Test Item Value Reference Range Interpretation Comme nts MAGNESIUM (test code = 0298647883) 1.9 mg/dL 1.7-2.4 Lab Interpretation (test cod e = 89726-8) Normal [facility] Metabolic Panel (NA, K, CL, CO2, GLUCOSE, BUN, CREATININE, CA)2023-05-25 12:36:25* Test Item Value Reference Range Interpretation Comme nts NA (test code = 8068616433) 132 mmol/L 135-145 L K (test code = 3599925286) 3.9 mmol/L 3.5-5.0 CL (test code = 3133733304) 102 mmol/L 98-108 CO2 TOTAL (test code = 9192624714) 29 mmol/L 23-31 AGAP (test code = 1600652750) 1 2-16 L BUN (test code = 9849429986) 16 mg/dL 7-23 GLUCOSE (test code = 0737402399) 113 mg/dL 70-110 H CREATININE (test code = 2002578283) 0.78 mg/dL 0.60-1.25 CALCIUM (test code = 4217969060) 7.2 mg/dL 8.6-10.6 L eGFR (test code = 56882-6) 104.7 mL/min/1.73m2 CKD-EPI eGFR (2020). Assuming creatinine has been stable day-to-day for at least three months, the eGFR indicates Category G1 (>= 90 mL/min/1.73 m2) Lab Interpretation (test code = 13443-8) Abnormal [facility] Metabolic Panel (NA, K, CL, CO2, GLUCOSE, BUN, CREATININE, CA)2023-05-25 12:36:25* Test Item Value Reference Range Interpretation Comme nts NA (test code = 0044097935) 132 mmol/L 135-145 L K (test code = 5125767620) 3.9 mmol/L 3.5-5.0 CL (test code = 5524487255) 102 mmol/L 98-108 CO2 TOTAL (test code = 9834490866) 29 mmol/L 23-31 AGAP (test code = 6740861202) 1 2-16 L BUN (test code = 1592200590) 16 mg/dL 7-23 GLUCOSE (test code = 7754390900) 113 mg/dL 70-110 H CREATININE (test code = 4014928043) 0.78 mg/dL 0.60-1.25 CALCIUM (test code = 4671460383) 7.2 mg/dL 8.6-10.6 L eGFR (test code = 53815-2) 104.7 mL/min/1.73m2 CKD-EPI eGFR (2020). Assuming creatinine has been stable day-to-day for at least three months, the eGFR indicates Category G1 (>= 90 mL/min/1.73 m2) Lab Interpretation (test code = 90394-6) Abnormal [facility] with Pnin0205-33-56 12:10:06* Test Item Value Reference Range Interpretation Comme nts WBC (test code = 6690-2) 5.88 See_Comment [Automated [employer]] The system which generated this result transmitted reference range: 4.20 - 10.70 10*3/?L. The reference range was not used to interpret this result as normal/abnormal. RBC (test code = 789-8) 2.10 See_Comment L [Automated [employer]] The system which generated this result transmitted reference range: 4.26 - 5.52 10*6/?L. The reference range was not used to interpret this result as normal/abnormal. HGB (test code = 718-7) 5.7 g/dL 12.2-16.4 L HCT (test code = 4544-3) 17.7 % 38.4-49.3 L MCV (test code = 787-2) 84.3 fL 81.7-95.6 MCH (test code = 785-6) 27.1 pg 26.1-32.7 MCHC (test code = 786-4) 32.2 g/dL 31.2-35.0 RDW-SD (test code = 20594-3) 45.8 fL 38.5-51.6 RDW-CV (test code = 788-0) 15.7 % 12.1-15.4 H PLT (test code = 777-3) 154 See_Comment [Automated [employer]] The system which generated this result transmitted reference range: 150 - 328 10*3/?L. The reference range was not used to interpret this result as normal/abnormal. MPV (test code = 87996-8) 11.2 fL 9.8-13.0 NRBC/100 WBC (test code = 7845602139) 0.0 See_Comment [Automated me ssage] The system which generated this result transmitted reference range: 0.0 - 10.0 /100 WBCs. The reference range was not used to interpret this result as normal/abnormal. NRBC x10^3 (test code = 3406470351) See_Comment [Automated messa ge] The system which generated this result transmitted reference range: 10*3/?L. The reference range was not used to interpret this result as normal/abnormal. GRAN MAT (NEUT) % (test code = 770-8) 57.6 % IMM GRAN % (test code = 6607408588) 0.30 % LYMPH % (test code = 736-9) 25.5 % MONO % (test code = 5905-5) 15.0 % EOS % (test code = 713-8) 1.4 % BASO % (test code = 706-2) 0.2 % GRAN MAT x10^3(ANC) (test code = 9378357408) 3.39 10*3/uL 1.99-6.95 IMM GRAN x10^3 (test code = 2849428202) 0.00-0.06 LYMPH x10^3 (test code = 731-0) 1.50 10*3/uL 1.09-3.23 MONO x10^3 (test code = 742-7) 0.88 10*3/uL 0.36-1.02 EOS x10^3 (test code = 711-2) 0.08 10*3/uL 0.06-0.53 BASO x10^3 (test code = 704-7) 0.01-0.09 Lab Interpretation (test code = 37953-5) Abnormal [facility] with [id number] 12:10:06* Test Item Value Reference Range Interpretation Comme nts WBC (test code = 6690-2) 5.88 See_Comment [Automated messa ge] The system which generated this result transmitted reference range: 4.20 - 10.70 10*3/?L. The reference range was not used to interpret this result as normal/abnormal. RBC (test code = 789-8) 2.10 See_Comment L [Automated messa ge] The system which generated this result transmitted reference range: 4.26 - 5.52 10*6/?L. The reference range was not used to interpret this result as normal/abnormal. HGB (test code = 718-7) 5.7 g/dL 12.2-16.4 L HCT (test code = 4544-3) 17.7 % 38.4-49.3 L MCV (test code = 787-2) 84.3 fL 81.7-95.6 MCH (test code = 785-6) 27.1 pg 26.1-32.7 MCHC (test code = 786-4) 32.2 g/dL 31.2-35.0 RDW-SD (test code = 18380-2) 45.8 fL 38.5-51.6 RDW-CV (test code = 788-0) 15.7 % 12.1-15.4 H PLT (test code = 777-3) 154 See_Comment [Automated messa ge] The system which generated this result transmitted reference range: 150 - 328 10*3/?L. The reference range was not used to interpret this result as normal/abnormal. MPV (test code = 43849-6) 11.2 fL 9.8-13.0 NRBC/100 WBC (test code = 2639481084) 0.0 See_Comment [Automated [employer] ss[employer]] The system which generated this result transmitted reference range: 0.0 - 10.0 /100 WBCs. The reference range was not used to interpret this result as normal/abnormal. NRBC x10^3 (test code = 6862389616) See_Comment [Automated messa ge] The system which generated this result transmitted reference range: 10*3/?L. The reference range was not used to interpret this result as normal/abnormal. GRAN MAT (NEUT) % (test code = 770-8) 57.6 % IMM GRAN % (test code = 1670261080) 0.30 % LYMPH % (test code = 736-9) 25.5 % MONO % (test code = 5905-5) 15.0 % EOS % (test code = 713-8) 1.4 % BASO % (test code = 706-2) 0.2 % GRAN MAT x10^3(ANC) (test code = 7779189981) 3.39 10*3/uL 1.99-6.95 IMM GRAN x10^3 (test code = 9882773076) 0.00-0.06 LYMPH x10^3 (test code = 731-0) 1.50 10*3/uL 1.09-3.23 MONO x10^3 (test code = 742-7) 0.88 10*3/uL 0.36-1.02 EOS x10^3 (test code = 711-2) 0.08 10*3/uL 0.06-0.53 BASO x10^3 (test code = 704-7) 0.01-0.09 Lab Interpretation (test code = 40376-0) [facility] [id number] 20:42:18XR LUMBAR SPINE 1 VW HISTORY: Male 57 years intra-op COMPARISON: None FINDINGS: A single sagittal intraoperative radiograph of the lumbar spinedemonstrates radiodense needle markers at the levels of the T12 and S6ecoefrrd.[facility] LUMBAR SPINE 1 [id number] 20:42:18XR LUMBAR SPINE 1 VW HISTORY: Male 57 years intra-op COMPARISON: None FINDINGS: A single sagittal in traoperative radiograph of the lumbar spinedemonstrates radiodense needle markers at the levels of the T12 and D2wmkfngbg.[facility] [id number] 20:42:18XR LUMBAR SPINE 1 VW HISTORY: Male 57 years intra-op COMPARISON: None FINDINGS: A single sagittal intraoperative radiograph of the lumbar spinedemonstrates radiodense needle markers at the levels of the T12 and N8roaimmgt.[facility] O-ARM (NON-REPORTABLE)2023-05-24 20:21:59These images do not require a Radiology diagnostic report.[facility] O-ARM (NON-REPORTABLE) 2023-05-24 20:21:59These images do not require a Radiology diagnostic report. [facility] O-ARM (NON-REPORTABLE)2023-05-24 20:21:59 These images do not require a Radiology diagnostic report.[facility] [id number] 15:51:29EXAM: XR FEMUR 2 VW LEFT HISTORY: 57 years-old Male status post reduction internal fixation of theleft femur fracture. COMPARISON: Hip and femur radiograph dated 05/20/2023. FINDINGS: Radiographs of the left femur demonstrate intramedullary nailing andcerclage wire fixation of the proximal femur fracture. There is persistentmedial displacement of the lesser trochanter fragment. No hardwarecomplication is seen. Joint spaces are preserved. Postsurgical soft tissuegas, swelling and janeen are noted. Moderate size knee effusion is seen.[facility] [id number] 15:51:29EXAM: XR FEMUR 2 VW LEFT HISTORY: 57 years-old Male status post reduction internal fixation of theleft femur fracture. COMPARISON: Hip and femur radiograph dated 05/20/2023. FINDINGS: Radiographs of the left femur demonstrate intramedullary nailing andcerclage wire fixation of the proximal femur fracture. There is persistentmedial displacement of the lesser trochanter fragment. No hardwarecomplication is seen. Joint spaces are preserved. Postsurgical soft tissuegas, swelling and janeen are noted. Moderate size knee effusion is seen.[facility] [id number] 15:51:29EXAM: XR FEMUR 2 VW LEFT HISTORY: 57 years-old Male status post reduction internal fixation of theleft femur fracture. COMPARISON: Hip and femur radiograph dated 05/20/2023. FINDINGS: Radiographs of the left femur demonstrate intramedullary nailing andcerclage wire fixation of the proximal femur fracture. There is persistentmedial displacement of the lesser trochanter fragment. No hardwarecomplication is seen. Joint spaces are preserved. Postsurgical soft tissuegas, swelling and janeen are noted. Moderate size knee effusion is seen.[facility] [id number] 10:29:47* Test Item Value Reference Range Interpretation Comme nts WBC (test code = 6690-2) 6.36 See_Comment [Automated messa ge] The system which generated this result transmitted reference range: 4.20 - 10.70 10*3/?L. The reference range was not used to interpret this result as normal/abnormal. RBC (test code = 789-8) 2.72 See_Comment L [Automated message] The system which generated this result transmitted reference range: 4.26 - 5.52 10*6/?L. The reference range was not used to interpret this result as normal/abnormal. HGB (test code = 718-7) 7.3 g/dL 12.2-16.4 L HCT (test code = 4544-3) 22.3 % 38.4-49.3 L MCH (test code = 785-6) 26.8 pg 26.1-32.7 MCV (test code = 787-2) 82.0 fL 81.7-95.6 MCHC (test code = 786-4) 32.7 g/dL 31.2-35.0 PLT (test code = 777-3) 144 See_Comment L [Automated message] The system which generated this result transmitted reference range: 150 - 328 10*3/?L. The reference range was not used to interpret this result as normal/abnormal. MPV (test code = 11107-7) 11.0 fL 9.8-13.0 RDW-CV (test code = 788-0) 15.0 % 12.1-15.4 RDW-SD (test code = 96398-8) 43.6 fL 38.5-51.6 NRBC x10^3 (test code = 3516563636) See_Comment [Automated [employer]] The system which generated this result transmitted reference range: 10*3/?L. The reference range was not used to interpret this result as normal/abnormal. NRBC/100 WBC (test code = 6718982733) 0.0 See_Comment [Automated [employer]] The system which generated this result transmitted reference range: 0.0 - 10.0 /100 WBCs. The reference range was not used to interpret this result as normal/abnormal. IPF % (test code = 6306265847) 7.5 % 1.2-10.7 Platelet count measured by fluorescence method. Lab Interpretation (test code = 87182-9) Abnormal [facility] without [id number] 10:29:47* Test Item Value Reference Range Interpretation Comme nts WBC (test code = 6690-2) 6.36 See_Comment [Automated [employer]] The system which generated this result transmitted reference range: 4.20 - 10.70 10*3/?L. The reference range was not used to interpret this result as normal/abnormal. RBC (test code = 789-8) 2.72 See_Comment L [Automated message] The system which generated this result transmitted reference range: 4.26 - 5.52 10*6/?L. The reference range was not used to interpret this result as normal/abnormal. HGB (test code = 718-7) 7.3 g/dL 12.2-16.4 L HCT (test code = 4544-3) 22.3 % 38.4-49.3 L MCH (test code = 785-6) 26.8 pg 26.1-32.7 MCV (test code = 787-2) 82.0 fL 81.7-95.6 MCHC (test code = 786-4) 32.7 g/dL 31.2-35.0 PLT (test code = 777-3) 144 See_Comment L [Automated message] The system which generated this result transmitted reference range: 150 - 328 10*3/?L. The reference range was not used to interpret this result as normal/abnormal. MPV (test code = 52810-0) 11.0 fL 9.8-13.0 RDW-CV (test code = 788-0) 15.0 % 12.1-15.4 RDW-SD (test code = 91535-4) 43.6 fL 38.5-51.6 NRBC x10^3 (test code = 2822632610) See_Comment [Automated [employer]] The system which generated this result transmitted reference range: 10*3/?L. The reference range was not used to interpret this result as normal/abnormal. NRBC/100 WBC (test code = 6170258372) 0.0 See_Comment [Automated [employer] ge] The system which generated this result transmitted reference range: 0.0 - 10.0 /100 WBCs. The reference range was not used to interpret this result as normal/abnormal. IPF % (test code = 0481554035) 7.5 % 1.2-10.7 Platelet count measured by fluorescence method. Lab Interpretation (test code = 96356-3) Abnormal [facility] without Irmh9881-97-33 10:29:47* Test Item Value Reference Range Interpretation Comme nts WBC (test code = 6690-2) 6.36 See_Comment [Automated messa ge] The system which generated this result transmitted reference range: 4.20 - 10.70 10*3/?L. The reference range was not used to interpret this result as normal/abnormal. RBC (test code = 789-8) 2.72 See_Comment L [Automated message] The system which generated this result transmitted reference range: 4.26 - 5.52 10*6/?L. The reference range was not used to interpret this result as normal/abnormal. HGB (test code = 718-7) 7.3 g/dL 12.2-16.4 L HCT (test code = 4544-3) 22.3 % 38.4-49.3 L MCH (test code = 785-6) 26.8 pg 26.1-32.7 MCV (test code = 787-2) 82.0 fL 81.7-95.6 MCHC (test code = 786-4) 32.7 g/dL 31.2-35.0 PLT (test code = 777-3) 144 See_Comment L [Automated message] The system which generated this result transmitted reference range: 150 - 328 10*3/?L. The reference range was not used to interpret this result as normal/abnormal. MPV (test code = 60059-9) 11.0 fL 9.8-13.0 RDW-CV (test code = 788-0) 15.0 % 12.1-15.4 RDW-SD (test code = 12426-9) 43.6 fL 38.5-51.6 NRBC x10^3 (test code = 3854686661) See_Comment [Automated messa ge] The system which generated this result transmitted reference range: 10*3/?L. The reference range was not used to interpret this result as normal/abnormal. NRBC/100 WBC (test code = 7621276121) 0.0 See_Comment [Automated messa ge] The system which generated this result transmitted reference range: 0.0 - 10.0 /100 WBCs. The reference range was not used to interpret this result as normal/abnormal. IPF % (test code = 0584510779) 7.5 % 1.2-10.7 Platelet count measured by fluorescence method. Lab Interpretation (test code = 40149-8) Abnormal [facility] Dzzvyhj5825-44-02 10:02:18* Test Item Value Reference Range Interpretation Comme nts IONIZED CA (test code = 6753505066) 4.20 mg/dL 4.50-5.30 L PH SERUM (test code = 8184098970) 7.49 7.35-7.45 H QUES Lab Interpretation (test cod e = 19917-6) Abnormal [facility] Yfuwwwy0702-01-54 10:02:18* Test Item Value Reference Range Interpretation Comme nts IONIZED CA (test code = 3368469238) 4.20 mg/dL 4.50-5.30 L PH SERUM (test code = 8306688816) 7.49 7.35-7.45 H QUES Lab Interpretation (test cod e = 03050-8) Abnormal [facility] Uudxbss5793-97-12 10:02:18* Test Item Value Reference Range Interpretation Comme nts IONIZED CA (test code = 8280794592) 4.20 mg/dL 4.50-5.30 L PH SERUM (test code = 3442179277) 7.49 7.35-7.45 H QUES Lab Interpretation (test cod e = 57181-7) Abnormal [facility] Metabolic Panel (NA, K, CL, CO2, GLUCOSE, BUN, CREATININE, CA)2023-05-24 10:02:08* Test Item Value Reference Range Interpretation Comme nts NA (test code = 5046516408) 133 mmol/L 135-145 L K (test code = 8643747790) 4.8 mmol/L 3.5-5.0 Slight hemolysis CL (test code = 1718146808) 105 mmol/L 98-108 CO2 TOTAL (test code = 6781797742) 25 mmol/L 23-31 AGAP (test code = 2577015554) 3 2-16 BUN (test code = 8038206067) 16 mg/dL 7-23 Slight hemolysis GLUCOSE (test code = 7950736159) 117 mg/dL 70-110 H CREATININE (test code = 1951712932) 0.64 mg/dL 0.60-1.25 CALCIUM (test code = 6465509248) 7.6 mg/dL 8.6-10.6 L eGFR (test code = 88274-9) 111.1 mL/min/1.73m2 CKD-EPI eGFR (2020). Assuming creatinine has been stable day-to-day for at least three months, the eGFR indicates Category G1 (>= 90 mL/min/1.73 m2) Lab Interpretation (test code = 26272-1) Abnormal [facility] Metabolic Panel (NA, K, CL, CO2, GLUCOSE, BUN, CREATININE, CA)2023-05-24 10:02:08* Test Item Value Reference Range Interpretation Comme nts NA (test code = 2045023686) 133 mmol/L 135-145 L K (test code = 8376710395) 4.8 mmol/L 3.5-5.0 Slight hemolysis CL (test code = 0246725561) 105 mmol/L 98-108 CO2 TOTAL (test code = 2826540045) 25 mmol/L 23-31 AGAP (test code = 3667436025) 3 2-16 BUN (test code = 9354017226) 16 mg/dL 7-23 Slight hemolysis GLUCOSE (test code = 8598382918) 117 mg/dL 70-110 H CREATININE (test code = 2160260099) 0.64 mg/dL 0.60-1.25 CALCIUM (test code = 9439011778) 7.6 mg/dL 8.6-10.6 L eGFR (test code = 10210-5) 111.1 mL/min/1.73m2 CKD-EPI eGFR (2020). Assuming creatinine has been stable day-to-day for at least three months, the eGFR indicates Category G1 (>= 90 mL/min/1.73 m2) Lab Interpretation (test code = 70896-6) Abnormal [facility] Metabolic Panel (NA, K, CL, CO2, GLUCOSE, BUN, CREATININE, CA)2023-05-24 10:02:08* Test Item Value Reference Range Interpretation Comme nts NA (test code = 7107865116) 133 mmol/L 135-145 L K (test code = 1931099038) 4.8 mmol/L 3.5-5.0 Slight hemolysis CL (test code = 2731763219) 105 mmol/L 98-108 CO2 TOTAL (test code = 8204958188) 25 mmol/L 23-31 AGAP (test code = 0395671550) 3 2-16 BUN (test code = 4750363796) 16 mg/dL 7-23 Slight hemolysis GLUCOSE (test code = 9670800034) 117 mg/dL 70-110 H CREATININE (test code = 9824593925) 0.64 mg/dL 0.60-1.25 CALCIUM (test code = 7821692247) 7.6 mg/dL 8.6-10.6 L eGFR (test code = 70347-1) 111.1 mL/min/1.73m2 CKD-EPI eGFR (2020). Assuming creatinine has been stable day-to-day for at least three months, the eGFR indicates Category G1 (>= 90 mL/min/1.73 m2) Lab Interpretation (test code = 96112-8) [facility]:26* Test Item Value Reference Range Interpretation Comme nts PHOSPHORUS (test code = 1647274555) 3.8 mg/dL 2.5-5.0 Lab Interpretation (test cod e = 05914-4) [facility]* Test Item Value Reference Range Interpretation Comme nts MAGNESIUM (test code = 0093775012) 2.0 mg/dL 1.7-2.4 Lab Interpretation (test cod e = 12438-5) [facility] 09:49:26* Test Item Value Reference Range Interpretation Comme nts PHOSPHORUS (test code = 1263625609) 3.8 mg/dL 2.5-5.0 Lab Interpretation (test cod e = 54944-2) [facility] 09:49:26* Test Item Value Reference Range Interpretation Comme nts MAGNESIUM (test code = 2611820096) 2.0 mg/dL 1.7-2.4 Lab Interpretation (test cod e = 66683-6) [facility] 09:49:26* Test Item Value Reference Range Interpretation Comme nts PHOSPHORUS (test code = 5491420886) 3.8 mg/dL 2.5-5.0 Lab Interpretation (test cod e = 96528-0) [facility] 09:49:26* Test Item Value Reference Range Interpretation Comme nts MAGNESIUM (test code = 8232399200) 2.0 mg/dL 1.7-2.4 Lab Interpretation (test cod e = 78283-3) [facility] Rqsg5590-95-39 00:45:13* Test Item Value Reference Range Interpretation Comme nts WBC (test code = 6690-2) 6.66 See_Comment [Automated messa ge] The system which generated this result transmitted reference range: 4.20 - 10.70 10*3/?L. The reference range was not used to interpret this result as normal/abnormal. RBC (test code = 789-8) 3.01 See_Comment L [Automated messa ge] The system which generated this result transmitted reference range: 4.26 - 5.52 10*6/?L. The reference range was not used to interpret this result as normal/abnormal. HGB (test code = 718-7) 8.3 g/dL 12.2-16.4 L HCT (test code = 4544-3) 25.1 % 38.4-49.3 L MCV (test code = 787-2) 83.4 fL 81.7-95.6 MCH (test code = 785-6) 27.6 pg 26.1-32.7 MCHC (test code = 786-4) 33.1 g/dL 31.2-35.0 RDW-SD (test code = 69466-7) 44.9 fL 38.5-51.6 RDW-CV (test code = 788-0) 14.7 % 12.1-15.4 PLT (test code = 777-3) 140 See_Comment L [Automated messa ge] The system which generated this result transmitted reference range: 150 - 328 10*3/?L. The reference range was not used to interpret this result as normal/abnormal. MPV (test code = 52048-6) 11.0 fL 9.8-13.0 NRBC/100 WBC (test code = 0210325229) 0.0 See_Comment [Automated me ssage] The system which generated this result transmitted reference range: 0.0 - 10.0 /100 WBCs. The reference range was not used to interpret this result as normal/abnormal. NRBC x10^3 (test code = 3562911522) See_Comment [Automated messa ge] The system which generated this result transmitted reference range: 10*3/?L. The reference range was not used to interpret this result as normal/abnormal. GRAN MAT (NEUT) % (test code = 770-8) 87.8 % IMM GRAN % (test code = 1145351342) 0.30 % LYMPH % (test code = 736-9) 6.3 % MONO % (test code = 5905-5) 5.6 % EOS % (test code = 713-8) 0.0 % BASO % (test code = 706-2) 0.0 % GRAN MAT x10^3(ANC) (test code = 0124574620) 5.85 10*3/uL 1.99-6.95 IMM GRAN x10^3 (test code = 6858087274) 0.00-0.06 LYMPH x10^3 (test code = 731-0) 0.42 10*3/uL 1.09-3.23 L MONO x10^3 (test code = 742-7) 0.37 10*3/uL 0.36-1.02 EOS x10^3 (test code = 711-2) 0.06-0.53 L BASO x10^3 (test code = 704-7) 0.01-0.09 Lab Interpretation (test code = 38697-0) Abnormal [facility] with Hzqz8638-66-98 00:45:13* Test Item Value Reference Range Interpretation Comme nts WBC (test code = 6690-2) 6.66 See_Comment [Automated messa ge] The system which generated this result transmitted reference range: 4.20 - 10.70 10*3/?L. The reference range was not used to interpret this result as normal/abnormal. RBC (test code = 789-8) 3.01 See_Comment L [Automated messa ge] The system which generated this result transmitted reference range: 4.26 - 5.52 10*6/?L. The reference range was not used to interpret this result as normal/abnormal. HGB (test code = 718-7) 8.3 g/dL 12.2-16.4 L HCT (test code = 4544-3) 25.1 % 38.4-49.3 L MCV (test code = 787-2) 83.4 fL 81.7-95.6 MCH (test code = 785-6) 27.6 pg 26.1-32.7 MCHC (test code = 786-4) 33.1 g/dL 31.2-35.0 RDW-SD (test code = 12112-3) 44.9 fL 38.5-51.6 RDW-CV (test code = 788-0) 14.7 % 12.1-15.4 PLT (test code = 777-3) 140 See_Comment L [Automated messa ge] The system which generated this result transmitted reference range: 150 - 328 10*3/?L. The reference range was not used to interpret this result as normal/abnormal. MPV (test code = 88044-5) 11.0 fL 9.8-13.0 NRBC/100 WBC (test code = 8989628506) 0.0 See_Comment [Automated me ssage] The system which generated this result transmitted reference range: 0.0 - 10.0 /100 WBCs. The reference range was not used to interpret this result as normal/abnormal. NRBC x10^3 (test code = 2344834864) See_Comment [Automated messa ge] The system which generated this result transmitted reference range: 10*3/?L. The reference range was not used to interpret this result as normal/abnormal. GRAN MAT (NEUT) % (test code = 770-8) 87.8 % IMM GRAN % (test code = 2693755061) 0.30 % LYMPH % (test code = 736-9) 6.3 % MONO % (test code = 5905-5) 5.6 % EOS % (test code = 713-8) 0.0 % BASO % (test code = 706-2) 0.0 % GRAN MAT x10^3(ANC) (test code = 0166453837) 5.85 10*3/uL 1.99-6.95 IMM GRAN x10^3 (test code = 8876369840) 0.00-0.06 LYMPH x10^3 (test code = 731-0) 0.42 10*3/uL 1.09-3.23 L MONO x10^3 (test code = 742-7) 0.37 10*3/uL 0.36-1.02 EOS x10^3 (test code = 711-2) 0.06-0.53 L BASO x10^3 (test code = 704-7) 0.01-0.09 Lab Interpretation (test code = 91156-4) Abnormal [facility] with Fdhl3571-24-38 00:45:13* Test Item Value Reference Range Interpretation Comme nts WBC (test code = 6690-2) 6.66 See_Comment [Automated messa ge] The system which generated this result transmitted reference range: 4.20 - 10.70 10*3/?L. The reference range was not used to interpret this result as normal/abnormal. RBC (test code = 789-8) 3.01 See_Comment L [Automated messa ge] The system which generated this result transmitted reference range: 4.26 - 5.52 10*6/?L. The reference range was not used to interpret this result as normal/abnormal. HGB (test code = 718-7) 8.3 g/dL 12.2-16.4 L HCT (test code = 4544-3) 25.1 % 38.4-49.3 L MCV (test code = 787-2) 83.4 fL 81.7-95.6 MCH (test code = 785-6) 27.6 pg 26.1-32.7 MCHC (test code = 786-4) 33.1 g/dL 31.2-35.0 RDW-SD (test code = 65999-2) 44.9 fL 38.5-51.6 RDW-CV (test code = 788-0) 14.7 % 12.1-15.4 PLT (test code = 777-3) 140 See_Comment L [Automated messa ge] The system which generated this result transmitted reference range: 150 - 328 10*3/?L. The reference range was not used to interpret this result as normal/abnormal. MPV (test code = 47142-9) 11.0 fL 9.8-13.0 NRBC/100 WBC (test code = 5925436795) 0.0 See_Comment [Automated Glycominds ssage] The system which generated this result transmitted reference range: 0.0 - 10.0 /100 WBCs. The reference range was not used to interpret this result as normal/abnormal. NRBC x10^3 (test code = 3805883571) See_Comment [Automated messa ge] The system which generated this result transmitted reference range: 10*3/?L. The reference range was not used to interpret this result as normal/abnormal. GRAN MAT (NEUT) % (test code = 770-8) 87.8 % IMM GRAN % (test code = 0268048542) 0.30 % LYMPH % (test code = 736-9) 6.3 % MONO % (test code = 5905-5) 5.6 % EOS % (test code = 713-8) 0.0 % BASO % (test code = 706-2) 0.0 % GRAN MAT x10^3(ANC) (test code = 8775014091) 5.85 10*3/uL 1.99-6.95 IMM GRAN x10^3 (test code = 1000967554) 0.00-0.06 LYMPH x10^3 (test code = 731-0) 0.42 10*3/uL 1.09-3.23 L MONO x10^3 (test code = 742-7) 0.37 10*3/uL 0.36-1.02 EOS x10^3 (test code = 711-2) 0.06-0.53 L BASO x10^3 (test code = 704-7) 0.01-0.09 Lab Interpretation (test code = 13530-0) Abnormal [facility] THORACIC SPINE WO [id number] 21:56:24 THORACIC SPINE WO CONTRAST HISTORY: Compression fracture, thoracic Please get L1 as well. Pathologybetween T11 and L1 COMPARISON: Thoracic spine CT scan dated on 05/20/2023 TECHNIQUE: Multiplanar multisequence MRI of thoracic spine was obtainedwithout contrast. FINDINGS: The thoracic curvature is normal. Acute compression fracture of G56oyqicukzg body with unchanged mild height loss. T11 spinousprocess andbilateral inferior articular processes minimally displaced fractures. T00pybblvcj articular processes nondisplaced fracture, better visualized onprior recent CT. No significant retropulsion. No significant spinal canalstenosis. ALL, PLL and ligamentum flavum appear intact. Minimally displaced fracture of L1 left transverse process. The background marrow signal is unremarkable. Conus medullaris terminatesat the level of T12 as L1. No signal abnormality of the thoracic cord. Noepiduralhematoma. No significant degenerative changes of the thoracic spine. No significantspinal canal stenosis or neural foraminal narrowing at any level. Partial visualization of minimally displaced left transverse processprocess fracture at L1. Mild bilateral pleural effusion.[facility] THORACIC SPINE WO CONTRAST 2023-05-23 21:56:24 THORACIC SPINE WO CONTRAST HISTORY: Compression fracture, thoracic Please get L1 as well. Pathologybetween T11 and L1 COMPARISON: Thoracic spine CT scan dated on 05/20/2023 TECHNIQUE: Multiplanar multisequence MRI of thoracic spine was obtainedwithout contrast. FINDINGS: The thoracic curvature is normal. Acute compression fracture of D68xbeldjppp body with unchanged mild height loss. T11 spinousprocess andbilateral inferior articular processes minimally displaced fractures. T18nwybolzt articular processes nondisplaced fracture, better visualized onprior recent CT. No significant retropulsion. No significant spinal canalstenosis. ALL, PLL and ligamentum flavum appear intact. Minimally displaced fracture of L1 left transverse process. The background marrow signal is unremarkable. Conus medullaris terminatesat the level of T12 as L1. No signal abnormality of the thoracic cord. Noepiduralhematoma. No significant degenerative changes of the thoracic spine. No significantspinal canal stenosis or neural foraminal narrowing at any level. Partial visualization of minimally displaced left transverse processprocess fracture at L1. Mild bilateral pleural effusion.[facility] THORACIC SPINE WO CWQQJHYU1181-16-85 21:56:24 THORACIC SPINE WO CONTRAST HISTORY: Compression fracture, thoracic Please get L1 as well. Pathologybetween T11 and L1 COMPARISON: Thoracic spine CT scan dated on 05/20/2023 TECHNIQUE: Multiplanar mul tisequence MRI of thoracic spine was obtainedwithout contrast. FINDINGS: The thoracic curvature is normal. Acute compression fracture of I72dudntkuzs body with unchanged mild height loss. T11 spinousprocess andbilateral inferior articular processes minimally displaced fractures. X17jwcbxpfs articular processes nondisplaced fracture, better visualized onprior recent CT. No significant retropulsion. No significant spinal canalstenosis. ALL, PLL and ligamentum flavum appear intact. Minimally displaced fracture of L1 left transverse process. The background marrow signal is unremarkable. Conus med ullaris terminatesat the level of T12 as L1. No signal abnormality of the thoracic cord. Noepiduralhematoma. No significant degenerative changes of the thoracic spine. No significantspinal canal stenosis or neural foraminal narrowing at any level. Partial visualization of minimally displaced left t ransverse processprocess fracture at L1. Mild bilateral pleural effusion. [facility] Packed RBC (in units), 2 Units 2023-05-23 19:28:09* Test Item Value Reference Range Interpretation Comme nts Cross Match Result (test code = 4409) Compatible ISBT Blood Type Code (test code = 628548) 6200 Unit Blood Type (test code = 4410) A Pos Unit Number (test code = 4411) [id number] Blood Expiration Date & Time (test code = 928514) 015935933098 Status Information (test code = 4412) Returned from Issue Product Identification (test code = 4413) Red Blood Cells Product Code (test code = 4414) [id number] Performed at [facility] Blood [address] [address] Free: [phone] No. [id number] [facility] Packed RBC (in units), 2 Units 2023-05-23 19:28:09* Test Item Value Reference Range Interpretation Comme nts Cross Match Result (test code = 4409) Compatible ISBT Blood Type Code (test code = 462612) 6200 Unit Blood Type (test code = 4410) A Pos Unit Number (test code = 4411) [id number] Blood Expiration Date & Time (test code = 950062) 322960981241 Status Information (test code = 4412) Returned from Issue Product Identification (test code = 4413) Red Blood Cells Product Code (test code = 4414) [id number] Performed at [facility] Laboratory [facility] Blood [place] [id number] Free: [phone] No. [id number] [facility] ([facility] units), 2 Units 2023-05-23 19:28:09* Test Item Value Reference Range Interpretation Comme nts Cross Match Result (test code = 4409) Compatible ISBT Blood Type Code (test code = 228459) 6200 Unit Blood Type (test code = 4410) A Pos Unit Number (test code = 4411) [id number] Blood Expiration Date & Time (test code = 412502) 954776370453 Status Information (test code = 4412) Returned from Issue Product Identification (test code = 4413) Red Blood Cells Product Code (test code = 4414) [id number] Performed at [facility] Laboratory Services [address] Free: [phone] No. [id number] [facility] TIME OR (NON-REPORTABLE)2023-05-23 18:16:38 These images do not require a Radiology diagnostic report.[facility] TIME OR (NON-REPORTABLE)2023-05-23 18:16:38These images do not require a Radiology diagnostic report.[facility] TIME OR (NON-REPORTABLE)2023-05-23 18:16:38These images do not require a Radiology diagnostic report.[facility] Packed RBC (in units), 2 Tmhmh9738-92-72 16:41:14* Test Item Value Reference Range Interpretation Comme nts Cross Match Result (test code = 4409) Compatible ISBT Blood Type Code (test code = 155349) 6200 Unit Blood Type (test code = 4410) A Pos Unit Number (test code = 4411) [id number] Blood Expiration Date & Time (test code = 551612) 575769284257 Status Information (test code = 4412) Issued Product Identification (test code = 4413) Red Blood Cells Product Code (test code = 4414) [id number] Performed at [facility] Laboratory Services [facility] Blood [address] Free: [phone] No. [id number] [facility] BranchType and Screen - ONCE Wawvmvy1956-47-08 15:54:00* Test Item Value Reference Range Interpretation Comme nts ABO & RH (test code = 20) A POSITIVE IAT (test code = 1185) Negative [facility] and Screen - ONCE Gzbrkmu4841-03-70 15:54:00* Test Item Value Reference Range Interpretation Comme nts ABO & RH (test code = 20) A POSITIVE IAT (test code = 1185) Negative [facility] and Screen - ONCE Kolpthh8627-15-45 15:54:00* Test Item Value Reference Range Interpretation Comme nts ABO & RH (test code = 20) A POSITIVE IAT (test code = 1185) Negative [facility] and Screen - ONCE Dnzhlpg8459-63-08 15:54:00* Test Item Value Reference Range Interpretation Comme nts ABO & RH (test code = 20) A POSITIVE IAT (test code = 1185) Negative [facility] 15:25:00BaLela king MD ? ? 05/23/2023 10:20 AMIntubationDate/Time: 05/23/2023 9:25 AMUrgency: elective Airway not difficult General Information and Staff Patient location during procedure: ORPerformed: resident/MISSION SYSTEMS ENGINEER Performed by: Lela Gabriel MDAuthorized by: Delano Harper MD ? Indicationsand Patient ConditionIndications for airway management: anesthesiaSpontaneous ventilation: presentSedation level: deepPreoxygenated: yesPatient position: sniffingMILS maintained throughoutMask difficulty assessment: 2 - vent by mask + OA or adjuvant +/- NMBA Final Airway DetailsFinal airway type: endotracheal airway Successful airway: ETTCuffed: yes Successful intubation technique: direct laryngoscopyFacilitating devices/methods: intubating styletEndotracheal tube insertion site: oralBlade: MacintoshBlade size: #3ETT size (mm): 7.5Cormack- Lehane Classification: grade I - full view of glottisPlacement verified by: chest auscultation and capnometry Measured from: lipsETT to lips (cm): 22Number of attempts at approach: 1Ventilation between attempts: noneNumber of other approaches attempted: 0 Additional CommentsSmooth, atraumatic, dentition and lips unchanged from pre-op.[facility] Calcium 2023-05-23 11:12:02* Test Item Value Reference Range Interpretation Comme nts IONIZED CA (test code = 7242736280) 4.40 mg/dL 4.50-5.30 L PH SERUM (test code = 8805631712) 7.47 7.35-7.45 H QUES Lab Interpretation (test cod e = 86324-0) Abnormal [facility] Utgemrb2651-82-07 11:12:02* Test Item Value Reference Range Interpretation Comme nts IONIZED CA (test code = 9502989546) 4.40 mg/dL 4.50-5.30 L PH SERUM (test code = 3808942260) 7.47 7.35-7.45 H QUES Lab Interpretation (test cod e = 86414-7) Abnormal [facility] Nlvqmvi6323-96-64 11:12:02* Test Item Value Reference Range Interpretation Comme nts IONIZED CA (test code = 8133458151) 4.40 mg/dL 4.50-5.30 L PH SERUM (test code = 4351972859) 7.47 7.35-7.45 H QUES Lab Interpretation (test cod e = 71545-2) Abnormal [facility] Cnncazg5180-30-82 11:12:02* Test Item Value Reference Range Interpretation Comme nts IONIZED CA (test code = 8652909515) 4.40 mg/dL 4.50-5.30 L PH SERUM (test code = 2618751291) 7.47 7.35-7.45 H QUES Lab Interpretation (test cod e = 74025-4) [facility]normal [facility] 10:32:00* Test Item Value Reference Range Interpretation Comme nts PHOSPHORUS (test code = 4022785383) 3.5 mg/dL 2.5-5.0 Lab Interpretation (test cod e = 52045-5) Normal [facility]20[facility] 10:32:00* Test Item Value Reference Range Interpretation Comme nts MAGNESIUM (test code = 5651716754) 2.0 mg/dL 1.7-2.4 Lab Interpretation (test cod e = 03482-2) Normal [facility] Metabolic Panel (NA, K, CL, CO2, GLUCOSE, BUN, CREATININE, CA)2023-05-23 10:32:00* Test Item Value Reference Range Interpretation Comme nts NA (test code = 7369285806) 130 mmol/L 135-145 L K (test code = 3881020821) 3.9 mmol/L 3.5-5.0 CL (test code = 0419125751) 100 mmol/L 98-108 CO2 TOTAL (test code = 4972959072) 27 mmol/L 23-31 AGAP (test code = 9582356543) 3 2-16 BUN (test code = 5472684936) 17 mg/dL 7-23 GLUCOSE (test code = 4860137299) 104 mg/dL 70-110 CREATININE (test code = 8405648215) 0.80 mg/dL 0.60-1.25 CALCIUM (test code = 2873275079) 7.8 mg/dL 8.6-10.6 L eGFR (test code = 68489-6) 103.9 mL/min/1.73m2 CKD-EPI eGFR (2020). Assuming creatinine has been stable day-to-day for at least three months, the eGFR indicates Category G1 (>= 90 mL/min/1.73 m2) Lab Interpretation (test code = 05737-4) [facility]normal [facility] 10:32:00* Test Item Value Reference Range Interpretation Comme nts PHOSPHORUS (test code = 7388482648) 3.5 mg/dL 2.5-5.0 Lab Interpretation (test cod e = 57571-4) [facility] 10:32:00* Test Item Value Reference Range Interpretation Comme nts MAGNESIUM (test code = 0902547407) 2.0 mg/dL 1.7-2.4 Lab Interpretation (test cod e = 60943-5) Normal [facility] Metabolic Panel (NA, K, CL, CO2, GLUCOSE, BUN, CREATININE, CA)2023-05-23 10:32:00* Test Item Value Reference Range Interpretation Comme nts NA (test code = 9864863932) 130 mmol/L 135-145 L K (test code = 6056586012) 3.9 mmol/L 3.5-5.0 CL (test code = 4004429477) 100 mmol/L 98-108 CO2 TOTAL (test code = 6610545771) 27 mmol/L 23-31 AGAP (test code = 3029606136) 3 2-16 BUN (test code = 7074227323) 17 mg/dL 7-23 GLUCOSE (test code = 2328860577) 104 mg/dL 70-110 CREATININE (test code = 7987057388) 0.80 mg/dL 0.60-1.25 CALCIUM (test code = 6394875530) 7.8 mg/dL 8.6-10.6 L eGFR (test code = 25251-3) 103.9 mL/min/1.73m2 CKD-EPI eGFR (2020). Assuming creatinine has been stable day-to-day for at least three months, the eGFR indicates Category G1 (>= 90 mL/min/1.73 m2) Lab Interpretation (test code = 85525-5) [facility]normal [facility] 10:32:00* Test Item Value Reference Range Interpretation Comme nts PHOSPHORUS (test code = 9542639168) 3.5 mg/dL 2.5-5.0 Lab Interpretation (test cod e = 44164-1) Normal [facility] 10:32:00* Test Item Value Reference Range Interpretation Comme nts MAGNESIUM (test code = 7389687610) 2.0 mg/dL 1.7-2.4 Lab Interpretation (test cod e = 20345-9) [facility] (NA, K, CL, CO2, GLUCOSE, BUN, CREATININE, CA)2023-05-23 10:32:00* Test Item Value Reference Range Interpretation Comme nts NA (test code = 9679245902) 130 mmol/L 135-145 L K (test code = 0683480205) 3.9 mmol/L 3.5-5.0 CL (test code = 5400613464) 100 mmol/L 98-108 CO2 TOTAL (test code = 7017159817) 27 mmol/L 23-31 AGAP (test code = 6314526702) 3 2-16 BUN (test code = 7589064938) 17 mg/dL 7-23 GLUCOSE (test code = 3174257328) 104 mg/dL 70-110 CREATININE (test code = 9753291722) 0.80 mg/dL 0.60-1.25 CALCIUM (test code = 6207076663) 7.8 mg/dL 8.6-10.6 L eGFR (test code = 75349-4) 103.9 mL/min/1.73m2 CKD-EPI eGFR (2020). Assuming creatinine has been stable day-to-day for at least three months, the eGFR indicates Category G1 (>= 90 mL/min/1.73 m2) Lab Interpretation (test code = 43549-6) [facility]normal [facility] 10:32:00* Test Item Value Reference Range Interpretation Comme nts PHOSPHORUS (test code = 7087155741) 3.5 mg/dL 2.5-5.0 Lab Interpretation (test cod e = 25524-7) Normal [facility] 10:32:00* Test Item Value Reference Range Interpretation Comme nts MAGNESIUM (test code = 0935264120) 2.0 mg/dL 1.7-2.4 Lab Interpretation (test cod e = 82756-7) [facility] (NA, K, CL, CO2, GLUCOSE, BUN, CREATININE, CA)2023-05-23 10:32:00* Test Item Value Reference Range Interpretation Comme nts NA (test code = 7288482408) 130 mmol/L 135-145 L K (test code = 6708517256) 3.9 mmol/L 3.5-5.0 CL (test code = 6569736100) 100 mmol/L 98-108 CO2 TOTAL (test code = 1301384419) 27 mmol/L 23-31 AGAP (test code = 7810450956) 3 2-16 BUN (test code = 9267023417) 17 mg/dL 7-23 GLUCOSE (test code = 7595371170) 104 mg/dL 70-110 CREATININE (test code = 3802368948) 0.80 mg/dL 0.60-1.25 CALCIUM (test code = 7465802500) 7.8 mg/dL 8.6-10.6 L eGFR (test code = 02574-4) 103.9 mL/min/1.73m2 CKD-EPI eGFR (2020). Assuming creatinine has been stable day-to-day for at least three months, the eGFR indicates Category G1 (>= 90 mL/min/1.73 m2) Lab Interpretation (test code = 80541-0) Abnormal [facility] without Aefl0945-98-46 10:19:15* Test Item Value Reference Range Interpretation Comme nts WBC (test code = 6690-2) 6.76 See_Comment [Automated message] The system which generated this result transmitted reference range: 4.20 - 10.70 10*3/?L. The reference range was not used to interpret this result as normal/abnormal. RBC (test code = 789-8) 3.08 See_Comment L [Automated message] The system which generated this result transmitted reference range: 4.26 - 5.52 10*6/?L. The reference range was not used to interpret this result as normal/abnormal. HGB (test code = 718-7) 8.3 g/dL 12.2-16.4 L HCT (test code = 4544-3) 25.5 % 38.4-49.3 L MCH (test code = 785-6) 26.9 pg 26.1-32.7 MCV (test code = 787-2) 82.8 fL 81.7-95.6 MCHC (test code = 786-4) 32.5 g/dL 31.2-35.0 PLT (test code = 777-3) 159 See_Comment [Automated message] The system which generated this result transmitted reference range: 150 - 328 10*3/?L. The reference range was not used to interpret this result as normal/abnormal. MPV (test code = 86060-4) 10.9 fL 9.8-13.0 RDW-CV (test code = 788-0) 14.9 % 12.1-15.4 RDW-SD (test code = 91393-5) 44.8 fL 38.5-51.6 NRBC x10^3 (test code = 3523807249) See_Comment [Automated messa ge] The system which generated this result transmitted reference range: 10*3/?L. The reference range was not used to interpret this result as normal/abnormal. NRBC/100 WBC (test code = 4111504844) 0.0 See_Comment [Automated messa ge] The system which generated this result transmitted reference range: 0.0 - 10.0 /100 WBCs. The reference range was not used to interpret this result as normal/abnormal. IPF % (test code = 5280211436) Lab Interpretation (test code = 23692-4) Abnormal [facility] without Wqed9600-16-40 10:19:15* Test Item Value Reference Range Interpretation Comme nts WBC (test code = 6690-2) 6.76 See_Comment [Automated message] The system which generated this result transmitted reference range: 4.20 - 10.70 10*3/?L. The reference range was not used to interpret this result as normal/abnormal. RBC (test code = 789-8) 3.08 See_Comment L [Automated message] The system which generated this result transmitted reference range: 4.26 - 5.52 10*6/?L. The reference range was not used to interpret this result as normal/abnormal. HGB (test code = 718-7) 8.3 g/dL 12.2-16.4 L HCT (test code = 4544-3) 25.5 % 38.4-49.3 L MCH (test code = 785-6) 26.9 pg 26.1-32.7 MCV (test code = 787-2) 82.8 fL 81.7-95.6 MCHC (test code = 786-4) 32.5 g/dL 31.2-35.0 PLT (test code = 777-3) 159 See_Comment [Automated message] The system which generated this result transmitted reference range: 150 - 328 10*3/?L. The reference range was not used to interpret this result as normal/abnormal. MPV (test code = 79845-4) 10.9 fL 9.8-13.0 RDW-CV (test code = 788-0) 14.9 % 12.1-15.4 RDW-SD (test code = 49505-8) 44.8 fL 38.5-51.6 NRBC x10^3 (test code = 0179107001) See_Comment [Automated messa ge] The system which generated this result transmitted reference range: 10*3/?L. The reference range was not used to interpret this result as normal/abnormal. NRBC/100 WBC (test code = 3824464779) 0.0 See_Comment [Automated messa ge] The system which generated this result transmitted reference range: 0.0 - 10.0 /100 WBCs. The reference range was not used to interpret this result as normal/abnormal. IPF % (test code = 3021552783) Lab Interpretation (test code = 65755-9) Abnormal [facility] without Esoe8958-80-76 10:19:15* Test Item Value Reference Range Interpretation Comme nts WBC (test code = 6690-2) 6.76 See_Comment [Automated message] The system which generated this result transmitted reference range: 4.20 - 10.70 10*3/?L. The reference range was not used to interpret this result as normal/abnormal. RBC (test code = 789-8) 3.08 See_Comment L [Automated message] The system which generated this result transmitted reference range: 4.26 - 5.52 10*6/?L. The reference range was not used to interpret this result as normal/abnormal. HGB (test code = 718-7) 8.3 g/dL 12.2-16.4 L HCT (test code = 4544-3) 25.5 % 38.4-49.3 L MCH (test code = 785-6) 26.9 pg 26.1-32.7 MCV (test code = 787-2) 82.8 fL 81.7-95.6 MCHC (test code = 786-4) 32.5 g/dL 31.2-35.0 PLT (test code = 777-3) 159 See_Comment [Automated message] The system which generated this result transmitted reference range: 150 - 328 10*3/?L. The reference range was not used to interpret this result as normal/abnormal. MPV (test code = 22376-7) 10.9 fL 9.8-13.0 RDW-CV (test code = 788-0) 14.9 % 12.1-15.4 RDW-SD (test code = 26479-6) 44.8 fL 38.5-51.6 NRBC x10^3 (test code = 1404837425) See_Comment [Automated messa ge] The system which generated this result transmitted reference range: 10*3/?L. The reference range was not used to interpret this result as normal/abnormal. NRBC/100 WBC (test code = 5216525250) 0.0 See_Comment [Automated messa ge] The system which generated this result transmitted reference range: 0.0 - 10.0 /100 WBCs. The reference range was not used to interpret this result as normal/abnormal. IPF % (test code = [id number]) Lab Interpretation (test code = 28276-5) Abnormal [facility] without Evtz4608-34-60 10:19:15* Test Item Value Reference Range Interpretation Comme nts WBC (test code = 6690-2) 6.76 See_Comment [Automated message] The system which generated this result transmitted reference range: 4.20 - 10.70 10*3/?L. The reference range was not used to interpret this result as normal/abnormal. RBC (test code = 789-8) 3.08 See_Comment L [Automated message] The system which generated this result transmitted reference range: 4.26 - 5.52 10*6/?L. The reference range was not used to interpret this result as normal/abnormal. HGB (test code = 718-7) 8.3 g/dL 12.2-16.4 L HCT (test code = 4544-3) 25.5 % 38.4-49.3 L MCH (test code = 785-6) 26.9 pg 26.1-32.7 MCV (test code = 787-2) 82.8 fL 81.7-95.6 MCHC (test code = 786-4) 32.5 g/dL 31.2-35.0 PLT (test code = 777-3) 159 See_Comment [Automated message] The system which generated this result transmitted reference range: 150 - 328 10*3/?L. The reference range was not used to interpret this result as normal/abnormal. MPV (test code = 93656-4) 10.9 fL 9.8-13.0 RDW-CV (test code = 788-0) 14.9 % 12.1-15.4 RDW-SD (test code = 34042-3) 44.8 fL 38.5-51.6 NRBC x10^3 (test code = 2817332327) See_Comment [Automated messa ge] The system which generated this result transmitted reference range: 10*3/?L. The reference range was not used to interpret this result as normal/abnormal. NRBC/100 WBC (test code = 1244333185) 0.0 See_Comment [Automated messa ge] The system which generated this result transmitted reference range: 0.0 - 10.0 /100 WBCs. The reference range was not used to interpret this result as normal/abnormal. IPF % (test code = 6383982121) Lab Interpretation (test code = 53302-3) [facility]* Test Item Value Reference Range Interpretation Comme nts PHOSPHORUS (test code = 2966058057) 3.2 mg/dL 2.5-5.0 Lab Interpretation (test cod e = 62719-6) [facility] 09:54:25* Test Item Value Reference Range Interpretation Comme nts MAGNESIUM (test code = 9001811215) 1.8 mg/dL 1.7-2.4 Lab Interpretation (test cod e = 03253-7) [facility] (NA, K, CL, CO2, GLUCOSE, BUN, CREATININE, CA)2023-05-22 09:54:25* Test Item Value Reference Range Interpretation Comme nts NA (test code = 5788392701) 130 mmol/L 135-145 L K (test code = 8040587256) 4.1 mmol/L 3.5-5.0 CL (test code = 5847111612) 100 mmol/L 98-108 CO2 TOTAL (test code = 6389822266) 28 mmol/L 23-31 AGAP (test code = 5374735047) 2 2-16 BUN (test code = 8821184594) 16 mg/dL 7-23 GLUCOSE (test code = 4922134881) 111 mg/dL 70-110 H CREATININE (test code = 7466263501) 0.76 mg/dL 0.60-1.25 CALCIUM (test code = 7306345279) 8.2 mg/dL 8.6-10.6 L eGFR (test code = 47340-7) 105.5 mL/min/1.73m2 CKD-EPI eGFR (2020). Assuming creatinine has been stable day-to-day for at least three months, the eGFR indicates Category G1 (>= 90 mL/min/1.73 m2) Lab Interpretation (test code = 86930-0) [facility] 09:54:25* Test Item Value Reference Range Interpretation Comme nts PHOSPHORUS (test code = 4499960763) 3.2 mg/dL 2.5-5.0 Lab Interpretation (test cod e = 04557-6) [facility] 09:54:25* Test Item Value Reference Range Interpretation Comme nts MAGNESIUM (test code = 7341395252) 1.8 mg/dL 1.7-2.4 Lab Interpretation (test cod e = 74734-3) [facility] (NA, K, CL, CO2, GLUCOSE, BUN, CREATININE, CA)2023-05-22 09:54:25* Test Item Value Reference Range Interpretation Comme nts NA (test code = 0573015199) 130 mmol/L 135-145 L K (test code = 3650918498) 4.1 mmol/L 3.5-5.0 CL (test code = 1118938429) 100 mmol/L 98-108 CO2 TOTAL (test code = 0335859982) 28 mmol/L 23-31 AGAP (test code = 0972339369) 2 2-16 BUN (test code = 1113146878) 16 mg/dL 7-23 GLUCOSE (test code = 2912102365) 111 mg/dL 70-110 H CREATININE (test code = 6532296912) 0.76 mg/dL 0.60-1.25 CALCIUM (test code = 5502626388) 8.2 mg/dL 8.6-10.6 L eGFR (test code = 86430-5) 105.5 mL/min/1.73m2 CKD-EPI eGFR (2020). Assuming creatinine has been stable day-to-day for at least three months, the eGFR indicates Category G1 (>= 90 mL/min/1.73 m2) Lab Interpretation (test code = 91570-5) [facility] 09:54:25* Test Item Value Reference Range Interpretation Comme nts PHOSPHORUS (test code = 8211174467) 3.2 mg/dL 2.5-5.0 Lab Interpretation (test cod e = 44442-5) [facility] 09:54:25* Test Item Value Reference Range Interpretation Comme nts MAGNESIUM (test code = 3138808799) 1.8 mg/dL 1.7-2.4 Lab Interpretation (test cod e = 43049-0) [facility] (NA, K, CL, CO2, GLUCOSE, BUN, CREATININE, CA)2023-05-22 09:54:25* Test Item Value Reference Range Interpretation Comme nts NA (test code = 1403278236) 130 mmol/L 135-145 L K (test code = 1573147852) 4.1 mmol/L 3.5-5.0 CL (test code = 3643523269) 100 mmol/L 98-108 CO2 TOTAL (test code = 8820228082) 28 mmol/L 23-31 AGAP (test code = 7773865584) 2 2-16 BUN (test code = 7157686617) 16 mg/dL 7-23 GLUCOSE (test code = 5430176311) 111 mg/dL 70-110 H CREATININE (test code = 4871464483) 0.76 mg/dL 0.60-1.25 CALCIUM (test code = 9347732340) 8.2 mg/dL 8.6-10.6 L eGFR (test code = 90973-3) 105.5 mL/min/1.73m2 CKD-EPI eGFR (2020). Assuming creatinine has been stable day-to-day for at least three months, the eGFR indicates Category G1 (>= 90 mL/min/1.73 m2) Lab Interpretation (test code = 99424-5) [facility]normal [facility] CenterIonized Nbtbhbw7425-86-01 09:30:18* Test Item Value Reference Range Interpretation Comme nts IONIZED CA (test code = 8375393666) 4.50 mg/dL 4.50-5.30 PH SERUM (test code = 6183516120) 7.50 7.35-7.45 H QUES Lab Interpretation (test cod e = 39936-2) Abnormal [facility] Zeuvpry0272-84-77 09:30:18* Test Item Value Reference Range Interpretation Comme nts IONIZED CA (test code = 8773336465) 4.50 mg/dL 4.50-5.30 PH SERUM (test code = 7665540550) 7.50 7.35-7.45 H QUES Lab Interpretation (test cod e = 72853-4) Abnormal [facility] Uzqjvks1783-81-67 09:30:18* Test Item Value Reference Range Interpretation Comme nts IONIZED CA (test code = 6701965560) 4.50 mg/dL 4.50-5.30 PH SERUM (test code = 5383915256) 7.50 7.35-7.45 H QUES Lab Interpretation (test cod e = 50941-5) Abnormal [facility] without Sfnc9664-70-96 09:25:00* Test Item Value Reference Range Interpretation Comme nts WBC (test code = 6690-2) 9.15 See_Comment [Automated message] The system which generated this result transmitted reference range: 4.20 - 10.70 10*3/?L. The reference range was not used to interpret this result as normal/abnormal. RBC (test code = 789-8) 3.42 See_Comment L [Automated message] The system which generated this result transmitted reference range: 4.26 - 5.52 10*6/?L. The reference range was not used to interpret this result as normal/abnormal. HGB (test code = 718-7) 9.1 g/dL 12.2-16.4 L HCT (test code = 4544-3) 28.5 % 38.4-49.3 L MCH (test code = 785-6) 26.6 pg 26.1-32.7 MCV (test code = 787-2) 83.3 fL 81.7-95.6 MCHC (test code = 786-4) 31.9 g/dL 31.2-35.0 PLT (test code = 777-3) 171 See_Comment [Automated message] The system which generated this result transmitted reference range: 150 - 328 10*3/?L. The reference range was not used to interpret this result as normal/abnormal. MPV (test code = 51007-1) 10.5 fL 9.8-13.0 RDW-CV (test code = 788-0) 14.8 % 12.1-15.4 RDW-SD (test code = 71641-1) 45.2 fL 38.5-51.6 NRBC x10^3 (test code = 6718256356) See_Comment [Automated messa ge] The system which generated this result transmitted reference range: 10*3/?L. The reference range was not used to interpret this result as normal/abnormal. NRBC/100 WBC (test code = 7296482197) 0.0 See_Comment [Automated messa ge] The system which generated this result transmitted reference range: 0.0 - 10.0 /100 WBCs. The reference range was not used to interpret this result as normal/abnormal. IPF % (test code = 6711312333) Lab Interpretation (test code = 71917-7) Abnormal [facility] without Usna8620-54-40 09:25:00* Test Item Value Reference Range Interpretation Comme nts WBC (test code = 6690-2) 9.15 See_Comment [Automated message] The system which generated this result transmitted reference range: 4.20 - 10.70 10*3/?L. The reference range was not used to interpret this result as normal/abnormal. RBC (test code = 789-8) 3.42 See_Comment L [Automated message] The system which generated this result transmitted reference range: 4.26 - 5.52 10*6/?L. The reference range was not used to interpret this result as normal/abnormal. HGB (test code = 718-7) 9.1 g/dL 12.2-16.4 L HCT (test code = 4544-3) 28.5 % 38.4-49.3 L MCH (test code = 785-6) 26.6 pg 26.1-32.7 MCV (test code = 787-2) 83.3 fL 81.7-95.6 MCHC (test code = 786-4) 31.9 g/dL 31.2-35.0 PLT (test code = 777-3) 171 See_Comment [Automated message] The system which generated this result transmitted reference range: 150 - 328 10*3/?L. The reference range was not used to interpret this result as normal/abnormal. MPV (test code = 28186-9) 10.5 fL 9.8-13.0 RDW-CV (test code = 788-0) 14.8 % 12.1-15.4 RDW-SD (test code = 18108-5) 45.2 fL 38.5-51.6 NRBC x10^3 (test code = 8334542493) See_Comment [Automated messa ge] The system which generated this result transmitted reference range: 10*3/?L. The reference range was not used to interpret this result as normal/abnormal. NRBC/100 WBC (test code = 2418474439) 0.0 See_Comment [Automated messa ge] The system which generated this result transmitted reference range: 0.0 - 10.0 /100 WBCs. The reference range was not used to interpret this result as normal/abnormal. IPF % (test code = 6479076237) Lab Interpretation (test code = 88360-0) Abnormal [facility] without Qxzi9161-87-85 09:25:00* Test Item Value Reference Range Interpretation Comme nts WBC (test code = 6690-2) 9.15 See_Comment [Automated message] The system which generated this result transmitted reference range: 4.20 - 10.70 10*3/?L. The reference range was not used to interpret this result as normal/abnormal. RBC (test code = 789-8) 3.42 See_Comment L [Automated message] The system which generated this result transmitted reference range: 4.26 - 5.52 10*6/?L. The reference range was not used to interpret this result as normal/abnormal. HGB (test code = 718-7) 9.1 g/dL 12.2-16.4 L HCT (test code = 4544-3) 28.5 % 38.4-49.3 L MCH (test code = 785-6) 26.6 pg 26.1-32.7 MCV (test code = 787-2) 83.3 fL 81.7-95.6 MCHC (test code = 786-4) 31.9 g/dL 31.2-35.0 PLT (test code = 777-3) 171 See_Comment [Automated message] The system which generated this result transmitted reference range: 150 - 328 10*3/?L. The reference range was not used to interpret this result as normal/abnormal. MPV (test code = 61436-4) 10.5 fL 9.8-13.0 RDW-CV (test code = 788-0) 14.8 % 12.1-15.4 RDW-SD (test code = 85521-5) 45.2 fL 38.5-51.6 NRBC x10^3 (test code = 9145397157) See_Comment [Automated [employer]] The system which generated this result transmitted reference range: 10*3/?L. The reference range was not used to interpret this result as normal/abnormal. NRBC/100 WBC (test code = 7224467849) 0.0 See_Comment [Automated [employer]] The system which generated this result transmitted reference range: 0.0 - 10.0 /100 WBCs. The reference range was not used to interpret this result as normal/abnormal. IPF % (test code = 3079724173) Lab Interpretation (test code = 81130-6) [facility] VW [id number] 11:08:37EXAM: XR KNEE <3 VW LEFT HISTORY: traction pin placement COMPARISON: Femur radiographs 05/20/2023 FINDINGS: A traction pin is seen in the proximal tibia. Soft tissue swelling ispresent about the thigh and knee.[facility] VW [id number] 11:08:37EXAM: XR KNEE <3 VW LEFT HISTORY: traction pin placement COMPARISON: Femur radiographs 05/20/2023 FINDINGS: A traction pin is seen in the proximal tibia. Soft tissue swelling ispresent about the thigh and knee.[facility] VW [id number] 11:08:37 EXAM: XR KNEE <3 VW LEFT HISTORY: traction pin placement COMPARISON: Femur radiographs 05/20/2023 FINDINGS: A traction pin is seen in the proximal tibia. Soft tissue swelling ispresent about the thigh and knee.[facility] Metabolic Panel (NA, K, CL, CO2, GLUCOSE, BUN, CREATININE, CA)2023-05-21 10:15:42* Test Item Value Reference Range Interpretation Comme nts NA (test code = 8824555925) 134 mmol/L 135-145 L K (test code = 6827106600) 3.9 mmol/L 3.5-5.0 CL (test code = 6050640787) 105 mmol/L 98-108 CO2 TOTAL (test code = 2278230747) 27 mmol/L 23-31 AGAP (test code = 8987039968) 2 2-16 BUN (test code = 2194955958) 15 mg/dL 7-23 GLUCOSE (test code = 0708819047) 139 mg/dL 70-110 H CREATININE (test code = 0579085843) 0.81 mg/dL 0.60-1.25 CALCIUM (test code = 8636595744) 8.2 mg/dL 8.6-10.6 L eGFR (test code = 83634-4) 103.5 mL/min/1.73m2 CKD-EPI eGFR (2020). Assuming creatinine has been stable day-to-day for at least three months, the eGFR indicates Category G1 (>= 90 mL/min/1.73 m2) Lab Interpretation (test code = 98907-3) [facility] 10:15:42* Test Item Value Reference Range Interpretation Comme nts MAGNESIUM (test code = 0822949619) 1.8 mg/dL 1.7-2.4 Lab Interpretation (test cod e = 99290-1) [facility] 10:15:42* Test Item Value Reference Range Interpretation Comme nts PHOSPHORUS (test code = 9541714026) 4.1 mg/dL 2.5-5.0 Lab Interpretation (test cod e = 27519-0) Normal [facility] Metabolic Panel (NA, K, CL, CO2, GLUCOSE, BUN, CREATININE, CA)2023-05-21 10:15:42* Test Item Value Reference Range Interpretation Comme nts NA (test code = 0550338614) 134 mmol/L 135-145 L K (test code = 5967638577) 3.9 mmol/L 3.5-5.0 CL (test code = 2363132459) 105 mmol/L 98-108 CO2 TOTAL (test code = 8889930732) 27 mmol/L 23-31 AGAP (test code = 8541034581) 2 2-16 BUN (test code = 5606563699) 15 mg/dL 7-23 GLUCOSE (test code = 3252496128) 139 mg/dL 70-110 H CREATININE (test code = 5608378883) 0.81 mg/dL 0.60-1.25 CALCIUM (test code = 7663691870) 8.2 mg/dL 8.6-10.6 L eGFR (test code = 28356-3) 103.5 mL/min/1.73m2 CKD-EPI eGFR (2020). Assuming creatinine has been stable day-to-day for at least three months, the eGFR indicates Category G1 (>= 90 mL/min/1.73 m2) Lab Interpretation (test code = 88305-2) [facility] 10:15:42* Test Item Value Reference Range Interpretation Comme nts MAGNESIUM (test code = 5820446364) 1.8 mg/dL 1.7-2.4 Lab Interpretation (test cod e = 84670-0) [facility] 10:15:42* Test Item Value Reference Range Interpretation Comme nts PHOSPHORUS (test code = 8753047232) 4.1 mg/dL 2.5-5.0 Lab Interpretation (test cod e = 33769-0) [facility] (NA, K, CL, CO2, GLUCOSE, BUN, CREATININE, CA)2023-05-21 10:15:42* Test Item Value Reference Range Interpretation Comme nts NA (test code = 2198495912) 134 mmol/L 135-145 L K (test code = 8359739047) 3.9 mmol/L 3.5-5.0 CL (test code = 3959368393) 105 mmol/L 98-108 CO2 TOTAL (test code = 5108408462) 27 mmol/L 23-31 AGAP (test code = 6609534892) 2 2-16 BUN (test code = 5748689536) 15 mg/dL 7-23 GLUCOSE (test code = 3822436462) 139 mg/dL 70-110 H CREATININE (test code = 6217317663) 0.81 mg/dL 0.60-1.25 CALCIUM (test code = 1278420694) 8.2 mg/dL 8.6-10.6 L eGFR (test code = 01933-3) 103.5 mL/min/1.73m2 CKD-EPI eGFR (2020). Assuming creatinine has been stable day-to-day for at least three months, the eGFR indicates Category G1 (>= 90 mL/min/1.73 m2) Lab Interpretation (test code = 77174-7) [facility] 10:15:42* Test Item Value Reference Range Interpretation Comme nts MAGNESIUM (test code = 5202638144) 1.8 mg/dL 1.7-2.4 Lab Interpretation (test cod e = 43747-9) [facility] 10:15:42* Test Item Value Reference Range Interpretation Comme nts PHOSPHORUS (test code = 1197753088) 4.1 mg/dL 2.5-5.0 Lab Interpretation (test cod e = 12164-2) Normal [facility] CenterCb with Quxi1316-77-10 09:46:39* Test Item Value Reference Range Interpretation Comme nts WBC (test code = 6690-2) 8.41 See_Comment [Automated messa ge] The system which generated this result transmitted reference range: 4.20 - 10.70 10*3/?L. The reference range was not used to interpret this result as normal/abnormal. RBC (test code = 789-8) 3.58 See_Comment L [Automated messa ge] The system which generated this result transmitted reference range: 4.26 - 5.52 10*6/?L. The reference range was not used to interpret this result as normal/abnormal. HGB (test code = 718-7) 9.5 g/dL 12.2-16.4 L HCT (test code = 4544-3) 30.2 % 38.4-49.3 L MCV (test code = 787-2) 84.4 fL 81.7-95.6 MCH (test code = 785-6) 26.5 pg 26.1-32.7 MCHC (test code = 786-4) 31.5 g/dL 31.2-35.0 RDW-SD (test code = 76306-2) 45.5 fL 38.5-51.6 RDW-CV (test code = 788-0) 14.8 % 12.1-15.4 PLT (test code = 777-3) 222 See_Comment [Automated messa ge] The system which generated this result transmitted reference range: 150 - 328 10*3/?L. The reference range was not used to interpret this result as normal/abnormal. MPV (test code = 47917-0) 10.6 fL 9.8-13.0 NRBC/100 WBC (test code = 8048949171) 0.0 See_Comment [Automated [employer] ssage] The system which generated this result transmitted reference range: 0.0 - 10.0 /100 WBCs. The reference range was not used to interpret this result as normal/abnormal. NRBC x10^3 (test code = 8733497293) See_Comment [Automated messa ge] The system which generated this result transmitted reference range: 10*3/?L. The reference range was not used to interpret this result as normal/abnormal. GRAN MAT (NEUT) % (test code = 770-8) 78.8 % IMM GRAN % (test code = 9849208035) 0.40 % LYMPH % (test code = 736-9) 11.3 % MONO % (test code = 5905-5) 9.3 % EOS % (test code = 713-8) 0.1 % BASO % (test code = 706-2) 0.1 % GRAN MAT x10^3(ANC) (test code = 2084263549) 6.63 10*3/uL 1.99-6.95 IMM GRAN x10^3 (test code = 4181160007) 0.03 10*3/uL 0.00-0.06 LYMPH x10^3 (test code = 731-0) 0.95 10*3/uL 1.09-3.23 L MONO x10^3 (test code = 742-7) 0.78 10*3/uL 0.36-1.02 EOS x10^3 (test code = 711-2) 0.06-0.53 L BASO x10^3 (test code = 704-7) 0.01-0.09 Lab Interpretation (test code = 80744-6) Abnormal [facility] with Pqaa9011-12-05 09:46:39* Test Item Value Reference Range Interpretation Comme nts WBC (test code = 6690-2) 8.41 See_Comment [Automated messa ge] The system which generated this result transmitted reference range: 4.20 - 10.70 10*3/?L. The reference range was not used to interpret this result as normal/abnormal. RBC (test code = 789-8) 3.58 See_Comment L [Automated messa ge] The system which generated this result transmitted reference range: 4.26 - 5.52 10*6/?L. The reference range was not used to interpret this result as normal/abnormal. HGB (test code = 718-7) 9.5 g/dL 12.2-16.4 L HCT (test code = 4544-3) 30.2 % 38.4-49.3 L MCV (test code = 787-2) 84.4 fL 81.7-95.6 MCH (test code = 785-6) 26.5 pg 26.1-32.7 MCHC (test code = 786-4) 31.5 g/dL 31.2-35.0 RDW-SD (test code = 01003-7) 45.5 fL 38.5-51.6 RDW-CV (test code = 788-0) 14.8 % 12.1-15.4 PLT (test code = 777-3) 222 See_Comment [Automated messa ge] The system which generated this result transmitted reference range: 150 - 328 10*3/?L. The reference range was not used to interpret this result as normal/abnormal. MPV (test code = 89527-9) 10.6 fL 9.8-13.0 NRBC/100 WBC (test code = 7759836305) 0.0 See_Comment [Automated me ssage] The system which generated this result transmitted reference range: 0.0 - 10.0 /100 WBCs. The reference range was not used to interpret this result as normal/abnormal. NRBC x10^3 (test code = 0299103398) See_Comment [Automated messa ge] The system which generated this result transmitted reference range: 10*3/?L. The reference range was not used to interpret this result as normal/abnormal. GRAN MAT (NEUT) % (test code = 770-8) 78.8 % IMM GRAN % (test code = 0597149178) 0.40 % LYMPH % (test code = 736-9) 11.3 % MONO % (test code = 5905-5) 9.3 % EOS % (test code = 713-8) 0.1 % BASO % (test code = 706-2) 0.1 % GRAN MAT x10^3(ANC) (test code = 6118728851) 6.63 10*3/uL 1.99-6.95 IMM GRAN x10^3 (test code = 7487576910) 0.03 10*3/uL 0.00-0.06 LYMPH x10^3 (test code = 731-0) 0.95 10*3/uL 1.09-3.23 L MONO x10^3 (test code = 742-7) 0.78 10*3/uL 0.36-1.02 EOS x10^3 (test code = 711-2) 0.06-0.53 L BASO x10^3 (test code = 704-7) 0.01-0.09 Lab Interpretation (test code = 11733-8) Abnormal [facility] with Izou8688-19-06 09:46:39* Test Item Value Reference Range Interpretation Comme nts WBC (test code = 6690-2) 8.41 See_Comment [Automated messa ge] The system which generated this result transmitted reference range: 4.20 - 10.70 10*3/?L. The reference range was not used to interpret this result as normal/abnormal. RBC (test code = 789-8) 3.58 See_Comment L [Automated messa ge] The system which generated this result transmitted reference range: 4.26 - 5.52 10*6/?L. The reference range was not used to interpret this result as normal/abnormal. HGB (test code = 718-7) 9.5 g/dL 12.2-16.4 L HCT (test code = 4544-3) 30.2 % 38.4-49.3 L MCV (test code = 787-2) 84.4 fL 81.7-95.6 MCH (test code = 785-6) 26.5 pg 26.1-32.7 MCHC (test code = 786-4) 31.5 g/dL 31.2-35.0 RDW-SD (test code = 09890-4) 45.5 fL 38.5-51.6 RDW-CV (test code = 788-0) 14.8 % 12.1-15.4 PLT (test code = 777-3) 222 See_Comment [Automated messa ge] The system which generated this result transmitted reference range: 150 - 328 10*3/?L. The reference range was not used to interpret this result as normal/abnormal. MPV (test code = 52702-3) 10.6 fL 9.8-13.0 NRBC/100 WBC (test code = 6544232668) 0.0 See_Comment [Automated [employer] ssage] The system which generated this result transmitted reference range: 0.0 - 10.0 /100 WBCs. The reference range was not used to interpret this result as normal/abnormal. NRBC x10^3 (test code = 3497225836) See_Comment [Automated messa ge] The system which generated this result transmitted reference range: 10*3/?L. The reference range was not used to interpret this result as normal/abnormal. GRAN MAT (NEUT) % (test code = 770-8) 78.8 % IMM GRAN % (test code = 0842080836) 0.40 % LYMPH % (test code = 736-9) 11.3 % MONO % (test code = 5905-5) 9.3 % EOS % (test code = 713-8) 0.1 % BASO % (test code = 706-2) 0.1 % GRAN MAT x10^3(ANC) (test code = 6675290576) 6.63 10*3/uL 1.99-6.95 IMM GRAN x10^3 (test code = 8939990809) 0.03 10*3/uL 0.00-0.06 LYMPH x10^3 (test code = 731-0) 0.95 10*3/uL 1.09-3.23 L MONO x10^3 (test code = 742-7) 0.78 10*3/uL 0.36-1.02 EOS x10^3 (test code = 711-2) 0.06-0.53 L BASO x10^3 (test code = 704-7) 0.01-0.09 Lab Interpretation (test code = 81253-3) Abnormal [facility] with [id number] 09:46:39* Test Item Value Reference Range Interpretation Comme nts WBC (test code = 6690-2) 8.41 See_Comment [Automated messa ge] The system which generated this result transmitted reference range: 4.20 - 10.70 10*3/?L. The reference range was not used to interpret this result as normal/abnormal. RBC (test code = 789-8) 3.58 See_Comment L [Automated messa ge] The system which generated this result transmitted reference range: 4.26 - 5.52 10*6/?L. The reference range was not used to interpret this result as normal/abnormal. HGB (test code = 718-7) 9.5 g/dL 12.2-16.4 L HCT (test code = 4544-3) 30.2 % 38.4-49.3 L MCV (test code = 787-2) 84.4 fL 81.7-95.6 MCH (test code = 785-6) 26.5 pg 26.1-32.7 MCHC (test code = 786-4) 31.5 g/dL 31.2-35.0 RDW-SD (test code = 92886-7) 45.5 fL 38.5-51.6 RDW-CV (test code = 788-0) 14.8 % 12.1-15.4 PLT (test code = 777-3) 222 See_Comment [Automated messa ge] The system which generated this result transmitted reference range: 150 - 328 10*3/?L. The reference range was not used to interpret this result as normal/abnormal. MPV (test code = 80149-5) 10.6 fL 9.8-13.0 NRBC/100 WBC (test code = 3655522528) 0.0 See_Comment [Automated me ssage] The system which generated this result transmitted reference range: 0.0 - 10.0 /100 WBCs. The reference range was not used to interpret this result as normal/abnormal. NRBC x10^3 (test code = 2921047455) See_Comment [Automated messa ge] The system which generated this result transmitted reference range: 10*3/?L. The reference range was not used to interpret this result as normal/abnormal. GRAN MAT (NEUT) % (test code = 770-8) 78.8 % IMM GRAN % (test code = 0045170476) 0.40 % LYMPH % (test code = 736-9) 11.3 % MONO % (test code = 5905-5) 9.3 % EOS % (test code = 713-8) 0.1 % BASO % (test code = 706-2) 0.1 % GRAN MAT x10^3(ANC) (test code = 1323607249) 6.63 10*3/uL 1.99-6.95 IMM GRAN x10^3 (test code = 3442683662) 0.03 10*3/uL 0.00-0.06 LYMPH x10^3 (test code = 731-0) 0.95 10*3/uL 1.09-3.23 L MONO x10^3 (test code = 742-7) 0.78 10*3/uL 0.36-1.02 EOS x10^3 (test code = 711-2) 0.06-0.53 L BASO x10^3 (test code = 704-7) 0.01-0.09 Lab Interpretation (test code = 92839-9) [facility] [id number] 08:03:40EXAM: XR FEMUR 2 VW LEFT, XR HIPS 3 VW LEFT HISTORY: 57 years old Male with left femur pain ?after a 15 foot fall. COMPARISON: None. FINDINGS: Imaging of the left femur and left hip was obtained. Acute displacedfracture of the proximal femoral diaphysis is present with a 5 cmoverlapping of the proximal over the distal fragments and suspectedrotation of the distal fragment. The femoral head is to a rticulate with theacetabulum. Acute displaced fracture of the lesser trochanter is alsonoted. Evaluation of the knee joint effusion is suboptimal due topositioning. Moderate to severe soft tissue swelling about the proximalthigh is present.[facility] VW [id number] 08:03:40EXAM: XR FEMUR 2 VW LEFT, XR HIPS 3 VW LEFT HISTORY: 57 years old Male with left femur pain ?after a 15 foot fall. COMPARISON: None. FINDINGS: Imaging of the left femur and left hip was obtained. Acute displacedfracture of the proximal femoral diaphysis is present with a 5 cmoverlapping of the proximal over the distal fragments and suspectedrotation of the distal fragment. The femoral head is to articulate with theacetabulum. Acute displaced fracture of the lesser trochanter is alsonoted. Evaluation of the knee joint effusion is suboptimal due topositioning. Moderate to severe soft tissue swelling about the proximalthigh is present.[facility]W LEFT 2023-05-21 04:00:35Ordering Physician: Arturo Moreno History: Fracture, traction. Comparison Study: Left hip x-ray earlier today. Technique: 3 views of left hip. The technical quality of the study isadequate. Findings:Bones: A spiral type fracture is again seen involving the proximal shaft ofthe femur. This fracturealso involves the lesser trochanter which isdisplaced medially by 1 cm. No significant angulation. On the lateral view,1 shafts width posterior displacement of the distal component is noted. Joint spaces: Maintained. No signs of dislocation. Soft tissues: Unremarkable.[facility] VW [id number] 04:00:35Ordering Physician: Arturo Moreno History: Fracture, traction. Comparison Study: Left hip x-ray earlier today. Technique: 3 views of left hip. The technical quality of the study isadequate. Findings:Bones: A spiral type fracture is again seen involving the proximal shaft ofthe femur. This fracturealso involves the lesser trochanter which isdisplaced medially by 1 cm. No significant angulation. On the lateral view,1 shafts width posterior displacement of the distal component is noted. Joint spa stas: Maintained. No signs of dislocation. Soft tissues: Unremarkable.[facility] HIPS 2 [id number] 04:00:35Ordering Physician: Arturo Moreno History: Fracture, traction. Comparison Study: Left hip x-ray nicole ier today. Technique: 3 views of left hip. The technical quality of the study isadequate. Findings:Bones: A spiral type fracture is again seen involving the proximal shaft ofthe femur. This fracturealso involves the lesser trochanter which isdisplaced medially by 1 cm. No significant angulation. On the lateral view,1 shafts width posterior displacement of the distal component is noted. Joint spaces: Maintained. No signs of dislocation. Soft tissues: Unremarkable. [facility] CHEST 1 [id number] 03:40:43Ordering Physician: Daniel De Souza History: Trauma. Comparison Study: None. Technique: Single view of the chest. The technical quality of the study isadequate. Findings: Lungs: No signs of consolidation, effusion or pneumothorax. Mediastinum: Cardiac and mediastinal silhouettes are unremarkable. Soft tissues and bones: Old, healed right midshaft clavicle fracture..[facility] CHEST 1 [id number] 03:40:43Ordering Physician: Daniel De Souza History: Trauma. Comparison Study: None. Technique: Single view of the chest. The technical quality of the study isadequate. Findings: Lungs: No signs of consolidation, effusion or pneumothorax. Mediastinum: Cardiac and mediastinal silhouettes are unremarkable. Soft tissues and bones: Old, healed right midshaft clavicle fracture..[facility] CHEST 1 [id number] 03:40:43Ordering Physician: Daniel De Souza History: Trauma. Comparison Study: None. Technique: Single view of the chest. The technical quality of the study isadequate. Findings: Lungs: No signs of consolidation, effusion or pneumothorax. Mediastinum: Cardiac and mediastinal silhouettes are unremarkable. Soft tissues and bones: Old, healed right midshaft clavicle fracture..[facility]ABOR[facility] Confirmation (Lab Only)2023-05-21 00:13:00* Test Item Value Reference Range Interpretation Comme nts ABO & RH (test code = 20) A Positive [facility] WO [id number] 23:18:47EXAM: CT TRAUMA CERVICAL SPINE WO CONTRAST, CT TRAUMA THORACIC SPINE WOCONTRAST, CT TRAUMA LUMBAR SPINE WO CONTRAST, CT TRAUMA HEAD WO CONTRAST HISTORY: 57 years-old Male; Neck trauma. Fall. COMPARISON: None TECHNIQUE: ?CT imaging of the head, cervical, thoracic and lumbar spine wasobtained withoutIV contrast. Coronal and sagittal reformats wereconstructed. FINDINGS: HEAD: The ventricles and cerebral sulci are normal in caliber and configuration.No hydrocephalus, midline shift or pathological extra-axial fluidcollection is present. The basal cisterns are unremarkable. No acute intracranial hemorrhage or significant mass effect is visualized.No parenchymal attenuation abnormality is seen. The gamble-white matterdifferentiation is preserved. ?Opacification of the dural venous sinusesdue to recently given IV contrast The mastoid air cells and paranasal air sinuses are clear. The calvariumand central skull base are unremarkable. CERVICAL SPINE: Mild reversal of the cervical lordosis is noted. The vertebral bodies arenormal in height and in normal alignment. No acute fracture or subluxationis present. ?The craniocervical junction is intact. ?The prevertebral softtissues are unremarkable. Degenerative changes of the cervical vertebrae manifested by Schmorl'snodes, marginal osteophytes and facet arthropathy centered around C5-C6. The visualized cervical soft tissues are unremarkable. Visualized lungapices are unremarkable. THORACIC SPINE: Acute T12 vertebral body comminuted compression fracture is visualizedinvolving the superior endplate and posterior aspect of vertebral bodyresulting in approximately 20% vertebral height loss. Bilateral T11 inferior articular process and T12 superior articular processnondisplaced fractures are visualized. Nondisplaced T11 spinous process fracture is seen. The vertebral bodies are in otherwise normal height and alignment. ? Bilateral dependent atelectasis is seen. LUMBAR SPINE: The lumbar curvature is normal. ?The vertebral bodies are normal in heightand in normal alignment. Acute mildly displaced L1 and L2 left transverse process fractures arevisualized. Degenerative changes of the lumbar vertebra is seen manifested by Schmorl'snodes, endplate sclerosis, facet arthropathy and marginal osteophytes. Degenerative changes of bilateral s acroiliac joints are seen.[facility] WO [id number] 23:18:47EXAM: CT TRAUMA CERVICAL SPINE WO CONTRAST, CT TRAUMA THORACIC SPINE WOCONTRAST, CT TRAUMA LUMBAR SPINE WO CONTRAST, CT TRAUMA HEAD WO CONTRAST HISTORY: 57 years-old Male; Neck trauma. Fall. COMPARISO N: None TECHNIQUE: ?CT imaging of the head, cervical, thoracic and lumbar spine wasobtained withoutIV contrast. Coronal and sagittal reformats wereconstructed. FINDINGS: HEAD: The ventricles and cerebral sulci are normal in caliber and configuration.No hydrocephalus, midline shift or pathological extra-axial fluidcollection is present. The basal cisterns are unremarkable. No acute intracranial hemorrhage or significant mass effect is visualized.No parenchymal attenuation abnormality is seen. The gamble-white matterdifferentiation is preserved. ?Opacification of the dural venous sinusesdue to recently given IV contrast The mastoid air cells and paranasal air sinuses are clear. The calvariumand central skull base are unremarkable. CERVICAL SPINE: Mild reversal of the cervical lordosis is noted. The vertebral bodies arenormal in height and in normal alignment. No acute fracture or subluxationis present. ?The craniocervical junction is intact. ?The prevertebral softtissues are unremarkable. Degenerative changes of the cervical vertebrae manifested by Schmorl'snodes, marginal osteophytes and facet arthropathy centered around C5- C6. The visualized cervical soft tissues are unremarkable. Visualized lungapices are unremarkable. THORACIC SPINE: Acute T12 vertebral body comminuted compressi on fracture is visualizedinvolving the superior endplate and posterior aspect of vertebral bodyresulting in approximately 20% vertebral height loss. Bilateral T11 inferior articular process and T12 superior articular processnondisplaced fractures are visualized. Nondisplaced T11 spinous process fracture is seen. The vertebral bodies are in otherwise normal height and alignment. ? Bilateral dependent atelectasis is seen. LUMBAR SPINE: The lumbar curvature is normal. ?The vertebral bodies are normal in heightand in normal alignment. Acute mildly displaced L1 and L2 left transverse process fractures arevisualized. Degenerative changes of the lumbar vertebra is seen manifested by Schmorl'snodes, endplate sclerosis, facet arthropathy and marginal osteophytes. Degenerative changes of bilateral sacroiliac joints are seen.[facility] WO [id number] 23:18:47EXAM: CT TRAUMA CERVICAL SPINE WO CONTRAST, CT TRAUMA THORACIC SPINE WOCONTRAST, CT TRAUMA LUMBAR SPINE WO CONTRAST, CT TRAUMA HEAD WO CONTRAST HISTORY: 57 years- old Male; Neck trauma. Fall. COMPARISON: None TECHNIQUE: ?CT imaging of the head, cervical, thoracic and lumbar spine wasobtained withoutIV contrast. Coronal and sagittal reformats wereconstructed. FINDINGS: HEAD: The ventricles and cerebral sulci are normal in caliber and configuration.No hydrocephalus, midline shift or pathological extra-axial fluidcollection is present. The basal cisterns are unremarkable. No acute intracranial hemorrhage or significant mass effect is visualized.No parenchymal attenuation abnormality is seen. The gamble- white matterdifferentiation is preserved. ?Opacification of the dural venous sinusesdue to recently given IV contrast The mastoid air cells and paranasal air sinuses are clear. The calvariumand central skull base are unremarkable. CERVICAL SPINE: Mild reversal of the cervical lordosis is noted. The vertebral bodies arenormal in height and in normal alignment. No acute fracture or subluxationis present. ?The craniocervical junction is intact. ?The prevertebral softtissues are unremarkable. Degenerative changes of the cervical vertebrae manifested by Schmorl'snodes, marginal osteophytes and facet arthropathy centered around C5-C6. The visualized cervical soft tissues are unremarkable. V isualized lungapices are unremarkable. THORACIC SPINE: Acute T12 vertebral body comminuted compression fracture is visualizedinvolving the superior endplate and posterior aspect of vertebral bodyresulting in approximately 20% vertebral height loss. Bilateral T11 inferior articular process and T12 superior articular processnondisplaced fractures are visualized. Nondisplaced T11 spinous process fracture is seen. The vertebral bodies are in otherwise normal height and alignment. ? Bilateral dependent atelectasis is seen. LUMBAR SPINE: The lumbar curvature is normal. ?The vertebral bodies are normal in heightand in normal alignment. Acute mildly displaced L1 and L2 left transverse process fractures arevisualized. Degenerative changes of the lumbar vertebra is seen manifested by Schmorl'snodes, endplate sclerosis, facet arthropathy and marginal osteophytes. Degenerative changes of bilateral sacroiliac joints are seen.[facility] WO [id number] 23:18:47EXAM: CT TRAUMA CERVICAL SPINE WO CONTRAST, CT TRAUMA THORACIC SPINE WOCONTRAST, CT TRAUMA LUMBAR SPINE WO CONTRAST, CT TRAUMA HEAD WO CONTRAST HISTORY: 57 years-old Male; Neck trauma. Fall. COMPARISON: None TECHNIQUE: ?CT imaging of the head, cervical, thoracic and lumbar spine wasobtained withoutIV contrast. Coronal and sagittal reformats wereconstructed. FINDINGS: HEAD: The ventricles and cerebral sulci are normal in caliber and configuration.No hydrocephalus, midline shift or pathological extra-axial fluidcollection is present. The basal cisterns are unremarkable. No acute intracranial hemorrhage or significant mass effect is visualized.No parenchymal attenuation abnormality is seen. The gamble-white matterdifferentiation is preserved. ?Opacification of the dural venous sinusesdue to recently given IV contrast The mastoid air cells and paranasal air sinuses are clear. The calvariumand central skull base are unremarkable. CERVICAL SPINE: Mild reversal of the cervical lordosis is noted. The vertebral bodies arenormal in height and in normal alignment. No acute fracture or subluxationis present. ?The craniocervical junction is intact. ?The prevertebral softtissues are unremarkable. Degenerative changes of the cervical vertebrae manifested by Schmorl'snodes, marginal osteophytes and facet arthropathy centered around C5-C6. The visualized cervical soft tissues are unremarkable. V isualized lungapices are unremarkable. THORACIC SPINE: Acute T12 vertebral body comminuted compression fracture is visualizedinvolving the superior endplate and posterior aspect of vertebral bodyresulting in approximately 20% vertebral height loss. Bilateral T11 inferior articular process and T12 superior articular processnondisplaced fractures are visualized. Nondisplaced T11 spinous process fracture is seen. The vertebral bodies are in otherwise normal height and alignment. ? Bilateral dependent atelectasis is seen. LUMBAR SPINE: The lumbar curvature is normal. ?The vertebral bodies are normal in heightand in normal alignment. Acute mildly displaced L1 and L2 left transverse process fractures arevisualized. Degenerative changes of the lumbar vertebra is seen manifested by Schmorl'snodes, endplate sclerosis, facet arthropathy and marginal osteophytes. Degenerative changes of bilateral sacroiliac joints are seen.[facility] CenterTrvander[facility] hospitaleusebio [id number] 22:58:09* Test Item Value Reference Range Interpretation Comme nts TROPONIN I (test code = 8136063063) 0.005 ng/mL <=0.034 GETACHEW (test code = GETACHEW) Reference (Normal) Range (defined by the 99th percentile reference limit): <= 0.034 ng/mL Note: Cardiac troponin begins to rise 3-4 hours after the onset of ischemia. Repeat in 4-6 hours if the sample was drawn within 3-4 hours of the onset of the symptom and found normal. Diagnosis of myocardial injury is made with acute changes in cTn concentrations with at least one serial sample above the 99th percentile upper reference limit (URL), taken together with the patient's clinical presentation. Biotin has been reported to cause a negative bias, interpret results relative to patient's use of biotin. Lab Interpretation (test code = 73917-7) [facility] [id number] 22:58:09* Test Item Value Reference Range Interpretation Comme nts TROPONIN I (test code = 9960187398) 0.005 ng/mL <=0.034 GETACHEW (test code = GETACHEW) Reference (Normal) Range (defined by the 99th percentile reference limit): <= 0.034 ng/mL Note: Cardiac troponin begins to rise 3-4 hours after the onset of ischemia. Repeat in 4-6 hours if the sample was drawn within 3-4 hours of the onset of the symptom and found normal. Diagnosis of myocardial injury is made with acute changes in cTn concentrations with at least one serial sample above the 99th percentile upper reference limit (URL), taken together with the patient's clinical presentation. Biotin has been reported to cause a negative bias, interpret results relative to patient's use of biotin. Lab Interpretation (test code = 34779-5) [facility] 22:46:29* Test Item Value Reference Range Interpretation Comme nts NA (test code = 1441129682) 134 mmol/L 135-145 L K (test code = 2720159934) 3.7 mmol/L 3.5-5.0 CL (test code = 6498489408) 105 mmol/L 98-108 CO2 TOTAL (test code = 8326994186) 26 mmol/L 23-31 AGAP (test code = 3225195470) 3 2-16 BUN (test code = 2901781857) 17 mg/dL 7-23 GLUCOSE (test code = 0734195583) 157 mg/dL 70-110 H CREATININE (test code = 3381686520) 0.89 mg/dL 0.60-1.25 TOTAL BILI (test code = 8440996552) 0.4 mg/dL 0.1-1.1 CALCIUM (test code = 1098917913) 8.3 mg/dL 8.6-10.6 L T PROTEIN (test code = 5969149945) 7.0 g/dL 6.3-8.2 ALBUMIN (test code = 0115271466) 3.2 g/dL 3.5-5.0 L ALK PHOS (test code = 8985504888) 97 U/L 34-122 ALTv (test code = 1742-6) 27 U/L 5-50 AST(SGOT) (test code = 9269358782) 51 U/L 13-40 H eGFR (test code = 98468-0) 100.6 mL/min/1.73m2 CKD-EPI eGFR (2020). Assuming creatinine has been stable day-to-day for at least three months, the eGFR indicates Category G1 (>= 90 mL/min/1.73 m2) Lab Interpretation (test code = 67861-4) Abnormal [facility]MP[facility] 22:46:29* Test Item Value Reference Range Interpretation Comme nts NA (test code = 1465068477) 134 mmol/L 135-145 L K (test code = 2510760993) 3.7 mmol/L 3.5-5.0 CL (test code = 6409230187) 105 mmol/L 98-108 CO2 TOTAL (test code = 7585756015) 26 mmol/L 23-31 AGAP (test code = 2016805369) 3 2-16 BUN (test code = 8054537619) 17 mg/dL 7-23 GLUCOSE (test code = 3239923918) 157 mg/dL 70-110 H CREATININE (test code = 4544222433) 0.89 mg/dL 0.60-1.25 TOTAL BILI (test code = 7727181859) 0.4 mg/dL 0.1-1.1 CALCIUM (test code = 6932429324) 8.3 mg/dL 8.6-10.6 L T PROTEIN (test code = 0722355419) 7.0 g/dL 6.3-8.2 ALBUMIN (test code = 0150508172) 3.2 g/dL 3.5-5.0 L ALK PHOS (test code = 0940890230) 97 U/L 34-122 ALTv (test code = 1742-6) 27 U/L 5-50 AST(SGOT) (test code = 9928765446) 51 U/L 13-40 H eGFR (test code = 51249-8) 100.6 mL/min/1.73m2 CKD-EPI eGFR (2020). Assuming creatinine has been stable day-to-day for at least three months, the eGFR indicates Category G1 (>= 90 mL/min/1.73 m2) Lab Interpretation (test code = 27728-2) Abnormal [facility] CenterLipase2024-[facility] 22:46:09* Test Item Value Reference Range Interpretation Comme [facility] LIPASE (test code = 3862324345) 84 U/L 0-220 Lab Interpretation (test cod e = 19990-9) Normal [facility] CenterLipase2024-[facility] 22:46:09* Test Item Value Reference Range Interpretation Comme [facility] LIPASE (test code = 1931754991) 84 U/L 0-220 Lab Interpretation (test cod e = 59501-2) Normal [facility] CenterProthrombin Time / [id number] 22:43:29* Test Item Value Reference Range Interpretation Comme [facility] PROTIME PATIENT (test code = 5964-2) 13.6 See_Comment [Automated [employer] ge] The system which generated this result transmitted reference range: 12.0 - 14.7 Seconds. The reference range was not used to interpret this result as normal/abnormal. INR (test code = 6301-6) 1.1 Normal INR <1.1; Warfarin Therapeutic range 2.0 to 3.0 or 2.5 to 3.5, depending upon the indications. Lab Interpretation (test code = 01598-9) Normal [facility]eraPTT20[facility] 22:43:29* Test Item Value Reference Range Interpretation Comme [facility] APTT Patient (test code = 3173-2) 28 See_Comment [Automated message] The system which generated this result transmitted reference range: 23 - 38 Seconds. The reference range was not used to interpret this result as normal/abnormal. GETACHEW (test code = GETACHEW) The [facility] patient population mean normal value for aPTT is 30 seconds. Lab Interpretation (test code = 40228-4) Normal [facility] CenterProthrombin Time / [id number] 22:43:29* Test Item Value Reference Range Interpretation Comme [facility] PROTIME PATIENT (test code = 5964-2) 13.6 See_Comment [Automated messa ge] The system which generated this result transmitted reference range: 12.0 - 14.7 Seconds. The reference range was not used to interpret this result as normal/abnormal. INR (test code = 6301-6) 1.1 Normal INR <1.1; Warfarin Therapeutic range 2.0 to 3.0 or 2.5 to 3.5, depending upon the indications. Lab Interpretation (test code = 35892-3) Normal [facility]eraPTT20[facility] 22:43:29* Test Item Value Reference Range Interpretation Comme [facility] APTT Patient (test code = 3173-2) 28 See_Comment [Automated message] The system which generated this result transmitted reference range: 23 - 38 Seconds. The reference range was not used to interpret this result as normal/abnormal. GETACHEW (test code = GETACHEW) The [facility] patient population mean normal value for aPTT is 30 seconds. Lab Interpretation (test code = 30893-8) Normal [facility] CenterCBC WITH [id number] 22:28:48* Test Item Value Reference Range Interpretation Comme [facility] WBC (test code = 6690-2) 12.31 See_Comment H [Automated message] The system which generated this result transmitted reference range: 4.20 - 10.70 10*3/?L. The reference range was not used to interpret this result as normal/abnormal. RBC (test code = 789-8) 3.90 See_Comment L [Automated message] The system which generated this result transmitted reference range: 4.26 - 5.52 10*6/?L. The reference range was not used to interpret this result as normal/abnormal. HGB (test code = 718-7) 10.5 g/dL 12.2-16.4 L HCT (test code = 4544-3) 33.6 % 38.4-49.3 L MCV (test code = 787-2) 86.2 fL 81.7-95.6 MCH (test code = 785-6) 26.9 pg 26.1-32.7 MCHC (test code = 786-4) 31.3 g/dL 31.2-35.0 RDW-SD (test code = 40172-7) 46.6 fL 38.5-51.6 RDW-CV (test code = 788-0) 14.7 % 12.1-15.4 PLT (test code = 777-3) 228 See_Comment [Automated message] The system which generated this result transmitted reference range: 150 - 328 10*3/?L. The reference range was not used to interpret this result as normal/abnormal. MPV (test code = 16013-5) 10.5 fL 9.8-13.0 NRBC/100 WBC (test code = 8650006964) 0.0 See_Comment [Automated message] The system which generated this result transmitted reference range: 0.0 - 10.0 /100 WBCs. The reference range was not used to interpret this result as normal/abnormal. NRBC x10^3 (test code = 7513761705) See_Comment [Automated message] The system which generated this result transmitted reference range: 10*3/?L. The reference range was not used to interpret this result as normal/abnormal. GRAN MAT (NEUT) % (test code = 770-8) 81.5 % IMM GRAN % (test code = 7263149460) 0.60 % LYMPH % (test code = 736-9) 9.7 % MONO % (test code = 5905-5) 7.0 % EOS % (test code = 713-8) 1.0 % BASO % (test code = 706-2) 0.2 % GRAN MAT x10^3(ANC) (test code = 2738845423) 10.03 10*3/uL 1.99-6.95 H IMM GRAN x10^3 (test code = 4237628478) 0.08 10*3/uL 0.00-0.06 H LYMPH x10^3 (test code = 731-0) 1.19 10*3/uL 1.09-3.23 MONO x10^3 (test code = 742-7) 0.86 10*3/uL 0.36-1.02 EOS x10^3 (test code = 711-2) 0.12 10*3/uL 0.06-0.53 BASO x10^3 (test code = 704-7) 0.03 10*3/uL 0.01-0.09 Lab Interpretation (test code = 61297-3) Abnormal [facility] Without [id number] 22:28:48* Test Item Value Reference Range Interpretation Comme nts WBC (test code = 6690-2) 12.31 See_Comment H [Automated message] The system which generated this result transmitted reference range: 4.20 - 10.70 10*3/?L. The reference range was not used to interpret this result as normal/abnormal. RBC (test code = 789-8) 3.90 See_Comment L [Automated message] The system which generated this result transmitted reference range: 4.26 - 5.52 10*6/?L. The reference range was not used to interpret this result as normal/abnormal. HGB (test code = 718-7) 10.5 g/dL 12.2-16.4 L HCT (test code = 4544-3) 33.6 % 38.4-49.3 L MCH (test code = 785-6) 26.9 pg 26.1-32.7 MCV (test code = 787-2) 86.2 fL 81.7-95.6 MCHC (test code = 786-4) 31.3 g/dL 31.2-35.0 PLT (test code = 777-3) 228 See_Comment [Automated message] The system which generated this result transmitted reference range: 150 - 328 10*3/?L. The reference range was not used to interpret this result as normal/abnormal. MPV (test code = 25808-6) 10.5 fL 9.8-13.0 RDW-CV (test code = 788-0) 14.7 % 12.1-15.4 RDW-SD (test code = 65448-5) 46.6 fL 38.5-51.6 NRBC x10^3 (test code = 0912501974) See_Comment [Automated [employer]] The system which generated this result transmitted reference range: 10*3/?L. The reference range was not used to interpret this result as normal/abnormal. NRBC/100 WBC (test code = 8221563456) 0.0 See_Comment [Automated [employer]] The system which generated this result transmitted reference range: 0.0 - 10.0 /100 WBCs. The reference range was not used to interpret this result as normal/abnormal. IPF % (test code = 6533905381) Lab Interpretation (test code = 75978-2) [facility] - The Type and Screen expires at midnight on the 3rd day after it was drawn. A current Type and Screen is required when RBCs are requested. For all other blood products, a Type and Scr een performed during the current hospitalizati...2023-05-20 22:23:00* Test Item Value Reference Range Interpretation Comme nts ABO & RH (test code = 20) A Positive IAT (test code = 1185) Negative [facility] CenterCT TRAUMA ABDOMEN PELVIS W [id number] 22:11:49CT TRAUMA ABDOMEN PELVIS W CONTRAST 05/20/2023 2:28 PM HISTORY: Abdominal trauma, blunt . Patient fell from a roof. COMPARISON: Same day CT spine TECHNIQUE: Axial images of the abdomen and pelvis were acquired afteradministration of intravenous contrast. Coronal and sagittalreconstructions were also created. FINDINGS: LOWER CHEST: Bilateral dependent atelectasis. Bilateral trace pleuraleffusions. Comminuted fracture of the posterior left T12 rib. Suspectednondisplaced fracture of left posterior 10th rib (2:27) versus artifactfrom motion. HEPATOBILIARY: No hepatomegaly. . A subcentimeter hypodens ity at thehepatic dome is too small to characterized, likely containing mixedangioma.No biliary ductal dilatation. Punctate hyperdense stones are notedin the gallbladder neck. SPLEEN: No splenomegaly. PANCREAS: No ductal dilation, or solid masses. ADRENAL GLANDS: 9 mm hypodense left adrenal nodule is too small tocharacterize. Unremarkable right adrenal gland. KIDNEYS/BLADDER: No hydronephrosis orstone. No solid mass. Mild bladderwall thickening. GI TRACT: No dilation or wall thickening. ?Normal appendix. LYMPH NODES: No lymphadenopathy is seen. VESSELS: No aortic aneurysm or critical stenosis. . PERITONEUM AND RETROPERITONEUM: No free air or free fluid. PELVIS: Unremarkable. BONES AND SOFT TISSUES: Mildly displaced fractures of the left L1 and Z6oawwznhaib processes. Acute compression fractures of the T12 vertebralbody, T11 spinous process and left T12 superior facet fractures are bettercharacterized on same day CT thoracic spine. Displaced fracture of the leftproximal femur.[facility] CenterXR ELBOW >3 VW [id number] 19:56:52EXAM: XR ELBOW 3+ VW RIGHT HISTORY: 57 years-old Male with right elbow swelling no history of injury. COMPARISON: None. FINDINGS: Severe, diffuse soft tissue swelling is present about the distal arm,elbowand visualized forearm. An elbow joint effusion is suspected. Progressivecortical erosion of the posterior olecranon is seen with adjacent bonyfragmentation. Punctate bony fragments or foreign bodies are also seen inthe superficial soft tissues overlying the olecranon. Focal osteopenia isidentified in the lateral humeral epicondyle with possible erosions. Thereis mild ulnohumeral osteophytosis and joint space narrowing.[facility] CenterCOMP. METABOLIC PANEL (81679)2023-05-03 16:15:37* Test Item Value Reference Range Interpretation Comme nts NA (test code = 4383978923) 136 mmol/L 135-145 K (test code = 3477347422) 4.0 mmol/L 3.5-5.0 CL (test code = 1043005680) 104 mmol/L 98-108 CO2 TOTAL (test code = 0440474323) 27 mmol/L 23-31 AGAP (test code = 4895059183) 5 2-16 BUN (test code = 1767798240) 20 mg/dL 7-23 GLUCOSE (test code = 5634616179) 121 mg/dL 70-110 H CREATININE (test code = 8066007969) 1.16 mg/dL 0.60-1.25 TOTAL BILI (test code = 2569812199) 0.3 mg/dL 0.1-1.1 CALCIUM (test code = 2310709018) 8.7 mg/dL 8.6-10.6 T PROTEIN (test code = 3737489392) 7.4 g/dL 6.3-8.2 ALBUMIN (test code = 1774174504) 3.2 g/dL 3.5-5.0 L ALK PHOS (test code = 6592899436) 106 U/L 34-122 ALTv (test code = 1742-6) 26 U/L 5-50 AST(SGOT) (test code = 0815283003) 39 U/L 13-40 eGFR (test code = 72064-2) 73.9 mL/min/1.73m2 CKD-EPI eGFR (2020). Assuming creatinine has been stable day-to-day for at least three months, the eGFR indicates Category G2 (60 - 89 mL/min/1.73 m2) Lab Interpretation (test code = 88725-9) Abnormal [facility] WITH [id number] 16:09:41* Test Item Value Reference Range Interpretation Comme nts WBC (test code = 6690-2) 7.58 See_Comment [Automated messa ge] The system which generated this result transmitted reference range: 4.20 - 10.70 10*3/?L. The reference range was not used to interpret this result as normal/abnormal. RBC (test code = 789-8) 3.90 See_Comment L [Automated messa ge] The system which generated this result transmitted reference range: 4.26 - 5.52 10*6/?L. The reference range was not used to interpret this result as normal/abnormal. HGB (test code = 718-7) 10.6 g/dL 12.2-16.4 L HCT (test code = 4544-3) 33.8 % 38.4-49.3 L MCV (test code = 787-2) 86.7 fL 81.7-95.6 MCH (test code = 785-6) 27.2 pg 26.1-32.7 MCHC (test code = 786-4) 31.4 g/dL 31.2-35.0 RDW-SD (test code = 24778-0) 47.1 fL 38.5-51.6 RDW-CV (test code = 788-0) 14.9 % 12.1-15.4 PLT (test code = 777-3) 284 See_Comment [Automated messa ge] The system which generated this result transmitted reference range: 150 - 328 10*3/?L. The reference range was not used to interpret this result as normal/abnormal. MPV (test code = 77709-2) 10.7 fL 9.8-13.0 NRBC/100 WBC (test code = 9429405449) 0.0 See_Comment [Automated me ssage] The system which generated this result transmitted reference range: 0.0 - 10.0 /100 WBCs. The reference range was not used to interpret this result as normal/abnormal. NRBC x10^3 (test code = 6972643839) See_Comment [Automated messa ge] The system which generated this result transmitted reference range: 10*3/?L. The reference range was not used to interpret this result as normal/abnormal. GRAN MAT (NEUT) % (test code = 770-8) 64.5 % IMM GRAN % (test code = 2881647224) 0.10 % LYMPH % (test code = 736-9) 19.8 % MONO % (test code = 5905-5) 12.5 % EOS % (test code = 713-8) 2.8 % BASO % (test code = 706-2) 0.3 % GRAN MAT x10^3(ANC) (test code = 8300072817) 4.89 10*3/uL 1.99-6.95 IMM GRAN x10^3 (test code = 3627322589) 0.00-0.06 LYMPH x10^3 (test code = 731-0) 1.50 10*3/uL 1.09-3.23 MONO x10^3 (test code = 742-7) 0.95 10*3/uL 0.36-1.02 EOS x10^3 (test code = 711-2) 0.21 10*3/uL 0.06-0.53 BASO x10^3 (test code = 704-7) 0.01-0.09 Lab Interpretation (test code = 01432-5) Abnormal [facility] CenterHEPATITIS C VIRUS (HCV) BY QUANTITATIVE NAAT 2022-02-05 20:29:47* Test Item Value Reference Range Interpretation Comme nts HCV Quantitative NAAT - log IU/mL (test code = 29660-5) Not Detected log IU/mL HCV Quantitative NAAT - IU/mL (test code = 16723-4) Not Detected IU/mL HCV Quantitative Interpretation (test code = 0536680869) Detected Not Detected A GETACHEW (test code = GETAHCEW) The Aptima HCV Dalton nt Dx assay is an FDA-approved real-time spreader-mediate d amplification (TMA) test used for both detection [...] if clinically indicated. Lab Interpretation (test code = 84189-2) Abnormal [facility] CenterHCV [id number] 08:58:12* Test Item Value Reference Range Interpretation Comme nts HCV Ab (test code = 84714-4) Positive HCV Semi-Quantitative (test code = 94097-1) APRI (test code = 9565662381) GETACHEW (test code = GETACHEW) Positive for HCV antibody. This specimen has been reflexed to qualitative PCR test and submitted to [facility]. ?A report will be issued by that laboratory. ?If any questions, contact the Clinical Chemistry Director applications intern at [phone]. [facility] THIERRY Moura [id number] 05:58:38* Test Item Value Reference Range Interpretation Comme nts RPR (Qualitative) (test code = 09128-8) Nonreactive Nonreactive Lab Interpretation (test cod e = 86846-0) Normal [facility] CenterTHYROID STIMULATING [id number] 04:19:19 * Test Item Value Reference Range Interpretation Comme nts TSH (test code = 3543880052) See_Comment [Automated [employer]] The system which generated this result transmitted reference range: 0.45 - 4.70 mIU/L. The reference range was not used to interpret this result as normal/abnormal. Lab Interpretation (test code = 76644-8) Normal [facility] CenterPROSTATIC SPECIFIC ANTIGEN [id number] 04:18:59* Test Item Value Reference Range Interpretation Comme nts PSA (test code = 3090366485) 4.32 ng/mL See_Comment H [Automated message] The system which generated this result transmitted reference range: <=4.00. The reference range was not used to interpret this result as normal/abnormal. GETACHEW (test code = GETACHEW) Biotin has been reported to cause a negative bias, interpret results relative to patient's use of biotin. Lab Interpretation (test code = 91446-8) Abnormal [facility] CenterLIPID PANEL (06713)(TOTAL CHOLESTEROL, TRIGLYCERIDES, HDL)2022-02-03 03:50:57* Test Item Value Reference Range Interpretation Comme nts CHOL (test code = 6919812827) 155 mg/dL 120-200 HDL (test code = 5193075088) 74 mg/dL See_Comment [Automated [employer]] The system which generated this result transmitted reference range: >=40. The reference range was not used to interpret this result as normal/abnormal. HDLC RATIO (test code = 1741022930) See_Comment [Automated [employer]] The system which generated this result transmitted reference range: <=5.0. The reference range was not used to interpret this result as normal/abnormal. TRIG (test code = 2570156080) 211 mg/dL 30-170 H LDL CHOL (test code = 50597-7) 39 mg/dL See_Comment [Automated [employer]] The system which generated this result transmitted reference range: <=160. The reference range was not used to interpret this result as normal/abnormal. VLDL (test code = 6689211525) 42 mg/dL 5-60 Lab Interpretation (test code = 38856-8) Abnormal [facility] CenterLIPID [id number] 05:00:19* Test Item Value Reference Range Interpretation Comme nts CHOLESTEROL (test code = 2210) 192 MG/DL <200 TRIGLYCERIDES (test code = 2232) 99 MG/DL <150 HDL CHOLESTEROL (test code = 2220) 88 MG/DL >39 CALC LDL CHOL (test code = 2237) 85 MG/DL <100 NOTE: CALCULATED LDL IS BASED ON JEAN MARIE-SHELTON METHOD WHICHINCLUDES ADJUSTABLE TRIGLYCERIDE:VLDL CHOLESTEROL RATIO.THIS FACTOR VARIES BY MEASURED TRIGLYCERIDE AND NON-HDLCHOLESTEROL CONCENTRATIONS WITH INCREASED CALCULATED LDL SEENIN HIGHER TRIGLYCERIDE OR LOWER NON-HDL SPECIMENS. FOR MOREINFORMATION, SEE CLIENT ANNOUNCEMENT AT [email or web address] RISK RATIO LDL/HDL (test code = 2238) 0.97 RATIO <3.55 COMPREHENSIVE METABOLIC [id number] 05:00:19* Test Item Value Reference Range Interpretation Comme nts GLUCOSE (test code = 2217) 73 MG/DL 70-99 BUN (test code = 2207) 11 MG/DL 6-20 CREATININE (test code = 2214) 1.17 MG/DL 0.80-1.40 eGFR (2020 CKD-EPI) (test code = 21515) 74 ML/MIN/1.73 >60 CALC BUN/CREAT (test code = 2235) 9 RATIO 6-28 SODIUM (test code = 223) 131 MEQ/L 133-146 L POTASSIUM (test code = 2228) 3.8 MEQ/L 3.5-5.4 CHLORIDE (test code = 2215) 95 MEQ/L 95-107 CARBON DIOXIDE (test code = 2206) 22 MEQ/L 19-31 CALCIUM (test code = 2209) 9.0 MG/DL 8.5-10.5 PROTEIN, TOTAL (test code = 222) 7.5 G/DL 6.1-8.3 ALBUMIN (test code = 2201) 4.3 G/DL 3.5-5.2 CALC GLOBULIN (test code = 2240) 3.2 G/DL 1.9-3.7 CALC A/G RATIO (test code = 2234) 1.3 RATIO 1.0-2.6 BILIRUBIN, TOTAL (test code = 2207) 0.5 MG/DL See_Comment [Automated me ssage] The system which generated this result transmitted reference range: <=1.2. The reference range was not used to interpret this result as normal/abnormal. ALKALINE PHOSPHATASE (test code = 2204) 65 U/L 40-121 AST (test code = 2218) 66 U/L 9-50 H ALT (test code = 2219) 49 U/L 5-50 UNLESS OTHERWISE INDICATED, ALL TESTING PERFORMED [facility] [employer] [address] [place] [id number] DIRECTOR OF SOFTWARE DEVELOPMENT: ALEENA HOGAN M.D. [place] NUMBER [id number] [facility] [place]. [id number] Consult Notes Date/Time Note Provider Source 2023-05-25 15:42:36 [id number] AS4nwUmyo0COsF4CeDVgyo oLyOjKVdEqPf2GKysbu0a/4942-32-29J89:42:36A ssociated Order(s): CONSULT ADULT OCCUPATIONAL THERAPY OT GENERAL EVALUATIONConsult received via [employer], EMR reviewed and evaluation completed 05/25/23 in conjunction with Donald Dent PT due to medical complexity and increased pain. BIlling for OT portion only. Patient referred to occupational therapy for evaluation and treatment secondary to fall resulting in T12 vertebral body compression fx, T11 bilaterally inferior articular process and SP fx, T12 bilateral superior articular process fx and left L1/L2 TP fx s/p T10- L2 fusion, L rib fractures 10-12, Left subtrochanteric fracture s/p ORIF and L CMN of the femur. Patient agreeable to participate in occupational therapy.Discharge Recommendations:Therapy Needs and Potential:- Patient would benefit from continued skilled occupational therapy services to address: Decline in basic activities of daily living, Decline in instrumental activities of daily living, Decreased strength, and Decreased range of motion- Patient demonstrates good potential to improve and meet therapy goals with further skilled occupational therapy services.- Patient appears motivated to improve their B/IADLs and return to their previous level of function.- Patient demonstrates ability to tolerate at least 30-60 minutes of active participation in occupational therapy.- Patient able to follow commands: 1-step Yes, Multi-step Yes, Inconsistencies NoChallenges to Home Transition:- Requires physical assistance for BADLS- Requires physical assistance for IADLS- Requires supervision or verbal cues for BADLS- Requires supervision or verbal cues for IADLS- Limited caregiver availability- Increased risk of falls- Environmental barriers - step to enter home, tub/shower comboEquipment Recommendations:Bedside commode, Tub transfer bench, Hand held shower, and hip kitPLAN OF CARE: At least 4x/weekPrecautions:Weight bearing status: NWB L LE (conflicting recommendations from Dr. Orr and ortho residents)General: Fall, Hemovac, logroll, and spinalBracing: pre-silva TLSO when greater than 30 degreesCurrent Occupational Performance and/or Treatment:AM-PAC 6 Clicks (Raw Score 0=Dependent, 24=Independent; Low function Raw Score 0= Dependent, 32=Independent):Raw Score - Daily Activity: 12T-Scale Score - Daily Activity: 30.6Feeding: Supervision, drinks from thermos at bed levelGrooming: Supervision, to wipe face at bed levelUB Dressing: Total Assistance, to don TLSO with assist x 2 following verbal cues for logroll technique while adhering to WB precautions and spinal precautionsLB Dressing: Maximum Assistance, to don socks at bed level; patient DF HASEEB ankles and elevates R LE but requires assist to elevate L LEToileting Hygiene: Total Assistance, sage cathFunctional Mobility: logroll R with max assist x 2, logrolls L with moderate assist x 2, R sidelying <-> sit EOB with mod to max assist x 2, lateral scoot toward HOB with moderate assist x 1-2. Repositions in bed with mod to max assist x 2. Verbal cues provided throughout for proper body mechanics in light of spinal and WB preacutions.Patient/caregiver educated on:ADL training (See above), Role of OT, Spinal precautions, TLSO management (initiated education about wear schedule, proper fit, and donning procedure), and WB restrictionsPatient left semireclining in bed with call richard in reach. SCDs donned and engaged and HASEEB UE elevated. Please, see full evaluation below for more detail.OT EVALUATION:57 year old male Admit date: 05/20/2023 Date of onset: 05/20/23Admit Diagnosis: Trauma [T14.90XA]OT Diagnosis: Impaired BADL independence, Impaired IADL independence, Weakness, Impaired self-care mobility, and Limited joint ROMPMH:Past Medical History:Diagnosis DateChronic lower back painDry skin dermatitisEdentulousEssential (primary) hypertensionMandible fracture 04/21/2018Unspecified sensorineural hearing lossUnspecified viral hepatitis C without hepatic comaPSH:Past Surgical History:Procedure Laterality DateALVEOLOPLASTY N/A 08/06/2018Surgeon: Carmen Redmond DDS; [facility] INTRAMEDULLARY NAILING Left 05/23/2023Surgeon: Jad Orr MD; [facility] ORIF Left 05/23/2023Surgeon: Jad Orr MD; [facility]AMFULL MOUTH EXTRACTION N/A 08/06/2018Surgeon: Carmen Redmond DDS; [facility] MaryamMANDIBLE HARDWARE REMOVAL N/A 08/06/2018Surgeon: Carmen Redmond DDS; [facility] MaryamNERVE REPAIR N/A 08/06/2018Surgeon: Carmen Redmond DDS; [facility]amOPEWilliam RED SIMPL MANDIBLE FX Left 04/21/2018Andraul Palmer DDSPAIN:Pain Location: back and left legPain rating before treatment: 10, After treatment: 10Pain Management: Nursing NotifiedOCCUPATIONAL ROLES/HOME ENVIRONMENT:Home environment: Lives with spouse and with sons (14 and 22 years old), 1-2 steps to enter, 24/7 supervision/assistance is may not be available, and Single story home.Bathroom access: YesBathroom setup: ComboOccupation(s): remodelingFunction prior to admission: Household ambulation, Community ambulation, Independent with BADLs, and Independent with IADLsEquipment prior to admission: potentially Rolling WalkerPERFORMANCE SKILLS/FACTORS:UE Muscle Tone: bilateral WNLUE ROM: bilateral AROM WFLUE Strength: HASEEB UE 5/5 except deltoids NT due to recent spine surgeryHand dominance: rightDexterity/Coordination: bilateral IntactEndurance - Sitting: Fair Standing: NTSitting Balance - Static: Fair Dynamic: Fair -Standing: Balance - Static NT Dynamic: NTDizziness: Yes but resolves at EOBSkin Integrity: dressings intact and Edema to L LE, hemovac to backSensation: diminished in L LE per PTOral Motor: WFLCommunication: Able to verbalize needs Yes Other: N/AVision: WFL Yes Other: reading glassesHearing: hard of hearing; has hearing aids but does not wear themCOGNITION:Orientation: person, place, date/time, and situationFollows Commands: 1-step Yes Multi-step Yes Inconsistencies NoSafety Awareness/Judgment: GoodPROBLEM LIST: Decreased independence with ADL, Decreased functional ROM, and Decreased strength/endurance for functional activityREHAB POTENTIAL/PROGNOSIS: goodPATIENT/FAMILY GOALS: none stated at this timeTREATMENT/INTERVENTION PLAN: Patient/Caregiver Education, Equipment recommendations, Daily living activities, and Therapeutic exercisesGOAL(S): By discharge, patient will increase independence in daily living skills as follows:Patient will perform 3 in 1 BSC transfer with moderate assistance while adhering to precautions.Patient don pullover shirt with moderate assistance using logroll technique while bed level.Patient will thread pants over HASEEB LE with minimal assistance and using LH quality control scientist while adhering to precautions.4 Patient will increase endurance for functional activity as evidenced by ability to sustain 20 minutes of active participation.5 Patient/caregiver will verbalize/demonstrate understanding/proficiency in the following home programs: Adaptive equipment , 6. Fall prevention, and 7. TLSO managementPATIENT-FAMILY TEACHINGPatient provided with preferred teaching of verbal information, written information, and demonstration on ADL training (See above), Role of OT, Spinal precautions, TLSO management (initiated education about wear schedule, proper fit, and donning procedure), and WB restrictions. Shows readiness to learn. Verbal instruction teaching provided. Individual is able to read and needs reinforcement of teaching.Marnie Mena, OTR, OTD, C/NDTTotal Timed Treatment Codes: 10 MinTotal Treatment Time: 46 MinPatient Complexity Level Moderate - An occupational therapy evaluation of moderate complexity was completed using the above tests and measures. The following information was obtained: An occupational profile and medical and therapy history, including an expanded review of medical and/or therapy records and additional review of physical, cognitive, or psychosocial history related to current functional performance, Various standardized and non-standardized assessments were used to identify at least 3-5 performance deficits related to physical, cognitive, or psychosocial skills that result in activity limitations and/or participation restrictions, and Clinical decision making of moderate analytic complexity, which includes an analysis of the occupational profile, analysis of data from detailed assessment(s), and consideration of several treatment options. Patient may present with comorbidities that affect occupational performance. Minimal to moderate modification of tasks or assistance (e.g., physical or verbal) with assessment(s) is necessary to enable patient to complete evaluation component. 48554-5Obhklip umgzFJ9427-45-61L81:01:31Consult noteTXT1.2.840.4[id number] 9|[id number] for patient mrrj37122-5Dczxeqh noteLNNARRATIVEFormatted C-CDA narrative textUT[address] Qr[id number] RHRDDTDLLHMHCNYY2276-73-72X30:01:311.2.840 .642427.1.72.3.15|1.2.840.210719.1.13.104. [id number] [facility] 2023-05-25 15:42:00 DhsVYAqYSVzIzb+C2xYr 1uAIVy9ZYQxr2pxLPPOvU9 ZtJXgr4bhVCSCgOZPNHgIb2993-80-18H72:42:00A ssociated Order(s): CONSULT ADULT PHYSICAL THERAPY Patient agreeable to working with physical therapy. Patient met semi reclined in bed.Recommend nursing staff utilize jennie lift at this time to safely assist patient with mobility out of the bed or chair.PHYSICAL THERAPY EVALUATIONConsult received, chart reviewed and evaluation complete this date. Patient is referred to PT for evaluation and treatment. Patient is a 57 year old male who presents to hospital for Trauma [T14.90XA] Patient is seen s/p fall resulting in T12 vertebral body compression fx, T11 bilaterally inferior articular process and SP fx, T12 bilateral superior articular process fx and left L1/L2 TP fx s/p T10- L2 fusion, L rib fractures 10-12, Left subtrochanteric fracture s/p ORIF and L CMN of the femur. .Discharge Recommendations:Therapy Needs and Potential:Patient would benefit from continued physical therapy services to address: decline in bed mobility decline in transfers decline in gait and/or balance decline in stair/step negotiation decreased strength decreased range of motion decreased endurancePatient demonstrates good potential to improve and meet therapy goals with further physical therapy services.Patient appears motivated to improve their functional mobility and return to their previous level of function.Patient demonstrates ability to tolerate atleast 30-60 minutes of physical therapy with active participation.Challenges to Home Transition:increased risk of fallsdecreased safety awarenessenvironmental barriersEquipment recommendations:To be decided as patient able to tolerate further therapyCurrent Functional Status and/or Treatment:AM-PAC 6 Clicks (Raw Score 0=Dependent, 24=Independent; Low function Raw Score 0= Dependent, 32=Independent):Raw Score - Basic Mobility : 7T-Scale Score - Basic Mobility : 19.39TLSO donned prior to mobilityBed Mobility:Rolling: Maximum Assistance x 2 , side lying to sitting: max assist x 2, scooting in sitting: max assist with verbal cues for hand placement and technique, sitting at the edge of bed: min assist with verbal cues for hand placement and technique. Patient presents with dizziness however resolved after few min. Sit to supine: max assist with verbal cues for hand placement and technique. Scooting in supine: max assist x 2 with verbal cues for techniqueTransfers:defer due to patient not able to tolerate at this timeAmbulation:defer due to patient not able to tolerate at this timeTherapeutic exercise:instructed patient in the following: ankle pumps, heel slides 10xAfter session, patient semi reclined in bed. Call button provided. Vitals at the end of session HR: 103 bpm, Spo2: 100% on NC, BP: 139/77PLAN OF CARE:While in the hospital, PT will follow patient at least 5 times per week,once or twice a day, per patient's tolerance and needs.See below for complete details.Admit Date: 05/20/2023Hospital Diagnosis:Trauma [T14.90XA]PT Diagnosis: Difficulty walking and WeaknessWeight Bearing Precaution: WILY PARK (conflicting recommendations from Dr. Orr and ortho residents)General Precautions: PPE used:Gloves, General, Fall, Lines/Tubes, Logroll,Sage catheter, IV peripheralBracing/Cast present or required:TLSOPMH:Past Medical History:Diagnosis DateChronic lower back painDry skin dermatitisEdentulousEssential (primary) hypertensionMandible fracture 04/21/2018Unspecified sensorineural hearing lossUnspecified viral hepatitis C without hepatic comaPSH:Past Surgical History:Procedure Laterality DateALVEOLOPLASTY N/A 08/06/2018Surgeon: Carmen Redmond DDS; [facility] INTRAMEDULLARY NAILING Left 05/23/2023Surgeon: Jad Orr MD; [facility] ORIF Left 05/23/2023Surgeon: Jad Orr MD; [facility] MARYAMFULL MOUTH EXTRACTION N/A 08/06/2018Surgeon: Carmen Redmond DDS; [facility] MaryamMANDIBLE HARDWARE REMOVAL N/A 08/06/2018Surgeon: Carmen Redmond DDS; [facility] MaryamNERVE REPAIR N/A 08/06/2018Surgeon: Carmen Redmond DDS; [facility] MaryamOPEN RED SIMPL MANDIBLE FX Left 04/21/2018Darren Hough Living Situation: lives with their family, in a single story house with 1/2 step to enterDME: No devicePrior level of Mobility: community ambulationSuspected ischemic or hemorraghic stroke:NoSubjective: patient states that he was independent prior to hospitalizationPatient/Family Goals: to get betterPatient/Family verbalizes understanding of condition: YesPAIN:-Pain Description: constant-Pain Location: lower back-Pain rating before treatment: 10, After treatment: 10-Pain Management: Nursing NotifiedCOMMUNICATIONPrimary Language: EnglishAble to Verbalize needs: YesVision:glasses Hearing:good; no issues reportedORIENTATION/COGNITION:Oriented to: person, place, date/time, and situationAwake: Yes Alert: Yes Dizzy: NoFollows Commands: Yes1-Step Yes Multi-Step YesInconsistent: NoNEUROLOGICALLight Touch: within functional limits bilateral LE, however decreased sensation on the left upper thighTone: normalBALANCE:Sitting: Static: Fair Dynamic: NTStanding: Static: NT Dynamic: NT secondary to patient not able to tolerate at this timeRANGE OF MOTION: within functional limits bilateral LE,STRENGTH: 3/5 (F+),left LE RT LE: 5/5ENDURANCE: Fair, Room airSKIN INTEGRITY: defer to nursing notes ,PROBLEM LIST: Decline in bed mobility, Decline in gait, Decline in transfers, Difficulty with stairs, Decreased strength, Decreased endurance, and Decreased balanceASSESSMENT: Patient is a 57 year old male seen secondary to the above listed diagnosis. Patient would benefit from continued PT to address the above listed deficits to maximize independence and safety with functional mobility.Rehabilitation Potential: fairGoals: The following goals are to maximize independence and safety with functional mobility to eventually return to prior living situation and prior functional status.Upon discharge, patient and/or family will demonstrate the followin. Supine-sit: Supervision2. Initiate transfer to patient tolerance3. Independent with ambulation, Feet: 50 using least assistive device maintaining precautions4. Demonstrate or verbalize understanding of home exercise program in order to continue with their rehab on their own.Treatment Plan: Gait training, Therapeutic exercise, Transfer training, Balance training, Bed mobility training, Equipment needs assessment, and Safety education, patient/caregiver educationPATIENT EDUCATION: Patient provided with preferred teaching of verbal information on role of PT, plan of care. Shows readiness to learn. Verbal instruction teaching provided. Individual verbalizes understanding of teaching provided.Total Time Tx Codes in Minutes: 10 minTotal Treatment Time in Minutes: 30 minMando Dent PT, DPT, [address]-8Srumpnr blowSJ5311-31-37K39:21:51Consult noteTXT1.2.840.769813.1.13.104.2.7.2.34083 9|[id number] for patient ncxq10761-1Lkyypar noteLNNARRATIVEFormatted C-CDA narrative text[address] De[id number] PBWPHTEDOOSPUHBH9808-28-50V35:21:511.2.840 .539382.1.72.3.15|1.2.840.380377.1.13.104. 2.7.2.727879_[id number] [facility] 2023-05-20 23:37:49 LIeaAsx6frkaKlm6+owi mhqfGvoUgbTAamwJsGhv65 ExQynrUIWZIU7PT6qz7R1T9639-34-82U61:37:49A ssociated Order(s): CONSULT NEUROSURGERY NEUROSURGERY CONSULTATION HISTORY AND PHYSICALAttending Neurosurgeon: Dr. Bang Graham for Consultation: T11/t12 fracturesHPI: Regina Awad is a 57 year old male who presents following a fall from height from roof barn (14-20 feet) with back pain found to have an acute T12 vertebral body compression fx with mild heighloss, T11 bilaterally IAP and SP fx, T12 bilateral SAP fx and left L1/L2 TP fx.Patient denies any radicular pain. Denies numbness tingling. Has a Left femur fx.Past Medical History:Past Medical History:Diagnosis DateChronic lower back painDry skin dermatitisEdentulousEssential (primary) hypertensionMandible fracture 04/21/2018Unspecified sensorineural hearing lossUnspecified viral hepatitis C without hepatic comaPast Surgical History:Past Surgical History:Procedure Laterality DateALVEOLOPLASTY N/A 08/06/2018Surgeon: Carmen Redmond DDS; [facility]FULL MOUTH EXTRACTION N/A 08/06/2018Surgeon: Carmen Redmond DDS; Location: [facility]amMANDIBLE HARDWARE REMOVAL N/A 08/06/2018Surgeon: Carmen Redmond DDS; [facility] MaryamNERVE REPAIR N/A 08/06/2018Surgeon: Carmen Redmond DDS; [facility]PL MANDIBLE FX Left 04/21/2018Andraul Palmer DDSFamily History: not pertinent to this encounterSocial History: not pertinent to this encounterROSA 10 system ROS was negative apart from the pertinent positives noted in the HPI above.Physical ExamVitals:Vitals:05/20/23 2045 05/20/23 2100 05/20/23 2200 05/20/23 2226BP: 102/70 124/79 (!) 143/80Pulse: 88 89 88Resp: 17 16 15Temp: 37.1 ?C (98.7 ?F) 37.1 ?C (98.7 ?F) 36.7 ?C (98.1 ?F)TempSrc: Oral Oral TympanicSpO2: 97% 96% 94%Weight:Height:Awake, alert, oriented e7KXKHU bilaterally at 3mm, EOMIFace symmetric,BUE 5/5LLE 5/5RLE limited due to femur fracture - wiggles toesSensation intact to LT throughoutDTR: 2+No clonusLabs:HemogramRecent LabsWBC 12.31* | 12.31*HGB 10.5* | 10.5*HCT 33.6* | 33.6*PLT 228 | 228ChemistryRecent LabsNA 134*K 3.7CL 914BLG2 26BUN 17CREAT 0.89GLU 157*CA 8.3*Coagulation ProfileRecent LabsPTPAT 13.6PTINR 1.1APTTPAT 28Imaging:XR HIPS 2 VW LEFTResult Date: 4Displaced proximal left femoral shaft fracture. AFC: 09156. RL: 8228. XR CHEST 1 VWResult Date: 05/20/2023No acute or adverse changes. AFC: 36094. RL: 8228. CT TRAUMA CERVICAL SPINE WO CONTRASTResult Date: 05/20/2023No acute intracranial hemorrhage or mass effect. Acute T12 vertebral body compression fracture resulting in mild vertebral height loss and minimal retropulsion. T11 bilateral inferior articular processes and spinous process minimally displaced fractures. T12 bilateral superior articular processes minimally displaced fractures. Left L1 and L2 transverse processes minimally displaced fractures. No acute osseous abnormality in the cervical spine. Findings were communicated with Kirill Gregorio on 05/20/2023 at 3:[address] Otero. Preliminary Report Dictated by Resident: Jasvir Vigil MD., have reviewed this study and agree with the above report.CT TRAUMA LUMBAR SPINE WO CONTRASTResult Date: 05/20/2023No acute intracranial hemorrhage or mass effect. Acute T12 vertebral body compression fracture resulting in mild vertebral height loss and minimal retropulsion. T11 bilateral inferior articular processes and spinous process minimally displaced fractures. T12 bilateral superior articular processes minimally displaced fractures. Left L1 and L2 transverse processes minimally displaced fractures. No acute osseous abnormality in the cervical spine. Findings were communicated with Kirill Gregorio on 05/20/2023 at 3:[address] Otero. Preliminary Report Dictated by Resident: Jasvir Vigil MD., have reviewed this study and agree with the above report.CT TRAUMA THORACIC SPINE WO CONTRASTResult Date: 05/20/2023No acute intracranial hemorrhage or mass effect. Acute T12 vertebral body compression fracture resulting in mild vertebral height loss and minimal retropulsion. T11 bilateral inferior articular processes and spinous process minimally displaced fractures. T12 bilateral superior articular processes minimally displaced fractures. Left L1 and L2 transverse processes minimally displaced fractures. No acute osseous abnormality in the cervical spine. Findings were communicated with Kirill Gregorio on 05/20/2023 at 3:[address] Otero. Preliminary Report Dictated by Resident: Jasvir Vigil MD., have reviewed this study and agree with the above report.CT TRAUMA HEAD WO CONTRASTResult Date: 05/20/2023No acute intracranial hemorrhage or mass effect. Acute T12 vertebral body compression fracture resulting in mild vertebral height loss and minimal retropulsion. T11 bilateral inferior articular processes and spinous process minimally displaced fractures. T12 bilateral superior articular processes minimally displaced fractures. Left L1 and L2 transverse processes minimally displaced fractures. No acute osseous abnormality in the cervical spine. Findings were communicated with Kirill Gregorio on 05/20/2023 at 3:[address] Otero. Preliminary Report Dictated by Resident: Verna Otero I, Jasvir Mcgregor MD., have reviewed this study and agree with the above report.CT TRAUMA ABDOMEN PELVIS W CONTRASTResult Date: . No acute intra-abdominal finding. 2. Comminuted fracture of left T12 rib. Questionable nondisplaced fracture of the posterior left 10th rib versus artifact. Acute compression fractures of T12 vertebral body. 3. Acute T11 spinous process and left T12 superior facet fractures, better characterized on same day CT thoracic spine. Acute displaced fracture of the left femur, better characterized on same day femur x-ray. Left 9 mm adrenal nodule. Correlation with CT adrenal protocol on a nonemergent basis is recommended. 4. Cholelithiasis. Mild bladder wall thickening as may be seen in chronic outlet obstruction or cystitis. Preliminary Report Dictated by Resident: Jaz Hough I, Álvaro Lamb MD., have reviewed this study and agree with the above report.XR ELBOW >3 VW RIGHTResult Date: 05/03/2023Severe soft tissue swelling is concerning for infection. Progressive erosion and fragmentation in the posterior olecranon may represent osteomyelitis. Focal osteopenia and possible erosions in the lateral humeral epicondyle also concerning for infection. Preliminary Report Dictated by Resident: Vasyl Lewis I, Essie Trevizo MD., have reviewed this study and agree with the above report.Assessment: Regina Awad is a 57 year old male who presents following a fall from height from roof barn (14-20 feet) with back pain found to have an acute T12 vertebral body compression fx with mild heighloss, T11 bilaterally IAP and SP fx, T12 bilateral SAP fx and left L1/L2 TP fx.Recommendations:- No acute neurosurgical intervention- MRI T spine wo- TLSO- Log roll Rosalia Navarro MDNeurosurgery Resident ssociated attestation - Bang Barrera MD - 05/24/2023 3:12 PM CST 05/20/23I saw and examined the patient and agree with the note as written today. I actively participated in the decision-making process. Please see the note for additional details.Bang LynchLokfttxJifnwbgmojut75520-8Wqjkqjx [id number]4.1.13.104.2.7.2.663758M eqjaacKyqshFQ0163-17-03P87:12:38Consult noteTXT1.2.840.998003.1.13.104.2.7.2.80693 9|[id number] for patient cdsw54238-4Xhgvhzc noteLNNARRATIVEFormatted C-CDA narrative textUT[address] Kg[id number] NYYEYYRJUKMJJCYT6040-28-86B77:12:381.2.840 .205710.1.72.3.15|1.2.840.689193.1.13.104. 2.7.2.727879_[id number] [facility] 2023-05-20 22:36:38 3WOA+B0ytxA+4h1badS/ KdMA/46GGu1yBWcOOhWpr+ YnmGyE2ZsyEVw2APrqKmN/9008-87-06Z95:36:38A ssociated Order(s): CONSULT ORTHOPAEDIC SURGERY ORTHOPAEDIC SURGERY CONSULT HISTORY & PHYSICAL4Reason for consult:L hip fractureHISTORY OF PRESENT ILLNESSRoger Billy Awad is a 57 year old male who presents as EMS transfer from [facility] as a trauma activation after fall from height from roof barn (14-20 feet). Found to have a L proximal femur fracture. Ortho consulted for further evaluation and management.No prior injuries to L hip or femur in the past. Prior to injury he was ambulatory at baseline. Denies numbness or tingling in toes.Pt unable to bear weight after injury. Treatments tried: none. Previous injury: none. Alleviating factors: immobilization. Aggravating factors: mobilization.Lives in [address] [place] [address]Kvbfz as CarpenterInsurance status: uninsuredPAST HISTORIESPast Medical History:Diagnosis DateChronic lower back painDry skin dermatitisEdentulousEssential (primary) hypertensionMandible fracture 04/21/2018Unspecified sensorineural hearing lossUnspecified viral hepatitis C without hepatic comaPast Surgical History:Procedure Laterality DateALVEOLOPLASTY N/A 08/06/2018Surgeon: Carmen Redmond DDS; [facility] MOUTH EXTRACTION N/A 08/06/2018Surgeon: Carmen Redmond DDS; [facility] MaryamMANDIBLE HARDWARE REMOVAL N/A 08/06/2018Surgeon: Carmen Redmond DDS; [facility] MaryamNERVE REPAIR N/A 08/06/2018Surgeon: Carmen Redmond DDS; [facility] RED SIMPL MANDIBLE FX Left 04/21/2018Andraul Palmer DDSFamily HistoryProblem Relation Age of OnsetDiabetes MotherCoronary Heart Disease MotherCABGHeart MotherMEDICATIONSCurrent Facility-Administered MedicationsMedication Dose Route Frequency Last Rate Last Adminacetaminophen (TYLENOL) tablet 650 mg 650 mg Oral Q6HPRN[START ON 05/21/2023] cyclobenzaprine (FLEXERIL) tablet 5 mg 5 mg Oral TID[START ON 05/21/2023] enoxaparin (LOVENOX) injection 30 mg 30 mg Subcutaneous W61TZRQTNhrvxnh-tsdjcaftfvmgg (NORCO 5) 5-325 mg tablet 1 tablet 1 tablet Oral B6NWWFdccvcevr ringers IV infusion 1,000 mL 1,000 mL IV Infusion CONTINUOUSoxyCODONE immediate release tablet 10 mg 10 mg Oral M8GWUUuzmwlvycpzxz (PROTONIX) injection 40 mg 40 mg Slow IV Push B56KUEHHLGNOOIi Known AllergiesSOCIALSocial HistoryOccupational HistoryNot on fileTobacco UseSmoking status: Every DayPacks/day: .5Types: CigarettesStart date: 03/20/2018Smokeless tobacco: CurrentTypes: SnuffVaping UseVaping Use: Never usedSubstance and Sexual ActivityAlcohol use: YesAlcohol/week: 2.0 standard drinks of alcoholTypes: 2 Cans of beer per weekComment: Frequency variesDrug use: Not CurrentlyTypes: MarijuanaSexual activity: Not on fileREVIEW OF [facility] for pertinentPHYSICAL EXAMINATIONCONSTITUTIONAL:BP (!) 143/80 | Pulse 88 | Temp 36.7 ?C (98.1 ?F) (Tympanic) | Resp 15 | Ht 1.829 m (6') | Wt 81.6 kg (179 lb 14.3 oz) | SpO2 94% | BMI 24.40 kg/m?Constitutional: NAD, AO x3Left lower extremity- Shortened, externally rotated- TTP proximal femur- No TTP distal femur, knee, tibfib, ankle- TA/GS/EHL/FHL intact- Sensation grossly intact to light touch- Palpable dorsalis pedis pulseIMAGINGXR HIPS 2 VW LEFTResult Date: 4Displaced proximal left femoral shaft fracture. AFC: 41939. RL: 8228. XR CHEST 1 VWResult Date: 05/20/2023No acute or adverse changes. AFC: 80585. RL: 8228. CT TRAUMA CERVICAL SPINE WO CONTRASTResult Date: 05/20/2023No acute intracranial hemorrhage or mass effect. Acute T12 vertebral body compression fracture resulting in mild vertebral height loss and minimal retropulsion. T11 bilateral inferior articular processes and spinous process minimally displaced fractures. T12 bilateral superior articular processes minimally displaced fractures. Left L1 and L2 transverse processes minimally displaced fractures. No acute osseous abnormality in the cervical spine. Findings were communicated with Kirill Gregorio on 05/20/2023 at 3:[address] Otero. Preliminary Report Dictated by Resident: Jasvir Vigil MD., have reviewed this study and agree with the above report.CT TRAUMA LUMBAR SPINE WO CONTRASTResult Date: 05/20/2023No acute intracranial hemorrhage or mass effect. Acute T12 vertebral body compression fracture resulting in mild vertebral height loss and minimal retropulsion. T11 bilateral inferior articular processes and spinous process minimally displaced fractures. T12 bilateral superior articular processes minimally displaced fractures. Left L1 and L2 transverse processes minimally displaced fractures. No acute osseous abnormality in the cervical spine. Findings were communicated with Kirill Gregorio on 05/20/2023 at 3:[address] Otero. Preliminary Report Dictated by Resident: Jasvir Vigil MD., have reviewed this study and agree with the above report.CT TRAUMA THORACIC SPINE WO CONTRASTResult Date: 05/20/2023No acute intracranial hemorrhage or mass effect. Acute T12 vertebral body compression fracture resulting in mild vertebral height loss and minimal retropulsion. T11 bilateral inferior articular processes and spinous process minimally displaced fractures. T12 bilateral superior articular processes minimally displaced fractures. Left L1 and L2 transverse processes minimally displaced fractures. No acute osseous abnormality in the cervical spine. Findings were communicated with Kirill Gregorio on 05/20/2023 at 3:[address] Otero. Preliminary Report Dictated by Resident: Jasvir Vigil MD., have reviewed this study and agree with the above report.CT TRAUMA HEAD WO CONTRASTResult Date: 05/20/2023No acute intracranial hemorrhage or mass effect. Acute T12 vertebral body compression fracture resulting in mild vertebral height loss and minimal retropulsion. T11 bilateral inferior articular processes and spinous process minimally displaced fractures. T12 bilateral superior articular processes minimally displaced fractures. Left L1 and L2 transverse processes minimally displaced fractures. No acute osseous abnormality in the cervical spine. Findings were communicated with Kirill Gregorio on 05/20/2023 at 3:[address] Otero. Preliminary Report Dictated by Resident: Jasvir Vigil MD., have reviewed this study and agree with the above report.CT TRAUMA ABDOMEN PELVIS W CONTRASTResult Date: . No acute intra-abdominal finding. 2. Comminuted fracture of left T12 rib. Questionable nondisplaced fracture of the posterior left 10th rib versus artifact. Acute compression fractures of T12 vertebral body. 3. Acute T11 spinous process and left T12 superior facet fractures, better characterized on same day CT thoracic spine. Acute displaced fracture of the left femur, better characterized on same day femur x-ray. Left 9 mm adrenal nodule. Correlation with CT adrenal protocol on a nonemergent basis is recommended. 4. Cholelithiasis. Mild bladder wall thickening as may be seen in chronic outlet obstruction or cystitis. Preliminary Report Dictated by Resident: Jaz Hough I, Álvaro Lamb MD., have reviewed this study and agree with the above report.Radiographs personally reviewed and interpreted by myself and faculty.ASSESSMENTRoger Billy Awad is a 57 year old male who presents s/p fall from roof found to have a closed, left spiral proximal femur fracture. NVI.Other injuries include:- T11 bilateral inferior articular process fx and spinous process fracture- T12 vertebral compression fx- T12 bilateral superior articular process fx- Left L1/2 TP fracture- Left T10 + T12 rib fracturesPLAN/RECOMMENDATIONS- Admit to trauma- Plan for OR for L femur IMN vs ORIF, time and faculty TBD- Appreciate medical optimization prior to OR- L hip traction view XR obtained- Will plan for L proximal tibia traction pin placement tonight- NWB LLE- Consent obtained, leg marked, case request to be submitted- Tert in AM- All findings and diagnoses were discussed at time of visit. Are in agreement with the treatment plan at this time.- Independently reviewed current and previous imaging for comparison, if applicable, as well as relevant lab results. I discussed my findings and educated patient on the condition present. All questions answered to patient's satisfaction.Jostin Miner MDOrthopaedic Surgery ssociated attestation - Arturo Moreno MD - 05/21/2023 9:09 AM CST After discussion with Dr. Miner and reviewing all relevant available clinical information, I agree with resident's note as written, including the radiology interpretation.Arturo Moreno MD, FAAOSBoard Certified Orthopedic SurgerySubspecialty Certified in Hand Ynfhavv53179-1Xskxezb [id number], John1.2.840.603845.1.13.104.2.7.2.229045Sn ddqdytVyzcIJ5852-06-08B30:09:15Consult noteTXT1.2.840.908499.1.13.104.2.7.2.91336 9|[id number] for patient lzay90613-1Impsekw noteLNNARRATIVEFormatted C-CDA narrative textUTGALLUP INDIAN MEDICAL [facility] - [address] Qj[id number] BGAYEIOKASAPYQFM9693-63-28F02:09:151.2.840 .500644.1.72.3.15|1.2.840.015888.1.13.104. 2.7.2.727879_[id number] [facility] History and Physical Notes Date/Time Note Provider Source 2023-05-20 19:27:27 GEB7APLgdC29SLbpFqLu 4zPEiXJkdjjWg0Tk3qW r4KIGnyv1j3NwyZQMNVVydvf09641-22-25C26: 27:27 TRAUMA SURGERY HISTORY AND PHYSICALDate of Service: 05/20/2023 21:53Chief Complaint: Fall from 15 feetTRAUMA EVALHPI/MECHANISM OF INJURYDate of Injury- 05/20/23Time of Injury- 1100Transport details[facility]Regina Awad is a 57 year old male presenting as a trauma activation for a fall from roof of barn. Approximately 14 to 20 feet. - LOC. Was initially seen and stabilized in [facility]. Injuries noted on initial trauma imaging: T12 vertebral compression fx, T11 bilateral inferior articular processes and spinous process minimally displaced fractures, T12 bilateral superior articular processes minimallydisplaced fractures, left L1 and L2 transverse process fractures, left T10 + T12 rib fractures, left proximal femoral diaphysis fracture, mildly displaced fracture of lesser trochanter.Pre-hospital interventions: Interventions: c-collar, tetanus, ancefPRIMARY SURVEYVitals:Vitals:05/20/23201405/20/23202905/20/23204405/20/23 2100BP: 126/73 120/77 102/70 124/79Pulse: 85 84 88 89Resp: 12 12 17 16Temp: 37.1 ?C (98.7 ?F) 37.1 ?C (98.7 ?F) 37.1 ?C (98.7 ?F) 37.1 ?C (98.7 ?F)TempSrc: Oral Oral Oral OralSpO2: 96% 96% 97% 96%Weight:Height:Airway:PatentBreathing :bilateral breath sounds presentCirculation:Bilateral radial pulses present and Bilateral DP/PT pulses presentDisability:Glascow Coma Scale:Glascow Coma ScaleEye OpeninBest Verbal Response: 5Best Motor Response: 6TOTAL: 15Pupils:Equal/reactive and 3 mmRectal exam:not performed.Exposure: see physical exam findingsFAST Exam:was not performedChest XR: obtained. Findings: XR CHEST 1 VWResult Date: 05/20/2023Ordering Physician: Daniel De Souza History: Trauma. Comparison Study: None. Technique: Single view of the chest. The technical quality of the study is adequate. Findings: Lungs: No signs of consolidation, effusion or pneumothorax. Mediastinum: Cardiac and mediastinal silhouettes are unremarkable. Soft tissues and bones: Old, healed right midshaft clavicle fracture..No acute or adverse changes. AFC: [id number]. RL: [id number]. Pelvic XR: not obtainedALLERGIES:No Known AllergiesMEDICATIONS:Home Medications:(Not in a hospital admission)Hospital Medications:Current Facility-Administered MedicationsMedication Dose Route Frequency Last Rate Last Adminacetaminophen (TYLENOL) tablet 650 mg 650 mg Oral Q6HPRN[START ON 05/21/2023] cyclobenzaprine (FLEXERIL) tablet 5 mg 5 mg Oral TID[START ON 05/21/2023] enoxaparin (LOVENOX) injection 30 mg 30 mg Subcutaneous [id number]-zvohxqwhppxbr (NORCO 5) 5-325 mg tablet 1 tablet 1 tablet Oral [id number] ringers IV infusion 1,000 mL 1,000 mL IV Infusion CONTINUOUSoxyCODONE immediate release tablet 10 mg 10 mg Oral L1QHDFxabtcrhanwzz (PROTONIX) injection 40 mg 40 mg Slow IV Push [id number] Outpatient MedicationsMedication Sig Dispense RefillhydroCHLOROthiazide 12.5 mg capsule Take 1 capsule by mouth in the morning.HYDROcodone-acetaminophen 10-325 mg tablet Take 1 tablet by mouth every 6 (six) hours as needed for Pain (scale 7-10).tamsulosin 0.4 mg 24 hr capsule Take 1 capsule by mouth in the morning.ibuprofen 600 mg tablet Take 1 tablet by mouth every 6 (six) hours as needed for Pain (scale 4-6). 30 tablet 0TADALAFIL 20 mg tablet TAKE ONE (1) TABLET(S) BY MOUTH NEEDED FOR ERECTILE DYSFUNCTION (2 HOURS PRIOR TO SEXUAL ACTIVITY TWO TO THREE TIMES DAILY). 10 tablet 12traZODone 50 mg tablet Take 1 tablet by mouth at bedtime. 30 tablet 0methylPREDNISolone (MEDROL, LANA,) 4 mg tablets Take by mouth SEE-INSTRUCTIONS. follow package directions 21 Each 0carvediloL 6.25 mg tablet Take 1 tablet by mouth in the morning and 1 tablet in the evening. Take with meals. 180 tablet 3triamcinolone acetonide 0.1 % cream Apply to area(s) 2 (two) times daily. 30 g 1amLODIPine 10 mg tablet Take 1 tablet by mouth in the morning. 90 tablet 2clotrimazole 1 % topical cream Apply to area(s) at bedtime.cyclobenzaprine HCl (CYCLOBENZAPRINE ORAL) Take by mouth.PAST SURGICAL HISTORY:Past Surgical History:Procedure Laterality DateALVEOLOPLASTY N/A 08/06/2018Surgeon: Carmen Redmond DDS; [facility]FULL MOUTH EXTRACTION N/A 08/06/2018Surgeon: Carmen Redmond DDS; [facility]amMANDIBLE HARDWARE REMOVAL N/A 08/06/2018Surgeon: Carmen Redmond DDS; [facility] LocationNERVE REPAIR N/A 08/06/2018Surgeon: Carmen Redmond, DDS; [facility] MaryamOPEN RED SIMPL MANDIBLE FX Left 04/21/2018Andraul Palmer DDSPAST MEDICAL HISTORY:Past Medical History:Diagnosis DateChronic lower back painDry skin dermatitisEdentulousEssential (primary) hypertensionMandible fracture 04/21/2018Unspecified sensorineural hearing lossUnspecified viral hepatitis C without hepatic comaSOCIAL HISTORY:Social HistorySocioeconomic HistoryMarital status: SingleTobacco UseSmoking status: Every DayPacks/day: .5Types: CigarettesStart date: 03/20/2018Smokeless tobacco: CurrentTypes: SnuffVaping UseVaping Use: Never usedSubstance and Sexual ActivityAlcohol use: YesAlcohol/week: 2.0 standard drinks of alcoholTypes: 2 Cans of beer per weekComment: Frequency variesDrug use: Not CurrentlyTypes: MarijuanaFAMILY HISTORY:Family HistoryProblem Relation Age of OnsetDiabetes MotherCoronary Heart Disease MotherCABGHeart MotherREVIEW OF [id number] Review of Systems conducted; positives are noted per HPIPHYSICAL EXAMHEADSCALP Grossly normal, no wounds, no tenderness to palpationFOREHEAD Grossly normal, no wounds, no tenderness to palpationEYES Visual acuity grossly normal, extraocular movements intact, normal external eye, corneas clear, conjunctiva and sclera normalEARS Hearing grossly intact, no wounds, external ear normalNOSE Grossly normal, septum intact, no wounds, no bleeding, no dischargeMIDFACE Grossly normal, stable and no tenderness to palpationMOUTH Lips grossly normal, mucous membranes moist, no wounds intraorallyMANDIBLE Grossly normal, no wounds, no tenderness to palpationNECKANTERIOR NECK Grossly normal, no wounds, no JVD, no tenderness to palpation, no subcutaneous emphysemaTRACHEA MidlinePOSTERIOR NECK Grossly normal, no wounds, no tenderness to palpation, no subcutaneous emphysemaCHESTANTERIOR CHEST Left chest wall tenderness to palpation, no subcutaneous emphysemaCHEST WALL MOVEMENT Normal; no paradoxical chest wall movement. Non-labored respirations.CHEST WALL STABILITY Stable with palpationAUSCULTATION Regular rate and rhythm, lung sounds as noted aboveABDOMEN/PELVISINSPECTION No wounds. Grossly normal external appearance.PALPATION Soft, tender to palpation of left hip, non-distended. No rebound tenderness or guarding. No peritoneal signs.PELVIS STABILITY Stable with compression.MUSCULOSKELETALRIGHT UPPER EXTREMITY No gross deformity. No tenderness to palpation. Neurovascularly intact. No pain with range of motion.LEFT UPPER EXTREMITY No gross deformity. No tenderness to palpation. Neurovascularly intact. No pain with range of motion.RIGHT LOWER EXTREMITY No gross deformity. No tenderness to palpation. Neurovascularly intact. No pain with range of motion.LEFT LOWER EXTREMITY Closed fracture of proximal femur with tenderness to palpation. Neurovascularly intact. Limited range of motion due to pain.GENITALIA, PERINEUM, RECTUMGENITALIA Sage in place draining cyu.PERINEUM Not examined.RECTUM Not examined.BACKCERVICAL SPINE No tenderness to palpation. No wounds.THORACIC SPINE Tenderness to palpation of lower thoracic vertebrae.LUMBAR SPINE Tenderness to palpation of lumbar vertebrae.SACRUM No tenderness to palpation. No wounds.Neurologic Exam:Right Left CommentUpper Extremity Strength Exam 5/5 5/5Lower Extremity Strength Exam 5/5 5/5Sensation: intact to light touch throughout.LABORATORY RESULTSChemistry CBC LFTs Coags, inmlh696 (L) 105 17 157 (H) 12.31 (H); 12.31 (H) 10.5 (L); 10.5 (L) 228; 228 AST: 51 (H) ALT: 27 PT: 13.6 INR: 1.13.7 26 0.89 33.6 (L); 33.6 (L) AP: 97 T Haseeb: 0.4 PTT: 28eGFR: 100.6 Ca: 8.3 (L) % Tk: 81.5 Prot: 7.0 Alb: 3.2 (L) Lact: - Procal: -Mg: - PO4: - ANC: 10.03 (H) pBNP: - Trop I: 0.005ABGNo results found for: "ACPH", "ACPCO2", "ACPO2", "ACO2HB", "ACNA", "ACK", "ACCAIONZ"RADIOLOGY RESULTSXR CHEST 1 VWResult Date: 05/20/2023Ordering Physician: Daniel De Souza History: Trauma. Comparison Study: None. Technique: Single view of the chest. The technical quality of the study is adequate. Findings: Lungs: No signs of consolidation, effusion or pneumothorax. Mediastinum: Cardiac and mediastinal silhouettes are unremarkable. Soft tissues and bones: Old, healed right midshaft clavicle fracture..No acute or adverse changes. AFC: [id number]. RL: [id number]. CT TRAUMA CERVICAL SPINE WO CONTRASTResult Date: 05/20/2023EXAM: CT TRAUMA CERVICAL SPINE WO CONTRAST, CT TRAUMA THORACIC SPINE WO CONTRAST, CT TRAUMA LUMBAR SPINE WO CONTRAST, CT TRAUMA HEAD WO CONTRAST HISTORY: 57 years-old Male; Neck trauma. Fall. COMPARISON: None TECHNIQUE: CT imaging of the head, cervical, thoracic and lumbar spine was obtained without IV contrast. Coronal and sagittal reformats were constructed. FINDINGS: HEAD: The ventricles and cerebral sulci are normal in caliber and configuration. No hydrocephalus, midline shift or pathological extra-axial fluid collection is present. The basal cisterns are unremarkable. No acute intracranial hemorrhage or significant mass effect is visualized. No parenchymal attenuation abnormality is seen. The gamble-white matter differentiation is preserved. Opacification of the dural venous sinuses due to recently given IV contrast The mastoid air cells and paranasal air sinuses are clear. The calvarium and central skull base are unremarkable. CERVICAL SPINE: Mild reversal of the cervical lordosis is noted. The vertebral bodies are normal in height and in normal alignment. No acute fracture or subluxation is present. The craniocervical junction is intact. The prevertebral soft tissues are unremarkable. Degenerative changes of the cervical vertebrae manifested by Schmorl's nodes, marginal osteophytes and facet arthropathy centered around C5-C6. The visualized cervical soft tissues are unremarkable. Visualized lung apices are unremarkable. THORACIC SPINE: Acute T12 vertebral body comminuted compression fracture is visualized involving the superior endplate and posterior aspect of vertebral body resulting in approximately 20% vertebral height loss. Bilateral T11 inferior articular process and T12 superior articular process nondisplaced fractures are visualized. Nondisplaced T11 spinous process fracture is seen. The vertebral bodies are in otherwise normal height and alignment. Bilateral dependent atelectasis is seen. LUMBAR SPINE: The lumbar curvature is normal. The vertebral bodies are normal in height and in normal alignment. Acute mildly displaced L1 and L2 left transverse process fractures are visualized. Degenerative changes of the lumbar vertebra is seen manifested by Schmorl's nodes, endplate sclerosis, facet arthropathy and marginal osteophytes. Degenerative changes of bilateral sacroiliac joints are seen.No acute intracranial hemorrhage or mass effect. Acute T12 vertebral body compression fracture resulting in mild vertebral height loss and minimal retropulsion. T11 bilateral inferior articular processes and spinous process minimally displaced fractures. T12 bilateral superior articular processes minimally displaced fractures. Left L1 and L2 transverse processes minimally displaced fractures. No acute osseous abnormality in the cervical spine. Findings were communicated with Kirill Gregorio on 05/20/2023 at 3:[address] Otero. Preliminary Report Dictated by Resident: Verna Otero I, Jasvir Mcgregor MD., have reviewed this study and agree with the above report.CT TRAUMA LUMBAR SPINE WO CONTRASTResult Date: 05/20/2023EXAM: CT TRAUMA CERVICAL SPINE WO CONTRAST, CT TRAUMA THORACIC SPINE WO CONTRAST, CT TRAUMA LUMBAR SPINE WO CONTRAST, CT TRAUMA HEAD WO CONTRAST HISTORY: 57 years-old Male; Neck trauma. Fall. COMPARISON: None TECHNIQUE: CT imaging of the head, cervical, thoracic and lumbar spine was obtained without IV contrast. Coronal and sagittal reformats were constructed. FINDINGS: HEAD: The ventricles and cerebral sulci are normal in caliber and configuration. No hydrocephalus, midline shift or pathological extra-axial fluid collection is present. The basal cisterns are unremarkable. No acute intracranial hemorrhage or significant mass effect is visualized. No parenchymal attenuation abnormality is seen. The gamble-white matter differentiation is preserved. Opacification of the dural venous sinuses due to recently given IV contrast The mastoid air cells and paranasal air sinuses are clear. The calvarium and central skull base are unremarkable. CERVICAL SPINE: Mild reversal of the cervical lordosis is noted. The vertebral bodies are normal in height and in normal alignment. No acute fracture or subluxation is present. The craniocervical junction is intact. The prevertebral soft tissues are unremarkable. Degenerative changes of the cervical vertebrae manifested by Schmorl's nodes, marginal osteophytes and facet arthropathy centered around C5-C6. The visualized cervical soft tissues are unremarkable. Visualized lung apices are unremarkable. THORACIC SPINE: Acute T12 vertebral body comminuted compression fracture is visualized involving the superior endplate and posterior aspect of vertebral body resulting in approximately 20% vertebral height loss. Bilateral T11 inferior articular process and T12 superior articular process nondisplaced fractures are visualized. Nondisplaced T11 spinous process fracture is seen. The vertebral bodies are in otherwise normal height and alignment. Bilateral dependent atelectasis is seen. LUMBAR SPINE: The lumbar curvature is normal. The vertebral bodies are normal in height and in normal alignment. Acute mildly displaced L1 and L2 left transverse process fractures are visualized. Degenerative changes of the lumbar vertebra is seen manifested by Schmorl's nodes, endplate sclerosis, facet arthropathy and marginal osteophytes. Degenerative changes of bilateral sacroiliac joints are seen.No acute intracranial hemorrhage or mass effect. Acute T12 vertebral body compression fracture resulting in mild vertebral height loss and minimal retropulsion. T11 bilateral inferior articular processes and spinous process minimally displaced fractures. T12 bilateral superior articular processes minimally displaced fractures. Left L1 and L2 transverse processes minimally displaced fractures. No acute osseous abnormality in the cervical spine. Findings were communicated with Kirill Gregorio on 05/20/2023 at 3:[address] Otero. Preliminary Report Dictated by Resident: Verna Otero I, Jasvir Mcgregor MD., have reviewed this study and agree with the above report.CT TRAUMA THORACIC SPINE WO CONTRASTResult Date: 05/20/2023EXAM: CT TRAUMA CERVICAL SPINE WO CONTRAST, CT TRAUMA THORACIC SPINE WO CONTRAST, CT TRAUMA LUMBAR SPINE WO CONTRAST, CT TRAUMA HEAD WO CONTRAST HISTORY: 57 years-old Male; Neck trauma. Fall. COMPARISON: None TECHNIQUE: CT imaging of the head, cervical, thoracic and lumbar spine was obtained without IV contrast. Coronal and sagittal reformats were constructed. FINDINGS: HEAD: The ventricles and cerebral sulci are normal in caliber and configuration. No hydrocephalus, midline shift or pathological extra-axial fluid collection is present. The basal cisterns are unremarkable. No acute intracranial hemorrhage or significant mass effect is visualized. No parenchymal attenuation abnormality is seen. The gamble-white matter differentiation is preserved. Opacification of the dural venous sinuses due to recently given IV contrast The mastoid air cells and paranasal air sinuses are clear. The calvarium and central skull base are unremarkable. CERVICAL SPINE: Mild reversal of the cervical lordosis is noted. The vertebral bodies are normal in height and in normal alignment. No acute fracture or subluxation is present. The craniocervical junction is intact. The prevertebral soft tissues are unremarkable. Degenerative changes of the cervical vertebrae manifested by Schmorl's nodes, marginal osteophytes and facet arthropathy centered around C5-C6. The visualized cervical soft tissues are unremarkable. Visualized lung apices are unremarkable. THORACIC SPINE: Acute T12 vertebral body comminuted compression fracture is visualized involving the superior endplate and posterior aspect of vertebral body resulting in approximately 20% vertebral height loss. Bilateral T11 inferior articular process and T12 superior articular process nondisplaced fractures are visualized. Nondisplaced T11 spinous process fracture is seen. The vertebral bodies are in otherwise normal height and alignment. Bilateral dependent atelectasis is seen. LUMBAR SPINE: The lumbar curvature is normal. The vertebral bodies are normal in height and in normal alignment. Acute mildly displaced L1 and L2 left transverse process fractures are visualized. Degenerative changes of the lumbar vertebra is seen manifested by Schmorl's nodes, endplate sclerosis, facet arthropathy and marginal osteophytes. Degenerative changes of bilateral sacroiliac joints are seen.No acute intracranial hemorrhage or mass effect. Acute T12 vertebral body compression fracture resulting in mild vertebral height loss and minimal retropulsion. T11 bilateral inferior articular processes and spinous process minimally displaced fractures. T12 bilateral superior articular processes minimally displaced fractures. Left L1 and L2 transverse processes minimally displaced fractures. No acute osseous abnormality in the cervical spine. Findings were communicated with Kirill Gregorio on 05/20/2023 at 3:[address] Otero. Preliminary Report Dictated by Resident: Verna Otero I, Jasvir Mcgregor MD., have reviewed this study and agree with the above report.CT TRAUMA HEAD WO CONTRASTResult Date: 05/20/2023EXAM: CT TRAUMA CERVICAL SPINE WO CONTRAST, CT TRAUMA THORACIC SPINE WO CONTRAST, CT TRAUMA LUMBAR SPINE WO CONTRAST, CT TRAUMA HEAD WO CONTRAST HISTORY: 57 years-old Male; Neck trauma. Fall. COMPARISON: None TECHNIQUE: CT imaging of the head, cervical, thoracic and lumbar spine was obtained without IV contrast. Coronal and sagittal reformats were constructed. FINDINGS: HEAD: The ventricles and cerebral sulci are normal in caliber and configuration. No hydrocephalus, midline shift or pathological extra-axial fluid collection is present. The basal cisterns are unremarkable. No acute intracranial hemorrhage or significant mass effect is visualized. No parenchymal attenuation abnormality is seen. The gamble-white matter differentiation is preserved. Opacification of the dural venous sinuses due to recently given IV contrast The mastoid air cells and paranasal air sinuses are clear. The calvarium and central skull base are unremarkable. CERVICAL SPINE: Mild reversal of the cervical lordosis is noted. The vertebral bodies are normal in height and in normal alignment. No acute fracture or subluxation is present. The craniocervical junction is intact. The prevertebral soft tissues are unremarkable. Degenerative changes of the cervical vertebrae manifested by Schmorl's nodes, marginal osteophytes and facet arthropathy centered around C5-C6. The visualized cervical soft tissues are unremarkable. Visualized lung apices are unremarkable. THORACIC SPINE: Acute T12 vertebral body comminuted compression fracture is visualized involving the superior endplate and posterior aspect of vertebral body resulting in approximately 20% vertebral height loss. Bilateral T11 inferior articular process and T12 superior articular process nondisplaced fractures are visualized. Nondisplaced T11 spinous process fracture is seen. The vertebral bodies are in otherwise normal height and alignment. Bilateral dependent atelectasis is seen. LUMBAR SPINE: The lumbar curvature is normal. The vertebral bodies are normal in height and in normal alignment. Acute mildly displaced L1 and L2 left transverse process fractures are visualized. Degenerative changes of the lumbar vertebra is seen manifested by Schmorl's nodes, endplate sclerosis, facet arthropathy and marginal osteophytes. Degenerative changes of bilateral sacroiliac joints are seen.No acute intracranial hemorrhage or mass effect. Acute T12 vertebral body compression fracture resulting in mild vertebral height loss and minimal retropulsion. T11 bilateral inferior articular processes and spinous process minimally displaced fractures. T12 bilateral superior articular processes minimally displaced fractures. Left L1 and L2 transverse processes minimally displaced fractures. No acute osseous abnormality in the cervical spine. Findings were communicated with Kirill Gregorio on 05/20/2023 at 3:[address] Otero. Preliminary Report Dictated by Resident: Verna Otero I, Jasvir Mcgregor MD., have reviewed this study and agree with the above report.CT TRAUMA ABDOMEN PELVIS W CONTRASTResult Date: 05/20/2023T TRAUMA ABDOMEN PELVIS W CONTRAST 05/20/2023 2:28 PM HISTORY: Abdominal trauma, blunt . Patient fell from a roof. COMPARISON: Same day CT spine TECHNIQUE: Axial images of the abdomen and pelvis were acquired after administration of intravenous contrast. Coronal and sagittal reconstructions were also created. FINDINGS: LOWER CHEST: Bilateral dependent atelectasis. Bilateral trace pleural effusions. Comminuted fracture of the posterior left T12 rib. Suspected nondisplaced fracture of left posterior 10th rib (2:27) versus artifact from motion. HEPATOBILIARY: No hepatomegaly. . A subcentimeter hypodensity at the hepatic dome is too small to characterized, likely containing mixed angioma.No biliary ductal dilatation. Punctate hyperdense stones are noted in the gallbladder neck. SPLEEN: No splenomegaly. PANCREAS: No ductal dilation, or solid masses. ADRENAL GLANDS: 9 mm hypodense left adrenal nodule is too small to characterize. Unremarkable right adrenal gland. KIDNEYS/BLADDER: No hydronephrosis or stone. No solid mass. Mild bladder wall thickening. GI TRACT: No dilation or wall thickening. Normal appendix. LYMPH NODES: No lymphadenopathy is seen. VESSELS: No aortic aneurysm or critical stenosis. . PERITONEUM AND RETROPERITONEUM: No free air or free fluid. PELVIS: Unremarkable. BONES AND SOFT TISSUES: Mildly displaced fractures of the left L1 and L2 transverse processes. Acute compression fractures of the T12 vertebral body, T11 spinous process and left T12 superior facet fractures are better characterized on same day CT thoracic spine. Displaced fracture of the left proximal femur.1. No acute intra-abdominal finding. 2. Comminuted fracture of left T12 rib. Questionable nondisplaced fracture of the posterior left 10th rib versus artifact. Acute compression fractures of T12 vertebral body. 3. Acute T11 spinous process and left T12 superior facet fractures, better characterized on same day CT thoracic spine. Acute displaced fracture of the left femur, better characterized on same day femur x-ray. Left 9 mm adrenal nodule. Correlation with CT adrenal protocol on a nonemergent basis is recommended. 4. Cholelithiasis. Mild bladder wall thickening as may be seen in chronic outlet obstruction or cystitis. Preliminary Report Dictated by Resident: Álvaro Enamorado MD., have reviewed this study and agree with the above report.XR FEMUR 2 VW LEFTResult Date: 05/20/2023EXAM: XR FEMUR 2 VW LEFT, XR HIPS 3 VW LEFT HISTORY: 57 years old Male with left femur pain after a 15 foot fall. COMPARISON: None. FINDINGS: Imaging of the left femur and left hip was obtained. Acute displaced fracture of the proximal femoral diaphysis is present with a 5 cm overlapping of the proximal over the distal fragments and suspected rotation of the distal fragment. The femoral head is to articulate with the acetabulum. Acute displaced fracture of the lesser trochanter is also noted. Evaluation of the knee joint effusion is suboptimal due to positioning. Moderate to severe soft tissue swelling about the proximal thigh is present.Acute displaced fracture of the proximal femoral diaphysis with associated overlapping and rotation of the distal fragment relative to the proximal portion. Acute mildly displaced fracture of the lesser trochanter. Preliminary Report Dictated by Resident: Jaz Marks HIPS 3 VW LEFTResult Date: 05/20/2023EXAM: XR FEMUR 2 VW LEFT, XR HIPS 3 VW LEFT HISTORY: 57 years old Male with left femur pain after a 15 foot fall. COMPARISON: None. FINDINGS: Imaging of the left femur and left hip was obtained. Acute displaced fracture of the proximal femoral diaphysis is present with a 5 cm overlapping of the proximal over the distal fragments and suspected rotation of the distal fragment. The femoral head is to articulate with the acetabulum. Acute displaced fracture of the lesser trochanter is also noted. Evaluation of the knee joint effusion is suboptimal due to positioning. Moderate to severe soft tissue swelling about the proximal thigh is present.Acute displaced fracture of the proximal femoral diaphysis with associated overlapping and rotation of the distal fragment relative to the proximal portion. Acute mildly displaced fracture of the lesser trochanter. Preliminary Report Dictated by Resident: Jaz Hernandez NguyenXR ELBOW >3 VW RIGHTResult Date: 05/03/2023EXAM: XR ELBOW 3+ VW RIGHT HISTORY: 57 years-old Male with right elbow swelling no history of injury. COMPARISON: None. FINDINGS: Severe, diffuse soft tissue swelling is present about the distal arm, elbow and visualized forearm. An elbow joint effusion is suspected. Progressive cortical erosion of the posterior olecranon is seen with adjacent bony fragmentation. Punctate bony fragments or foreign bodies are also seen in the superficial soft tissues overlying the olecranon. Focal osteopenia is identified in the lateral humeral epicondyle with possible erosions. There is mild ulnohumeral osteophytosis and joint space narrowing.Severe soft tissue swelling is concerning for infection. Progressive erosion and fragmentation in the posterior olecranon may represent osteomyelitis. Focal osteopenia and possible erosions in the lateral humeral epicondyle also concerning for infection. Preliminary Report Dictated by Resident: Vasyl Lewis I, Essie Trevizo MD., have reviewed this study and agree with the above report.ASSESSMENT/PLAN:Regina Awad is a 57 year old male presenting as a trauma activation following fall from barn (20 feet), found to have the following injuries:Left proximal femur fracturePlan: orthopedics bxclrucsK32 bilateral inferior articular and spinous processes fracture, T12 vertebral compression fracture, T12 bilateral superior articular process fx, left L1/L2 transverse process fracturePlan: neurosurgery consultLeft T10 + T12 rib fractureRib fractures:Present Patient age greater than 60? No, 0 pointsIncentive spirometry volume greater than 750 mL? Yes, 0 pointsSevere pulmonary contusion on CT imaging? No, 0 pointsMore than 5 rib fractures seen on imaging? No, 0 pointsHistory of COPD, Asthma or smoking? Yes, 2 pointsHemothorax, Pneumothorax or chest tube placed? No, 0 pointsPain score greater than 6/10? Yes, 1 pointWeak or absent cough? No, 0 pointsTotal RIG Score = 3Incidental findings: 9 mm adrenal noduleWandery MD Damir05/20/2023 21:53Department of Trauma/Acute Care Surgery ssociated attestation - Daniel De Souza MD - 05/21/2023 12:01 AM CST AttendingI personally examined the patient on 05/20/23 and agree with the Resident note by Dr. Reich as written. I actively participated in the decision-making process. Please see the note for additional details.The history and physical exam and medical decision making was directed by me. Briefly, 57 year old male presenting as a trauma activation following fall from barn (20 feet), found to have the following injuries:Left proximal femur txneahkkI60 bilateral inferior articular and spinous processes fracture, T12 vertebral compression fracture, T12 bilateral superior articular process fx, left L1/L2 transverse process fractureLeft T10 + T12 rib fracturePROBLEMS:Acute fall complicated by injuries as aboveReview and interpretation of testsNew tests orderedDiscussed with Ortho, NS (external provider)Moderate (M) risk indicated byOther extenuating risks including need for monitoring, pain control (minor)(M)History of/underlyingPast Medical History:Diagnosis DateChronic lower back painDry skin dermatitisEdentulousEssential (primary) hypertensionMandible fracture 04/21/2018Unspecified sensorineural hearing lossUnspecified viral hepatitis C without hepatic comaPLAN:ICU admitNS consultOrtho consultRib fx protocolPain mgmtCPT: 30555Yflojog Welsh, MDTrauma/Acute Care Surgery Wtrhnyn01195-9Ksxtnzj and physical ttieIQ0122731Csmgn, Francis1.2.840.711323.1.13.104.2.7.2.83 7162JaeviVzxbunyQY0332-38-08Y74:01:06Hi story and physical noteTXT1.2.840.120831.1.13.104.2.7.2.72 7879|[id number] for patient inqy21584-2Bxxiwfm and physical noteLNNARRATIVEFormatted C-CDA narrative umaiSUQ-DYUILTPXVX-ESHAQNGJAMKMQYW - Health301 [employer] RmihPfvfudxmiEzprdmpdfNQOD0884155755MOO JOIICZZHZQOJEGCGLGV3696-38-39O57:01:061 .2.840.278230.1.72.3.15|1.2.840.316968. 1.13.104.2.7.2.727879_[id number] [facility] Procedure Notes Date/Time Note Provider Source 2023-05-24 14:32:09 Q2TquP5WHzDG8p2zNIZw jUTFtxi6elsDLtkyB9U0Tr /jwbvUrKy20V4fiXL13gLN1770-60-57Y49:32:09F ormatting of this note might be different from the original.Date:4Preoperative diagnosis: T12 fracture, spinal instabilityPostoperative diagnosis:T12 fracture, spinal instabilityProcedure: T10- L2 fusion with bone allograft an autograft, [employer] posterior instrumentation system, usage of spinal neuronavigation, harvesting of autologus bone graft,usage of intraoperative fluroscopySurgeon: Bang Mcwilliamsistant: Brain Maykel Owens ShahEBL:300 mlFindings: laminectomy , decompression not doneComplications: noneSpecimen sent: nonePostoperative: transferred to ICU in stable condition.CPT Code:40895,75273,79769,54795,87870,79400,2 0936,64831,39761Chpwf Crisy 96602-4Uhcqpwlvc xzdiST0051-31-52L33:25:30Procedure noteTXT1.2.840.122361.1.13.104.2.7.2.89506 9|[id number] for patient uvie65457-7Sxiwuafvz noteLNNARRATIVEFormatted C-CDA narrative textUT[address] KemjYosrihlolVajmvaedgZNHH9543090310TYUVDA UKJGNLLENSMBLTZG6047-69-00Y48:25:301.2.840 .613535.1.72.3.15|1.2.840.652527.1.13.104. 2.7.2.727879_[id number] [facility] Notes Date/Time Note Provider Source 2023-08-14 14:16:26 2uoCBvoHWqfIunELqfow0GbJs3Fx6dZwIeE /5wqr0/cqXgIv7N8MEFtdFV0Cixvj1521-2 08-13T14:16:26 Chief ComplaintPatient presents withNew PatientEstablish CareBroke his back and femur and heel and 4 ribs on Had Surgery in MayCharan Andradeectronically signed by Gisselle Page LVN at 08/14/2023 2:18 PM OFX17248-7Wsvvr EmyeJV2566-17-40S62:18:09Nurse NoteTXT1.2.840.097351.1.13.131.2.7. 2.509933|[id number] for patient ilev34621-8Dqvey NoteLNNARRATIVEFormatted C-CDA narrative textSALINAS VALLEY HEALTH MEDICAL CENTEREPCorneliaMercy Health St. [facility] Center2727 [facility].QNDKWKJBLWSRBSOXXB7041862108BM SL3179-35-05X90:18:091.2.840.275351 .1.72.3.15|1.2.840.347143.1.13.131. 2.7.2.727879_[id number] [facility] 2023-07-13 14:20:00 4XLDhkO9D5xwaQpK+aagjtg8IILKWurd8P/ hV8UlRrtHknunPecdN3RyerrH3ljR8319-9 4:20:00 Patient and refused to do another round of blood draw and insisted to go home. Informed MD about patient request. Secured AMA form signed by patient himself. Patient and educated about the importance of test work up and the possibility of risks in leaving against medical advice. Patient and amenable to teachings provided. stated that she will set appointment with a different provider for his 's concern. Patient left ED AAOx4, ambulatory with walker assistance accompanied by . 13701-8Dcxbqfaxc department KwdfEP3962-25-10Q19:31:42Emergency department NoteTXT1.2.840.771927.1.13.104.2.7. 2.819341|[id number] for patient fshq96128-1WxdzMGSYWELXTWLMrslpltfv C-CDA narrative [id number] Pinzon RNUT43 [address]inas StreetNw[id number] 0ABFJYSGFYJCYGUCYYJWVSW9851-08-97P3 4:31:421.2.840.610441.1.72.3.15|1.2 .840.756556.1.13.104.2.7.2.727879_2 [id number] Kurtis Pinzon RN [facility] 2023-07-13 12:40:00 w365YVuEBAy5uFfnUocpIgrK2UGmmBRtwNf bIeyTK7E4hs5iwKY8BcKvfNZrI3vY9050-4 07-13T12:40:00 Patient to Cat scan via stretcher c/o radio staff. 19265-9Hwcajxjwu department DdtvIY6527-78-08G44:12:08Emergency department NoteTXT1.2.840.503979.1.13.104.2.7. 2.847532|[id number] for patient ctit69334-8DjwpRFZKKUQQCIQHucgtqvsw C-CDA narrative text[address] OsokHzspxxqrbZsluwpchxYAKB709037550 1KYUWXVBNBULZDPWWBFNOOE3357-25-90N4 3:12:081.2.840.008597.1.72.3.15|1.2 .840.462194.1.13.104.2.7.2.727879_2 [id number] [facility] 2023-07-13 10:50:00 NBM7iwODzQrWpJt2qpJHcaDyzvoaHpyz1AD rnThIjozlns4Y7YvaUmlc3yhxL2lp3148-9 07-13T10:50:00 Received from triage d/to abscess on lower back. Currently patient reports pain 9/10, aching, swollen and warm, unopened lesion, no discharges. Patient took tylenol around 9am but unrelieved. Patient denied any fever. 64416-2Zhcvnmafd department XpgrTQ9641-92-00R18:03:46Emergen department NoteTXT1.2.840.364237.1.13.104.2.7. 2.866805|[id number] for patient exby92944-5ShjdQBCXGLBVWQADhiwtexot C-CDA narrative text[address] [id number] 2OKHOQDYNOOTLFIFGEGNGCK0067-67-00X4 1:03:461.2.840.442057.1.72.3.15|1.2 .840.267522.1.13.104.2.7.2.727879_2 [id number] [facility] 2023-07-13 10:25:23 lbmbK7TdcVKMm03Sanq85pXzBqBcvfXKJAA hHULBmSv4JDcS7MNyc4iEvJKfSjA03566-1 07-13T10:25:23 Regina Awad is a 57 year old male presents to the Ed with C/O abscess on back. States that it got bigger and worse yesterday. States he got surgery on his back with neurosurgery back in May. No discharge on site noted. Was told to come to the ED if abscess got worse. NAD. GCS 15. PMH: HTN 38536-9Effuspfmu department Triage bujsSQ0691-95-04B34:28:16Emergency department Triage noteTXT1.2.840.331449.1.13.104.2.7. 2.165165|[id number] for patient ylio34259-9Sukeizhtd department NoteLNNARRATIVEFormatted C-CDA narrative [id number] Arroyo RNUT[address] Warren [id number] 4YINRVBYUVJHOKEZWAHKKKJ3886-98-21Y7 0:28:161.2.840.457974.1.72.3.15|1.2 .840.665915.1.13.104.2.7.2.727879_2 [id number] Pippa Phillips ALIVIA [facility] 2023-06-21 17:18:26 kSgMBT8NlU9ekRoiaCFJNZGSy+UHYIDSPa+ OvGwL4RfxPOlMxiDXOxSuYrjFPuMV3072-0 7:18:26 Regina Cervantes Zane is a 57 year old malePatient is calling to check the status of refill. Please adviseCalled the applications intern, stated they would look into it if able to prescribe. 27430-1Bbjwvaldf encounter CodlRD6406-31-57X04:30:24Telephone encounter NoteTXT1.2.840.767844.1.13.104.2.7. 2.224057|[id number] for patient jboo23342-7WghwHRVGRFFVSDMQpfodhngo C-CDA narrative hkcf234274389Tsxvhkf [address] SfwdWdwdgnyopGojybrhbwJTIH592655120 8LSIEIGKXONSHSGSSJFVRPD7013-42-32U1 7:30:241.2.840.646811.1.72.3.15|1.2 .840.906672.1.13.104.2.7.2.727879_2 [id number] Ephraim Fernández [facility] 2023-06-21 15:09:06 mAkhJoHdbXMqbaofUom2IzdUTvez4jVohOn ofrjw3DYJk7ldaqO+nAupxTdxTTJ46813-7 06-21T15:09:06 Regina Awad following up on previous request.[phone] (home) 71954-7Dalfhiqpy encounter PiphHF8649-48-58Z58:09:34Telephone encounter NoteTXT1.2.840.767082.1.13.104.2.7. 2.370136|7597870844SJOiiurrzno for patient xije74324-6UpqiKRDNQKNZMZMVdzkvwgol C-CDA narrative [id number] Johnson[address] [id number] 5OCLLFSWPTUNZWOPOHWHTVR7097-36-64H0 5:09:341.2.840.377626.1.72.3.15|1.2 .840.304641.1.13.104.2.7.2.727879_2 [id number] Mee Robe [facility] 2023-06-21 12:30:27 Exy6ygPeBN/WxQHaIHw94ZH708jjzbRzEMk 9MXexnbATWp5t1OpwtcffWZlZRKvq9491-5 06-21T12:30:27 Patient had surgery on 05/23/2023revious pain medication was prescribed by his PCPPatient has an appointment scheduled with Dr Orr on 06/26/2023atient's message routed to doctor 16651-3Jyltfvwqo encounter FbpjTQ3125-55-77W61:35:01Telephone encounter NoteTXT1.2.840.720411.1.13.104.2.7. 2.961931|6369032037HJIvxijbtle for patient yryh07629-3WapxGTQGLBAEZXQXdlvfhvzy C-CDA narrative xkil230091309Ejtpnt M Bernard [id number] 3NMEMUHLJRMRFZSCESJVWWF9681-75-19U0 2:35:011.2.840.564286.1.72.3.15|1.2 .840.827497.1.13.104.2.7.2.727879_2 [id number] Cindy Sampson TELEPHONE SERVICE ADVISER [facility] 2023-06-21 12:23:59 aQAqkTfHNMH5DQy9AGD8vJqJ4UKV1IdmBST danni/JuFbnvECNVj89okaD9Q1qMDXy9837-6 06-21T12:23:59 Refill RequestSurgery Date: 05/23/2023Surgical Procedure: Femur Intramedullary Nailing - Left and Femur Orif - LeftMedication name: norcoPreferred Pharmacy Confirmed with patient and updated in chartB Pharmacy [address] BowlingPhone: patient Contact InformationHome Lisk Phone Not on file. [phone] (home) There is no work phone number on file. -Recent/Future Schedule Appointments at the time of this encounterRecent VisitsNo visits were found meeting these conditions.Showing recent visits within past 365 days and meeting all other requirementsFuture AppointmentsDate Type Provider Dept06/26/23 Appointment Jad Orr MD [facility] FacultyShowing future appointments within next 365 days and meeting all other requirements 10792-9Ktpuoxkkh encounter RgedPN8408-68-89X49:24:56Telephone encounter NoteTXT1.2.840.967457.1.13.104.2.7. 2.129123|[id number] for patient vatr84025-8HuvhZDFXWLLGQECQylczxknu C-CDA narrative zfre638845346Ajeip[address][id number] 7JTZROMIZNXDKPPQBXZCSUW4334-92-05P1 2:24:561.2.840.949093.1.72.3.15|1.2 .840.787100.1.13.104.2.7.2.727879_2 [id number] Disha [facility] 2023-06-14 11:07:17 JaLaKMEFj9bBtWyQjJGbym2EfOUhU1Xuk5O iEQE1Osr1nHvC5jVcoGH1RFfP4O9n4545-4 06-14T11:07:17 This message has been routed to the resident. 22594-4Wpqmnlydv encounter YxzgKX5832-93-52L63:08:02Telephone encounter NoteTXT1.2.840.676262.1.13.104.2.7. 2.497057|3334008980GZEwozpnszw for patient ctmc16557-1NkcqTXKDJRBQNPBWzqgdtdnl C-CDA narrative qmng141638183Yqxvixufb J Castillo [address]vdG[id number] 5HQNISAFCTDOKZKBMNESXWN8345-14-29B6 1:08:021.2.840.626075.1.72.3.15|1.2 .840.745876.1.13.104.2.7.2.727879_2 [id number] Arelis Galvan Mitchell [facility] 2023-06-12 09:22:02 UZ/sjaoDa6WROlKsuAc+YBbrwILcY/MVV6m OLppgCjki0CEjwskxuY0NE+SO05o05623-1 06-12T09:22:02 Refill Request-norco 5- 325 mgDOS:05/23/2022- Femur Intramedullary Nailing (left)ILENE:no post op visit yetLast refilled on:06/03/2023FU appt:06/14/2023riteria met:sending to provider/ resident for approval. 25703-1Hhicdpqii encounter DnzxLO4260-50-24Y75:24:51Telephone encounter NoteTXT1.2.840.686952.1.13.104.2.7. 2.626552|6911060118WYRyoifulkk for patient hzdz38453-2YmcwBQLEENCULXNJehwqnaci C-CDA narrative [id number] L Klebieko RN[address] YepfBepyshpnpQlvmphwhbIABI783114932 4ISAPPDLJRPKWZVLOKFSXYA6738-68-15K7 9:24:511.2.840.100820.1.72.3.15|1.2 .840.676246.1.13.104.2.7.2.727879_2 [id number] Sulma Ruiz RN [facility] 2023-06-11 12:49:12 8gA6aos4fMJn9skfjoVpXHGQzcwK8fYhwfg 6kdZ0AeU5O97NTut5YENFLzV1/TE94981-7 06-11T12:49:12 Images from the original note were not included.Pt. Instructed as physician instructed.RE: Pain medicationReceived: TodaySangita Nagel MD Rivas, Antoinette, LVNHello, I cannot write another script for pain medication without seeing him. Please instruct him to take 1000mg Tylenol every 8 hours and 800mg Ibuprofen every 8 hours for the next 3 days until he is seen at his neurosurgery appointment. They can evaluate him in person and write for prescription pain medication if indicatedPrevious Messages----- Message -----From: Donna Yo LVNSent: 06/11/2023 12:25 PM CSTTo: ARNULFO Narayanubject: Pain medicationPt. Is c/o pain all over post surgery all over body. Pain rate 10. Instructed would send message to discharge provider. Instructed to establish with pcp or pain management physician, [facility] for continued pain medication. [place] [address]-8Ggbqhoyfc encounter BbdxHC3012-48-22X92:51:22Telephone encounter NoteTXT1.2.840.185470.1.13.104.2.7. 2.319958|[id number] for patient twvi26509-0OwtdYKZQZSOYSBSHvpkvksgd C-CDA narrative tesa603178608Uayukmuecg Rivas [address] JbtaGtooaumyzXpbcgswrmJALJ847179410 4MQJRWUTRJHRYSUWYWTIBIF6287-76-14P7 2:51:221.2.840.551159.1.72.3.15|1.2 .840.256606.1.13.104.2.7.2.727879_2 [id number] Donna Yo [facility] 2023-06-11 12:27:34 GksAjfXKGcLFbENixfMpSNSoHTtC7GbCHI7 PtaFYMubZI1LEb4CFF4gCjBaDUh3R1704-5 2:27:34 Patient said he has been out of his pain medication for two days now . Patient called to follow up on his medication refill request . 46866-9Yepdsappb encounter OlcxPQ1482-00-83G77:30:07Telephone encounter NoteTXT1.2.840.316182.1.13.104.2.7. 2.163366|[id number] for patient qnai95478-3RouuMUACAVOXLNVBlbvqkdau C-CDA narrative sbyv143711601Pjkhw [address] VyvaOwdbxrhetMhdctatjbFUYM911996388 0FZBVELQLZEGNEBJIVYITTO6761-21-66L8 2:30:071.2.840.437255.1.72.3.15|1.2 .840.098543.1.13.104.2.7.2.727879_2 [id number] Disha [facility] 2023-06-11 12:14:03 NlDW1pNEWQGslcK5tZlS3QEMZZRVwX1GmhE CS5pwkgfwfK4/ET291AoYohzoPReT1146-4 06-11T12:14:03 Good afternoon,Patient and are calling requesting a call back from you as they have some questions for transition of care.Darline Corona) [address], [address] [place], [place] [id number] pt. Back spoke with Yeni stating he is in pain all over due to the fractures all over pain rate 10.Pt. Is c/o pain all over post surgery all over body. Pain rate 10. Instructed would send message to discharge provider. Instructed to establish with pcp or pain management physician, [facility] for continued pain medication. Would like RX sent to [place], [place] Asked of pt. If would be intrested in participating in [facility] for guidance and resources for social needs. She stated she spoke to someone at [facility] and does not feel this would be helpful. 69985-5Usnrdmtyi encounter FotjIV0898-86-29T57:27:08Telephone encounter NoteTXT1.2.840.646325.1.13.104.2.7. 2.440931|8522172065XTSjwtjeoqf for patient phej62459-7ChopTCQLZPAUXPPHdzkybfmf C-CDA narrative [id number] Rivas [address] SphjYhbzvdepgOmjadeekvDALN115682238 9JSYQIEDWMHMXPGEEJHTUPL3120-25-48N4 2:27:081.2.840.354730.1.72.3.15|1.2 .840.359559.1.13.104.2.7.2.727879_2 [id number] Donna Yo [facility] 2023-06-11 12:00:33 Lorelei/HRtcI8JiCPVrDDEU9MHT5G03d5t1MvHg cgrKmPoYwdpbDAXWZ/9qSiq/RSP5g1781-6 2:00:33 Regina Awad is a 57 year old malePatient is calling requesting refill of:ibuprofen 600 mg tabletHYDROcodone-acetaminophen 5-325 mg tabletStates is still in great pain after surgery, not able to get comfortable. Please assist.Thanks![facility] [address]lingPhone: Eamiadnwhejpfc signed by Darline Arambula at 06/11/2023 12:02 PM GJL02559-2Ggznovrum encounter VtacJU0740-81-72O80:02:20Telephone encounter NoteTXT1.2.840.579521.1.13.104.2.7. 2.411685|1496974642VORmadttesr for patient ptvc26661-8SoqxXHSBRYIDCCKFiwtroabn C-CDA narrative noxc329560253Gjagpejfq A [address] VfrxTbcxhowrbMprfoevmuKVXV041591103 3LOBGDUPJNGFLJWPXDWMFOS2213-98-36Y2 2:02:201.2.840.659110.1.72.3.15|1.2 .840.873684.1.13.104.2.7.2.727879_2 [id number] Darline Diaz [facility] 2023-06-10 14:58:36 syQqsORT0bLXTWQcvMFd3rSyS/aPP1cSMQN WC4jEz/AVO9qOZOoKGR8vWrt27QI96262-3 06-10T14:58:36 Regina Awad seeking refill on NorcoRefill RequestSurgery Date: 05/23/2023Surgical Procedure: Femur Intramedullary Nailing - Left and Femur Orif - LeftMedication name:Requested PrescriptionsPending Prescriptions Disp RefillsHYDROcodone-acetaminophen 5-325 mg tablet 28 tablet 0Sig: Take 1 tablet by mouth every 6 (six) hours as needed for Pain (scale 4-6). Indications: acute painPreferred Pharmacy Confirmed with patient and updated in chart [x][facility] [address]lingPhone: Ygzpchf Contact InformationHome Imcf Phone Not on file. [phone] (home) There is no work phone number on file. -Recent/Future Schedule Appointments at the time of this encounterRecent VisitsNo visits were found meeting these conditions.Showing recent visits within past 365 days and meeting all other requirementsFuture AppointmentsDate Type Provider Dept06/26/23 Appointment [facility] FacultyShowing future appointments within next 365 days and meeting all other requirements 68709-9Cuvwkaiab encounter ZgdsQG8715-15-14T92:59:33Telephone encounter NoteTXT1.2.840.422214.1.13.104.2.7. 2.573999|8206618579ZGOodvocbnm for patient tqxw28411-1PpsaGEAXEJSFOQMHqdheqgqt C-CDA narrative textUT[address] RvdaXpiwwxrbhOqtrpnipoORMX933137672 1RKLPJHQHZSUIUYTIJHELSK6763-28-23Q8 4:59:331.2.840.612010.1.72.3.15|1.2 .840.313663.1.13.104.2.7.2.727879_2 [id number] [facility] 2023-06-10 13:04:34 2SWvENMQjivIMp+HzSBrj76MOZtWyZCrpkW 9cszdSO+3nhsOrAYrM27zOjU9FaK95814-6 06-10T13:04:34 Regina Awad is a 57 year old malePatient is calling requesting refill of:ibuprofen 600 mg tabletHYDROcodone-acetaminophen 5-325 mg tabletStates is still in great pain after surgery.Thanks![facility] [place] [place] [facility] [address]Phone: Xqygzxvetsmfuh signed by Darline Arambula at 06/10/2023 1:07 PM FPP09763-5Mqryxlycg encounter LisqPT8243-63-12V75:07:25Telephone encounter NoteTXT1.2.840.571627.1.13.104.2.7. 2.364226|7161252734WZZumoxkjgc for patient bwfg35657-0KpkwMTLORDPSSOOXprgngtmt C-CDA narrative textUT08 Warren StreetTXTX775557755 9MGGAPDGYTYVRUEAEYGTNOX0986-85-48P4 3:07:251.2.840.557797.1.72.3.15|1.2 .840.122225.1.13.104.2.7.2.727879_2 [id number] [facility] 2023-06-10 10:54:00 8ibFIJBnOamwyz0wpA1shvYlk+GgghcY3Iv QJfcLW6WDDQQFwU4uv0T41fUwlZaa6879-3 06-10T10:54:00Summary: refill request Patient states he was only given a limited supply of his pain medication and would like a call back to discuss what he is to do when he runs out. Please contact patient to further discuss. Appointment is scheduled for 06/[address] Orr. 84057-4Uuauehkhs encounter TsjzLR7695-63-60Y66:55:20Telephone encounter NoteTXT1.2.840.688560.1.13.104.2.7. 2.335962|[id number] for patient ngkv29956-7TzkqHMFQAFEFHKHEmjgcjnvs C-CDA narrative [id number] N GamezU[address] [id number] 4CDZHNTWYTLNVIVJXNLVOOB4482-13-31K5 0:55:201.2.840.869342.1.72.3.15|1.2 .840.610397.1.13.104.2.7.2.727879_2 [id number] [facility] 2023-06-05 15:58:10 uofu9vjYT9TE1llp5qjyYqRM7kTDoFtJ4nW oKoiKb4VWez+BbxfVD4xEd4KeKxIl4770-2 06-05T15:58:10 TRANSITIONAL CARE MANAGEMENT ASSESSMENT4Rbrenden AwadJfuib442575NRdlzb Alan Erwin is a 57 year old /White male was admitted on 05/20/23 to [facility]. He was discharged on 06/03/23 with discharge disposition of HR- Routine Discharge.Admitting Physician: Wale De Souza Diagnosis: Trauma [T14.90XA]Discharge InstructionsOrder Comments: - It is okay to remove your back brace temporarily to shower and when laying flat per neurosurgery- Do not bear weight on both legs until cleared by orthopedic surgeryPt. Asked if he could lay on his side. Explained no instruction noted to this. Pt. Ended the call he stated he would call back.Linked EpisodesType: Episode: Status: Noted: Resolved: Last update: Updated by:TRANSITION OF CARE tcm Active 06/05/2023 06/05/2023 3:58 PM Donna Yo LVNComments:ISAURO Rxt-cyhp-ba-face outreach documentation:Discharge AssessmentChart Assessed: 06/05/23TCM Outreach Completed: 06/05/23Do you have a few minutes to speak with me about how you are doing at home?: YesDischarge InstructionsDo you understand your at-home instructions?: YesMedicationsHave you filled your prescriptions and do you have them in your home? : YesDo you know how to take your medications?: Yes (reviewed pain medication, noted limited amount. Pt. had not been using Ibuprofen, instructed at a certain level prn.)Can you provide me with the names or descriptions of any zetr-jsa-ssxbyzx or supplements you are currently taking?: YesSuppliesDid you receive applicable home medical supplies/equipment?: Yes (Neck brace)Do you understand how to use the medical supplies/equipment?: YesFollow Up AppointmentHas a follow up appointment been scheduled?: YesDo you have any questions about your follow up appointments?: NoAre you able to get to your appointment? Who will be taking you?: Yes (family)Home Health AssistanceHas the home health nurse contacted you since you've been home?: N/ASurvey - RecognitionIs there anything you would like to share about your recent hospitalization, or anyone you would like to recognize?: NoDo you have any suggestions for improvement?: NoDo you have any other questions or concerns at this time?: YesFuture Appointments: 44937-3Oaefpqiby encounter WxhgDD3015-57-62D81:01:45Telephone encounter NoteTXT1.2.840.366510.1.13.104.2.7. 2.142960|[id number] for patient zgnf74900-4PvzaRWRVLHPVEIESowjlwcib C-CDA narrative [id number] Rivas [address] Ku[id number] 2LWEHQCFBWXTEBIDINQCUWA0143-29-50E6 6:01:451.2.840.055601.1.72.3.15|1.2 .840.509715.1.13.104.2.7.2.727879_2 [id number] Donna Yo [facility] 2023-06-03 09:17:35 NeHpj5sWR1VEijcd9RQJFOHKQbJl1UVPmT3 A5LRE7h6X0o28oDOF79kK9CvHpZ+B7930-6 09:17:35 Problem: Discharge PlanningGoal: Adequate for dischargeOutcome: Progressing as expectedGoal: Effective communicationOutcome: Progressing as expectedProblem: Falls, Risk ofGoal: Absence of fallsOutcome: Progressing as expectedProblem: Fluid Volume - ImbalancedGoal: Absence of signs and symptoms of imbalanced fluid volumeOutcome: Progressing as expectedProblem: Infection, Risk of or ActualGoal: Absence of infectionOutcome: Progressing as expectedProblem: Mental Status - Impaired, Risk ofGoal: Mental status restored to baselineOutcome: Progressing as expectedProblem: Nutrition DeficitGoal: Adequate nutritional intakeOutcome: Progressing as expectedProblem: PainGoal: Control of pain at or below patient's documented comfort goalOutcome: Progressing as expectedProblem: Respiratory Function - ImpairedGoal: Able to cough effectivelyOutcome: Progressing as expectedGoal: Adequate oxygenationOutcome: Progressing as expectedGoal: Adequate work of breathingOutcome: Progressing as expectedGoal: Patent airwayOutcome: Progressing as expectedProblem: Skin integrity Impaired (Risk or Actual)Goal: Wound healingOutcome: Progressing as expectedGoal: Prevention of new skin breakdownOutcome: Progressing as expectedProblem: Tissue Perfusion - Altered, Risk ofGoal: Hemodynamically stableOutcome: Progressing as expected 24425-3Wjui of care vazkUK0744-02-63C38:17:37Plan of care noteTXT1.2.840.942328.1.13.104.2.7. 2.450649|[id number] for patient ftvg56704-7RlwdADBXKAJDDCVCemxbqrxn C-CDA narrative [id number] L Keziah RN[address] Co[id number] 1PUKLODATKYZEIUCRYTKNJF2261-90-47X2 9:17:371.2.840.865099.1.72.3.15|1.2 .840.512719.1.13.104.2.7.2.727879_1 [id number] Enoch Pinedo RN [facility] 2023-06-03 00:13:03 ExFpPvybd9D6lqVrtkmsGKuTJaqbmM67+/k vQijdtdQtjj8UqmLIB3Iq4dmdGCyn8496-4 1-15T00:13:03 Problem: Discharge PlanningGoal: Adequate for dischargeOutcome: Progressing as expectedGoal: Effective communicationOutcome: Progressing as expectedProblem: Falls, Risk ofGoal: Absence of fallsOutcome: Progressing as expectedProblem: Fluid Volume - ImbalancedGoal: Absence of signs and symptoms of imbalanced fluid volumeOutcome: Progressing as expectedProblem: Infection, Risk of or ActualGoal: Absence of infectionOutcome: Progressing as expectedProblem: PainGoal: Control of pain at or below patient's documented comfort goalOutcome: Progressing as expectedProblem: Nutrition DeficitGoal: Adequate nutritional intakeOutcome: Progressing as expectedProblem: Respiratory Function - ImpairedGoal: Able to cough effectivelyOutcome: Progressing as expectedGoal: Adequate oxygenationOutcome: Progressing as expectedGoal: Adequate work of breathingOutcome: Progressing as expectedGoal: Patent airwayOutcome: Progressing as expected 10127-7Tezc of care krosLG8685-33-72M10:13:25Plan of care noteTXT1.2.840.446864.1.13.104.2.7. 2.881806|[id number] for patient kvty83929-9OloxJFZGNIJIWIXNwjajwpvs C-CDA narrative [id number] Olufemi RNUT[id number] 4ZOFWUODPUHFREWUOUYDVKR6209-62-63U0 0:13:251.2.840.329521.1.72.3.15|1.2 .840.084146.1.13.104.2.7.2.727879_1 [id number] Ayana Amato RN [facility] 2023-06-01 13:56:46 n8Xdv72EztzWKudGD1eGgqHdgz6EuBBU7Km vZebctl4unOiZVaE76xO7fGeQjUzL1169-8 3:56:46 Problem: Discharge PlanningGoal: Adequate for dischargeOutcome: Progressing as expectedGoal: Effective communicationOutcome: Progressing as expectedProblem: Falls, Risk ofGoal: Absence of fallsOutcome: Progressing as expectedProblem: Fluid Volume - ImbalancedGoal: Absence of signs and symptoms of imbalanced fluid volumeOutcome: Progressing as expectedProblem: Infection, Risk of or ActualGoal: Absence of infectionOutcome: Progressing as expectedProblem: Mental Status - Impaired, Risk ofGoal: Mental status restored to baselineOutcome: Progressing as expectedProblem: Nutrition DeficitGoal: Adequate nutritional intakeOutcome: Progressing as expectedProblem: PainGoal: Control of pain at or below patient's documented comfort goalOutcome: Progressing as expectedProblem: Respiratory Function - ImpairedGoal: Able to cough effectivelyOutcome: Progressing as expectedGoal: Adequate oxygenationOutcome: Progressing as expectedGoal: Adequate work of breathingOutcome: Progressing as expectedGoal: Patent airwayOutcome: Progressing as expectedProblem: Skin integrity Impaired (Risk or Actual)Goal: Wound healingOutcome: Progressing as expectedGoal: Prevention of new skin breakdownOutcome: Progressing as expectedProblem: Tissue Perfusion - Altered, Risk ofGoal: Hemodynamically stableOutcome: Progressing as expected 66680-9Uauf of care waniVX2791-56-15Y93:56:49Plan of care noteTXT1.2.840.487886.1.13.104.2.7. 2.063484|[id number] for patient niyn11551-8UxyeXCUXPOZHIQKEjheuswsv C-CDA narrative [id number] Nwankwo RNUT[address] StreetDv[id number] 6VIJPACUFQHQBTJHPGTBXIU7492-20-42I5 3:56:491.2.840.136401.1.72.3.15|1.2 840.980526.1.13.104.2.7.2.727879_1 [id number] Jerilyn Domingo RN [facility] 2023-05-30 11:33:39 3giJBvLAhkqK+lUy/2y1hwlx5OmsT7TIJKt JamesO+wLPqQKPpVQnVmhgBb8Fh7yu4925-8 1:33:39 Problem: Discharge PlanningGoal: Effective communicationOutcome: Progressing as expectedProblem: Falls, Risk ofGoal: Absence of fallsOutcome: Progressing as expectedProblem: Fluid Volume - ImbalancedGoal: Absence of signs and symptoms of imbalanced fluid volumeOutcome: Progressing as expectedProblem: Infection, Risk of or ActualGoal: Absence of infectionOutcome: Progressing as expectedProblem: Mental Status - Impaired, Risk ofGoal: Mental status restored to baselineOutcome: Progressing as expectedProblem: Nutrition DeficitGoal: Adequate nutritional intakeOutcome: Progressing as expectedProblem: PainGoal: Control of pain at or below patient's documented comfort goalOutcome: Not progressing as expectedProblem: Respiratory Function - ImpairedGoal: Able to cough effectivelyOutcome: Progressing as expectedGoal: Adequate oxygenationOutcome: Progressing as expectedGoal: Adequate work of breathingOutcome: Progressing as expectedGoal: Patent airwayOutcome: Progressing as expectedProblem: Skin integrity Impaired (Risk or Actual)Goal: Wound healingOutcome: Progressing as expectedGoal: Prevention of new skin breakdownOutcome: Progressing as expectedProblem: Tissue Perfusion - Altered, Risk ofGoal: Hemodynamically stableOutcome: Progressing as expected 62520-9Nlsm of care ufgmJD4545-21-49D12:33:50Plan of care noteTXT1.2.840.547406.1.13.104.2.7. 2.227943|[id number] for patient lxem93636-0JpqyOZUMTJSDWOJEatvwisrw C-CDA narrative [id number] Sandoz RNUT[address] Hp[id number] 1OZJIBWRUWGGEZBUJGMFOKZ4579-45-05G2 1:33:501.2.840.092912.1.72.3.15|1.2 .840.514845.1.13.104.2.7.2.727879_1 [id number] Ashly Mcclendon RN [facility] 2023-05-29 09:49:10 Melissa/iPeSWULiy2W9pOVCUZ0uIZGJuf3v C7hnrlVY9u+JlOizVvRKR+H0TRp7t2962-3 09:49:10 Problem: Discharge PlanningGoal: Adequate for dischargeOutcome: Progressing as expectedGoal: Effective communicationOutcome: Progressing as expectedProblem: Falls, Risk ofGoal: Absence of fallsOutcome: Progressing as expectedProblem: Fluid Volume - ImbalancedGoal: Absence of signs and symptoms of imbalanced fluid volumeOutcome: Progressing as expectedProblem: Infection, Risk of or ActualGoal: Absence of infectionOutcome: Progressing as expectedProblem: Mental Status - Impaired, Risk ofGoal: Mental status restored to baselineOutcome: Progressing as expectedProblem: Nutrition DeficitGoal: Adequate nutritional intakeOutcome: Progressing as expectedProblem: PainGoal: Control of pain at or below patient's documented comfort goalOutcome: Progressing as expectedProblem: Respiratory Function - ImpairedGoal: Able to cough effectivelyOutcome: Progressing as expectedGoal: Adequate oxygenationOutcome: Progressing as expectedGoal: Adequate work of breathingOutcome: Progressing as expectedGoal: Patent airwayOutcome: Progressing as expectedProblem: Skin integrity Impaired (Risk or Actual)Goal: Wound healingOutcome: Progressing as expectedGoal: Prevention of new skin breakdownOutcome: Progressing as expectedProblem: Tissue Perfusion - Altered, Risk ofGoal: Hemodynamically stableOutcome: Progressing as expected 81564-2Pkfk of [facility] avilWF0985-25-78N73:49:20Plan of care noteTXT1.2.840.723329.1.13.104.2.7. 2.025036|[id number] for patient szsh89398-7GmxvAEREKPRMIHVYgvdrywkl C-CDA narrative [id number] Garcia [id number] 1QMPCDMDIJKWNBJVQILMDMD0390-88-28J9 9:49:201.2.840.073830.1.72.3.15|1.2 .840.667608.1.13.104.2.7.2.727879_1 [id number] Ramaraul [facility] 2023-05-28 21:07:51 2dmOwhu7Po7ZkVpXvNfAzjzzjdwZtLPBDIn 1p32PmOEoDmAEoOvcl7AFpVEdLZLo6784-3 1:07:51 Problem: Discharge PlanningGoal: Adequate for dischargeOutcome: Progressing as expectedGoal: Effective communicationOutcome: Progressing as expectedProblem: Falls, Risk ofGoal: Absence of fallsOutcome: Progressing as expectedProblem: Fluid Volume - ImbalancedGoal: Absence of signs and symptoms of imbalanced fluid volumeOutcome: Progressing as expectedProblem: Infection, Risk of or ActualGoal: Absence of infectionOutcome: Progressing as expectedProblem: Mental Status - Impaired, Risk ofGoal: Mental status restored to baselineOutcome: Progressing as expected 06922-6Vxzg of care fyckMN3935-29-73W29:07:59Plan of care noteTXT1.2.840.417995.1.13.104.2.7. 2.214749|[id number] for patient cbux30236-0KfhmUMVLTVIIZERHsrabslsd C-CDA narrative [id number] Pal [id number] 3HIJLIUWMHZKAOGHSRXBUEE8293-27-90D1 1:07:591.2.840.755100.1.72.3.15|1.2 [address]69[address]1.13[address]104[address]2.7.2.727879_[id number] Chacko RN [facility] 2023-05-28 18:17:42 mnI5meSUDVfPIoNtMzZSbYQbCwdFzEjkIn9 mbrznVre8A5T8XIvkpTRIk629YcZw0424-3 8:17:42 Problem: Discharge PlanningGoal: Adequate for dischargeOutcome: Progressing as expectedProblem: Falls, Risk ofGoal: Absence of fallsOutcome: Progressing as expectedProblem: Fluid Volume - ImbalancedGoal: Absence of signs and symptoms of imbalanced fluid volumeOutcome: Progressing as expectedProblem: Infection, Risk of or ActualGoal: Absence of infectionOutcome: Progressing as expectedProblem: Nutrition DeficitGoal: Adequate nutritional intakeOutcome: Progressing as expectedProblem: Respiratory Function - ImpairedGoal: Adequate oxygenationOutcome: Progressing as expectedProblem: Skin integrity Impaired (Risk or Actual)Goal: Wound healingOutcome: Progressing as expectedProblem: Tissue Perfusion - Altered, Risk ofGoal: Hemodynamically stableOutcome: Progressing as expected 22975-3Ueun of care cuccFA2603-70-22Z84:17:50Plan of care noteTXT1.2.840.193056.1.13.104.2.7. 2.272498|[id number] for patient tixh19676-9GtuoKHUNKKVCQKYFaqvazdll C-CDA narrative [id number] C Duhon RNUT[address] [id number] 9DPNUFLFDEHLBEGEVBMNDWH7984-17-95N5 8:17:501.2.840.256655.1.72.3.15|1.2 .840.776798.1.13.104.2.7.2.727879_1 [id number] Nohemy Cordero RN [facility] 2023-05-28 18:10:37 5BMF0FR97UDX6H0mODbqTUrgapcRVD8373X pfAHUzFyouJkQOjB6AJEwijJ0AbLt9528-0 8:10:37 Problem: Discharge PlanningGoal: Adequate for dischargeOutcome: Progressing as expectedProblem: Falls, Risk ofGoal: Absence of fallsOutcome: Progressing as expectedProblem: Fluid Volume - ImbalancedGoal: Absence of signs and symptoms of imbalanced fluid volumeOutcome: Progressing as expectedProblem: Infection, Risk of or ActualGoal: Absence of infectionOutcome: Progressing as expectedProblem: Nutrition DeficitGoal: Adequate nutritional intakeOutcome: Progressing as expected 18780-3Azsg of care fhclJP4944-72-56A03:10:43Plan of care noteTXT1.2.840.931681.1.13.104.2.7. 2.168875|[id number] for patient wkak86236-2RrcrUYHPLPSIXVQQguhnxbrl C-CDA narrative text[address] Qa[id number] 1ECGAJAZBQDGRQBIAMPNCCT3080-97-79J6 8:10:431.2.840.555473.1.72.3.15|1.2 .840.953422.1.13.104.2.7.2.727879_1 [id number] [facility] 2023-05-27 22:05:42 U9dEgx5rhb6AuvAVyCKhjbaZKVpDxmc5t9Y 4f9jgM070+eV9QdGfczVxeDwzcxvm2116-7 1-08T22:05:42 Problem: Discharge PlanningGoal: Adequate for dischargeOutcome: Progressing as expectedGoal: Effective communicationOutcome: Progressing as expectedProblem: Falls, Risk ofGoal: Absence of fallsOutcome: Progressing as expectedProblem: Fluid Volume - ImbalancedGoal: Absence of signs and symptoms of imbalanced fluid volumeOutcome: Progressing as expectedProblem: Infection, Risk of or ActualGoal: Absence of infectionOutcome: Progressing as expectedProblem: Mental Status - Impaired, Risk ofGoal: Mental status restored to baselineOutcome: Progressing as expected 75922-1Pxdv of care atfuKR2600-37-94R66:05:50Plan of care noteTXT1.2.840.091560.1.13.104.2.7. 2.131179|[id number] for patient muqm74188-8MvvdFFAJNWEFGZAIikieqxmc C-CDA narrative text[address] Li[id number] 9TYYOEKWYMYDPXLQWJYJRSO0035-86-03F4 2:05:501.2.840.861976.1.72.3.15|1.2 .840.920487.1.13.104.2.7.2.727879_1 [id number] [facility] 2023-05-27 12:32:09 OO/WT5vFuPiST9NPCk8n7HKMoK+GRJKeQCn ezRNQy94xUZSUE+sEnaIv1tGwuAe16673-3 2:32:09 Problem: Discharge PlanningGoal: Adequate for dischargeOutcome: Progressing as expectedProblem: Falls, Risk ofGoal: Absence of fallsOutcome: Progressing as expectedProblem: PainGoal: Control of pain at or below patient's documented comfort goalOutcome: Progressing as expected 86809-3Jxnn of care levqWP0105-42-45F40:32:11Plan of care noteTXT1.2.840.879526.1.13.104.2.7. 2.357073|6731073778JDFxazmwieg for patient oonc84393-3GoixADCIFCIVFITKhqmalbnr C-CDA narrative [id number] M Jericho RN[id number] 5ZMSKJPEFVMFFNKNHGCHIES5184-34-70Y2 2:32:111.2.840.231645.1.72.3.15|1.2 .840.126594.1.13.104.2.7.2.727879_1 [id number] Macyraj Echavarria RN [facility] 2023-05-26 22:27:19 GEuqsYb9Qwj1lhyxgS4i9IjLy22BMkMOhdS ZF5VL9VYNGQtxrYIw0TaxYMbBZt/17913-4 05-26T22:27:19 Problem: Discharge PlanningGoal: Adequate for dischargeOutcome: Progressing as expectedGoal: Effective communicationOutcome: Progressing as expectedProblem: Fluid Volume - ImbalancedGoal: Absence of signs and symptoms of imbalanced fluid volumeOutcome: Progressing as expectedProblem: Infection, Risk of or ActualGoal: Absence of infectionOutcome: Progressing as expectedProblem: Mental Status - Impaired, Risk ofGoal: Mental status restored to baselineOutcome: Progressing as expected 15483-2Uoql of care tkzyXQ9238-65-16F12:27:28Plan of care noteTXT1.2.840.449051.1.13.104.2.7. 2.977385|7738137936MBSnmxjzkap for patient mcee88098-8HykkSSOZVKUDDCDEnsiiqoly C-CDA narrative text[id number] 2DJGTZLMSZEZQUQPGNHCSQF7093-19-55L0 2:27:281.2.840.195583.1.72.3.15|1.2 .840.320524.1.13.104.2.7.2.727879_1 [id number] [facility] 2023-05-26 19:29:54 KgrqXz6DL5BZfItIQibOk7zCsMFcVnSH2KJ kI2tVoyT4kNZw2s6eHillMthsYdA71386-9 9:29:54 Problem: Discharge PlanningGoal: Adequate for dischargeOutcome: Progressing as expectedGoal: Effective communicationOutcome: Progressing as expectedProblem: Falls, Risk ofGoal: Absence of fallsOutcome: Progressing as expectedProblem: Fluid Volume - ImbalancedGoal: Absence of signs and symptoms of imbalanced fluid volumeOutcome: Progressing as expectedProblem: Infection, Risk of or ActualGoal: Absence of infectionOutcome: Progressing as expectedProblem: Mental Status - Impaired, Risk ofGoal: Mental status restored to baselineOutcome: Progressing as expectedProblem: Nutrition DeficitGoal: Adequate nutritional intakeOutcome: Progressing as expectedProblem: PainGoal: Control of pain at or below patient's documented comfort goalOutcome: Progressing as expectedProblem: Respiratory Function - ImpairedGoal: Able to cough effectivelyOutcome: Progressing as expectedGoal: Adequate oxygenationOutcome: Progressing as expectedGoal: Adequate work of breathingOutcome: Progressing as expectedGoal: Patent airwayOutcome: Progressing as expectedProblem: Skin integrity Impaired (Risk or Actual)Goal: Wound healingOutcome: Progressing as expectedGoal: Prevention of new skin breakdownOutcome: Progressing as expectedProblem: Tissue Perfusion - Altered, Risk ofGoal: Hemodynamically stableOutcome: Progressing as expected 20613-9Jnrz of care lrgmKZ7767-56-09H85:29:58Plan of care noteTXT1.2.840.101532.1.13.104.2.7. 2.203451|6386525353GDFyjvirwqb for patient nifa31149-2BywcZWCCLYZHFSWYqwwrvbcz C-CDA narrative asce306963239Fkvmfm E Winegar RN[id number] 7KEUVQAZZMSQNCFEFJJQSKU3070-99-16F4 9:29:581.2.840.948396.1.72.3.15|1.2 .840.601261.1.13.104.2.7.2.727879_1 [id number] Svetlana Mckeon RN [facility] 2023-05-26 15:30:00 nA3sfMhwBl5QH85QFXxwoV1wdQZs/5mSkzi xqCPp47hT+YTw/KzFlMR9srSFQTQB9486-8 5:30:00 Patient transferred to the floor, primary RN in the room to greet patient. Patient left in the care of new nurse. 16468-1Graeh VvnmYO4958-00-78A31:50:02Nurse NoteTXT1.2.840.526749.1.13.104.2.7. 2.273118|[id number] for patient ooge98664-2NjtaKQCEVUPGBPOMljcvehrf C-CDA narrative [id number] D Hernandez Rn RN[id number] 7FOZFUEBPVOLYYKJGLEDJPV0357-26-80U7 6:50:021.2.840.127731.1.72.3.15|1.2 .840.964743.1.13.104.2.7.2.727879_1 [id number] Yuan Garcia Rn RN [facility] 2023-05-25 03:25:58 o8leaRNctriBh2tdv8g7thLwgZOydysJJIy IgzhNDuqxrOiobNosSW+jwEvA07Cw8667-9 03:25:58 Problem: Discharge PlanningGoal: Adequate for dischargeOutcome: Progressing as expectedGoal: Effective communicationOutcome: Progressing as expectedProblem: Falls, Risk ofGoal: Absence of fallsOutcome: Progressing as expectedProblem: Fluid Volume - ImbalancedGoal: Absence of signs and symptoms of imbalanced fluid volumeOutcome: Progressing as expectedProblem: Infection, Risk of or ActualGoal: Absence of infectionOutcome: Progressing as expectedProblem: Mental Status - Impaired, Risk ofGoal: Mental status restored to baselineOutcome: Progressing as expectedProblem: Nutrition DeficitGoal: Adequate nutritional intakeOutcome: Progressing as expectedProblem: PainGoal: Control of pain at or below patient's documented comfort goalOutcome: Progressing as expectedProblem: Respiratory Function - ImpairedGoal: Able to cough effectivelyOutcome: Progressing as expectedGoal: Adequate oxygenationOutcome: Progressing as expectedGoal: Adequate work of breathingOutcome: Progressing as expectedGoal: Patent airwayOutcome: Progressing as expectedProblem: Skin integrity Impaired (Risk or Actual)Goal: Wound healingOutcome: Progressing as expectedGoal: Prevention of new skin breakdownOutcome: Progressing as expectedProblem: Tissue Perfusion - Altered, Risk ofGoal: Hemodynamically stableOutcome: Progressing as expected 18064-0Uovr of care csrjGY9623-71-29L30:26:01Plan of care noteTXT1.2.840.056634.1.13.104.2.7. 2.512140|[id number] for patient jvya27579-9QwgkFXTTHJECKZODjsrhgfrb C-CDA narrative [id number] E Walker RNUTMBUT[id number] 8HBCGPMCJMBLPDMMMYATUSP2982-97-09S0 3:26:011.2.840.705239.1.72.3.15|1.2 .840.975650.1.13.104.2.7.2.727879_1 [id number] Karen Woods RN [facility] 2023-05-24 18:00:07 /gpnruNLg3tvK+uG1XQQ+kFanQkKg/wx4vP jEZ87Y/MMOzwhd3vsBoPe1rYUfU9/8:00:07 Problem: Discharge PlanningGoal: Adequate for dischargeOutcome: Progressing as expectedGoal: Effective communicationOutcome: Progressing as expectedProblem: Falls, Risk ofGoal: Absence of fallsOutcome: Progressing as expectedProblem: Fluid Volume - ImbalancedGoal: Absence of signs and symptoms of imbalanced fluid volumeOutcome: Progressing as expectedProblem: Infection, Risk of or ActualGoal: Absence of infectionOutcome: Progressing as expectedProblem: Mental Status - Impaired, Risk ofGoal: Mental status restored to baselineOutcome: Progressing as expectedProblem: Nutrition DeficitGoal: Adequate nutritional intakeOutcome: Progressing as expectedProblem: PainGoal: Control of pain at or below patient's documented comfort goalOutcome: Progressing as expectedProblem: Respiratory Function - ImpairedGoal: Able to cough effectivelyOutcome: Progressing as expectedGoal: Adequate oxygenationOutcome: Progressing as expectedGoal: Adequate work of breathingOutcome: Progressing as expectedGoal: Patent airwayOutcome: Progressing as expectedProblem: Skin integrity Impaired (Risk or Actual)Goal: Wound healingOutcome: Progressing as expectedGoal: Prevention of new skin breakdownOutcome: Progressing as expectedProblem: Tissue Perfusion - Altered, Risk ofGoal: Hemodynamically stableOutcome: Progressing as expected 92666-2Kksv of care ionyIY0963-76-84Y72:00:10Plan of care noteTXT1.2.840.607667.1.13.104.2.7. 2.869938|[id number] for patient lpcb34439-6RswzDJOJBOGZJOCLkmqnnxqp C-CDA narrative [id number] H Renard RNUT[address] Tl[id number] 3ACGUQIUIGHFWYCSUCAEFTI9486-19-28J5 8:00:101.2.840.096204.1.72.3.15|1.2 .840.276406.1.13.104.2.7.2.727879_1 [id number] Sherwin Corley Renard RN [facility] 2023-05-24 06:51:32 zCDidvXbUkQQb/zFeGhXJJDk6Cj2XTFpxtl aO+3uwsWGrOrMqownPelnuEyUkecO1264-2 06:51:32 Problem: Discharge PlanningGoal: Effective communicationOutcome: Progressing as expectedProblem: Falls, Risk ofGoal: Absence of fallsOutcome: Progressing as expectedProblem: Fluid Volume - ImbalancedGoal: Absence of signs and symptoms of imbalanced fluid volumeOutcome: Progressing as expectedProblem: Infection, Risk of or ActualGoal: Absence of infectionOutcome: Progressing as expectedProblem: Mental Status - Impaired, Risk ofGoal: Mental status restored to baselineOutcome: Progressing as expectedProblem: Nutrition DeficitGoal: Adequate nutritional intakeOutcome: Progressing as expectedProblem: Respiratory Function - ImpairedGoal: Able to cough effectivelyOutcome: Progressing as expectedGoal: Adequate oxygenationOutcome: Progressing as expectedGoal: Adequate work of breathingOutcome: Progressing as expectedGoal: Patent airwayOutcome: Progressing as expectedProblem: Skin integrity Impaired (Risk or Actual)Goal: Wound healingOutcome: Progressing as expectedGoal: Prevention of new skin breakdownOutcome: Progressing as expected 10872-3Wsfe of care ggsfVK3793-29-22S89:51:40Plan of care noteTXT1.2.840.957809.1.13.104.2.7. 2.402934|[id number] for patient swau69364-6UfufREUNNEJHCJBSyochqmgz C-CDA narrative [id number] C [place] RN[address] Bl[id number] 2KDPSUAVVSIYKKGNFQJKSKN5099-33-73A2 6:51:401.2.840.783500.1.72.3.15|1.2 .840.022732.1.13.104.2.7.2.727879_1 [id number] Arturo Ayala RN [facility] 2023-05-23 10:01:45 Mqmq94fICKZBKaC7zAPMMimIXLm0jKtwU1Q LK4Ny8i9Yq3cyw6thrprpvV6guLHU2002-6 05-23T10:01:45 OPERATIVE NOTEDate of Operation: 4Pre-operative Diagnosis:1) Left subtrochanteric fracturePost-operative Diagnosis: SameProcedure(s):1) Left subtrochanteric femur fracture open reduction internal fixation2) Left Cephalo-medullary nailing of the femurIndications:Regina Awad is a 57 year old male with a L subtrochanteric femur fracture he sustained after a fall off a roof about 14 feet. He was initially placed into skeletal traction and admitted to ICU for optimization.A clear explanation was given to the patient regarding the condition present and the available conservative and surgical options. It was emphasized that the risks and benefits of surgery include but are not limited to bleeding, infection, wound healing problems, damage to adjacent structures such as nerves, blood vessels, tendons, ligaments, and bone, dural tear, custodial disability and pain, arthritis, hypersensitivity, deep vein thrombosis, pulmonary embolism, myocardial infarction, stroke, persistence of symptoms, failure of surgery, need for further procedures at time of surgery or later, loss of function and/or sensation in limb, loss of limb or life.The patient was given an explanation and the patient voiced understanding of what to expect after the procedure or surgery, the limitations in activities of daily living, the likely duration for post-operative recovery and the instructions that are to be followed.At the end the patient was invited to seek clarification or ask further questions, all of which were answered to satisfaction if any were asked. The patient voiced understanding of the entire consultation.Faculty: Dr. Navats: Dr. MitchellAnesthesia: GeneralComplications: NoneEstimated Blood Loss: 1000 mLImplant:Implant Name Type Inv. Item Serial No. Software Licensing Executive Lot No. LRB No. Used ActionCABLE WITH CRIMP [id number] STERILE SYNTHES #298.801.01S - SN/A Wire CABLE WITH CRIMP [id number] [employer]ERILE SYNTHES #298.801.01S N/A DEPUY SYNTHES [id number] Left 1 ImplantedCABLE WITH CRIMP [id number] STERILE SYNTHES #298.801.01S - SN/A Wire CABLE WITH CRIMP 1.2Z855GI STERILE SYNTHES #298.801.01S N/A DEPUY SYNTHES [id number] Left 1 ImplantedTFNA 125 DEGREES LEFT 10MM X 440MM #04.037.035S - SNA Nail NAIL IM FMRL LEFT PORX TFN-ADV LAT RELIEF CUT 125D 440MM 10 #04.037.035S NA DEPUY SYNTHES [id number] Left 1 ImplantedSCREW TFNA SYNTHES 95MM #04.038.095S - SNA SCREW SCREW 95MM 10.35MM TI NIBM ALUMN FEM PROXML MICHAEL STRL GLD #04.038.095S NA DEPUY SYNTHES [id number] Left 1 ImplantedLOCKING SCREW 5MM/60MM/XL25 NA DEPUY SYNTHES [id number] Left 1 ImplantedSCREW BONE X25 48MM LOCK 5MM IM NAIL #04.045.048S - SNA SCREW SCREW BONE X25 48MM LOCK 5MM IM NAIL #04.045.048S NA DEPUY SYNTHES [id number] Left 1 ImplantedProcedure:Description of Operation: The patient was brought to the operating room. Patient name and surgical site were confirmed during timeout. Preoperative antibiotics were given. General anesthesia was administered. The patient was placed supine on the fracture table in the standard fashion. All bony prominences were well padded. Traction was applied to the operative leg and the fracture was attempted to be closed reduced under C-arm guidance. There was still deformity noted so we decided to open reduce the fracture.The leg and hip were then prepped and draped in the usual sterile fashion. A lateral approach to the proximal femur was taken. Hemostasis was obtained with electrocautery. Fracture was encountered and cleaned with irrigation, curette and rongeur. The fracture was reduced with a combination of clamps and confirmed with XR guidance. Next two cerclage cables were placed around the fracture site to maintain reduction.Next a guidewire was then placed through the tip of the greater trochanter and into the femoral canal under fluoroscopic guidance. This was checked in both AP and lateral views. The guide wire was then reamed with rigid entry reamer. Ball tip guidewire was inserted to the appropriate depth and confirmed via fluoroscopy. Progressive reaming was performed to a final diameter of 11.5mm. The nail implant was loaded onto the insertion jig and then gently inserted. Mallet was used to desired location. The fracture was well reduced as confirmed with C-arm in AP and lateral views. The guide was removed. The guide pin for the hip screw was inserted to a point within 25 mm tip-to-apex distance on AP and lateral views. A 95 mm lag screw size was selected. The lateral cortex was drilled for the compression screw. The lag hip screw was inserted. The distal interlocking screw was then inserted in the standard fashion using perfect [place] technique. Traction removed and reduction confirmed with fluoroscopy. All wounds were thoroughly irrigated by bulb irrigation. The incisions were closed in layers and soft dressing was applied.The patient remained intubated to proceed to MRI for known T spine fracture. He was in stable conditionFaculty surgeon was present for all bowman portions of the procedure.Post OP Plan- WBAT post operatively- Multimodal pain meds- Perioperative antibiotics- SCD and chemoprophylaxis for DVT preventionJean Claude Mitchell M.D.Orthopaedic SurgeryPGY-4 ssociated attestation - Jad Orr MD - 05/27/2023 1:15 PM CST I am present in OR to supervise the entire vlbb50961-6Bvumivm Surgical operation ihgpOO5323150Zaikaytqcx, Kelly D1.2.840.563527.1.13.104.2.7.2.8369 72JeevzxhbigGeconLSO6291-17-96X81:1 5:42Surgery Surgical operation noteTXT1.2.840.364706.1.13.104.2.7. 2.521586|[id number] for patient lgzm83900-7BlkmGFMGMJHXJADCabqzsbnq C-CDA narrative text[address] Ze[id number] 0FUHWYVZAUMQLURTAEQJCUZ2352-65-29Y0 3:15:421.2.840.296678.1.72.3.15|1.2 .840.869197.1.13.104.2.7.2.727879_1 [id number] [facility] 2023-05-22 21:05:06 /Qdpx8qO/7Fv4SIIQpFBHViiDx5GYgoKVc8 HTjgmdRxBp0dbvLuNvZqdJCXJO/jp4286-6 05-22T21:05:06 Problem: Discharge PlanningGoal: Adequate for dischargeOutcome: Progressing as expectedGoal: Effective communicationOutcome: Progressing as expectedProblem: Falls, Risk ofGoal: Absence of fallsOutcome: Progressing as expectedProblem: Fluid Volume - ImbalancedGoal: Absence of signs and symptoms of imbalanced fluid volumeOutcome: Progressing as expectedProblem: Infection, Risk of or ActualGoal: Absence of infectionOutcome: Progressing as expectedProblem: Mental Status - Impaired, Risk ofGoal: Mental status restored to baselineOutcome: Progressing as expectedProblem: Nutrition DeficitGoal: Adequate nutritional intakeOutcome: Progressing as expectedProblem: PainGoal: Control of pain at or below patient's documented comfort goalOutcome: Progressing as expectedProblem: Respiratory Function - ImpairedGoal: Able to cough effectivelyOutcome: Progressing as expectedGoal: Adequate oxygenationOutcome: Progressing as expectedGoal: Adequate work of breathingOutcome: Progressing as expectedGoal: Patent airwayOutcome: Progressing as expectedProblem: Skin integrity Impaired (Risk or Actual)Goal: Wound healingOutcome: Progressing as expectedGoal: Prevention of new skin breakdownOutcome: Progressing as expectedProblem: Tissue Perfusion - Altered, Risk ofGoal: Hemodynamically stableOutcome: Progressing as expected 35172-3Vdny of care vepuWX2868-52-67Q75:05:12Plan of care noteTXT1.2.840.441541.1.13.104.2.7. 2.310903|[id number] for patient xsnn64662-3AnoiJJHRYBJZAMXZzjbyziht C-CDA narrative ammr576882147PdjsDelmis Sheets RN[address] [id number] 6BCAWDDAVFFASNZRZBWIVUX2113-03-99F1 1:05:121.2.840.781170.1.72.3.15|1.2 .840.735299.1.13.104.2.7.2.727879_1 [id number] Delmis Sheets RN [facility] 2023-05-22 18:07:54 bHEpPm9eMVT0H0ZaXMFx5/7ATZ0ZiClD6AC oqeCSOJMZcr0ZzxarSF1Um/dFgzWW9351-2 05-22T18:07:54 Problem: Discharge PlanningGoal: Adequate for dischargeOutcome: Progressing as expectedGoal: Effective communicationOutcome: Progressing as expectedProblem: Falls, Risk ofGoal: Absence of fallsOutcome: Progressing as expectedProblem: Fluid Volume - ImbalancedGoal: Absence of signs and symptoms of imbalanced fluid volumeOutcome: Progressing as expectedProblem: Infection, Risk of or ActualGoal: Absence of infectionOutcome: Progressing as expectedProblem: Mental Status - Impaired, Risk ofGoal: Mental status restored to baselineOutcome: Progressing as expectedProblem: Nutrition DeficitGoal: Adequate nutritional intakeOutcome: Progressing as expectedProblem: PainGoal: Control of pain at or below patient's documented comfort goalOutcome: Progressing as expectedProblem: Respiratory Function - ImpairedGoal: Able to cough effectivelyOutcome: Progressing as expectedGoal: Adequate oxygenationOutcome: Progressing as expectedGoal: Adequate work of breathingOutcome: Progressing as expectedGoal: Patent airwayOutcome: Progressing as expectedProblem: Skin integrity Impaired (Risk or Actual)Goal: Wound healingOutcome: Progressing as expectedGoal: Prevention of new skin breakdownOutcome: Progressing as expectedProblem: Tissue Perfusion - Altered, Risk ofGoal: Hemodynamically stableOutcome: Progressing as expected 51793-0Gdjn of care nafdRV6158-84-41R71:07:57Plan of care noteTXT1.2.840.545963.1.13.104.2.7. 2.508281|[id number] for patient hxia94742-3NlbkCPGVVMUNTLYKvmfjhnwx C-CDA narrative textUT[address] Yl[id number] 8MHQFZEKBEVYRESWVTAPQDD2930-31-56O1 8:07:571.2.840.682067.1.72.3.15|1.2 .840.293585.1.13.104.2.7.2.727879_1 [id number] [facility] 2023-05-22 14:38:19 4w0Kys6cmQPVUli/getgzdyT2qNPoc0L4TB NLjjJQLRSawJPPz0Xeug0TTczM0wh7149-9 05-22T14:38:19 Name/ MRN / Age / Gender:Regina Awad, [id number] year old maleBMI:Estimated body mass index is 24.4 kg/m? as calculated from the following:Height as of this encounter: 1.829 m (6').Weight as of this encounter: 81.6 kg (179 lb 14.3 oz).Allergies:Patient has no known allergies.Last Vitals:BP Readings from Last 1 Encounters:05/22/23 125/77Pulse Readings from Last 1 Encounters:05/22/23 98SpO2 Readings from Last 1 Encounters:05/22/23 95%Date of Surgery: 05/22/2023Surgeon: Arturo Tadeo II, MDProcedure: FEMUR INTRAMEDULLARY NAILING (Left: Leg)OR [facility] MARYAMAnesthesia Preop Screen (no physical exam)Anesthesia Preop: Chart ReviewAPAC Communication: 57yo M w/ Htn, HepCPresented following fall off ladder ~15-20ft w/ L femur fx, scheduled for IMNAnesthesia HistoryAnesthesia History NegativePrevious Anesthetics/AirwaysAdditional Comments:Airway 08/06/18Final airway type: endotracheal airwaySuccessful intubation technique: direct laryngoscopyEndotracheal tube insertion site: right narisBlade: MacintoshBlade size: #3Cormack-Lehane Classification: gradeNumber of attempts at approach: 1CardiovascularComments:Transthorac ic echo 04/10IMPRESSION-Left Ventricle: Left ventricle size is normal. Normal wall thickness. Normal wall motion. Normal systolic function with a visually estimated EF of 60 - 65%.-Right Ventricle: Right ventricle size is normal. Normal systolic function.-Tricuspid Valve: Insufficient regurgant jet to estimate RVSP. RA pressure is 0-5 mmHg.EKG 03/10Normal sinus rhythmModerate voltage criteria for LVH(+) Hypertension and well controlledPulmonary(+) Tobacco use(+) Cigarette useNeuro/MusculoskeletalComments:-H istory of mandibular fracture s/p plate fixation 2019-History of thoracic spine fracture 2/2 trauma on 06/12CT spine 06/12IMPRESSION-No acute intracranial hemorrhage or mass effect.-Acute T12 vertebral body compression fracture resulting in mild vertebralheight loss and minimal retropulsion.-T11 bilateral inferior articular processes and spinous process minimallydisplaced fractures. T12 bilateral superior articular processes minimallydisplaced fractures.-Left L1 and L2 transverse processes minimally displaced fractures.-No acute osseous abnormality in the cervical spine.GI/Hepatic(+) Hepatitis and Hep C(+) Liver disease and ascitesHematologyNegative Hematology ROSComments:WBC (10*3/?L)Date Value05/22/2023 9.15 PLT (10*3/?L)Date Value05/22/2023 171 HGB (g/dL)Date Value05/22/2023 9.1 (L)RenalNegative Renal ROSComments:K (mmol/L)Date Value05/22/2023 4.1 CREATININE (mg/dL)Date Value05/22/2023 0.76 Benign prostatic hypertrophySkinNegative Skin ROSComments:Dry skin dermititisEndo/OtherNegative Endo/Other ROSOther(+) Tobacco use(+) 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 Hold on DOS.Phentermine: Alert [facility] anesthesiologistSGLT2 Inhibitors: "gliflozins" to be held for 3 days prior to elective surgeriesGLP1 Agonosit: stop 7 days prior to surgeryMAC Cases: Continue taking NELLIE inhibitors and ARBsASA ClassificationASA: 2Current Medications:No outpatient medications have been marked as taking for the 05/20/23 encounter (Hospital Encounter).Previous Surgeries:Past Surgical History:Procedure Laterality DateALVEOLOPLASTY N/A 08/06/2018Surgeon: Carmen Redmond DDS; [facility] MaryamFULL MOUTH EXTRACTION N/A 08/06/2018Surgeon: Carmen Redmond DDS; Location: [facility] MaryamMANDIBLE HARDWARE REMOVAL N/A 08/06/2018Surgeon: Carmen Redmond DDS; Location: [facility] OR LocationNERVE REPAIR N/A 08/06/2018Surgeon: Carmen Redmond DDS; [facility] RED SIMPL MANDIBLE FX Left 04/21/2018Andrual Palmer DDSPhysical ExamAnesthesia PlanASA Status: 2 04199-5Ksbzkzluqhcise Preoperative evaluation and management xjwnYC6661-87-03N09:40:38Anesthesio logy Preoperative evaluation and management noteTXT1.2.840.890327.1.13.104.2.7. 2.438874|[id number] for patient elsj63918-6Ncrirfmu operation noteLNNARRATIVEFormatted C-CDA narrative kcnrYQ-RMPSFCPDGWVNCZTR-OCYDELENQSB [address] Jr[id number] 7VDIPAAILWITCCTZZFLXNRE9806-32-60Z1 4:40:381.2.840.453174.1.72.3.15|1.2 .840.785282.1.13.104.2.7.2.727879_1 [id number] AN-ANESTHESIOLOGY [facility] 2023-05-22 02:16:32 nl7Kjwm6rqyliKxV0NhIOguOFSBmkoXgHA+ vgPavnYOHmNVeaQwtb8PUq24YHlHN7776-1 05-22T02:16:32 Problem: Discharge PlanningGoal: Adequate for dischargeOutcome: Progressing as expectedGoal: Effective communicationOutcome: Progressing as expectedProblem: Falls, Risk ofGoal: Absence of fallsOutcome: Progressing as expectedProblem: Fluid Volume - ImbalancedGoal: Absence of signs and symptoms of imbalanced fluid volumeOutcome: Progressing as expectedProblem: Infection, Risk of or ActualGoal: Absence of infectionOutcome: Progressing as expectedProblem: Mental Status - Impaired, Risk ofGoal: Mental status restored to baselineOutcome: Progressing as expectedProblem: Nutrition DeficitGoal: Adequate nutritional intakeOutcome: Progressing as expectedProblem: PainGoal: Control of pain at or below patient's documented comfort goalOutcome: Progressing as expectedProblem: Respiratory Function - ImpairedGoal: Able to cough effectivelyOutcome: Progressing as expectedGoal: Adequate oxygenationOutcome: Progressing as expectedGoal: Adequate work of breathingOutcome: Progressing as expectedGoal: Patent airwayOutcome: Progressing as expectedProblem: Skin integrity Impaired (Risk or Actual)Goal: Wound healingOutcome: Progressing as expectedGoal: Prevention of new skin breakdownOutcome: Progressing as expectedProblem: Tissue Perfusion - Altered, Risk ofGoal: Hemodynamically stableOutcome: Progressing as expected 48749-2Qmlt of care jmydVB6534-73-76B73:16:35Plan of care noteTXT1.2.840.791352.1.13.104.2.7. 2.186147|[id number] for patient slvk33640-7AebdNCNZHKZWASRMvjjjhpbg C-CDA narrative textUT[address] Id[id number] 2OQXBQBOVKTOYXQBGRYNMCS2190-80-95J3 2:16:351.2.840.734523.1.72.3.15|1.2 .840.173868.1.13.104.2.7.2.727879_1 [id number] [facility] 2023-05-20 22:11:13 XSRfUwdRYR6O+2WrvqQFt7F9fBmpWImSv8W +IYXnCP+VASKNLAa6Kr38s1IxItAW0600-3 05-20T22:11:13 Patient transported to [facility] with ED RN and EDT for continuous monitoring. Patient remains on BP, O2, ekg monitor tech during transport. Zoll monitor and ambu bag present on ED stretcher. Patient AAOx4, breathing even/unlabored, in NAD. Patient stable for transport at this time. 54083-0Ygqkaekzp department DvynVJ6867-22-80Q11:11:40[facility] NoteTXT1.2.840.661042.1.13.104.2.7. 2.994750|[id number] for patient mgeb96061-4VqpgUNAOZIUOIHRManbyahcg C-CDA narrative jyyr106686776Uzmvs Jonel Arias BUNCH[id number] 8KICONGFRDDNVSHFOSVFWOI1796-22-44N2 2:11:401.2.840.114609.1.72.3.15|1.2 .840.949755.1.13.104.2.7.2.727879_1 [id number] Malena Jonel Arias BUNCH [facility] 2023-05-20 22:08:12 5Kc37k6lnzjJKoqadZpRpL4yII5Oxag9pj8 Cqgr5TDq2d3rIFzrbGbxKw4ct0urK4424-9 2:08:12 Report given to Jackie BUNCH. POC discussed.ICU 8c 853.Transport procecss inititated 98013-8Lfwfueqkz department KzinMZ5560-11-62M43:08:44[facility] NoteTXT1.2.840.175816.1.13.104.2.7. 2.923042|[id number] for patient wlfp81038-0HgwtPXJISCKDOVTChnkolbgx C-CDA narrative [id number] Esteban RN[id number] 2WMKRNQACGAQVACOFWLGNBF4248-51-37F6 2:08:441.2.840.439301.1.72.3.15|1.2 .840.648265.1.13.104.2.7.2.727879_1 [id number] Jaun Herrera RN [facility] 2023-05-20 20:58:37 KJ2SShLQDDiu2QPXL7b1PJPhBUvP7N3DogA gNNThyFLlLlqXEK19IFQERexaTuQn3202-0 05-20T20:58:37 Patient reports pain and needing to drink water.No diet or pain meds noted in orders.Messaged trauma team, awaiting further orders. [address]82-7Ibfwgvbqi[address] [place] [address] IlggEO9045-47-06U32:59:10[facility] NoteTXT1.2.840.880830.1.13.104.2.7. 2.684030|[id number] for patient ppol36475-8PmsmHCXTGJTHTPDLeppwsbru C-CDA narrative textUT[address] Nutg[id number] 7SQHWXAINMUPYVNEODPXMSG5141-69-27N9 0:59:101.2.840.809573.1.72.3.15|1.2 .840.938229.1.13.104.2.7.2.727879_1 [id number] [facility] 2023-05-20 20:57:58 f5gcMqhKWWret8hQEyQbnYESbCpnoBNWVMU Tg4pq1GocJuNHvgWJRogDWpTx22rw3996-2 05-20T20:57:58 Ortho at bedside 33735-6Esesijwym[address] PrxvSO2286-36-24B52:58:02[facility] NoteTXT1.2.840.891542.1.13.104.2.7. 2.383980|[id number] for patient ovcw66111-7WlwtOXFVZGJMHAWKfwgxefqu C-CDA narrative text[id number] 1XMRLEONPNAQHIUQVWYGBSA1496-11-45U2 0:58:021.2.840.235181.1.72.3.15|1.2 .840.843823.1.13.104.2.7.2.727879_1 [id number] [facility] 2023-05-20 20:21:19 V+TE+XiHcHpuJXborR0KNj6RoujVeKu9hEr ZOmuEDysGplDrWAj66nsBK/NUhEZ53625-4 05-20T20:21:19 Trauma at bedside and reports patient to be admitted. 98517-0Ijaqyfcra department GufaBB0542-63-73Y59:23:33[facility] NoteTXT1.2.840.923517.1.13.104.2.7. 2.624532|[id number] for patient vdgq00293-7KzjzWLDIOQBPGZRIunpmsiih C-CDA narrative text[id number] 9BHHPEUWJFIRPRKOVTIADXX9184-78-62Y8 0:23:331.2.840.359061.1.72.3.15|1.2 .840.825385.1.13.104.2.7.2.727879_1 [id number] [facility] 2023-05-20 19:35:00 cBLl61omaITGogk3edVtbRiAT5uy/zvvah0 +Zb4fCcO0GwN3lSRva3UiHnaf9ZXh9490-8 05-20T19:35:00 Patient removed from Backboard at this time by trauma team 32678-1Wyjhdymdi department WbjpWK0097-55-56H94:43:35[facility] NoteTXT1.2.840.160879.1.13.104.2.7. 2.032084|0396563779XWImydlzlik for patient awfp69677-9QturIIXHICJJJEHLprpetiok C-CDA narrative text[id number] 3ZKYHHPVWFEPYVFWWKBJVMK3218-20-29D3 9:43:351.2.840.944816.1.72.3.15|1.2 .840.383508.1.13.104.2.7.2.727879_1 [id number] [facility] 2023-05-20 19:30:00 kzTajudvkzcLY+Wu0C5lDYUpWMFru52m91Q 836x3lSU8LYuSbzkZuI93NmZTDhJA4533-2 05-20T19:30:[address] scan at this time per MD Lan trauma team [address]2347-2Ldkvgejyh[address] UzglYQ9370-96-84I63:17:02[facility] department NoteTXT1.2.840.247988.1.13.104.2.7. 2.757041|[id number] for patient qkuy77966-8QchoGVCEFGECYZQMhsoprzik C-CDA narrative text[id number] 1YHZALFHGXOPVGGGJVLVRTA7250-91-11I7 0:17:021.2.840.789967.1.72.3.15|1.2 .840.370591.1.13.104.2.7.2.727879_1 [id number] [facility] 2023-05-20 19:25:39 WiyiHndUAyF0H96DyrctabuUImxSokQDLCh xaBL1HCA3xTjNfxSWHzwActlwHdpo8752-4 1-01T19:25:39 Regina Awad is a 57 year old malePresents to the ED from [facility] after a fall off of a roof. Pt reportedly fell off of a roof approximately 14 to 20 feet around noon today. Pt is alert and oriented x 4, respirations are even and unlabored. Pt has C collar in place and back board in place. Pt was administered a tetanus vaccine at [facility] and 1 liter NS. Pt was last medicated for pain with EMS in route with 50 of fentanyl. 30940-9Ewadbjlrg department Triage mqvtQZ8279-09-67C73:32:40[facility] Triage noteTXT1.2.840.671845.1.13.104.2.7. 2.112119|[id number] for patient axha09124-8Cylnxpqxt department NoteLNNARRATIVEFormatted C-CDA narrative [id number] Martines RN[address] Ww[id number] 6FQHOKKQQOGWAYXSCFCXQIG6021-84-68J7 9:32:401.2.840.782616.1.72.3.15|1.2 .840.951151.1.13.104.2.7.2.727879_1 [id number] Lilibeth Martines RN [facility] 2023-05-20 19:25:00 wyeys0TlmG5vcGZ/ZBnFiDWelRHSzdDkwPi y3xSz8L93Cf5C1eUeUM7Nfz3RkKh/9:25:00 Arives on backboard, no c-collar in place. Sage catheter in place, clean intact, draining secured to legRoger Billy Awad is a 57 year old male presents to the ED in stretcher via [facility] trauma transfer from [facility] s/p fall from roof approx 15-20 feet. Unknown LOC, -blood thinners. See primary, secondary sruvery, See physical diagram for injuries.Report received from EMS. Trauma protocol initiated. Trauma team members at bedside, primary and secondary survey in progress. Pt placed on continuous cardiac monitoring, pulse oximetry, [place] [address]-7Mrtdohcux department FadoEV5717-87-01A69:32:21[facility] NoteTXT1.2.840.641376.1.13.104.2.7. 2.193256|[id number] for patient qtbi87874-7VqgnCOHWVUUAKUSNvwihwzug C-CDA narrative textUT[address] NhffB[id number] 4IHTLLUXNXOUHIGRGDCXKTG4701-42-29S0 9:32:211.2.840.641940.1.72.3.15|1.2 .840.727922.1.13.104.2.7.2.727879_1 [id number] [facility] 2023-05-20 19:25:00 nVAG6Gf6w6lWDWF7xHDGcF4LhzTEMSI4toH fcw1Pwgn0z4ogKHAlQH3Vf2Qt6bXK5518-5 05-20T19:25:00 No blood work at this time per trauma MD lan 83774-8Xoavblzbt department EjmoUT2638-19-97J19:46:42[facility] NoteTXT1.2.840.261551.1.13.104.2.7. 2.692509|[id number] for patient sqcn84287-7ApeaURTZCVVQXSRJpymlwtyt C-CDA narrative text[id number] 8AAEBZJTRTVJSFZALMRKZAG1375-25-42P1 9:46:421.2.840.243257.1.72.3.15|1.2 .840.914479.1.13.104.2.7.2.727879_1 [id number] [facility] 2023-05-20 18:08:00 jpXgA7qDaZJAvvD8nkKphi1yUb9J0BTJmVZ sHMuYgXm6wNTihYmAOm8HCvXyBFrh4153-2 8:08:00 Patient transferred to [facility] for diagnosis of closed fracture of eleventh thoracic vertebra, pain of L hip, pain of L femur, fall, other closed fx of twelfth thoracic vertebra, and closed fracture of neck of L femur.Patient agrees to transfer, discussed plan of care with patient and family.Patient is awake, A&Ox 4, RR even and unlabored on 3L NC. Color appropriate for race. PIV intact x 2.No adverse reaction to medications administered while in ED.Belongings with patient to unit. 78371-9Oryatlczr department VqdgVJ3665-74-84X36:24:17[facility] NoteTXT1.2.840.556580.1.13.104.2.7. 2.948391|[id number] for patient vjkh51546-8DykbVNKUIXGGDFEWroooyctr C-CDA narrative bnmw046450097MpsmpxLesley Phelan RNUT[address] [id number] 7XEENIQWRWJRKPXGQKBCMSF9188-93-41Q4 8:24:171.2.840.811849.1.72.3.15|1.2 .840.791643.1.13.104.2.7.2.727879_1 [id number] Lesley Phelan RN [facility] 2023-05-20 18:02:00 xtcl65M8R1QA2US8a9T37VZrXYqTV26UEux hj14dxM0Djgq6duZlmcdUFDTP76hu3195-9 8:02:00 Pt leaving ED, patient care transferred to EMS staff at this time. 23542-8Pqpmgtvhf department RjxwEB4571-77-83D14:22:02[facility] NoteTXT1.2.840.216764.1.13.104.2.7. 2.145743|[id number] for patient uuna16915-0OerbROIRLSLHXBEMmpvcwdkf C-CDA narrative text[address]Pl[id number] 5YEUIVZKJYBZSRTZXZZTSFX9079-95-45A9 8:22:021.2.840.055814.1.72.3.15|1.2 .840.328201.1.13.104.2.7.2.727879_1 [id number] [facility] 2023-05-20 17:55:29 QFWv42qMMueDsKejECwzfeo+QjQOO8XK/JN V61i3T1nn/cvv5i/stSAzX9uzsy+B7659-5 05-20T17:55:29 [facility] ambulance arrived on scene to transport patient to [facility]. Pt report given to EMS staff at this time. 73822-4Zttfpzgux department XgneAJ1422-38-45E12:55:57[facility] NoteTXT1.2.840.953561.1.13.104.2.7. 2.488832|[id number] for patient cbnl87346-0QiwnJYDYCDXTTWHQjkftadqw C-CDA narrative [id number] 7BPKOCFTNVZIHJYKKQCWIVR4650-37-48W2 7:55:571.2.840.961450.1.72.3.15|1.2 .840.714304.1.13.104.2.7.2.727879_1 [id number] [facility] 2023-05-20 17:29:30 ddkqUoUn8m4gMA9pW3nOO3QJ40/Vv59Eg4N /WcuqCbOFUd7KXqvnwomVXFi/6O1838-1 05-20T17:29:30 Last ate @ 1400. 57518-7Yrbimfasy department SrgfVI2633-91-18C36:30:01[facility] department NoteTXT1.2.840.665718.1.13.104.2.7. 2.788410|[id number] for patient lycj55989-8KwbdFSLBBLICJCZYgrrvjcbz C-CDA narrative [id number] 7EQJNCZWPFFVYANIHBNLLQC4260-69-33K0 7:30:011.2.840.139945.1.72.3.15|1.2 .840.238158.1.13.104.2.7.2.727879_1 [id number] [facility] 2023-05-20 17:19:57 wkeHMlRqh3wL0CtP9y65dcoeyVlGyqG5OEn okWLOZdDxYqiQ3FtfpZBCed3Eldzh2866-8 7:19:57 Nurse ReportReport given to Jason BUNCH. Chief complaint, assessment findings, infusion verify [place] [address]-8Ilkuzajxa department KrixUD3848-74-50D02:20:07[facility] [facility] NoteTXT1.2.840.923458.1.13.104.2.7. 2.923484|[id number] for patient logc58700-0KhzuPLHOHBWCZRRCmzceerwn C-CDA narrative text[id number] 8MLLCELWXFSJVEWFFQVHVZW5197-77-21L3 7:20:071.2.840.254579.1.72.3.15|1.2 .840.366211.1.13.104.2.7.2.727879_1 [id number] [facility] 2023-05-20 16:05:18 6hSmaKsYMjTi1d0a/Uxsa9Lgvf8URTZcg1q JmpD2SSmwnfMwXPgaZbZdImAVZhfK6069-6 6:05:18 Patient upgraded to trauma based on detailed application support developer. Trauma Activation Criteria met, trauma team activated per protocol. 44548-2Tcdnmmizg department FeobMC9770-62-95S11:05:31[facility] department NoteTXT1.2.840.302795.1.13.104.2.7. 2.326944|[id number] for patient eodf56757-8TbygOEGUUCAYVECFwbuqycfx C-CDA narrative [id number] Fief RN[id number] 0CCWELGFXJDNFCSNUVCEBIW9045-35-60X4 6:05:311.2.840.900724.1.72.3.15|1.2 .840.106704.1.13.104.2.7.2.727879_1 [id number] Anne Valentino RN [facility] 2023-05-20 15:10:00 Jwssi+xzztRwdUx8f0RltnPfTcmbNSz5mzK mqzR0kDW17ztjrjr+Rc3SYLGwOvKX0221-0 05-20T15:10:[address] scan and brought to [place]4. 91414-2Zsnhspmdc department HulhTX0210-30-45E42:16:21Emergency department NoteTXT1.2.840.700271.1.13.104.2.7. 2.040449|[id number] for patient itsi56080-8NltvCKIPYXEMMDPDhvohvmjj C-CDA narrative [id number] 2RZWNBNQYTIOMFQPCETVZKI4148-16-59Z2 5:16:211.2.840.770954.1.72.3.15|1.2 .840.258202.1.13.104.2.7.2.727879_1 [id number] [facility] 2023-05-20 14:59:59 BfRClzQaTc7PagPLnW34hSAaVj2V8qEcEk4 m8cz4V9qZjziTjP17LYNcPZKh1aM81314-0 05-20T14:59:59 Wireless caller called ED, under contact Gonzalo MOON. Called regarding patient Regina Awad. Caller states "hi I am calling regarding regina, he fell through a barn roof. Are you the nurse taking care of him?" This RN states "yes maam, how can I help you?" Caller states "Did latrice do any blood work on him or drug screening?" This RN states "Im sorry, but I am unable to disclose that information over the phone." Caller states "Well I would like to request that you tell the doctor to do blood work, or drug screening and an alcohol level on him. 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 So if latrice could do all the screening that latrice do, that would be great." This RN states "I will notify the provider, thank you." Caller states "Okay thank you, and what was your name again?" This RN states "Lesley." Caller states "alright thank you, addy." Call ends.This RN immediately notifies provider. No further orders at this time. 01536-6Pumgtpxki department UuvxNI8961-64-06U04:06:53[facility] NoteTXT1.2.840.776412.1.13.104.2.7. 2.456977|[id number] for patient ofpz56772-3MwgiFFVOWSBYMAZBwtopvygd C-CDA narrative text[address] Bl[id number] 9AVWNBWCQOHDPJSZVOLOQON6504-11-09S6 5:06:531.2.840.185254.1.72.3.15|1.2 .840.643716.1.13.104.2.7.2.727879_1 [id number] [facility] 2023-05-20 14:55:00 Kf456Ew11SxMKBOy1GaiveJYVypdt0fG256 iUtzmL9e+VKOmYlWbPc+0Wbi4xOVO6161-2 4:55:[address] scan[address] RmlhPO7946-61-63L30:17:05[facility] NoteTXT1.2.840.299078.1.13.104.2.7. 2.312035|[id number] for patient yuyc25046-5OvklATJPCETUJDOXeryhhavv C-CDA narrative InfiniDB[id number] 8LOJCDAAFHKOWAFBFOFBTFI0610-43-04O1 5:17:051.2.840.110007.1.72.3.15|1.2 .840.742122.1.13.104.2.7.2.727879_1 [id number] [facility] 2023-05-20 14:40:00 EZX/f9+E4CX9OH9ftwL2OKd9VUf7D1PcTIH TYE5cRVOqF06225BQ5vLzYVPfcJRo4759-4 4:40:[address] scan and brought to [place]4. [address] NhzuWP3486-30-67H05:18:44[facility] NoteTXT1.2.840.322754.1.13.104.2.7. 2.559299|[id number] for patient zdmg71495-1FqxiWDPMUVKXPTVJlowslljk C-CDA narrative [id number] 2HPTRKTBZCGEBBXEGEVDLER5825-92-19Z6 5:18:441.2.840.349883.1.72.3.15|1.2 .840.147468.1.13.104.2.7.2.727879_1 [id number] [facility] 2023-05-20 14:19:00 Yw395Tv42GeFVHBl3LkfsjFKKmvce3bW581 aSoffP8z+VKOmYlWbPc+3Mel6sZPN5940-8 05-20T14:19:[address] scan. 25279-8Xitfmfwby department SznxIU3012-43-92V45:17:53[facility] department NoteTXT1.2.840.019852.1.13.104.2.7. 2.185643|[id number] for patient lmtt15517-3CiqtUPAIDSPEWHDXlafbihku C-CDA narrative text[address] MbabRivf[id number] 9HOWDRYJLKKCBAAJAIRQJZR8408-71-72O0 5:17:531.2.840.678591.1.72.3.15|1.2 .840.296411.1.13.104.2.7.2.727879_1 [id number] [facility] 2023-05-20 14:05:00 hJSC+qEK8QSUPYX647a3khZ6mI5mzPIaw6u 2hDsmFyGzrPu544/D/I38ywDHWwcQ1719-7 05-20T14:05:00 EMS state pt fell ~15ft through plexiglass he was working on. Denies hitting head, denies loss of consciousness but complains of left leg pain. Fell mostly on left side. 97250-9Qepavullz department ZupkIX3998-59-61B72:14:11[facility] NoteTXT1.2.840.599147.1.13.104.2.7. 2.952923|[id number] for patient clts23742-4FzbnMIEDXWJHFCIOmvwzjgio C-CDA narrative text[id number] 0NRVXAHOCGSHTTURXGCZCCP6712-89-68F6 4:14:111.2.840.052524.1.72.3.15|1.2 .840.588909.1.13.104.2.7.2.727879_1 [id number] [facility] 2023-05-20 14:04:55 5gIV67J1rvvCwL8dKSzOuOEZFQLB6LsbBPW iJSovm0BQC6Am4Eg/thn8+sptNC1a9268-8 4:04:55 [facility] states: "Pt was working on top of a barn. He fell through the tin. He denies loc, denies taking blood thinners. He c/o pain in his left hip, left leg. He was unable to stand on it. I gave a total of 100 mcg fentanyl"Pt arrived on scoop stretcher. Denies loc.Spo2 on room air 88%, pt placed on 3 L NC came up to 92%. 89000-9Ixectbcgg department Triage rfgrCC9494-58-32X90:07:05[facility] Triage noteTXT1.2.840.547864.1.13.104.2.7. 2.787174|[id number] for patient bdma05064-3Guqywyjhh department NoteLNNARRATIVEFormatted C-CDA narrative [id number] M Cruz RNUT[id number] 6DKHLWSBTVMAHVUAHXIKTYW2583-23-30K8 4:07:051.2.840.489942.1.72.3.15|1.2 .840.656858.1.13.104.2.7.2.727879_1 [id number] Cici Turk Bebeto BUNCH [facility] 2023-01-07 14:00:59 cq0Svc4kT7TiD6wSFXLmpCV6J4w3XXP6fpz 6TJ7lQyM0qgpUa2adLvU31NUkTlRC7439-3 4:00:59 Patient cancelled cystoscopy that was scheduled for 01.08.23. GEORGINA VAZQUEZ RN 01/07/2023 2:01 PM 16663-9Mnrivswih encounter LlegCF8948-76-00E39:01:23Telephone encounter NoteTXT1.2.840.622837.1.13.104.2.7. 2.897336|[id number] for patient yjlu31505-0WkkkQH195879582Rhbcs L Carroll RN[address] Pj[id number] 1QMKKUSLMOJCHVBZGDZZWIP1714-60-31K6 4:01:231.2.840.069232.1.72.3.15|1.2 .840.930303.1.13.104.2.7.2.727879_1 [id number] Georgina Vazquez RN [facility] 2023-01-07 10:27:32 fyzTnx4NUDGH3yKdgN2pScdiOjdKPRTkugz BPidd9KhleNlDGG9VVeKlt9grBiiP9661-4 0:27:32 Chart reviewed, and labs ordered for next appointment. 88574-0Xfbeqvpwl encounter OclyVM5891-90-16R29:29:29Telephone encounter NoteTXT1.2.840.395449.1.13.104.2.7. 2.712560|[id number] for patient pfbe05511-6MgxjOUKYIONJZO[id number] 0SMWDYGYMDABDCNRFSPXQNI0439-95-46T8 0:29:291.2.840.402242.1.72.3.15|1.2 .840.956066.1.13.104.2.7.2.727879_1 [id number] [facility] 2023-01-04 13:50:00 cd9iqCItKWE/988qOfg2cdYrT/LpFlbMqDr ztpinliFB1F57ONXg5kS36o/P26qK2271-8 3:50:00 Patient is scheduled for cystoscopy 01/08/23 and needing urine culture. Attempted to contact patient with no answer, Voicemail left at this time with clinic phone number and instructed patient to return call. 96094-3Hbbbncebk encounter QwixWE3975-69-67G80:51:24Telephone encounter NoteTXT1.2.840.701606.1.13.104.2.7. 2.410397|[id number] for patient ytbm07811-8TznuYKMLVXJEZY[id number] 0SGWTSVUQCZAPIFVIASZHXR2838-50-05M2 3:51:241.2.840.286846.1.72.3.15|1.2 .840.782679.1.13.104.2.7.2.727879_1 [id number] [facility]
[2023-09-27 17:29] LABS: Absolute Eosinophils 0.2 K/uL (0-0.5); Absolute Lymphocytes (CBC) 2.8 K/uL (0.7-4.9); Absolute Monocytes 0.5 K/uL (0.1-1.3); Absolute Neutrophil 3.2 K/uL (1.8-8.0); Basophils % 0.7 % (0-1.3); Eosinophils % 3.4 % (0-4.4); Hematocrit 35.2 % (39.6-49.0); Hemoglobin 11.5 g/dL (13.6-17.9); Lymphocytes % 41.8 % (15.3-44.8); MCH 27.1 pg (27.0-35.0); MCHC 32.6 g/dL (32.0-36.0); MCV 83.1 fL (80-100); MPV 8.5 fL (7.6-11.3); Monocytes % 7.7 % (3.3-12.3); Neutrophils % 46.4 % (41.7-73.7); Nucleated Red Blood Cells % 0.1 % (0-0); Platelets 258 thou/uL (152-406); RBC Red Blood Cell Count 4.24 M/uL (4.33-5.43); Red Cell Distribution Width 18.7 % (12.1-15.2)
[2023-09-27 17:32] LABS: Specific Gravity < 1.005 (1.005-1.030); Urine Bilirubin NEGATIVE (Negative); Urine Blood Negative (Negative); Urine Clarity Clear (Clear); Urine Color Colorless (Yellow); Urine Glucose NEGATIVE (Negative); Urine Ketones NEGATIVE (Negative); Urine Microscopic Reflex YN NO UMIC; Urine Nitrite NEGATIVE (Negative); Urine Protein NEGATIVE (Negative); Urine Urobilinogen Normal (Normal); Urine pH 6.5 (5.0-7.0)
[2023-09-27 17:37] LABS: Albumin 2.9 g/dL (3.4-5.0); Albumin/Globulin Ratio 0.7 (1.1-1.8); Anion Gap 8.4 mEq/L (5.0-15.0); Bilirubin Total 0.3 mg/dL (0.2-1.0); Globulin 4.1 g/dL (2.3-3.5); Potassium 3.4 mEq/L (3.5-5.1)
[2023-09-27 18:11] LABS: Platelet Estimate ADEQ; White Blood Cell Scan OK (OK)
[2023-09-27 18:12] LABS: Blood Morphology Comment NOT SEEN (NOT SEEN)
--- NOTE | 2023-09-27 18:31 | RAD REPORT ---
EXAM DESCRIPTION: CT - Abdomen Pelvis W Contrast - 09/27/2023 5:59 pm CLINICAL HISTORY: Abdominal pain COMPARISON: none. TECHNIQUE: Computed axial tomography of the abdomen pelvis was obtained. 100 cc Isovue-300 was admin istered intravenously. Oral contrast was not requested which limits evaluation of bowel and appendix All CT scans are performed using dose optimization technique as appropriate and may include automated exposure control or mA/KV adjustment according to patient size. FINDINGS: 6 millimeter lesion within the dome of the liver Spleen, pancreas, adrenal and kidneys appear unremarkable. Duodenal diverticulum Patient has a palpable area right lateral abdomen. This area was marked. The underlying musculature n ormal size and density. An underlying hernia not seen. No mass is visualized There is no evidence of diverticulitis. Normal appendix Matson rods united by screws have been placed from T10-L2. Mild compression deformity T12 vertebr al body with superior vertebral body cortical irregularity Compression screw and intramedullary robert affix a left femoral fracture. Mild displacement of fracture fragments IMPRESSION: 6 millimeter hepatic lesion is nonspecific but probably benign. Follow-up ultrasound in 3 months recommended Matson rods united by screws have been placed from T10-L2. Mild compression deformity T12 vertebr al body with superior vertebral body cortical irregularity. Presumably the patient has a T12 subacute mild compression fracture with subsequent surgery. This should be confirmed clinically.
--- NOTE | 2023-09-27 19:09 | ER ---
Nurse's Notes [facility] Name: Crispin Degroot Age: 57 yrs Sex: Male : 1965 Arrival Date: 09/27/2023 Time: 16:52 Bed 7 Private MD: Diagnosis: Abdominal pain, unspecified Presentation: 09/26 17:00 Chief complaint: Pt's states "he had back surgery back in May but today he has aa5 something bulging on the right side". 17:00 Coronavirus screen: At this time, the client does not indicate any symptoms associated aa5 with coronavirus-19. Ebola Screen: Patient denies travel to an Ebola-affected area in the 21 days before illness onset. Initial Sepsis Screen: Does the patient meet any 2 criteria? No. Patient's initial sepsis screen is negative. Does the patient have a suspected source of infection? No. Patient's initial sepsis screen is negative. Risk Assessment: Do you want to hurt yourself or someone else? Patient reports no desire to harm self or others. Onset of symptoms was September 2023. 17:00 Method Of Arrival: Ambulatory aa5 17:00 Acuity: DANY 3 aa5 Historical: - Allergies: 16:59 No Known Allergies; aa5 - PMHx: 16:59 Chronic Renal insufficiency; Hypertensive disorder; aa5 - PSHx: 16:59 Back SX May 2023; aa5 - Immunization history:: Adult Immunizations unknown. - Infectious Disease History:: Denies. - Social history:: Smoking status: Patient reports the use of cigarette tobacco products. Screenin:13 [facility] ED Fall Risk Assessment (Adult) History of falling in the last 3 months, mb9 including since admission No falls in past 3 months (0 pts) Confusion or Disorientation No (0 pts) Intoxicated or Sedated No (0 pts) Impaired Gait No (0 pts) Mobility Assist Device Used No (0 pt) Altered Elimination No (0 pt) Score/Fall Risk Level 0 - 2 = Low Risk Oriented to surroundings, Maintained a safe environment, Educated pt \\T\\ family on fall prevention, incl call for assistance when getting out of bed, Assessed \\T\\ reinforced patient's understanding of fall precautions, Provided non-skid footwear. Abuse screen: Denies threats or abuse. Nutritional screening: No deficits noted. Tuberculosis screening: No symptoms or risk factors identified. Assessment: 17:13 General: Appears in no apparent distress. Behavior is calm, cooperative. Pain: mb9 Complains of pain in back Pain does not radiate. Pain currently is 7 out of 10 on a pain scale. Quality of pain is described as sharp, shooting, stabbing, throbbing, Pain began gradually, Is continuous, Aggravated by increased activity, repositioning, weight bearing. Neuro: Sims Agitation-Sedation Scale (RASS): 0 - Alert and Calm Level of Consciousness is awake, alert, obeys commands, Oriented to person, place, time, situation, Appropriate for age. Cardiovascular: Patient's skin is warm and dry. Respiratory: Airway is patent Respiratory effort is even, unlabored, Respiratory pattern is regular, symmetrical. GI: Abdomen is flat, non-distended, Bowel sounds present X 4 quads. Abd is soft and non tender X 4 quads. : No signs and/or symptoms were reported regarding the genitourinary system. EENT: No signs and/or symptoms were reported regarding the EENT system. Derm: Skin is pink, warm \\T\\ dry. Musculoskeletal: Range of motion: intact in all extremities. 18:25 Reassessment: No changes from previously documented assessment. Patient and/or family mb9 updated on plan of care and expected duration. Pain level reassessed. Patient is alert, oriented x 3, equal unlabored respirations, skin warm/dry/pink. Vital Signs: 17:00 BP 130 / 78; Pulse 85; Resp 16 S; Temp 99(O); Pulse Ox 97% on R/A; Weight 77.11 kg (R); aa5 Height 6 ft. 0 in. (R); Pain 7/10; 18:51 BP 132 / 80; Pulse 74; Resp 18; Pulse Ox 97% on R/A; mb9 19:14 BP 154 / 95; Pulse 70; Resp 17; Temp 98; Pulse Ox 98% on R/A; rv 17:00 Body Mass Index 23.06 (77.11 kg, 182.88 cm) aa5 17:00 Pain Scale: Adult aa5 Colony Coma Score: 19:14 Eye Response: spontaneous(4). Motor Response: obeys commands(6). Verbal Response: rv oriented(5). Total: 15. ED Course: 16:56 Patient arrived in ED. im 16:57 Maya Mendoza FNP-C is [facility]. kb 16:57 Doron Almeida MD is Attending Physician. kb 16:59 Arm band placed on. aa5 17:02 Sharon Keita, RN is Primary Nurse. mb9 17:03 Triage completed. aa5 17:13 Placed in gown. Bed in low position. Call light in reach. Side rails up X 1. Provided mb9 Education on: press call light if needing anything. Client placed on continuous cardiac and pulse oximetry monitoring. NIBP monitoring applied. 17:13 Initial lab(s) drawn, by me, sent to lab. Inserted saline lock: 20 gauge in right mb9 forearm, using aseptic technique. Blood collected. 17:14 No provider procedures requiring assistance completed. mb9 17:14 CBC with Diff Sent. mb9 17:14 CMP Sent. mb9 17:14 Lipase Sent. mb9 17:32 Urine collected: clean catch specimen, clear. mb9 18:01 CT Abd/Pelvis - IV Contrast Only In Process Unspecified. EDMS 19:15 IV discontinued, intact, bleeding controlled, No redness/swelling at site. Pressure rv dressing applied. Administered Medications: No medications were administered Medication: 17:13 VIS not applicable for this client. mb9 Outcome: 19:09 Discharge ordered by . kb 19:15 Discharged to home ambulatory, rv 19:15 Condition: improved 19:15 Discharge instructions given to patient, Instructed on discharge instructions, follow up and referral plans. Demonstrated understanding of instructions, follow-up care, 19:15 Patient left the ED. rv Signatures: Dispatcher [employer] EDMS Maya Mendoza FNP-C FNP-Ckb Calderon, Audri, RN RN aa5 David Chong RN RN rv Sharon Keita, RN RN mb9 Miriam Langley im
--- NOTE | 2023-09-27 19:10 | EDPHYS ---
Physician Documentation [facility] Name: Crispin Degroot Age: 57 yrs Sex: Male : 1965 Arrival Date: 09/27/2023 Time: 16:52 Bed 7 Private MD: ED Physician Doron Almeida HPI: 09/26 22:44 This 57 yrs old Male presents to ER via Ambulatory with complaints of Low Back Pain, kb Abdominal Pain. 22:44 Patient is a 57-year-old male who presents for pain and swelling to right lateral kb abdomen that started today. States he has had right-sided back pain since having back surgery but the pain to the abdomen is new. Denies nausea, vomiting, diarrhea, urinary symptoms, fever. States he was seen by his neurosurgeon on Saturday with the back pain.. Historical: - Allergies: 16:59 No Known Allergies; aa5 - PMHx: 16:59 Chronic Renal insufficiency; Hypertensive disorder; aa5 - PSHx: 16:59 Back SX May 2023; aa5 - Immunization history:: Adult Immunizations unknown. - Infectious Disease History:: Denies. - Social history:: Smoking status: Patient reports the use of cigarette tobacco products. ROS: 22:45 Constitutional: As per HPI kb Exam: 22:45 Constitutional: This is a well developed, well nourished patient who is awake, alert, kb and in no acute distress. Head/Face: Normocephalic, atraumatic. ENT: Moist Mucous membranes Cardiovascular: Regular rate Respiratory: Respirations even and unlabored. No increased work of breathing. Talking in full sentences Skin: Warm, dry with normal turgor. Normal color. MS/ Extremity: Pulses equal, no cyanosis. Neurovascular intact. Full, normal range of motion. Neuro: Awake and alert, GCS 15, oriented to person, place, time, and situation. Moves all extremities. Normal gait. 22:45 Abdomen/GI: Inspection: Slight swelling to right lateral abdomen, Bowel sounds: normal, Palpation: abdomen is soft and non-tender, in all quadrants, Vital Signs: 17:00 BP 130 / 78; Pulse 85; Resp 16 S; Temp 99(O); Pulse Ox 97% on R/A; Weight 77.11 kg (R); aa5 Height 6 ft. 0 in. (R); Pain 7/10; 18:51 BP 132 / 80; Pulse 74; Resp 18; Pulse Ox 97% on R/A; mb9 19:14 BP 154 / 95; Pulse 70; Resp 17; Temp 98; Pulse Ox 98% on R/A; rv 17:00 Body Mass Index 23.06 (77.11 kg, 182.88 cm) aa5 17:00 Pain Scale: Adult aa5 Nadeau Coma Score: 19:14 Eye Response: spontaneous(4). Motor Response: obeys commands(6). Verbal Response: rv oriented(5). Total: 15. MDM: 16:57 Patient medically screened. kb 22:45 Differential diagnosis: Nonspecific abdominal pain, hernia, infection. Data reviewed: kb vital signs, nurses notes. Historians other than the Patient: Spouse/Significant Other: . Counseling: I had a detailed discussion with the patient and/or guardian regarding the historical points, exam findings, and any diagnostic results supporting the discharge/admit diagnosis, lab results, radiology results, the need for outpatient follow up, a family practitioner, to return to the emergency department if symptoms worsen or persist or if there are any questions or concerns that arise at home. 09/26 17:02 Order name: CBC with Diff; Complete Time: 18:19 kb 09/26 17:02 Order name: CMP; Complete Time: 17:39 kb 09/26 17:02 Order name: Lipase; Complete Time: 17:39 kb 09/26 17:02 Order name: Urinalysis w/ reflexes; Complete Time: 17:33 kb 09/26 17:33 Order name: CBC Smear Scan; Complete Time: 18:19 EDMS 09/26 17:02 Order name: CT Abd/Pelvis - IV Contrast Only; Complete Time: 18:33 kb 09/26 17:02 Order name: IV Saline Lock; Complete Time: 17:14 kb 09/26 17:02 Order name: Labs collected and sent; Complete Time: 17:14 kb Administered Medications: No medications were administered Disposition Summary: 09/27/23 19:09 Discharge Ordered Notes: Location: Home kb Condition: Stable kb Diagnosis - Abdominal pain, unspecified kb Followup: kb - With: Emergency Department - When: As needed - Reason: Worsening of condition Followup: kb - With: Private Physician - When: 2 - 3 days - Reason: Recheck today's complaints, Continuance of care, Re-evaluation by your physician Discharge Instructions: - Discharge Summary Sheet kb - Abdominal Pain, Adult, Vynw-nk-Qdoo kb Forms: - Medication Reconciliation Form kb - Antibiotic Education kb - Prescription Opioid Use kb - Patient Portal Instructions kb - Leadership Thank You Letter tracee Signatures: Dispatcher [employer] Maya Pat, Brooklyn Rodríguez, RN RN aa5
[2023-09-27 19:45] VITALS: BP 154/95; TEMP 98; O2SAT 98
== END 2023-09-27 19:15 | disposition home or self-care (01) ==
LOC: ER 16:52
DX: R10.31 Right lower quadrant pain (principal); Z72.0 Tobacco use
CPT/HCPCS: 85025; 36415; 81003; 83690; 80053; 74177; 99284; Q9967

== ENCOUNTER 2024-04-23 04:43 | Emergency (ER) | payer OTHER ==
[2024-04-23] MEDS ORDERED: ONDANSETRON 4 MG/2 ML VIAL ONE (05:04)
[2024-04-23] MEDS ORDERED: LORazepam 2 MG/ML VIAL ONE (05:05)
[2024-04-23] MEDS ORDERED: KETOROLAC 30 MG/ML INJ ONE (05:05)
[2024-04-23] MEDS ORDERED: FAMOTIDINE 20 MG/2 ML VIAL IV ONE (05:05)
[2024-04-23] MEDS ORDERED: NA CHLORIDE 0.9% 1,000 ML ONE (05:05)
[2024-04-23 05:38] LABS: Absolute Lymphocytes (CBC) 1.1 K/uL (0.7-4.9); Absolute Monocytes 1.5 K/uL (0.1-1.3); Absolute Neutrophil 9.4 K/uL (1.8-8.0); Basophils % 0.1 % (0-1.3); Eosinophils % 0.1 % (0-4.4); Hematocrit 37.6 % (39.6-49.0); Hemoglobin 12.5 g/dL (13.6-17.9); Lymphocytes % 9.3 % (15.3-44.8); MCH 29.2 pg (27.0-35.0); MCHC 33.1 g/dL (32.0-36.0); MCV 88.2 fL (80-100); MPV 9.7 fL (7.6-11.3); Monocytes % 12.3 % (3.3-12.3); Neutrophils % 78.2 % (41.7-73.7); Platelets 313 thou/uL (152-406); RBC Red Blood Cell Count 4.26 M/uL (4.33-5.43); Red Cell Distribution Width 15.5 % (12.1-15.2)
[2024-04-23 05:51] LABS: Albumin/Globulin Ratio 0.6 (1.1-1.8); Anion Gap 9.4 mEq/L (5.0-15.0); Bilirubin Total 0.8 mg/dL (0.2-1.0); Potassium 3.4 mEq/L (3.5-5.1)
[2024-04-23] MEDS ORDERED: METOCLOPRAMIDE 10 MG/2mL INJ ONE (06:24)
--- NOTE | 2024-04-23 07:53 | RAD REPORT ---
EXAMINATION: CT ABDOMEN AND PELVIS WITH CONTRAST CLINICAL INDICATION: Abdominal pain TECHNIQUE: CT abdomen and pelvis was performed, after the administration of 100 cc Isovue-300.. Sagit kimmie and coronal reconstructions were obtained. One or more of the following dose reduction techniques were used: Automated exposure control, adjustment of the mA and kV according to patient si ze, and iterative reconstruction. Unless otherwise specified, incidental findings do not require dedicated imaging follow-up. [id number]. Oral contrast was not given which limits evaluation of bowel and appendix. COMPARISON: .September 2023 FINDINGS: Matson rods united by screws T10-L2. Portions of the T10 screws protrude through the superior saeid tebral endplates. Ostial lysis involves the superior vertebral endplate. Increased density surrounds the right, anterior and left aspects of the body.This has developed since the prior exam. Mild compression deformity T12 vertebral body unchanged. Compression screw and intramedullary robert affixes a left femoral fracture. There has been more callus formation present at the fracture site since the prior exam. Rectum is mildly distended with stool.. Subcentimeter hepatic lesion unchanged. , The spleen, pancreas, adrenals and kidneys appear unremarkable No evidence of diverticulitis. 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 This is s uspicious for infection. The ventricular screws protrude through the vertebral endplates.
--- NOTE | 2024-04-23 08:30 | ER ---
Nurse's Notes [facility] Name: Crispin Degroot Age: 58 yrs Sex: Male : 1965 Arrival Date: 04/23/2024 Time: 04:43 Bed 5 Private MD: Diagnosis: Orthopedic hardware infection thoracic spine, back pain Presentation: 04/23 04:43 Chief complaint: EMS states: Pt with c/o left upper quadrant abd pain, N/V, jerking ay movements. 04:43 Coronavirus screen: Client denies travel out of the [place] in the last 14 days. Ebola ay Screen: No symptoms or risks identified at this time. Initial Sepsis Screen: Does the patient meet any 2 criteria? No. Patient's initial sepsis screen is negative. Does the patient have a suspected source of infection? No. Patient's initial sepsis screen is negative. Risk Assessment: Do you want to hurt yourself or someone else? Patient reports no desire to harm self or others. Onset of symptoms was April 23, 2024. 04:43 Method Of Arrival: EMS: [facility] ay 04:43 Acuity: DANY 3 ay Triage Assessment: 04:56 General: Appears uncomfortable, Behavior is anxious, restless. Pain: Complains of pain ay in left upper quadrant Pain radiates to back Pain currently is 8 out of 10 on a pain scale. EENT:. Neuro: Level of Consciousness is awake, alert, obeys commands, Oriented to person, place, time, situation. Cardiovascular: Capillary refill < 3 seconds. Respiratory: Airway is patent Respiratory effort is even, unlabored, Respiratory pattern is regular, symmetrical. GI: Abdomen is flat. 04:56 GI: Reports upper abdominal pain, nausea, vomiting. ha1 Historical: - Allergies: 04:56 No Known Allergies; ay - Home Meds: 04:56 Methocarbamol Oral [Active]; atorvastatin oral [Active]; Benadryl Oral [Active]; ay docusate sodium Oral [Active]; tamsulosin oral [Active]; - PMHx: 04:56 Chronic Renal insufficiency; Hypertensive disorder; Chronic back pain; ay - PSHx: 04:56 Back SX May 2023; ay - Immunization history:: Adult Immunizations unknown. - Infectious Disease History:: Denies. - Social history:: Smoking status: unknown. - Family history:: not pertinent. Screenin:43 [facility] ED Fall Risk Assessment (Adult) History of falling in the last 3 months, ay including since admission No falls in past 3 months (0 pts) Confusion or Disorientation No (0 pts) Intoxicated or Sedated No (0 pts) Impaired Gait Yes (1 pt) Mobility Assist Device Used Yes (1 pt) Altered Elimination No (0 pt) Score/Fall Risk Level 3 or more points = High Risk Oriented to surroundings, Maintained a safe environment, Educated pt \T\ family on fall prevention, incl call for assistance when getting out of bed, Assessed \T\ reinforced patient's understanding of fall precautions, Hourly rounding (assess needs \T\ fall precautionary measures) done. Abuse screen: Denies threats or abuse. Denies injuries from another. Nutritional screening: No deficits noted. Tuberculosis screening: No symptoms or risk factors identified. Assessment: 04:43 Reassessment: See Triage Assessment. ay 05:50 Reassessment: Patient and/or family updated on plan of care and expected duration. Pain ay level reassessed. Patient is alert, oriented x 3, equal unlabored respirations, skin warm/dry/pink. Patient states feeling better. Patient states symptoms have improved. 06:30 Reassessment:. GI: Pt is actively vomiting YELLOW SECRETIONS Bowel sounds present in ha1 abdomen Abdomen is tender to palpation in right upper quadrant and left upper quadrant. 06:30 General: Appears uncomfortable, Behavior is restless. ha1 06:30 GI: Pt is actively vomiting NOTIFIED DR. ALVAREZ. ha1 06:47 Reassessment: eyes closed. Respiratory: Airway is patent Respiratory effort is even, ha1 unlabored, Respiratory pattern is regular, symmetrical. 08:05 Reassessment: Patient appears in no apparent distress at this time. No changes from ph previously documented assessment. Patient and/or family updated on plan of care and expected duration. Pain level reassessed. 09:58 Reassessment: Patient appears in no apparent distress at this time. Patient and/or ph family updated on plan of care and expected duration. Pain level reassessed. Patient is alert, oriented x 3, equal unlabored respirations, skin warm/dry/pink. [facility] [place] at bedside, pt transferred to [facility]. Vital Signs: 04:43 BP 170 / 93; Pulse 98; Resp 20; Temp 99.4; Pulse Ox 96% on R/A; ay 04:56 BP 170 / 93; Pulse 98; Resp 20 S; Pulse Ox 96% on R/A; ay 05:50 BP 167 / 98; Pulse 95; Resp 18; Pulse Ox 94% on R/A; ay 07:30 BP 162 / 90; Pulse 98; Resp 18; Pulse Ox 92% on R/A; ph 09:09 BP 160 / 94; Pulse 111; Resp 20; Temp 100.6; Pulse Ox 92% on R/A; ph 09:09 pt asleep ph [place] Coma Score: 05:47 Eye Response: spontaneous(4). Motor Response: obeys commands(6). Verbal Response: sp4 oriented(5). Total: 15. ED Course: 04:43 Patient has correct armband on for positive identification. Bed in low position. Call ay light in reach. Side rails up X2. Adult w/ patient. Provided Education on: Plan of care. Client placed on continuous cardiac and pulse oximetry monitoring. NIBP monitoring applied. Door closed. Noise minimized. Warm blanket given. Pillow given. 04:43 No provider procedures requiring assistance completed. Inserted saline lock: Maintain ay EMS IV. Dressing intact. Good blood return noted. Site clean \T\ dry. Gauge \T\ site: 20g RFA. Flushed with 10 mL NS. 04:47 Patient arrived in ED. [email or web address] 04:49 Garima Anders, RN is Primary Nurse. ay 04:50 Jacek Alvarez MD is Attending Physician. sp4 04:56 Triage completed. ay 04:56 Arm band placed on right wrist. ay 06:30 CT Abd/Pelvis - IV Contrast Only In Process Unspecified. EDMS 07:04 Attending Physician role handed off by Jacek Alvarez MD sp3 07:04 Juan Paredes MD is Attending Physician. sp3 08:35 initiated transfer to [facility]. bd 09:40 Sage cath inserted, using sterile technique, 16 Fr., by vt, balloon inflated, to ph gravity drainage, urine specimen collected. returned justin urine. 10:01 Patient transferred, IV remains in place. ph Administered Medications: 05:04 Drug: NS 0.9% IV 1000 ml IV at 1 bolus Per protocol; to be given as a bolus over 60 ha1 minutes Route: IV; Rate: 1 bolus; Site: right antecubital; 05:05 Drug: Famotidine IVP 20 mg IVP once; dilute with 10 mL 0.9% NaCl; give over 2 minutes ha1 Route: IVP; Site: right antecubital; 05:30 Follow up: Response: No adverse reaction; Marked relief of symptoms ay 05:07 Drug: Ondansetron IVP 4 mg IVP once; over 2 minutes Route: IVP; Site: right antecubital;ha1 05:30 Follow up: Response: No adverse reaction; Marked relief of symptoms; Nausea is decreaseday 05:11 Drug: Ativan IVP 2 mg IVP once Route: IVP; Site: right antecubital; ha1 05:30 Follow up: Response: No adverse reaction; Anxiety decreased ay 05:16 Drug: Ketorolac IVP 30 mg IVP once Route: IVP; Site: right antecubital; ha1 05:30 Follow up: Response: No adverse reaction; Marked relief of symptoms; Pain is decreased ay 06:34 Drug: metoCLOPramide IVP 10 mg IVP once; over 1 to 2 minutes Route: IVP; Site: right ha1 antecubital; 06:48 Follow up: Response: No adverse reaction; Marked relief of symptoms; Nausea is decreasedha1 09:09 Drug: Piperacillin-Tazobactam IVPB 3.375 grams IVPB once over 60 mins; (mix in NS 100 ph mL) Route: IVPB; Infused Over: 60 mins; Site: right antecubital; 10:00 Follow up: Response: No adverse reaction; IV Status: Completed infusion; IV Intake: ph 100ml 09:40 Not Given (Other Intervention Used): morphineor iv 4 mg IVP once over 4 mins ph 09:40 Drug: vancoMYCIN IVPB 1 grams IVPB once over 2 hrs Route: IVPB; Infused Over: 2 hrs; ph Site: right antecubital; 10:00 Follow up: Response: No adverse reaction; IV Status: Infusion continued upon transfer ph 09:40 Drug: Acetaminophen PA Suppository 650 mg PA once Route: PA; ph 10:01 Follow up: Response: No adverse reaction ph Medication: 04:43 VIS not applicable for this client. ay Intake: 10:00 IV: 100ml; Total: 100ml. ph Outcome: 08:29 ER care complete, transfer ordered by sp3 10:01 Transferred by ground EMS [place] to [facility], Transfer ph form completed. X-rays sent w/ patient. 10:01 Condition: stable 10:01 Instructed on the need for transfer, 10:01 Patient left the ED. ph Signatures: Dispatcher [employer] EDMS Mildred Silva Patricia RN RN Juan Paredes MD MD sp3 Kenya Cabrera 6 Belen Persaud RN RN ha1 Jacek Alvarez MD MD sp4 Garima Anders RN RN ay Corrections: (The following items were deleted from the chart) 07: 06:30 General: Appears uncomfortable, Behavior is restless, ha1 ha1 07:02 06:30 GI: Pt is actively vomiting ha1 ha1
--- NOTE | 2024-04-23 08:30 | EDPHYS ---
Physician Documentation [facility] Name: Crispin Degroot Age: 58 yrs Sex: Male : 1965 Arrival Date: 04/23/2024 Time: 04:43 Bed 5 Private MD: ED Physician Juan Paredes HPI: 04/23 04:50 This 58 yrs old Male presents to ER via Unassigned with complaints of sp4 Abdominal Pain, Nausea/Vomiting. 05:47 58-year-old male with history of traumatic brain injury chronic renal insufficiency sp4 hypertension back pain presents with subacute upper abdominal pain that has developed in the last 2 months. Patient states she has extensive history of spinal reconstruction also he is on pain management with oxycodone and Robaxin. Patient ran out of his pain medications approximately 4 days ago.. 08:56 Discussed with [facility] neurosurgery who have accepted the patient.. sp3 Historical: - Allergies: 04:56 No Known Allergies; ay - Home Meds: 04:56 Methocarbamol Oral [Active]; atorvastatin oral [Active]; Benadryl Oral [Active]; ay docusate sodium Oral [Active]; tamsulosin oral [Active]; - PMHx: 04:56 Chronic Renal insufficiency; Hypertensive disorder; Chronic back pain; ay - PSHx: 04:56 Back SX May 2023; ay - Immunization history:: Adult Immunizations unknown. - Infectious Disease History:: Denies. - Social history:: Smoking status: unknown. - Family history:: not pertinent. ROS: 05:47 Constitutional: Negative for fever, chills, and weight loss, positive for upper sp4 abdominal pain and nausea 05:47 All other systems are negative, Exam: 05:47 Constitutional: This is a well developed, well nourished patient who is awake, alert, sp4 patient appears restless and is manifesting with persistent movement similar to tardive dyskinesia Head/Face: Normocephalic, atraumatic. Eyes: Pupils equal round and reactive to light, extra-ocular motions intact. Lids and lashes normal. Conjunctiva and sclera are not injected. Cornea within normal limits. Periorbital areas with no swelling, redness, or edema. ENT: Nares patent. No nasal discharge, no septal abnormalities noted. Tympanic membranes are normal and external auditory canals are clear. Oropharynx with no redness, swelling, or masses, exudates, or evidence of obstruction, uvula midline. Mucous membranes moist. Neck: Trachea midline, no thyromegaly or masses palpated, and no cervical lymphadenopathy. Supple, full range of motion without nuchal rigidity, or vertebral point tenderness. Chest/axilla: Normal chest wall appearance and motion. Nontender with no deformity. No lesions are appreciated. Cardiovascular: Regular rate and rhythm with a normal S1 and S2. No gallops, murmurs, or rubs. Normal PMI, no JVD. No pulse deficits. Respiratory: Lungs have equal breath sounds bilaterally, clear to auscultation and percussion. No rales, rhonchi or wheezes noted. No increased work of breathing, no retractions or nasal flaring. Abdomen/GI: Soft, with normal bowel sounds. No distension or tympany. No guarding or rebound. No evidence of tenderness throughout. Back: No spinal tenderness. No costovertebral tenderness. Skin: Warm, dry with normal turgor. Normal color with no rashes, no lesions, and no evidence of cellulitis. MS/ Extremity: Pulses equal, no cyanosis. Neurovascular intact. Full, normal range of motion. Neuro: Awake and alert, GCS 15, oriented to person, place, time, and situation. Cranial nerves II-XII grossly intact. Motor strength 5/5 in all extremities. Sensory grossly intact. Psych: Awake, alert, with orientation to person, place and time. Behavior, mood, and affect are within normal limits Vital Signs: 04:43 BP 170 / 93; Pulse 98; Resp 20; Temp 99.4; Pulse Ox 96% on R/A; ay 04:56 BP 170 / 93; Pulse 98; Resp 20 S; Pulse Ox 96% on R/A; ay 05:50 BP 167 / 98; Pulse 95; Resp 18; Pulse Ox 94% on R/A; ay 07:30 BP 162 / 90; Pulse 98; Resp 18; Pulse Ox 92% on R/A; ph 09:09 BP 160 / 94; Pulse 111; Resp 20; Temp 100.6; Pulse Ox 92% on R/A; ph 09:09 pt asleep ph [place] Coma Score: 05:47 Eye Response: spontaneous(4). Motor Response: obeys commands(6). Verbal Response: sp4 oriented(5). Total: 15. MDM: 04:57 Medical Screening Exam initiated sp4 05:47 Differential diagnosis: Nonspecific abd pain, gastritis, viral gastroenteritis, sp4 gastroenteritis. Data reviewed: vital signs, nurses notes, old medical records, lab test result(s), radiologic studies. Consideration of Admission/Observation Escalation of care including admission/observation considered. 08:27 ED course: Patient signed out to me by nighttime physician. Patient is a 58-year-old sp3 male with chronic back pain secondary to trauma incurred in May 2023 with multiple orthopedic surgeries. Patient has hardware in his thoracic spine which at this point given his CT scan and labs demonstrates concern for infection. I discussed the case with his and we will be transferring patient to [facility] where his surgeries occurred for further treatment. Patient will receive Zosyn and vancomycin IV here in the ED prior to transfer.. 04/23 04:51 Order name: CBC with Diff; Complete Time: 07:05 sp4 04/23 04:51 Order name: CMP; Complete Time: 07:05 sp4 04/23 04:51 Order name: Lipase; Complete Time: 07:05 sp4 04/23 04:51 Order name: Urinalysis w/ reflexes sp4 04/23 04:51 Order name: CT Abd/Pelvis - IV Contrast Only; Complete Time: 07:59 sp4 04/23 04:51 Order name: IV Saline Lock; Complete Time: 05:15 sp4 04/23 04:51 Order name: Labs collected and sent; Complete Time: 05:15 sp4 04/23 09:40 Order name: Sage; Complete Time: 09:40 ph Administered Medications: 05:04 Drug: NS 0.9% IV 1000 ml IV at 1 bolus Per protocol; to be given as a bolus over 60 ha1 minutes Route: IV; Rate: 1 bolus; Site: right antecubital; 05:05 Drug: Famotidine IVP 20 mg IVP once; dilute with 10 mL 0.9% NaCl; give over 2 minutes ha1 Route: IVP; Site: right antecubital; 05:30 Follow up: Response: No adverse reaction; Marked relief of symptoms ay 05:07 Drug: Ondansetron IVP 4 mg IVP once; over 2 minutes Route: IVP; Site: right antecubital;ha1 05:30 Follow up: Response: No adverse reaction; Marked relief of symptoms; Nausea is decreaseday 05:11 Drug: Ativan IVP 2 mg IVP once Route: IVP; Site: right antecubital; ha1 05:30 Follow up: Response: No adverse reaction; Anxiety decreased ay 05:16 Drug: Ketorolac IVP 30 mg IVP once Route: IVP; Site: right antecubital; ha1 05:30 Follow up: Response: No adverse reaction; Marked relief of symptoms; Pain is decreased ay 06:34 Drug: metoCLOPramide IVP 10 mg IVP once; over 1 to 2 minutes Route: IVP; Site: right ha1 antecubital; 06:48 Follow up: Response: No adverse reaction; Marked relief of symptoms; Nausea is decreasedha1 09:09 Drug: Piperacillin-Tazobactam IVPB 3.375 grams IVPB once over 60 mins; (mix in NS 100 ph mL) Route: IVPB; Infused Over: 60 mins; Site: right antecubital; 10:00 Follow up: Response: No adverse reaction; IV Status: Completed infusion; IV Intake: ph 100ml 09:40 Not Given (Other Intervention Used): morphineor iv 4 mg IVP once over 4 mins ph 09:40 Drug: vancoMYCIN IVPB 1 grams IVPB once over 2 hrs Route: IVPB; Infused Over: 2 hrs; ph Site: right antecubital; 10:00 Follow up: Response: No adverse reaction; IV Status: Infusion continued upon transfer ph 09:40 Drug: Acetaminophen IA Suppository 650 mg IA once Route: IA; ph 10:01 Follow up: Response: No adverse reaction ph Disposition Summary: 04/23/24 08:29 Transfer Ordered Notes: Transfer Location: [facility] sp3 Reason: Higher level of care sp3 Condition: Stable sp3 Problem: an acute exacerbation sp3 Symptoms: have worsened sp3 Accepting Physician: [facility] Orthopedics + Medicine(04/23/24 10:01) ph Diagnosis - Orthopedic hardware infection thoracic spine, back pain sp3 Discharge Instructions: - Discharge Summary Sheet ph Forms: - Family Work Release ph - Medication Reconciliation Form sp3 - SBAR form sp3 Signatures: Dispatcher [employer] Berta Huynh RN RN ph Juan Paredes MD MD sp3 Belen Persaud RN RN ha1 Jacek Alvarez MD MD sp4 Garima Anders RN RN ay Corrections: (The following items were deleted from the chart) : 08:29 [facility] Orthopedics + Medicine sp3 ph
[2024-04-23] MEDS ORDERED: VANCOMYCIN 1 GM/VIAL ONE (08:44)
[2024-04-23] MEDS ORDERED: NA CHLORIDE 0.9% 100 ML ONE (08:45)
[2024-04-23] MEDS ORDERED: PIPERACIL/TAZO 3.375 GM VIAL IV ONE (08:45)
[2024-04-23] MEDS ORDERED: NA CHLORIDE 0.9% 250 ML ONE (08:45)
[2024-04-23] MEDS ORDERED: ACETAMINOPHEN 650MG/RECT SUPP PR ONE (09:24)
[2024-04-23 10:20] LABS: Calcium Oxalate Crystals- Ur Few /HPF (None Seen); Sqamous Epithelial <5 /HPF (None Seen); Urine Bacteria <20 /HPF (<20); Urine Bilirubin 1+ (Negative); Urine Blood Trace (Negative); Urine Clarity Turbid (Clear); Urine Color Yellow (Yellow); Urine Culture Reflex Order NOT NEEDED; Urine Glucose NEGATIVE (Negative); Urine Ketones TRACE (Negative); Urine Microscopic Reflex YN ORDER UMIC; Urine Mucus Slight /HPF (None Seen); Urine Nitrite NEGATIVE (Negative); Urine Protein 2+ (Negative); Urine RBC 21-50 /HPF (None Seen); Urine Urobilinogen 2+ (Normal); Urine WBC <5 /HPF (<5); Urine Yeast (Budding) Occasional /HPF (None Seen); Urine pH 6.5 (5.0-7.0)
[2024-04-23 10:22] LABS: Specific Gravity > 1.030 (1.005-1.030)
[2024-04-23 15:13] VITALS: O2SAT 92
[2024-04-23 15:14] VITALS: BP 160/94; TEMP 100.6
== END 2024-04-23 10:01 | disposition short-term general hospital (02) ==
LOC: ER 04:43
DX: T84.63XA Infection and inflammatory reaction due to internal fixation device of spine, initial encounter (principal); Z87.820 Personal history of traumatic brain injury; N28.9 Disorder of kidney and ureter, unspecified
CPT/HCPCS: 96365; 85025; 81001; 36415; 83690; 80053; 74177; 51702; 96375; 99285; Q9967; J2765; J2543; J2405; J7050; J7030